=== PATIENT | female | born 1965 | race Caucasian/White ===

== ENCOUNTER → 2017-09-03 13:21 | Outpatient (CLI) | payer OTHER, SELFPAY ==
--- NOTE | 2017-09-03 13:23 | BI_ITS ---
MAMMOGRAPHY - BILATERAL SCREENING REASON FOR EXAM: Female, 52 years old. Routine annual screening examination. PERTINENT HISTORY: Non-contributory. TECHNIQUE: Digital bilateral breast surekha (3D mammographic acquisition) in the CC and MLO projections. 2-D mediolateral oblique (MLO) and craniocaudad (CC) views of both breasts were obtained. CAD: Full Field Digital Mammography with Computer Added Detection was performed. COMPARISON: Comparison is made with prior outside examination dated August 28, 2016. FINDINGS: Breast Composition: There are scattered areas of fibroglandular density. There are no dominant masses or suspicious calcifications. No other significant abnormalities are identified. There has been no significant change since the prior study. BI/SCREENING MAMM (CAD), BILAT IMPRESSION: Stable bilateral screening mammogram. Yearly follow-up mammogram recommended. (A) ASSESSMENT CATEGORY: BIRADS Category 1: Negative. A letter regarding these results will be sent to the patient by the facility within 30 days. Approximately 10% of breast cancers are not detected by mammography. A normal mammogram should not delay biopsy of a clinically suspicious abnormality. [id number] Electronically Signed: Saurabh Oneal MD at 15:16 EDT Tel [phone], Service support ,
== END ==
PROVIDERS: Family Provider Family Medicine; PCP Family Medicine; Visit Provider Obstetrics & Gynecology
DX: Z12.31 Encounter for screening mammogram for malignant neoplasm of breast (principal)
CPT/HCPCS: 77063; 77067

== ENCOUNTER → 2018-01-31 13:15 | Outpatient (CLI) | payer OTHER, SELFPAY ==
[2018-01-28 09:14] VITALS: BMI 41.1
--- NOTE | 2018-01-31 13:18 | US_ITS ---
STUDY: ULTRASOUND BREAST - RIGHT REASON FOR EXAM: Female, 52 years old. Pain in the right breast. TECHNIQUE: Axial and longitudinal images of the RIGHT breast were performed with a high resolution ultrasound transducer. COMPARISON: Comparison is made with prior mammogram done earlier in the day. FINDINGS: RIGHT Breast: The upper half of the right breast was examined by ultrasound. There is homogeneous fibroglandular tissue. No solid or cystic mass lesion is seen. US/Breast Limited Unilateral IMPRESSION: Unremarkable examination of the upper half of the right breast. ASSESSMENT CATEGORY: BIRADS Category 1: Negative. A letter regarding these results will be sent to the patient by the facility within 30 days. Electronically Signed: Saurabh Oneal MD at 15:05 EST Tel [phone], Service support ,
--- NOTE | 2018-01-31 13:18 | BI_ITS ---
MAMMOGRAPHY - UNILATERAL DIAGNOSTIC: RIGHT BREAST REASON FOR EXAM: Female, 52 years old. One-week history of right breast pain. PERTINENT HISTORY: Non-contributory. TECHNIQUE: Digital unilateral breast surekha (3D mammographic acquisition) in the CC and MLO projections. 2-D mediolateral oblique (MLO) and craniocaudad (CC) views of both breasts were obtained. CAD: Full Field Digital Mammography with Computer Added Detection was performed. COMPARISON: Comparison is made with prior study dated September 03, 2017. FINDINGS: Breast Composition: There are scattered areas of fibroglandular density. There are no dominant masses or suspicious calcifications. No other significant abnormalities are identified. There has been no significant change since the prior study. BI/DIAG MAMM W/CAD, UNILAT IMPRESSION: Stable unilateral diagnostic mammogram. With the patient's history of right breast pain, correlation with ultrasound is recommended. ASSESSMENT CATEGORY: BIRADS Category 0: Incomplete. Need additional imaging evaluation. A letter regarding these results will be sent to the patient by the facility within 30 days. Approximately 10% of breast cancers are not detected by mammography. A normal mammogram should not delay biopsy of a clinically suspicious abnormality. Electronically Signed: Saurabh Oneal MD at 15:00 EST Tel [phone], Service support ,
--- OUTSIDE RECORDS SUMMARY | 2018-03-26 21:17 | XMS RPT_ITS ---
:1965 Author Organization OHIP Support Name Relationship Address Phone RIKY MOSCOSO Unavailable [address] + [place] [address] WOOCISCH Unavailable [address] + [place] [address] DANISRIKY LOOMIS Unavailable [address] + [place] [address] WOOCISCH Unavailable [address] + [place] [address] RIKY MOSCOSO Unavailable [address] + [place] [address] WOOCISCH Unavailable [address] + [place] [address] RIKY MOSCOSO Unavailable [address] + [place] [address] WOOCISCH Unavailable [address] + [place] [address] RIKY MOSCOSO Unavailable [address] + [place] [address] WOOCISCH Unavailable [address] + [place] [address] DANIS RIKY Unavailable [address] + [place] [address] WOOCISCH Unavailable [address] + [place] [address] DANIS RIKY Unavailable [address] + [place] [address] WOOCISCH Unavailable [address] + [place] [address] DANIS RIKY Unavailable [address] + [place] [address] WOOCISCH Unavailable [address] + [place] [address] RIKY MOSCOSO Unavailable [address] + [place] [address] WOOCISCH Unavailable [address] + [place] [address] Care Team Providers Name Role Phone LAILA PEACOCK (AUTO SEAT COVER INSTALLER) Attending Unavailable CEBUL III, RAVINDER A Referring Unavailable LEMJACK TERESA (PT) Attending Unavailable LAILA PEACOCK (AUTO SEAT COVER INSTALLER) Referring Unavailable LAILA PEACOCK (AUTO SEAT COVER INSTALLER) Attending Unavailable LAILA PEACOCK (AUTO SEAT COVER INSTALLER) Referring Unavailable LEMONJACK (PT) Attending Unavailable AYUSH, LAILA Granda (AUTO SEAT COVER INSTALLER) Referring Unavailable LAILA PEACOCK (AUTO SEAT COVER INSTALLER) Attending Unavailable AYUSH, LAILA Granda (AUTO SEAT COVER INSTALLER) Referring Unavailable AYUSH, LAILA Granda (AUTO SEAT COVER INSTALLER) Referring Unavailable LAILA PEACOCK (AUTO SEAT COVER INSTALLER) Attending Unavailable LAILA PEACOCK (AUTO SEAT COVER INSTALLER) Referring Unavailable PEACOCK, LAILA Granda (AUTO SEAT COVER INSTALLER) Referring Unavailable CEBUL III, RAVINDER A Referring Unavailable Marcanthony, Tameka Attending Unavailable Cebul III, Ravinder Referring Unavailable Marcanthony, Tameka Attending Unavailable Marcanthony, Tameka Referring Unavailable Cebul III, Ravinder Primary Care Unavailable Marcanthony, Tameka Attending Unavailable Cebul III, Ravinder Referring Unavailable Cebul III, Ravinder Primary Care Unavailable Marcanthony, Tameka Attending Unavailable Cebul III, Ravinder Referring Unavailable Cebul III, Ravinder Primary Care Unavailable Marcanthony, Tameka Attending Unavailable Cebul III, Ravinder Referring Unavailable Cebul III, Ravinder Primary Care Unavailable Marcanthony, Tameka Attending Unavailable Cebul III, Ravinder Referring Unavailable Marcanthony, Tameka Attending Unavailable Cebul III, Ravinder Referring Unavailable Marcanthony, Tameka Attending Unavailable Cebul III, Ravinder Referring Unavailable Marcanthony, Tameka Attending Unavailable Cebul III, Ravinder Primary Care Unavailable PROBLEMS PROBLEMS DATE TYPE CONDITION / CODE ATTENDING STATUS SOURCE 07/22/2017 Active Radiculopathy, NA Active [facility] lumbar region / [facility] [place] M54.16(ICD-10) Repository 05/03/2017 Active Unknown / JACK HAUSER Active [facility] UNK(Unknown) (PT) [place] Repository 03/25/2015 Active Hypothyroidism, NA Active [facility] unspecified / [facility] [place] E03.9(ICD-10) Repository 04/15/2017 Active Elevated NA Active [facility] blood-pressure [facility] [place] reading, without Repository diagnosis of hypertension / R03.0(ICD-10) PROCEDURES PROCEDURES No Procedure Records FoundRESULTS RESULTS OBSOLETE Observed: 03/11/2018 Status: COMPLETED Source: [place] 12:00 AM [facility] REPOSITORY Refill (FAMPWS) GABRIEL MOSCOSO Harrison ([id number]) 1965 F Date Time Provider Department 03/11/18 RAVINDER FAUST III During your visit today, we recorded the following information about you: Tameka Boyle Psr 03/11/2018 3:53 PM Signed Patient has been identified by name and date of : Yes Pending Prescriptions Disp Refills GABAPENTIN 100 MG CAPSULE 60 capsule 2 Sig: Take 1 capsule by mouth twice daily for 90 days. CARO: No RX INSTRUCTIONS: Patient aware RX will be sent to pharmacy. No need to notify patient. Tameka Boyle Psr Ravinder Faust III MD 03/11/2018 6:39 PM Signed Appointment needed within the next month to follow-up prescription of controlled substance. Ravinder Faust III MD PDMP website checked and validated. All prescriptions have been APPROPRIATELY filled. No suspicious activity was identified. 03/11/2018 by TON Givens MD, LPN 03/11/2018 6:44 PM Signed Please schedule appt in the next month for controlled medication f/u. Thank you. Brea Abraham Psr 03/21/2018 3:02 PM Signed 1st attempt left message to call back to schedule with PCP for medication follow up in the next month. Angela Abraham Psr 03/22/2018 10:37 AM Signed Patient stated that she seen Pain Doctor yesterday and he will now order this medication for her and will no longer need PCP or Froy Peacock to order it. Patient declined to schedule. Allergies As of Date: 03/11/2018 Noted Allergy Reaction LEVAQUIN (LEVOFLOXACIN) 03/04/2015 6 - Diarrhea LISINOPRIL 07/07/2017 3 - Cough PENICILLINS 12/09/2004 Date Reviewed: 07/22/2017 Reviewed by: Laila Granda (Silvia) Ayush - Fully Assessed Reason for Visit: Refill Request [94] Visit Diagnoses:Neuropathic pain [M79.2] Lumbar radiculopathy [M54.16] Order(s):gabapentin (NEURONTIN) 100 mg capsuleTake 1 capsule by mouth twice daily for 90 days.Disp: 60 capsuleRfl: 0 Prescriptions as of 03/11/2018 Sig: GABAPENTIN 100 MG CAPSULE Take 1 capsule by mouth twice* LORATADINE 10 MG TABLET Take 1 tablet by mouth once d* LEVOTHYROXINE 137 MCG TABLET Take 1 tablet by mouth daily * GABAPENTIN 300 MG CAPSULE Take 1 capsule by mouth daily* PANTOPRAZOLE 20 MG TABLET,DEL* Take 1 tablet by mouth daily * SOLIFENACIN 10 MG TABLET Take 1 tablet by mouth once d* NYSTATIN 100,000 UNIT/GRAM TO* Apply 1 application to affect* Problem List As Of Date 03/11/2018 Noted Resolved Hypothyroidism [E03.9] INVALID FOR* Gastric Bypass Status for Obesity [Z98.84] INVALID FOR* Unspecified Iron Deficiency Anemia [D50.9] INVALID FOR* Acute gastritis without mention of hemorrhage [*INVALID FOR*09/18/2016 Menorrhagia [N92.0] INVALID FOR*04/15/2011 Sleep apnea [G47.30] INVALID FOR* Overactive bladder [N32.81] INVALID FOR* Urge incontinence [N39.41] INVALID FOR* Gastroesophageal reflux disease [K21.9] INVALID FOR* Bilateral leg pain [M79.604, M79.605] INVALID FOR* Obesity, Class III, BMI 40-49.9 (morbid obesity*INVALID FOR* Hypertension, essential [I10] INVALID FOR* Prescriptions ordered this encounter Disp Refills Start End GABAPENTIN 100 MG CAPSULE 60 c* 0 03/11/2018 06/09/2018 Route: ORAL Sig: Take 1 capsule by mouth twice daily for 90 days. Medications Discontinued During This Encounter gabapentin (NEURONTIN) 100 mg capsule 60 c* 2 07/27/2017 03/11/2018 Route: ORAL Sig: Take 1 capsule by mouth twice daily for 90 days. Disc: Reason for discontinue is not on file. Encounter Status:Closed by JOCELYN VILLALBA CMA on 03/22/18 OWNER OPERATOR OFFICE VISIT Observed: 02/09/2018 Status: F Source: [place] REPORT 1:11 AM [facility] REPOSITORY [facility] [address] [place] [address] OFFICE VISIT Date of Service: 02/08/18 MR#: [id number] Acct: [id number] Name: GABRIEL MOSCOSO Rep #: [id number] : 1965 Provider: Tameka Law MD Age/Sex: 52/F Location: [facility] [place] Status: Signed Intake Vital Signs02/08/18 Body Mass Index (BMI) 41.1 02/08/18 Height 5 ft 02/08/18 Weight: 215 lb 6 oz 02/08/18 Body Mass Index (BMI) 42.0 02/08/18 Blood Pressure 110/80 Intake Visit Reasons: IN-TONE F/U Chief Complaint: intone check Color Worker Required: No Is patient in pain?: No Allergies Penicillins Adverse Reaction (Verified 02/08/18 16:23) Rash Medications levothyroxine 100 mcg tablet 137 mcg PO DAILY tab 09/03/17 [History Confirmed 02/08/18] pantoprazole 40 mg tablet,delayed release 20 mg PO DAILY tab 09/03/17 [History Confirmed 02/08/18] Intone Device #1 ea 09/08/17 [Rx Confirmed 02/08/18] gabapentin 300 mg capsule 300 mg PO BID 01/28/18 [History Confirmed 02/08/18] Is last menstrual period known: No Post menopausal: No Patient : No : No PFSH Medical History HTN (hypertension), benign (Acute) Presence of artificial intra-ocular lens (Acute 2010) Surgical History H/O gastric bypass (Acute 2007) History of appendectomy (Acute) History of endometrial ablation (Acute) History of tonsillectomy (Acute) Family History Mother Cancer Lung Father Dementia Social History adopted: No household members: family housing: house number of children: 2 current occupational status: employed 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 she is wanting to increase her bladder medication back to 10 mg because her symptoms are worsening. she hasn't been using the intone as much lately and doesn't want that adjusted. she is also still having some migrating chest tenderness an had a fall so she is wondering if it is costochondritis. she can't take nsaids. Pregancy History 2 Elective abortions Hx Para 2 Spontaneous abortions Past Pregnancies Del. DatName GA/WeeksOutcome Route [facility] LocaProviderFOB e ht ia tn Unknown 1995- Pa ige Unknown 1997- ROS Const Constitutional: Denies poor appetite, headache(s), fever(s), increased appetite, weight gain, weight loss or fatigue ENT ENT: Denies dry mouth GI GI: Reports as per HPI; denies vomiting, nausea, abdominal pain or constipation : Denies nipple discharge Skin Skin/Breast: Denies hair loss, change in hair, dry skin, breast pain, breast skin changes, breast lump or nipple discharge Exam Const General: cooperative, healthy appearing, comfortable, no acute distress, well developed Orientation: alert HENTN Head: normal to inspection, normocephalic Ears: hearing grossly normal bilaterally, external ears normal Nose: external nose normal, nares normal Face and sinus: normal facial exam Neck Neck: normal visual inspection, trachea midline, no lymphadenopathy Thyroid: thyroid normal Resp Effort AND Inspection: normal respiratory effort Musc Other: gross motor intact no deficits, full bilateral strength Skin General: no rashes or lesions noted Neuro Motor: muscle tone normal throughout Assessment AND Plan Problems 1. BMI greater than 40 weight watchers, s/p adipex 2. Mixed stress and urge urinary incontinence N39.46 vesicare 10 mg, intone- inflation 11 and stim N/S at 18, s/p E/W at 15 Plan increase vesicare and fu when desires change in intone device stimulation. Coding Level of Care Code Off vis,est,level 3 Diagnoses BMI greater than 40 Mixed stress and urge urinary incontinence N39.46 02/09/18 0111 <Electronically signed by Tameka Law MD> Date Tameka Law MD Cosigner Signature: Date (if applicable) CC: DIAG MAMM W/CAD, Observed: 01/31/2018 Status: F Source: [facility] 1:18 PM [facility] REPOSITORY [facility] Imaging Services [address] [place] [id number] DIAG MAMM W/CAD, UNILAT MR#: [id number] Acct: [id number] Name: GABRIEL MOSCOSO Rep #: [id number] : 1965 F 52 From: Saurabh Oneal MD PCP: Ravindre Faust III, MD Status: REG CLI Study: DIAG MAMM W/CAD, UNILAT Date of Exam: 01/31/18 Exam# [id number] Ordering Dr: Tameka Law MD MAMMOGRAPHY - UNILATERAL DIAGNOSTIC: RIGHT BREAST REASON FOR EXAM: Female, 52 years old. One-week history of right breast pain. PERTINENT HISTORY: Non-contributory. TECHNIQUE: Digital unilateral breast surekha (3D mammographic acquisition) in the CC and MLO projections. 2-D mediolateral oblique (MLO) and craniocaudad (CC) views of both breasts were obtained. CAD: Full Field Digital Mammography with Computer Added Detection was performed. COMPARISON: Comparison is made with prior study dated September 03, 2017. FINDINGS: Breast Composition: There are scattered areas of fibroglandular density. There are no dominant masses or suspicious calcifications. No other significant abnormalities are identified. There has been no significant change since the prior study. BI/DIAG MAMM W/CAD, UNILAT IMPRESSION: Stable unilateral diagnostic mammogram. With the patient's history of right breast pain, correlation with ultrasound is recommended. ASSESSMENT CATEGORY: BIRADS Category 0: Incomplete. Need additional imaging evaluation. A letter regarding these results will be sent to the patient by the facility within 30 days. Approximately 10% of breast cancers are not detected by mammography. A normal mammogram should not delay biopsy of a clinically suspicious abnormality. Electronically Signed: Saurabh Oneal MD at 15:00 EST Tel [phone], Service support , CC: Ravinder Faust III, MD; Tameka Law MD Purchasing Administrator: Signed BREAST LIMITED Observed: 01/31/2018 Status: F Source: [place] 1:18 PM [facility] REPOSITORY [facility] Imaging Services [address] [place] [id number] Breast Limited Unilateral MR#: [id number] Acct: [id number] Name: GABRIEL MOSCOSO Rep #: [id number] : 1965 F 52 From: Saurabh Oneal MD PCP: Ravinder Faust III, MD Status: REG CLI Study: Breast Limited Unilateral Date of Exam: 01/31/18 Exam# [id number] Ordering Dr: Tameka Law MD STUDY: ULTRASOUND BREAST - RIGHT REASON FOR EXAM: Female, 52 years old. Pain in the right breast. TECHNIQUE: Axial and longitudinal images of the RIGHT breast were performed with a high resolution ultrasound transducer. COMPARISON: Comparison is made with prior mammogram done earlier in the day. FINDINGS: RIGHT Breast: The upper half of the right breast was examined by ultrasound. There is homogeneous fibroglandular tissue. No solid or cystic mass lesion is seen. US/Breast Limited Unilateral IMPRESSION: Unremarkable examination of the upper half of the right breast. ASSESSMENT CATEGORY: BIRADS Category 1: Negative. A letter regarding these results will be sent to the patient by the facility within 30 days. Electronically Signed: Saurabh Oneal MD at 15:05 EST Tel [phone], Service support , CC: Ravinder Faust III, MD; Tameka Law MD Purchasing Administrator: Signed OWNER OPERATOR OFFICE VISIT Observed: 01/28/2018 Status: F Source: [place] REPORT 10:20 AM [facility] [address] [place] [address] OFFICE VISIT Date of Service: 01/28/18 MR#: [id number] Acct: [id number] Name: GABRIEL MOSCOSO Rep #: [id number] : 1965 Provider: Tameka Law MD Age/Sex: 52/F Location: [facility] [place] Status: Signed Intake Vital Signs01/28/18 Height 5 ft 0.25 in 01/28/18 Weight: 212 lb 8 oz 01/28/18 Body Mass Index (BMI) 41.1 01/28/18 Blood Pressure 104/76 Intake Visit Reasons: Breast pain Chief Complaint: right breast pain Color Worker Required: No Is patient in pain?: Yes Allergies Penicillins Adverse Reaction (Verified 01/28/18 09:15) Rash Medications levothyroxine 100 mcg tablet 137 mcg PO DAILY tab 09/03/17 [History Confirmed 01/28/18] pantoprazole 40 mg tablet,delayed release 20 mg PO DAILY tab 09/03/17 [History Confirmed 01/28/18] Intone Device #1 ea 09/08/17 [Rx Confirmed 01/28/18] gabapentin 300 mg capsule 300 mg PO BID 01/28/18 [History Confirmed 01/28/18] Is last menstrual period known: No Post menopausal: No Patient : No : No PFSH Medical History HTN (hypertension), benign (Acute) Presence of artificial intra-ocular lens (Acute 2010) Surgical History H/O gastric bypass (Acute 2007) History of appendectomy (Acute) History of endometrial ablation (Acute) History of tonsillectomy (Acute) Family History Mother Cancer Lung Father Dementia Social History adopted: No household members: family housing: house number of children: 2 current occupational status: employed 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 she admits several right sided breast pain for the last few days and she denies any discharge but possibly sees a change in the desnity pattern to the breast. she denies any other symptoms at present. s he denies any caffeine Pregancy History 2 Elective abortions Hx Para 2 Spontaneous abortions Past Pregnancies Del. DatName [facility]Out[facility] LocaProviderFOB e ht en ia tn Unknown 1995- Pa ige Unknown 1997- ROS Const Constitutional: Denies poor appetite, headache(s), fever(s), increased appetite, weight gain, weight loss or fatigue ENT ENT: Denies dry mouth GI GI: Reports as per HPI; denies vomiting, nausea, abdominal pain or constipation : Reports as per HPI Skin Skin/Breast: Reports as per HPI; denies hair loss, change in hair or dry skin Exam Const General: cooperative, healthy appearing, comfortable, no acute distress, well developed Nutritional Appearance: average body habitus Orientation: alert [facility] Head: normal to inspection, normocephalic Ears: hearing grossly normal bilaterally, external ears normal Nose: external nose normal, nares normal Face and sinus: normal facial exam Neck Neck: normal visual inspection, trachea midline, no lymphadenopathy Thyroid: thyroid normal Chest Chest palpation AND inspection: normal inspection of the chest Breast inspection: normal inspection of the breasts, normal inspection of the axillae Breast palpation: normal palpation of the axillae, no axillary lymphadenopathy, abnormal palpation of the breast (right tenderness no discrete mass) Resp Effort AND Inspection: normal respiratory effort GI Inspection: normal to inspection, non-distended Palpation: soft, no hepatosplenomegaly Musc Other: gross motor intact no deficits, full bilateral strength Skin General: no rashes or lesions noted Neuro General: alert, awake, no focal motor deficits, moves all extremities Motor: muscle tone normal throughout Extrem General: normal to inspection, no pedal edema Psych Appearance: grossly normal Mental Status: mental status grossly normal Affect: normal affect Speech and Movement: speech and movement normal Assessment AND Plan Problems 1. Mastalgia N64.4 Plan recommend imaging, discussed conservative management. not a candidate for nsaids. recommend fu in 1 month if normal imaging and no improvement Orders Orders: Coding Level of Care Code Off vis,est,level 4 Diagnoses Mastalgia N64.4 01/28/18 1020 <Electronically signed by Tameka Law MD> Date Tameka Law MD Cosigner Signature: Date (if applicable) CC: CNNURSE Observed: 01/26/2018 Status: COMPLETED Source: [place] 1:00 PM [facility] REPOS[facility] Nurse Visit (FAMPWS) GABRIEL MOSCOSO ([id number]) 1965 F Date Time Provider Department 01/26/18 1:00 PM [place] NURSE ROSA ELENA During your visit today, we recorded the following information about you: Pulse Blood pressure 74/minute 126/84 Lala Li LPN 01/26/2018 1:03 PM Signed Manual Readin/84 Pulse: 74 Reason for blood pressure check - Medication adjustment Patient is: Taking medication as prescribed Yes Took medication today Yes If no, date medication last taken N/A Experiencing side effects No BP has been running on the lower side recently since recent weight loss. Has not been on the Losartan for approx 3 weeks. Denies any chest pain, shortness of breath, dizziness, or headaches. Drinks decaf. No personal history of tobacco use; no current exposure. Alert and oriented. Pt has been identified by name and birthdate: Yes Allergies reviewed: Yes Latex allergy: no. Medication - prescribed and OTC reviewed and updated: Yes Do you need any prescription refills prior to your next visit: No Health Maintenance: Reviewed and not up to date and provider notified Patient advised to continue with current medications and would be contacted with any further instructions after review by PCP. Lala Li LPN Referring Provider: SELF [200] Allergies As of Date: 01/26/2018 Noted Allergy Reaction LEVAQUIN (LEVOFLOXACIN) 03/04/2015 6 - Diarrhea LISINOPRIL 07/07/2017 3 - Cough PENICILLINS 12/09/2004 Date Reviewed: 07/22/2017 Reviewed by: Laila Granda (Silvia) Ayush - Fully Assessed Reason for Visit: Blood Pressure Check [195] Primary Visit Diagnosis:Hypertension, essential [I10] Prescriptions as of 01/26/2018 Sig: LORATADINE 10 MG TABLET Take 1 tablet by mouth once d* LEVOTHYROXINE 137 MCG TABLET Take 1 tablet by mouth daily * PANTOPRAZOLE 20 MG TABLET,DEL* Take 1 tablet by mouth daily * SOLIFENACIN 10 MG TABLET Take 1 tablet by mouth once d* NYSTATIN 100,000 UNIT/GRAM TO* Apply 1 application to affect* GABAPENTIN 300 MG CAPSULE Take 1 capsule by mouth daily* GABAPENTIN 100 MG CAPSULE Take 1 capsule by mouth twice* Problem List As Of Date 01/26/2018 Noted Resolved Hypothyroidism [E03.9] INVALID FOR* Gastric Bypass Status for Obesity [Z98.84] INVALID FOR* Unspecified Iron Deficiency Anemia [D50.9] INVALID FOR* Acute gastritis without mention of hemorrhage [*INVALID FOR*09/18/2016 Menorrhagia [N92.0] INVALID FOR*04/15/2011 Sleep apnea [G47.30] INVALID FOR* Overactive bladder [N32.81] INVALID FOR* Urge incontinence [N39.41] INVALID FOR* Gastroesophageal reflux disease [K21.9] INVALID FOR* Bilateral leg pain [M79.604, M79.605] INVALID FOR* Obesity, Class III, BMI 40-49.9 (morbid obesity*INVALID FOR* Hypertension, essential [I10] INVALID FOR* Encounter Status:Closed by LALA LI LPN on 01/26/18 PROGRESS Observed: 01/26/2018 Status: COMPLETED Source: [place] 12:57 PM [facility] REPOSITORY O ID: [id number] Author: Lala Li LPN Service: (none) Author Type: (none) Type: Progress Notes Filed: 01/26/2018 1:03 PM Note Text: Manual Readin/84 Pulse: 74 Reason for blood pressure check - Medication adjustment Patient is: Taking medication as prescribed Yes Took medication today Yes If no, date medication last taken N/A Experiencing side effects No BP has been running on the lower side recently since recent weight loss. Has not been on the Losartan for approx 3 weeks. Denies any chest pain, shortness of breath, dizziness, or headaches. Drinks decaf. No personal history of tobacco use; no current exposure. Alert and oriented. Pt has been identified by name and birthdate: Yes Allergies reviewed: Yes Latex allergy: no. Medication - prescribed and OTC reviewed and updated: Yes Do you need any prescription refills prior to your next visit: No Health Maintenance: Reviewed and not up to date and provider notified Patient advised to continue with current medications and would be contacted with any further instructions after review by PCP. Lala Li LPN CNPN Observed: 01/03/2018 Status: COMPLETED Source: [place] 12:00 AM [facility] REPOSITORY Telephone (FAMPWS) GABRIEL MOSCOSO ([id number]) 1965 F Date Time Provider Department 01/03/18 [facility] During your visit today, we recorded the following information about you: Surjit Rhodes RN 01/03/2018 10:49 AM Signed Patient reports she has lost 30 #, now down to 209 #. Reports her BP's have been running 110/72. Has been getting readings at Dr. Favio Grewal - [facility] [place] office, and is going to ask her to fax the readings to pcp. Reports she is with weight watchers and plans to lose more weight, and has been taking half of her losartan 50 mg tab, since July. Asking if she can discontinue her BP medication at this time? Please advise. Also requesting refill on loratadine. Pended. Last ov w/Acquisition Editor: 07-22-17. Next appt: none. Laila Peacock, MSN EMAIL MARKETING ASSISTANT.OBIEE LEAD DEVELOPER 01/03/2018 10:53 AM Signed Yes, OK to discontinue Losartan. Recommend nurse visit BP check in 3-4 weeks off of medication to make sure still OK and in acceptable range off medication. Kudos to weight loss efforts. Keep it up. Telephone on 01/03/18 -loratadine (CLARITIN) 10 mg tablet Laila Peacock, MSN EMAIL MARKETING ASSISTANT.JASON Galicia LPN 01/03/2018 11:20 AM Signed Left message of Laila's instructions on pt's identified vm. Asked pt to call back to schedule NV bp check in 3-4 weeks. Brea Guzman RN 01/06/2018 8:52 AM Signed Patient returned call. Scheduled for BP check on 01/26. Johanna Guzman RN Allergies As of Date: 01/03/2018 Noted Allergy Reaction LEVAQUIN (LEVOFLOXACIN) 03/04/2015 6 - Diarrhea LISINOPRIL 07/07/2017 3 - Cough PENICILLINS 12/09/2004 Date Reviewed: 07/22/2017 Reviewed by: Laila Granda (Silvia) Ayush - Fully Assessed Reason for Visit: BP medication/changes [Other] Order(s):loratadine (CLARITIN) 10 mg tabletTake 1 tablet by mouth once daily.Disp: 90 tabletRfl: 3 Prescriptions as of 01/03/2018 Sig: LORATADINE 10 MG TABLET Take 1 tablet by mouth once d* LEVOTHYROXINE 137 MCG TABLET Take 1 tablet by mouth daily * GABAPENTIN 300 MG CAPSULE Take 1 capsule by mouth daily* GABAPENTIN 100 MG CAPSULE Take 1 capsule by mouth twice* PANTOPRAZOLE 20 MG TABLET,DEL* Take 1 tablet by mouth daily * SOLIFENACIN 10 MG TABLET Take 1 tablet by mouth once d* NYSTATIN 100,000 UNIT/GRAM TO* Apply 1 application to affect* Problem List As Of Date 01/03/2018 Noted Resolved Hypothyroidism [E03.9] INVALID FOR* Gastric Bypass Status for Obesity [Z98.84] INVALID FOR* Unspecified Iron Deficiency Anemia [D50.9] INVALID FOR* Acute gastritis without mention of hemorrhage [*INVALID FOR*09/18/2016 Menorrhagia [N92.0] INVALID FOR*04/15/2011 Sleep apnea [G47.30] INVALID FOR* Overactive bladder [N32.81] INVALID FOR* Urge incontinence [N39.41] INVALID FOR* Gastroesophageal reflux disease [K21.9] INVALID FOR* Bilateral leg pain [M79.604, M79.605] INVALID FOR* Obesity, Class III, BMI 40-49.9 (morbid obesity*INVALID FOR* Hypertension, essential [I10] INVALID FOR* Prescriptions ordered this encounter Disp Refills Start End LORATADINE 10 MG TABLET 90 t* 3 01/03/2018 Route: ORAL Sig: Take 1 tablet by mouth once daily. Medications Discontinued During This Encounter loratadine (CLARITIN) 10 mg tablet 90 t* 3 09/18/2016 01/03/2018 Route: ORAL Sig: Take 1 tablet by mouth once daily. Disc: Reason for discontinue is not on file. losartan (COZAAR) 50 mg tablet 30 t* 5 07/27/2017 01/03/2018 Route: ORAL Sig: Take 1 tablet by mouth once daily. Disc: Clinical Decision Encounter Status:Closed by BREA GALICIA LPN on 01/03/18 OWNER OPERATOR OFFICE VISIT Observed: 12/26/2017 Status: F Source: [place] 1:27 AM [facility] [address] [place] [address] OFFICE VISIT Date of Service: 12/22/17 MR#: [id number] Acct: [id number] Name: GABRIEL MOSCOSO Rep #: [id number] : 1965 Provider: Tameka Law MD Age/Sex: 52/F Location: [facility] [place] Status: Signed Intake Vital Signs12/22/17 Height 5 ft 12/22/17 Blood Pressure 120/66 Intake Visit Reasons: Intone follow-up Color Worker Required: No Is patient in pain?: No Allergies Penicillins Adverse Reaction (Verified 12/22/17 16:01) Rash Medications Loratadine [Allergy Relief] 10 mg PO DAILY 09/01/16 [History Confirmed 12/22/17] levothyroxine 100 mcg tablet 137 mcg PO DAILY tab 09/03/17 [History Confirmed 12/22/17] losartan 50 mg-hydrochlorothiazide 12.5 mg tablet 1 tab PO QDAY 09/03/17 [History Confirmed 12/22/17] pantoprazole 40 mg tablet,delayed release 20 mg PO DAILY tab 09/03/17 [History Confirmed 12/22/17] Intone Device #1 ea 09/08/17 [Rx Confirmed 12/22/17] phentermine 37.5 mg tablet 37.5 mg PO QDAY #30 tab 10/08/17 [Rx Confirmed 12/22/17] prednisone 10 mg tablet 10 mg PO DAILY 11/25/17 [History Confirmed 12/22/17] solifenacin 5 mg tablet 5 mg PO QDAY #30 tab 11/27/17 [Rx Confirmed 12/22/17] Is last menstrual period known: No Post menopausal: No Patient : No : No PFSH PFSH Medical History HTN (hypertension), benign (Acute) Presence of artificial intra-ocular lens (Acute 2010) Surgical History H/O gastric bypass (Acute 2007) History of appendectomy (Acute) History of endometrial ablation (Acute) History of tonsillectomy (Acute) Family History Mother Cancer Lung Father Dementia Social History adopted: No household members: family housing: house number of children: 2 current occupational status: employed 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 DatName GA/WeeksOutcome Route [facility]n Unknown 1995- ige Unknown 1997- HPI Intone follow-up: Details: GABRIEL MOSCOSO is a 52 year old who presents for fu of intone. she is doing well and wants to switch back to [facility]. she was on 15 stim e/w and previously did 18 stim on n/s. symptoms are stable with no improvement since last visit. ROS Const Constitutional: Reports system reviewed and no additional complaints, except as docu : Reports urinary incontinence, urinary frequency and urinary urgency Exam Const General: cooperative, healthy appearing, comfortable, well developed Orientation: alert Resp Effort AND Inspection: normal respiratory effort GI Inspection: normal to inspection, non-distended Palpation: soft, no hepatosplenomegaly, no guarding Assessment AND Plan Problems 1. Mixed stress and urge urinary incontinence N39.46 vesicare, intone- inflation 11 and stim N/S at 18, s/p E/W at 15 Plan intone device reset to new level and plan fu in 3-4 weeks Coding Level of Care Code Off vis,est,level 3 Diagnoses Mixed stress and urge urinary incontinence N39.46 12/26/17 0127 <Electronically signed by Tameka Law MD> Date Tameka Law MD [facility] Signature: Date (if applicable) CC: PROGRESS Observed: 12/02/2017 Status: COMPLETED Source: [place] 7:06 PM [facility] [place] REPOSITORY HNO ID: [id number] Author: Ravinder Faust III Service: (none) Author Type: Physician Type: Progress Notes Filed: 12/02/2017 7:06 PM Note Text: Thyroid lab is normal. And tinea present dose of thyroid medication and recheck thyroid lab in 1 year. Ravinder Faust III, MD, FAAFP CNCO Observed: 12/02/2017 Status: COMPLETED Source: [place] 12:00 AM [facility] REPOSITORY Letter Text Ravinder Segovia M.D. [address] [address] Gabriel Moscoso [address] [place] [address] Clinic #: [id number] 12/02/2017 Dear Deloris Moscoso, I have received the results of your recent tests. Thyroid lab is normal. ?And tinea present dose of thyroid medication and recheck thyroid lab in 1 year. We can discuss this at your next visit. Please do not hesitate to contact me with any questions. Sincerely, Ravinder Segovia M.D. electronically signed to expedite mailing TSH Collected: 12/01/2017 Status: F Source: [place] 1:14 PM [facility] REPOSITORY TYPE CODE TESTS RESULT OUT OF RANGE REFERENCE UNITS LAB TSH 0.400-5.500 uU/mL TSH 1.600 Performed By: #### TSH #### [facility] [address] [place], [place] [address] OWNER OPERATOR OFFICE VISIT Observed: 11/27/2017 Status: F Source: [place] 12:29 PM [facility] REPOSITORY [facility] [address] [place] [address] OFFICE VISIT Date of Service: 11/25/17 MR#: [id number] Acct: [id number] Name: GABRIEL MOSCOSO Rep #: [id number] : 1965 Provider: Tameka Law MD Age/Sex: 52/F Location: [facility] [place] Status: Signed Intake Vital Signs11/25/17 Height 5 ft 11/25/17 Weight: 211 lb 11/25/17 Body Mass Index (BMI) 41.2 11/25/17 Blood Pressure 108/80 Intake Visit Reasons: INTONE FOLLOW UP Chief Complaint: intone check Color Worker Required: No Is patient in pain?: No Allergies Penicillins Adverse Reaction (Verified 11/25/17 16:07) Rash Medications Loratadine [Allergy Relief] 10 mg PO DAILY 09/01/16 [History Confirmed 10/27/17] levothyroxine 100 mcg tablet 137 mcg PO DAILY tab 09/03/17 [History Confirmed 10/27/17] losartan 50 mg-hydrochlorothiazide 12.5 mg tablet 1 tab PO QDAY 09/03/17 [History Confirmed 10/27/17] pantoprazole 40 mg tablet,delayed release 20 mg PO DAILY tab 09/03/17 [History Confirmed 10/27/17] Intone Device #1 ea 09/08/17 [Rx Confirmed 10/27/17] phentermine 37.5 mg tablet 37.5 mg PO QDAY #30 tab 10/08/17 [Rx Confirmed 10/27/17] prednisone 10 mg tablet 10 mg PO DAILY 11/25/17 [History Confirmed 11/25/17] solifenacin 5 mg tablet 5 mg PO QDAY #30 tab 11/27/17 [Rx Confirmed 11/27/17] Is last menstrual period known: No Post menopausal: No Patient : No : No PFSH Medical History HTN (hypertension), benign (Acute) Presence of artificial intra-ocular lens (Acute 2010) Surgical History H/O gastric bypass (Acute 2007) History of appendectomy (Acute) History of endometrial ablation (Acute) History of tonsillectomy (Acute) Family History Mother Cancer Lung Father Dementia Social History adopted: No household members: family housing: house number of children: 2 current occupational status: employed 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 she has an inflation level of 11 and stim n/w of 18. she has been compliant and her values were reviewed and look to be improving. she is noticing great success even more so than her last visit. she is barely using protection and wants to go down on her vesicare also. Pregancy History 2 Elective abortions Hx Para 2 Spontaneous abortions Past Pregnancies Del. DatName GA/WeeksOutcome Route [facility] LocaProviderFOB e ht en ia tn Unknown 1995- Pa ige Unknown 1997- ROS Const Constitutional: Reports system reviewed and no additional complaints, except as docu : Reports as per HPI and urinary incontinence Exam Const General: cooperative, healthy appearing, comfortable, no acute distress, well developed Nutritional Appearance: average body habitus Orientation: alert [facility] Head: normal to inspection, normocephalic Ears: hearing grossly normal bilaterally, external ears normal Nose: external nose normal, nares normal Face and sinus: normal facial exam Neck Neck: normal visual inspection, trachea midline, no lymphadenopathy Thyroid: thyroid normal Resp Effort AND Inspection: normal respiratory effort Musc Other: gross motor intact no deficits, full bilateral strength Skin General: no rashes or lesions noted Neuro Motor: muscle tone normal throughout Assessment AND Plan Problems 1. Mixed stress and urge urinary incontinence N39.46 vesicare, intone- inflation 11 and s/p stim N/S at 18, now E/W at 15 Plan see problem list details. 12 minute treatment completed, fu in 4 weeks for adjustment, decrease vesicare to 5 mg Medications Changed: Coding Level of Care Code Off vis,est,level 4 Diagnoses Mixed stress and urge urinary incontinence N39.46 11/27/17 1229 <Electronically signed by Tameka Law MD> Date Tameka Law MD Cosigner Signature: Date (if applicable) CC: OWNER OPERATOR OFFICE VISIT Observed: 10/28/2017 Status: F Source: [place] RE[place] 6:19 AM [facility] [place] [place] [address] [place] [address] OFFICE VISIT Date of Service: 10/27/17 MR#: [id number] Acct: [id number] Name: GABRIEL MOSCOSO Rep #: [id number] : 1965 Provider: Tameka Law MD Age/Sex: 52/F Location: [facility] [place] Status: Signed Intake Vital Signs10/27/17 Height 5 ft 0.25 in 10/27/17 Weight: 213 lb 10/27/17 Body Mass Index (BMI) 41.2 10/27/17 Blood Pressure 110/84 Intake Visit Reasons: intone Check Chief Complaint: intone check Color Worker Required: No Is patient in pain?: No Allergies Penicillins Adverse Reaction (Verified 10/27/17 07:52) Rash Medications Loratadine [Allergy Relief] 10 mg PO DAILY 09/01/16 [History Confirmed 10/27/17] levothyroxine 100 mcg tablet 137 mcg PO DAILY tab 09/03/17 [History Confirmed 10/27/17] losartan 50 mg-hydrochlorothiazide 12.5 mg tablet 1 tab PO QDAY 09/03/17 [History Confirmed 10/27/17] pantoprazole 40 mg tablet,delayed release 20 mg PO DAILY tab 09/03/17 [History Confirmed 10/27/17] solifenacin 10 mg tablet 10 mg PO QDAY #30 tab 09/03/17 [Rx Confirmed 10/27/17] Intone Device #1 ea 09/08/17 [Rx Confirmed 10/27/17] phentermine 37.5 mg tablet 37.5 mg PO QDAY #30 tab 10/08/17 [Rx Confirmed 10/27/17] Is last menstrual period known: No Post menopausal: No Patient : No : No PFSH Medical History HTN (hypertension), benign (Acute) Presence of artificial intra-ocular lens (Acute 2010) Surgical History H/O gastric bypass (Acute 2007) History of appendectomy (Acute) History of endometrial ablation (Acute) History of tonsillectomy (Acute) Family History Mother Cancer Lung Father Dementia Social History adopted: No household members: family housing: house number of children: 2 current occupational status: employed 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 this is her first follow up. she has been using it consistently and she has noticed a 20 percent or more improvement in symptoms. she uses 1-2 pads daily and she has less urgency and more control. Female Reproductive History Cycle Length: 21-35 Questions: Metorrhagia: No, Sexually active: Yes, Dyspareunia: No, PCB: No Pregancy History 2 Elective abortions Hx Para 2 Spontaneous abortions Past Pregnancies Del. DatName GA/WeeksOutcome Route [facility] LocaProviderFO[facility]t en ia tn Unknown 1995- Pa ige Unknown 1997- ROS Cardio Card: Denies chest pain Resp Resp: Denies dyspnea or cough GI GI: Reports as per HPI; denies vomiting, nausea, abdominal pain or constipation : Denies nipple discharge Skin Skin/Breast: Denies breast lump, breast pain, breast skin changes, nipple discharge or change in hair Exam Const General: cooperative, healthy appearing, comfortable, no acute distress, well developed Nutritional Appearance: average body habitus Orientation: alert [facility] Head: normal to inspection, normocephalic Neck Neck: normal visual inspection, trachea midline Thyroid: thyroid normal Resp Effort AND Inspection: normal respiratory effort GI Inspection: normal to inspection, non-distended Palpation: soft, no hepatosplenomegaly General: bladder normal to palpation External Female Exam: normal external appearance, normal appearance of the urethra Urethra: normal appearance of the urethra, normal palpation, no discharge Speculum Exam - Vagina: normal appearance of the vagina, normal vaginal discharge Speculum Exam - Cervix: normal appearance of the cervix, nontender Bimanual Exam- Vagina AND Uterus: bladder normal to palpation, No cervical tenderness, normal bimanual exam, uterine size normal, uterine shape normal, uterine mobility normal, uterine consistency normal, normal cervical palpation, uterus non-tender Bimanual Exam- Adnexa, other: normal adnexae, adnexae mobile, no adnexal masses, pelvic support normal Pelvic Support: normal Skin General: no rashes or lesions noted Assessment AND Plan Problems 1. Mixed stress and urge urinary incontinence N39.46 vesicare, intone- inflation 12 and stim at 18 2. BMI greater than 40 weight watchers, s/p adipex Plan see problem list details. intone device adjusted. N/S orientation. fu 4 weeks Coding Level of Care Code Off vis,est,level 3 Diagnoses Mixed stress and urge urinary incontinence N39.46 BMI greater than 40 10/28/17 0619 <Electronically signed by Tameka Law MD> Date Tameka Law MD Cosigner Signature: Date (if applicable) CC: OWNER OPERATOR OFFICE VISIT Observed: 10/09/2017 Status: F Source: [place] 7:23 AM [facility] [place] [place] [address] [place] [address] OFFICE VISIT Date of Service: 10/07/17 MR#: [id number] Acct: [id number] Name: GABRIEL MOSCOSO Rep #: [id number] : 1965 Provider: Tameka Law MD Age/Sex: 52/F Location: [facility] [place] Status: Signed Intake Vital Signs10/07/17 Height 5 ft 10/07/17 Weight: 216 lb 6 oz 10/07/17 Body Mass Index (BMI) 42.3 10/07/17 Blood Pressure 124/92 Intake Visit Reasons: MED FOLLOW UP / NEW INTONE Color Worker Required: No Is patient in pain?: No Allergies Penicillins Adverse Reaction (Verified 10/07/17 09:41) Rash Medications Loratadine [Allergy Relief] 10 mg PO DAILY 09/01/16 [History Confirmed 10/07/17] levothyroxine 100 mcg tablet 137 mcg PO DAILY tab 09/03/17 [History Confirmed 10/07/17] losartan 50 mg-hydrochlorothiazide 12.5 mg tablet 1 tab PO QDAY 09/03/17 [History Confirmed 10/07/17] pantoprazole 40 mg tablet,delayed release 20 mg PO DAILY tab 09/03/17 [History Confirmed 10/07/17] solifenacin 10 mg tablet 10 mg PO QDAY #30 tab 09/03/17 [Rx Confirmed 10/07/17] Intone Device #1 ea 09/08/17 [Rx Confirmed 10/07/17] phentermine 37.5 mg tablet 37.5 mg PO QDAY #30 tab 10/08/17 [Rx Confirmed 10/08/17] PFSH Medical History HTN (hypertension), benign (Acute) Presence of artificial intra-ocular lens (Acute 2010) Surgical History H/O gastric bypass (Acute 2007) History of appendectomy (Acute) History of endometrial ablation (Acute) History of tonsillectomy (Acute) Family History Mother Cancer Lung Father Dementia Social History adopted: No household members: family housing: house number of children: 2 current occupational status: employed 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: Yes history of recent travel: Yes ([place], [place], and [place]) out of country: Yes Smoking Status: Never smoker alcohol intake: current alcohol intake frequency: a few times a week substance use type: does not use seatbelt use: always do you feel safe at home: Yes additional social history: - Riky [facility] MED FOLLOW UP / NEW INTONE: Details: GABRIEL MOSCOSO is a 52 year old who presents for Here for mixed leakage She has had Kegels instruction documented and failed after 4 weeks (and/or pelvis floor exercises failure documented) Primary Diagnosis/Chief Complaint: urine leakage Current Incontinence Status: 1. Number of pads per day: 2-3 2. Type of pads used: regular 3. Frequency of voiding (number of times per day): every hour Treatment Plan - Instruction in the use of InTone: Based on the patient's primary diagnosis and prior history of incontinence management (see above), it has been determined that the patient may benefit from the use of InTone. The patient was instructed in the use of the InTone and successfully completed an entire session under clinical observation; the patient was provided a device for home use. Specifically, the following was completed: Patient confirms that they understand the InTone Treatment Protocol (6x/week for weeks). Patient demonstrated proper body positioning while using InTone (supine, knees bent to ceiling, upper back/neck supported) OR Other positions: supine Patient demonstrated independent ability to connect, lubricate, and insert the InTone device a minimum of 4 inches. Inflation value was evaluated and Patient was informed of her proper inflation level 9. Patient demonstrated independent ability to inflate the InTone device to its proper inflation level while inserted. Positioning of the device was evaluated and the patient was instructed to maintain North/South orientation of electrodes OR rotate to an East/West orientation and demonstrated independent positioning of the In Tone. north south Stimulation level was evaluated and set at 12 and the patient reports perceiving a comfortable circumferential vaginal contraction. Patient completed her 12-minute in-office session with coaching from the clinician. Coaching provided included: incresaing stimulation, encouraging correct positioning Following coaching, the patient was independent/required assistance with completion of volitional pelvic floor exercises without compensatory strategies. Patient was instructed in proper cleaning, storage, and charging of the InTone device; the patient performed these operations independently and without questions. Data was reviewed immediately after the in-office session to confirm: Start Pressure correlates to inflation value, Baseline Contraction Pressures are HIGHER than Start Pressure and Stimulation Average Pressure is HIGHER than Start Pressure. Recording of Data from InTone Session: Clinician confirms that data from the patient's 1st in-office InTone session has been reviewed as necessary. Treatment Plan - Physician Assessment and Recommendations: Assessment: see diagnosis/plan Recommendations: Discussed with patient Plan: Initiate InTone therapy (@six 12-minute sessions per week) Pregancy History 2 Elective abortions Hx Para 2 Spontaneous abortions Past Pregnancies Del. DatName GA/WeeksOutcome Route [facility] LocaProviderFOB e ht en ia tn Unknown 1995- ige Unknown 1997- ROS Const Constitutional: Denies poor appetite, headache(s), fever(s), increased appetite, weight gain, weight loss or fatigue Exam Const General: cooperative, healthy appearing, comfortable, no acute distress, well developed Nutritional Appearance: average body habitus Orientation: alert General: bladder normal to palpation External Female Exam: normal external appearance, normal appearance of the urethra Urethra: normal appearance of the urethra, normal palpation, no discharge Speculum Exam - Vagina: normal appearance of the vagina, normal vaginal discharge Speculum Exam - Cervix: normal appearance of the cervix, nontender Bimanual Exam- Vagina AND Uterus: bladder normal to palpation, No cervical tenderness, normal bimanual exam, uterine size normal, uterine shape normal, uterine mobility normal, uterine consistency normal, normal cervical palpation, uterus non-tender Bimanual Exam- Adnexa, other: normal adnexae, adnexae mobile, no adnexal masses, pelvic support normal Pelvic Support: normal Assessment AND Plan Problems 1. Mixed stress and urge urinary incontinence N39.46 vesicare, discussed intone 2. BMI greater than 40 weight watchers, adipex Plan adipex renewed, continue WW intone setup and baseline inflation 9 stim 12 fu in 2-3 weeks Medications Refilled: Coding Level of Care Code Off vis,est,level 4 Diagnoses Mixed stress and urge urinary incontinence N39.46 BMI greater than 40 10/09/17 0723 <Electronically signed by Tameka Law MD> Date Tameka Law MD Cosigner Signature: Date (if applicable) CC: OWNER OPERATOR OFFICE VISIT Observed: 09/03/2017 Status: F Source: [place] RE[place] 3:38 PM [facility] - [place], [place]'s [address] [place] [address] OFFICE VISIT Date of Service: 09/03/17 MR#: [id number] Acct: [id number] Name: DANISGABRIEL Harrison Rep #: [id number] : 1965 Provider: Tameka Law MD Age/Sex: 52/F Location: [facility] [place] Status: Signed Intake Vital Signs09/03/17 Height 5 ft 09/03/17 Weight: 222 lb 09/03/17 Body Mass Index (BMI) 43.3 09/03/17 Blood Pressure 126/68 Intake Visit Reasons: ANNUAL Color Worker Required: No Is patient in pain?: No Allergies Penicillins Adverse Reaction (Verified 09/03/17 14:31) Rash Medications Loratadine [Allergy Relief] 10 mg PO DAILY 09/01/16 [History Confirmed 09/03/17] levothyroxine 100 mcg tablet 137 mcg PO DAILY tab 09/03/17 [History Confirmed 09/03/17] losartan 50 mg-hydrochlorothiazide 12.5 mg tablet 1 tab PO QDAY 09/03/17 [History Confirmed 09/03/17] pantoprazole 40 mg tablet,delayed release 20 mg PO DAILY tab 09/03/17 [History Confirmed 09/03/17] solifenacin 10 mg tablet 10 mg PO QDAY #30 tab 09/03/17 [Rx Confirmed 09/03/17] Is last menstrual period known: No Post menopausal: No Patient : No : No PFSH Medical History HTN (hypertension), benign (Acute) Presence of artificial intra-ocular lens (Acute 2010) Surgical History H/O gastric bypass (Acute 2007) History of appendectomy (Acute) History of endometrial ablation (Acute) History of tonsillectomy (Acute) Family History Mother Cancer Lung Father Dementia Social History adopted: No household members: family housing: house number of children: 2 current occupational status: employed 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 DatName GA[facility]WeeksOutcome [facility]- ige Unknown 1997- HPI ANNUAL: Details: GABRIEL MOSCOSO is a 52 year old who presents for annual exam. Last PAP: 2015 neg History of abnormal PAP: no Last mammogram: 09/15 History of abnormal mammogram: no Colon cancer screening: yes Other preventative health care screenings: pcp is dr faust Female Reproductive History Questions: Metorrhagia: No, Sexually active: No Menopausal Symptoms: Yes hot flashes, Yes night sweats ROS Const Constitutional: Reports as per HPI and night sweats; denies poor appetite, fatigue, increased appetite, weight gain or weight loss Cardio Card: Denies chest pain Resp Resp: Denies dyspnea or cough GI GI: Reports as per HPI; denies bloating, abdominal pain, constipation, vomiting or nausea : Reports as per HPI, urinary urgency, urinary incontinence (stress and urge), urinary frequency, other and hot flashes; denies blood in urine, vaginal odor, vaginal itching, vaginal dryness, vaginal discharge, pelvic pain, painful urination, difficulty urinating, prolapse symptoms or nipple discharge Skin Skin/Breast: Denies breast pain, breast skin changes, nipple discharge, breast lump or changing lesions Exam Const General: cooperative, healthy appearing, comfortable, no acute distress, well developed, well groomed HENMT Head: normal to inspection, normocephalic Ears: hearing grossly normal bilaterally, external ears normal Nose: external nose normal Face and sinus: normal facial exam Neck Neck: normal visual inspection, full ROM, no lymphadenopathy Thyroid: thyroid normal Chest Chest palpation AND inspection: normal inspection of the chest Breast inspection: normal inspection of the breasts, normal inspection of the axillae Breast palpation: normal palpation of the breasts, normal palpation of the axillae, no axillary lymphadenopathy Resp Effort AND Inspection: normal respiratory effort GI Inspection: normal to inspection, non-distended Palpation: no guarding, soft, no hepatosplenomegaly General: bladder normal to palpation External Female Exam: normal external appearance, normal appearance of the urethra, no lesions Urethra: normal appearance of the urethra, normal palpation Speculum Exam - Vagina: normal appearance of the vagina, normal vaginal discharge Speculum Exam - Cervix: normal appearance of the cervix, no cervical discharge, no lesions, nontender Bimanual Exam- Vagina AND Uterus: No cervical tenderness, normal bimanual exam, uterine size normal, bladder normal to palpation, uterine mobility normal, uterine consistency normal, uterus non-tender, no cervical motion tenderness Bimanual Exam- Adnexa, other: normal adnexae, no adnexal masses, adnexae non-tender Skin General: no rashes or lesions noted Neuro General: alert, moves all extremities, no focal motor deficits Extrem General: no pedal edema, normal to inspection Psych Appearance: grossly normal Mental Status: mental status grossly normal Affect: normal affect Speech and Movement: speech and movement normal Attitude: cooperative Assessment AND Plan Problems 1. Encounter for gynecological examination with abnormal finding Z01.411 2. Mixed stress and urge urinary incontinence N39.46 vesicare, discussed intone 3. BMI greater than 40 weight watchers, adipex Plan Cervical cancer screening: pap hpv 2016 normal, obtain records Breast cancer screening: done today other health maintenance examination reviewed and up to date. Encouraged maintenance of a healthy weight and active lifestyle and handout given. Calcium/vitamin D recommendations provided. Annual exam handout including recommendations for good health guidelines and basic screening information given. Problem list up to date, see problem list details for any additional plan information. Follow up in one year for annual health maintenance exam or sooner if needed. Medications New: Changed: Coding Level of Care Code Off vis,est,prev 40-64yrs Diagnoses Encounter for gynecological examination with abnormal finding Z01.411 Gynecological examination findings: abnormal findings PRESENT Mixed stress and urge urinary incontinence N39.46 BMI greater than 40 09/03/17 1538 <Electronically signed by Tameka Law MD> Date Tameka Law MD Cosigner Signature: Date (if applicable) CC: SCREENING MAMM (CAD), Observed: 09/03/2017 Status: F Source: [place] B[place] 1:23 PM [facility] [place] REPOSITORY [facility] Imaging Services [address] [place] [id number] SCREENING MAMM (CAD), BIL MR#: [id number] Acct: [id number] Name: GABRIEL MOSCOSO Rep #: [id number] : 1965 F 52 From: Saurabh Oneal MD PCP: Ravinder Faust III, MD Status: REG CLI Study: SCREENING MAMM (CAD), BIL Date of Exam: 09/03/17 Exam# [id number] Ordering Dr: Ariadna Sierra AUTO SEAT COVER INSTALLER-C MAMMOGRAPHY - BILATERAL SCREENING REASON FOR EXAM: Female, 52 years old. Routine annual screening examination. PERTINENT HISTORY: Non-contributory. TECHNIQUE: Digital bilateral breast surekha (3D mammographic acquisition) in the CC and MLO projections. 2-D mediolateral oblique (MLO) and craniocaudad (CC) views of both breasts were obtained. CAD: Full Field Digital Mammography with Computer Added Detection was performed. COMPARISON: Comparison is made with prior outside examination dated August 28, 2016. FINDINGS: Breast Composition: There are scattered areas of fibroglandular density. There are no dominant masses or suspicious calcifications. No other significant abnormalities are identified. There has been no significant change since the prior study. BI/SCREENING MAMM (CAD), BILAT IMPRESSION: Stable bilateral screening mammogram. Yearly follow-up mammogram recommended. (A) ASSESSMENT CATEGORY: BIRADS Category 1: Negative. A letter regarding these results will be sent to the patient by the facility within 30 days. Approximately 10% of breast cancers are not detected by mammography. A normal mammogram should not delay biopsy of a clinically suspicious abnormality. [id number] Electronically Signed: Saurabh Oneal MD at 15:16 EDT Tel [phone], Service support , CC: SILVIA Sierra; Ravinder Faust III, MD Purchasing Administrator: Signed PROGRESS Observed: 08/04/2017 Status: COMPLETED Source: [place] 11:37 AM [facility] REPOSITORY HNO ID: [id number] Author: Jack Hauser Service: (none) Author Type: Physical Therapist Type: Progress Notes Filed: 08/04/2017 11:38 AM Note Text: [facility] PHYSICAL THERAPY DISCONTINUANCE OF CARE Plan of Care Period: Start of Care Date: 05/03/17 Last Visit Date: 05/31/17 Therapy Program: The following is a summary of the interventions provided for this episode of care; Therapeutic exercise and Manual therapy Assessment: Based on most recent visit, patient was progressing as expected toward functional goals based on documented subjective information on progress and documented objective information regarding pelvic alignment and centralization of symptoms. Unable to formally assess goal achievement due to non-compliance with therapy plan of care. Reason for Discontinuation of Care: Patient has not returned to therapy or scheduled additional follow-up appointments. Jack Hauser PT PROGRESS Observed: 08/02/2017 Status: COMPLETED Source: [place] 3:07 PM [facility] REPOSITORY HNO ID: [id number] Author: Lala Li LPN Service: (none) Author Type: (none) Type: Progress Notes Filed: 08/02/2017 3:13 PM Note Text: Manual Readin/76 Pulse: 68 Reason for blood pressure check - Last BP elevated and Medication adjustment Patient is: Taking medication as prescribed Yes Took medication today Yes If no, date medication last taken N/A Experiencing side effects No BP was elevated at last appt 07/22/17. Losartan was increased to 50mg daily. Tolerating medication well. Denies any chest pain, shortness of breath, dizziness, or headaches. Drinks decaf. No personal history of tobacco use; no current exposure. Alert and oriented. Pt has been identified by name and birthdate: Yes Allergies reviewed: Yes Latex allergy: no. Medication - prescribed and OTC reviewed and updated: Yes Do you need any prescription refills prior to your next visit: No Health Maintenance: Reviewed and not up to date and provider notified Patient advised to continue with current medications and would be contacted with any further instructions after review by Laila Peacock NP. Lala Li LPN CNNURSE Observed: 08/02/2017 Status: COMPLETED Source: [place] 3:00 PM [facility] REPOSITORY Nurse Visit (FAMPWS) GABRIEL MOSCOSO ([id number]) 1965 F Date Time Provider Department 08/02/17 3:00 PM [place] NURSE FAMPWS During your visit today, we recorded the following information about you: Pulse Blood pressure 68/minute 118/76 Lala Li LPN 08/02/2017 3:13 PM Signed Manual Readin/76 Pulse: 68 Reason for blood pressure check - Last BP elevated and Medication adjustment Patient is: Taking medication as prescribed Yes Took medication today Yes If no, date medication last taken N/A Experiencing side effects No BP was elevated at last appt 07/22/17. Losartan was increased to 50mg daily. Tolerating medication well. Denies any chest pain, shortness of breath, dizziness, or headaches. Drinks decaf. No personal history of tobacco use; no current exposure. Alert and oriented. Pt has been identified by name and birthdate: Yes Allergies reviewed: Yes Latex allergy: no. Medication - prescribed and OTC reviewed and updated: Yes Do you need any prescription refills prior to your next visit: No Health Maintenance: Reviewed and not up to date and provider notified Patient advised to continue with current medications and would be contacted with any further instructions after review by Laila Peacock NP. Lala Li MANAGING EDITOR Referring Provider: LAILA PEACOCK (SILVIA) [[id number]] Allergies As of Date: 08/02/2017 Noted Allergy Reaction LEVAQUIN (LEVOFLOXACIN) 03/04/2015 6 - Diarrhea LISINOPRIL 07/07/2017 3 - Cough PENICILLINS 12/09/2004 Date Reviewed: 07/22/2017 Reviewed by: Laila Granda (Silvia) Ayush - Fully Assessed Reason for Visit: Blood Pressure Check [195] Primary Visit Diagnosis:Hypertension, essential [I10] Prescriptions as of 08/02/2017 Sig: GABAPENTIN 300 MG CAPSULE Take 1 capsule by mouth daily* GABAPENTIN 100 MG CAPSULE Take 1 capsule by mouth twice* LOSARTAN 50 MG TABLET Take 1 tablet by mouth once d* PANTOPRAZOLE 20 MG TABLET,DEL* Take 1 tablet by mouth daily * LEVOTHYROXINE 137 MCG TABLET Take 1 tablet by mouth daily * LORATADINE 10 MG TABLET Take 1 tablet by mouth once d* SOLIFENACIN 10 MG TABLET Take 1 tablet by mouth once d* NYSTATIN 100,000 UNIT/GRAM TO* Apply 1 application to affect* Problem List As Of Date 08/02/2017 Noted Resolved Hypothyroidism [E03.9] INVALID FOR* Gastric Bypass Status for Obesity [Z98.84] INVALID FOR* Unspecified Iron Deficiency Anemia [D50.9] INVALID FOR* Acute gastritis without mention of hemorrhage [*INVALID FOR*09/18/2016 Menorrhagia [N92.0] INVALID FOR*04/15/2011 Sleep apnea [G47.30] INVALID FOR* Overactive bladder [N32.81] INVALID FOR* Urge incontinence [N39.41] INVALID FOR* Gastroesophageal reflux disease [K21.9] INVALID FOR* Bilateral leg pain [M79.604, M79.605] INVALID FOR* Obesity, Class III, BMI 40-49.9 (morbid obesity*INVALID FOR* Hypertension, essential [I10] INVALID FOR* Encounter Status:Closed by LALA LI LPN on 08/02/17 PROGRESS Observed: 07/22/2017 Status: COMPLETED Source: [place] 9:51 AM [facility] [place] REPOSITORY HNO ID: [id number] Author: Laila Granda (Silvia) Ayush Service: (none) Author Type: Nurse Practitioner Type: Progress Notes Filed: 07/22/2017 10:14 AM Note Text: Chief Complaint Patient presents with: Recheck: blood pressure HPI Gabriel Moscoso is a 52 year old female who presents here today for Above Complaints. Noting cough with Lisinopril, switched to Losartan 25 mg. School Nurse has been checking BP with readings: 140/92, 136/96, 140/98, 130/90, 126/88, 120/84, 126/88. -Cough has completely resolved. Denies any chest pain, SOB , pedal edema. Lumbar radiculopathy: Has not heard anything from Dr. Guardado's office, MRI was this morning. Prednisone taper helped her sx while taking. States since she's completed the Prednisone taper her radicular sx seem to be getting worse. More pain in left leg and lifting her leg is excruciating. Taking Gabapentin 300 mg at hs, and 100 mg bid during the day. 300 mg daytime caused increase in drowsiness and was not able to tolerate. -Unable to take NSAIDs due to previous bariatric surgery. *She will be leaving in 2 weeks for one month trip. The ROS is otherwise negative. Past medical history, appointments, medications, allergies reviewed. Patient Allergies ALLERGIES Allergen Reactions - Levaquin [Levofloxa* Diarrhea - Lisinopril Cough - Penicillins Current Medications Current Outpatient Prescriptions on File Prior to Visit: losartan (COZAAR) 25 mg tablet Take 1 tablet by mouth once daily. pantoprazole DR (PROTONIX) 20 mg tablet Take 1 tablet by mouth daily before breakfast. Take on empty stomach, 1/2 hr before meal. levothyroxine (SYNTHROID) 137 mcg tablet Take 1 tablet by mouth daily before breakfast. loratadine (CLARITIN) 10 mg tablet Take 1 tablet by mouth once daily. solifenacin 10 mg tablet Take 1 tablet by mouth once daily. nystatin (NYSTOP) powder Apply 1 application to affected area twice daily. No current facility-administered medications on file prior to visit. Previous Medical History PAST MEDICAL HISTORY Diagnosis Date - Hypertension, essential 07/07/2017 - Hypothyroid - Iron deficiency anemia, unspecified - Rosacea - Snoring - Unspecified inflammatory disease of female pelvic organs and tissues Previous Surgical History PAST SURGICAL HISTORY Procedure Laterality Date - APPENDECTOMY 1984 - CATHETER, ABLATION thermachoice - DELIVERY ONLY - COLONOSCOPY 09/29/2016 small benign hyperplastic polyp, otherwise normal-repeat in 10 years - EGD W/O BRSH SPECIMEN W/BX 04/26/09 - GASTRIC BYPASS 04/2004 laparoscopic Keira-en-Y gastric bypass at [facility] - PAST SURGICAL HISTORY OF DANDC x 2 - REMOVAL OF TONSILS,<12 Y/O Tonsillectomy - REMV CATARACT INTRACAP,INSERT LENS o.u. 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 General Appearance: Well appearing, alert, in no acute distress, well-hydrated, well nourished., Obese. Neck: Supple, no adenopathy; thyroid symmetric, normal size, no bruits. Lungs: Lungs clear to auscultation. No wheezing, rhonchi, rales. Heart: RRR without murmur, gallop, or rubs. No ectopy. Extremities: No deformities, edema, skin discoloration, clubbing or cyanosis. Good capillary refill. . ASSESSMENT/PLAN: 1. Hypertension, essential - ICD9: 401.9, ICD10: I10 (primary diagnosis) - suboptimal control - Increase losartan(Cozaar) - Encouraged dietary sodium restriction/DASH diet - Recommended regular aerobic exercise. - Recommend home blood pressure monitoring, to bring results in on next visit - Recheck in 2 weeks, sooner should new symptoms or problems arise. - Goal of BP <130/80 - LOSARTAN 25 MG TABLET 2. Lumbar radiculopathy - ICD9: 724.4, ICD10: M54.16 Symptoms consistent with herniated disc continue with 300 mg Gabapentin at hs and 100 mg bid daytime. -Will forward MRI orders to Dr. Guardado's office and re-fax referral. - GABAPENTIN 300 MG CAPSULE - GABAPENTIN 100 MG CAPSULE 3. Neuropathic pain - ICD9: 729.2, ICD10: M79.2 - As above. - GABAPENTIN 100 MG CAPSULE Laila Peacock, MSN EMAIL MARKETING ASSISTANT.OBIEE LEAD DEVELOPER CNOV Observed: 07/22/2017 Status: COMPLETED Source: [place] 9:40 AM [facility] REPOSITORY Office Visit (FAMPWS) GABRIEL MOSCOSO ([id number]) 1965 F Date Time Provider Department 07/22/17 9:40 AM LAILA PEACOCK (AUTO SEAT COVER INSTALLER) FAMPWS During your visit today, we recorded the following information about you: Temperature Pulse Respiration Blood pressure 97.5 degrees 72/minute 18/minute 124/84 Weight 100.2 kg Liala Peacock, MSN EMAIL MARKETING ASSISTANT.OBIEE LEAD DEVELOPER 07/22/2017 10:14 AM Signed Chief Complaint Patient presents with: Recheck: blood pressure HPI Gabriel Moscoso is a 52 year old female who presents here today for Above Complaints. Noting cough with Lisinopril, switched to Losartan 25 mg. School Nurse has been checking BP with readings: 140/92, 136/96, 140/98, 130/90, 126/88, 120/84, 126/88. -Cough has completely resolved. Denies any chest pain, SOB , pedal edema. Lumbar radiculopathy: Has not heard anything from Dr. Guardado's office, MRI was this morning. Prednisone taper helped her sx while taking. States since she's completed the Prednisone taper her radicular sx seem to be getting worse. More pain in left leg and lifting her leg is excruciating. Taking Gabapentin 300 mg at hs, and 100 mg bid during the day. 300 mg daytime caused increase in drowsiness and was not able to tolerate. -Unable to take NSAIDs due to previous bariatric surgery. *She will be leaving in 2 weeks for one month trip. The ROS is otherwise negative. Past medical history, appointments, medications, allergies reviewed. Patient Allergies ALLERGIES Allergen Reactions - Levaquin [Levofloxa* Diarrhea - Lisinopril Cough - Penicillins Current Medications Current Outpatient Prescriptions on File Prior to Visit: losartan (COZAAR) 25 mg tablet Take 1 tablet by mouth once daily. pantoprazole DR (PROTONIX) 20 mg tablet Take 1 tablet by mouth daily before breakfast. Take on empty stomach, 1/2 hr before meal. levothyroxine (SYNTHROID) 137 mcg tablet Take 1 tablet by mouth daily before breakfast. loratadine (CLARITIN) 10 mg tablet Take 1 tablet by mouth once daily. solifenacin 10 mg tablet Take 1 tablet by mouth once daily. nystatin (NYSTOP) powder Apply 1 application to affected area twice daily. No current facility-administered medications on file prior to visit. Previous Medical History PAST MEDICAL HISTORY Diagnosis Date - Hypertension, essential 07/07/2017 - Hypothyroid - Iron deficiency anemia, unspecified - Rosacea - Snoring - Unspecified inflammatory disease of female pelvic organs and tissues Previous Surgical History PAST SURGICAL HISTORY Procedure Laterality Date - APPENDECTOMY 1984 - CATHETER, ABLATION thermachoice - DELIVERY ONLY - COLONOSCOPY 09/29/2016 small benign hyperplastic polyp, otherwise normal-repeat in 10 years - EGD W/O BRS SPECIMEN W/BX 04/26/09 - GASTRIC BYPASS 04/2004 laparoscopic Keira-en-Y gastric bypass at [facility] - PAST SURGICAL HISTORY OF DANDC x 2 - REMOVAL OF TONSILS,<12 Y/O Tonsillectomy - REMV CATARACT INTRACAP,INSERT LENS o.u. 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 General Appearance: Well appearing, alert, in no acute distress, well-hydrated, well nourished., Obese. Neck: Supple, no adenopathy; thyroid symmetric, normal size, no bruits. Lungs: Lungs clear to auscultation. No wheezing, rhonchi, rales. Heart: RRR without murmur, gallop, or rubs. No ectopy. Extremities: No deformities, edema, skin discoloration, clubbing or cyanosis. Good capillary refill. . ASSESSMENT/PLAN: 1. Hypertension, essential - ICD9: 401.9, ICD10: I10 (primary diagnosis) - suboptimal control - Increase losartan(Cozaar) - Encouraged dietary sodium restriction/DASH diet - Recommended regular aerobic exercise. - Recommend home blood pressure monitoring, to bring results in on next visit - Recheck in 2 weeks, sooner should new symptoms or problems arise. - Goal of BP <130/80 - LOSARTAN 25 MG TABLET 2. Lumbar radiculopathy - ICD9: 724.4, ICD10: M54.16 Symptoms consistent with herniated disc continue with 300 mg Gabapentin at hs and 100 mg bid daytime. -Will forward MRI orders to Dr. Guardado's office and re-fax referral. - GABAPENTIN 300 MG CAPSULE - GABAPENTIN 100 MG CAPSULE 3. Neuropathic pain - ICD9: 729.2, ICD10: M79.2 - As above. - GABAPENTIN 100 MG CAPSULE Laila Peacock, MSN EMAIL MARKETING ASSISTANT.OBIEE LEAD DEVELOPER Referring Provider: LAILA PEACOCK (AUTO SEAT COVER INSTALLER) [[id number]] Allergies As of Date: 07/22/2017 Noted Allergy Reaction LEVAQUIN (LEVOFLOXACIN) 03/04/2015 6 - Diarrhea LISINOPRIL 07/07/2017 3 - Cough PENICILLINS 12/09/2004 Date Reviewed: 07/22/2017 Reviewed by: Laila Granda (Acquisition Editor) Ayush - Fully Assessed Reason for Visit: Recheck [92] Cmt: blood pressure Primary Visit Diagnosis:Hypertension, essential [I10] Other Visit Diagnoses:Lumbar radiculopathy [M54.16] Neuropathic pain [M79.2] Order(s):gabapentin (NEURONTIN) 300 mg capsuleTake 1 capsule by mouth daily at bedtime for 90 days.Disp: Rfl: gabapentin (NEURONTIN) 100 mg capsuleTake 1 capsule by mouth twice daily for 90 days.Disp: Rfl: losartan (COZAAR) 25 mg tabletTake 1 tablet by mouth once daily.Disp: 30 tabletRfl: 5 Prescriptions as of 07/22/2017 Sig: GABAPENTIN 300 MG CAPSULE Take 1 capsule by mouth daily* PANTOPRAZOLE 20 MG TABLET,DEL* Take 1 tablet by mouth daily * LEVOTHYROXINE 137 MCG TABLET Take 1 tablet by mouth daily * LORATADINE 10 MG TABLET Take 1 tablet by mouth once d* SOLIFENACIN 10 MG TABLET Take 1 tablet by mouth once d* NYSTATIN 100,000 UNIT/GRAM TO* Apply 1 application to affect* GABAPENTIN 100 MG CAPSULE Take 1 capsule by mouth twice* LOSARTAN 25 MG TABLET Take 1 tablet by mouth once d* Problem List As Of Date 07/22/2017 Noted Resolved Hypothyroidism [E03.9] INVALID FOR* Gastric Bypass Status for Obesity [Z98.84] INVALID FOR* Unspecified Iron Deficiency Anemia [D50.9] INVALID FOR* Acute gastritis without mention of hemorrhage [*INVALID FOR*09/18/2016 Menorrhagia [N92.0] INVALID FOR*04/15/2011 Sleep apnea [G47.30] INVALID FOR* Overactive bladder [N32.81] INVALID FOR* Urge incontinence [N39.41] INVALID FOR* Gastroesophageal reflux disease [K21.9] INVALID FOR* Bilateral leg pain [M79.604, M79.605] INVALID FOR* Obesity, Class III, BMI 40-49.9 (morbid obesity*INVALID FOR* Hypertension, essential [I10] INVALID FOR* Prescriptions ordered this encounter Disp Refills Start End GABAPENTIN 300 MG CAPSULE 07/22/2017 10/20/2017 Class: Med Update Route: ORAL Sig: Take 1 capsule by mouth daily at bedtime for 90 days. GABAPENTIN 100 MG CAPSULE 07/22/2017 10/20/2017 Class: Med Update Route: ORAL Sig: Take 1 capsule by mouth twice daily for 90 days. LOSARTAN 25 MG TABLET 30 t* 5 07/22/2017 Route: ORAL Sig: Take 1 tablet by mouth once daily. Medications Discontinued During This Encounter gabapentin (NEURONTIN) 300 mg capsule 90 c* 2 06/29/2017 07/22/2017 Route: ORAL Sig: Take 1 capsule by mouth three times daily for 90 days. Disc: Reason for discontinue is not on file. losartan (COZAAR) 25 mg tablet 30 t* 11 07/07/2017 07/22/2017 Route: ORAL Sig: Take 1 tablet by mouth once daily. Disc: Changing Therapy/Dosage Form Follow-up and Disposition History Recorded Encounter Status:Closed by LAILA PEACOCK CNP on 07/22/17 MRI LUMBAR SPINE WO Observed: 07/22/2017 Status: F Source: [place] IVCON 8:51 AM [facility] REPOSITORY * * *Final Report* * * DATE OF EXAM: Jul 22 2017 8:51AM [id number] [id number] - MRI LUMBAR SPINE WO IVCON / PROCEDURE REASON: Radiculopathy, lumbar region * * * * Physician Interpretation * * * * EXAMINATION: MRI LUMBAR SPINE WO IVCON CLINICAL HISTORY: Radiculopathy, lumbar region. Low back pain radiating into left lower extremity. TECHNIQUE: Routine lumbosacral spine MR protocol without gadolinium. MQ: [id number] COMPARISON: None. RESULT: Counting reference: Lumbosacral junction. For the purposes of this report, L4-5 is considered the level of the iliac crest. Alignment: Grade 1 anterolisthesis of L4 on L5. Bone marrow signal/fracture: No evidence of pathologic marrow infiltration. 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 Large intraosseous hemangioma within the L3 vertebral body to the left of midline. Conus: The conus terminates normally at L1 and is within normal limits of signal intensity and morphology. Paraspinal soft tissues: Paraspinal soft tissues are within normal limits. T11-T12: Canal and foramina are patent. T12-L1: Canal and foramina are patent. L1-L2: Canal and foramina are patent. L2-L3: Minimal circumferential disc bulging and mild facet and ligamentous hypertrophy without significant canal or foraminal stenosis. L3-L4: Minimal circumferential disc bulging and mild facet and ligamentous hypertrophy without significant canal or foraminal stenosis. L4-L5: 15 x 7 x 7 mm (CC, AP, transverse) synovial cyst along the anterior aspect of the left facet joint in combination with minimal spondylolisthesis, diffuse disc bulging, ligamentous hypertrophy and bilateral facet arthropathy nearly completely efface the left subarticular zone and contribute to moderate-severe left foraminal stenosis and mild canal stenosis. Right foramen remains patent. Bilateral facet joint effusions and left greater than right facet edema from degenerative facet arthropathy. L5-S1: Canal and foramina are patent Sacrum and iliac wings: The visualized sacrum and iliac wings are within normal limits. IMPRESSION: 1.5 cm synovial cyst in combination with spondylotic results in moderate-severe compromise of the left subarticular zone and neural foramen at L4-5. 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 Purchasing Administrator: PSCB Transcribe Date/Time: Jul 22 2017 9:01A Dictated by : IKER DIAZ MD This examination was interpreted and the report reviewed and electronically signed by: TITUS HORTON MD on Jul 22 2017 10:31AM EST [id number] PROGRESS Observed: 07/22/2017 Status: COMPLETED Source: [place] 8:28 AM [facility] REPOSITORY HNO ID: [id number] Author: Sharon Purdy (Rt) Service: (none) Author Type: Aluminum Welder Type: Progress Notes Filed: 07/22/2017 8:29 AM Note Text: Radiology Service Progress Note PATIENT NAME: Gabriel Moscoso DATE OF SERVICE: July 22, 2017 TIME: 8:28 AM PATIENT IDENTITY VERIFICATION COMPLETED USING TWO (2) METHODS: Patient confirmed name verbally and Date of . PATIENT GENDER DATA: Female. status: : No status: NO. PATIENT RELEVANT IMPLANT DATA REVIEWED: Yes RADIOLOGY DEPARTMENT: MR; Exam(s) Completed: Spine: Lumbar spine PERIPHERAL IV DATA: Not applicable SIGNED BY: RT Gurwinder July 22, 2017 8:28 AM PROGRESS Observed: 06/29/2017 Status: COMPLETED Source: [place] 7:51 AM [facility] REPOSITORY HNO ID: [id number] Author: Laila Granda (Maribeth Peacock Service: (none) Author Type: Nurse Practitioner Type: Progress Notes Filed: 06/29/2017 10:15 AM Note Text: Chief Complaint Patient presents with: Recheck: blood pressure, back and bilateral leg pain HPI Gabriel Moscoso is a 52 year old female who presents here today for Above Complaints. Since last visit she has been to PHYSICAL THERAPY a few times, and continues with HEP. However she has been in [place] for past 3 weeks due to mother passing away. HTN: Ms. Moscoso indicates that she is feeling well and denies any symptoms referable to elevated blood pressure. Specifically denies headache, chest pain, palpitations, dyspnea and peripheral edema. Patient admits to new onset dry cough and is compliant with their regimen. She does not check BP's generally. Gabriel works out regularly times per week with walking. She watches her diet for sodium, low fat and low cholesterol most of the time. Last 3 Encounter BP Readings: Date: BP: 06/29/2017 108/72 05/06/2017 116/73 04/15/2017 110/84 Patient reports low back pain chronic for 1 year. The pain is located in lower back on the left with radiation to to both legs and described as dull, aching in lower back and burning, down both legs. Pain is worse with standing, sitting, walking and walking long distances and better with changing positions. Associated symptoms include worse with standing and leg pain. She has had a fall out walking her dog, due to pain and leg weakness. She denies any bowel or bladder incontinence or retention. Alleviating factors include changing positions with partial relief No bowel or bladder incontinence. No fever or unintended weight loss. Patient also denies dysuria, constipation, history of cancer, history of osteoporosis. Unable to take NSAIDS due to previous bariatric surgery. Past medical history, appointments, medications, allergies reviewed. Previous Medical History PAST MEDICAL HISTORY Diagnosis Date - Hypothyroid - Iron deficiency anemia, unspecified - Rosacea - Snoring - Unspecified inflammatory disease of female pelvic organs and tissues Previous Surgical History PAST SURGICAL HISTORY Procedure Laterality Date - APPENDECTOMY 1984 - CATHETER, ABLATION thermachoice - DELIVERY ONLY - COLONOSCOPY 09/29/2016 small benign hyperplastic polyp, otherwise normal-repeat in 10 years - EGD W/O BRSH SPECIMEN W/BX 04/26/09 - GASTRIC BYPASS 04/2004 laparoscopic Keira-en-Y gastric bypass at [facility] - PAST SURGICAL HISTORY OF DANDC x 2 - REMOVAL OF TONSILS,<12 Y/O Tonsillectomy - REMV CATARACT INTRACAP,INSERT LENS o.u. Family History FAMILY HISTORY Problem Relation Age of Onset - Osteoporosis Mother - Arthritis Mother - Dementia [OTHER] Father - Arthritis Daughter Rheumatoid Patient Allergies ALLERGIES Allergen Reactions - Levaquin [Levofloxa* Diarrhea - Penicillins Current Medications Current Outpatient Prescriptions on File Prior to Visit: lisinopril (PRINIVIL) 5 mg tablet Take 1 tablet by mouth once daily. gabapentin (NEURONTIN) 100 mg capsule Take 1 capsule by mouth three times daily for [address] (PROTONIX) 20 mg tablet Take 1 tablet by mouth daily before breakfast. Take on empty stomach, 1/2 hr before meal. levothyroxine (SYNTHROID) 137 mcg tablet Take 1 tablet by mouth daily before breakfast. loratadine (CLARITIN) 10 mg tablet Take 1 tablet by mouth once daily. solifenacin 10 mg tablet Take 1 tablet by mouth once daily. nystatin (NYSTOP) powder Apply 1 application to affected area twice daily. No current facility-administered medications on file prior to visit. 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[employer]* Social History Main Topics Smoking status: Never Smoker Smokeless tobacco: Never Used Alcohol use: Yes Comment: Occasionally Drug use: No Sexual activity: Yes Partners with: Male Comment: Vasectomy Review of Symptoms REVIEW OF SYSTEMS PAIN ASSESSMENT: CURRENTLY HAVING PAIN; LOCATION/DISTRIBUTION: lower back, just left of midline PAIN SCALE: 5 on 0-10 scale per patient PAIN CHARACTER: aching and dull in lower back, burning sensation down legs DURATION: (How long have you had the pain?) 1 years AGGRAVATING FACTORS: standing, walking and sitting ALLEVIATING FACTORS: changing positions or stop doing what she's doing. Moving if she's been still or rest if she's been active. Lying on stomach at night if wakes with pain. GENERAL: No weight loss, malaise or fevers HEENT: Negative for frequent or significant headaches, No changes in hearing or vision, no nose bleeds or other nasal problems NECK: Negative for lumps, goiter, pain and significant neck swelling RESPIRATORY: Negative for cough, hemoptysis, wheezing, COPD, dyspnea or shortness of breath CARDIOVASCULAR: Negative for chest pain, leg swelling, hypertension, CHF or palpitations GI: No nausea, vomiting, or diarrhea and No heartburn or reflux symptoms EXAM: BP 108/72 (BP Site: Left Arm, BP Position: Sitting, BP Cuff Size: Large Adult) Pulse 72 Temp 36.6 ?C (97.8 ?F) (Tympanic) Resp 18 Wt 99.8 kg (220 lb) BMI 41.91 kg/m? General Appearance: Well appearing, alert, in no acute distress, well-hydrated, well nourished.. Neck: Supple, no adenopathy; thyroid symmetric, normal size, no bruits. Lungs: Lungs clear to auscultation. No wheezing, rhonchi, rales. Heart: RRR without murmur, gallop, or rubs. No ectopy. Range of Motion Spine: extension normal, flexion normal, lateral rotation normal Gait: normal gait Muscle Spasm: absent Strength lower extremeties: -4/5 Sensory exam Lower Extremeties: Normal. Spinal Tenderness: small amount appreciated Straight Leg Raise: sitting - Positive lying - Positive Abdominal Exam: Abdomen soft, non-tender. Bowel sounds normal. No masses, organomegaly Health Maintenance List DTAP,TDAP,TD(1 - Tdap) due on 1985 MAMMOGRAM due on 08/28/2017 LIPID SCREEN due on 12/11/2018 DIABETES SCREEN due on 04/15/2020 PAP EVERY 5 YEARS due on 08/26/2020 HPV EVERY 5 YEARS due on 08/26/2020 COLORECTAL CANCER SCREENING,SEE MODIFIER due on 09/29/2026 INFLUENZA Completed ASSESSMENT/PLAN: 1. Lumbar radiculopathy - ICD9: 724.4, ICD10: M54.16 (primary diagnosis) Symptoms consistent with herniated disc - Prednisone taper - MRI- see orders - MRI LUMBAR SPINE WO IVCON - GABAPENTIN 300 MG CAPSULE - PREDNISONE 10 MG TABLET - CONSULT TO PAIN MGT ANESTHESIA 2. Elevated BP without diagnosis of hypertension - ICD9: 796.2, ICD10: R03.0 - Will DC Lisinopril at this time, Normal BP readings and new onset cough. Will recheck BP and evaluate resolution of cough in 3-4 weeks. - Encouraged dietary sodium restriction/DASH diet - Recommended regular aerobic exercise. - Recommend home blood pressure monitoring, to bring results in on next visit - Follow up in 1 month for BP recheck. - Goal of BP <130/80 Laila Peacock, MSN EMAIL MARKETING ASSISTANT.OBIEE LEAD DEVELOPER CNOV Observed: 06/29/2017 Status: COMPLETED Source: [place] 7:40 AM [facility] REPOSITORY Office Visit (FAMPWS) GABRIEL MOSCOSO ([id number]) 1965 F Date Time Provider Department 06/29/17 7:40 AM LAILA PEACOCK (AUTO SEAT COVER INSTALLER) [facility] During your visit today, we recorded the following information about you: Temperature Pulse Respiration Blood pressure 97.8 degrees 72/minute 18/minute 108/72 Weight 99.8 kg Laila Peacock, MSN EMAIL MARKETING ASSISTANT.OBIEE LEAD DEVELOPER 06/29/2017 10:15 AM Signed Chief Complaint Patient presents with: Recheck: blood pressure, back and bilateral leg pain HPI Gabriel Moscoso is a 52 year old female who presents here today for Above Complaints. Since last visit she has been to PHYSICAL THERAPY a few times, and continues with HEP. However she has been in [place] for past 3 weeks due to mother passing away. HTN: Ms. Moscoso indicates that she is feeling well and denies any symptoms referable to elevated blood pressure. Specifically denies headache, chest pain, palpitations, dyspnea and peripheral edema. Patient admits to new onset dry cough and is compliant with their regimen. She does not check BP's generally. Gabriel works out regularly times per week with walking. She watches her diet for sodium, low fat and low cholesterol most of the time. Last 3 Encounter BP Readings: Date: BP: 06/29/2017 108/72 05/06/2017 116/73 04/15/2017 110/84 Patient reports low back pain chronic for 1 year. The pain is located in lower back on the left with radiation to to both legs and described as dull, aching in lower back and burning, down both legs. Pain is worse with standing, sitting, walking and walking long distances and better with changing positions. Associated symptoms include worse with standing and leg pain. She has had a fall out walking her dog, due to pain and leg weakness. She denies any bowel or bladder incontinence or retention. Alleviating factors include changing positions with partial relief No bowel or bladder incontinence. No fever or unintended weight loss. Patient also denies dysuria, constipation, history of cancer, history of osteoporosis. Unable to take NSAIDS due to previous bariatric surgery. Past medical history, appointments, medications, allergies reviewed. Previous Medical History PAST MEDICAL HISTORY Diagnosis Date - Hypothyroid - Iron deficiency anemia, unspecified - Rosacea - Snoring - Unspecified inflammatory disease of female pelvic organs and tissues Previous Surgical History PAST SURGICAL HISTORY Procedure Laterality Date - APPENDECTOMY 1984 - CATHETER, ABLATION thermachoice - DELIVERY ONLY - COLONOSCOPY 09/29/2016 small benign hyperplastic polyp, otherwise normal-repeat in 10 years - EGD W/O BRSH SPECIMEN W/BX 04/26/09 - GASTRIC BYPASS 04/2004 laparoscopic Keira-en-Y gastric bypass at [facility] - PAST SURGICAL HISTORY OF DANDC x 2 - REMOVAL OF TONSILS,<12 Y/O Tonsillectomy - REMV CATARACT INTRACAP,INSERT LENS o.u. Family History FAMILY HISTORY Problem Relation Age of Onset - Osteoporosis Mother - Arthritis Mother - Dementia [OTHER] Father - Arthritis Daughter Rheumatoid Patient Allergies ALLERGIES Allergen Reactions - Levaquin [Levofloxa* Diarrhea - Penicillins Current Medications Current Outpatient Prescriptions on File Prior to Visit: lisinopril (PRINIVIL) 5 mg tablet Take 1 tablet by mouth once daily. gabapentin (NEURONTIN) 100 mg capsule Take 1 capsule by mouth three times daily for [address] (PROTONIX) 20 mg tablet Take 1 tablet by mouth daily before breakfast. Take on empty stomach, 1/2 hr before meal. levothyroxine (SYNTHROID) 137 mcg tablet Take 1 tablet by mouth daily before breakfast. loratadine (CLARITIN) 10 mg tablet Take 1 tablet by mouth once daily. solifenacin 10 mg tablet Take 1 tablet by mouth once daily. nystatin (NYSTOP) powder Apply 1 application to affected area twice daily. No current facility-administered medications on file prior to visit. 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[employer]* Social History Main Topics Smoking status: Never Smoker Smokeless tobacco: Never Used Alcohol use: Yes Comment: Occasionally Drug use: No Sexual activity: Yes Partners with: Male Comment: Vasectomy Review of Symptoms REVIEW OF SYSTEMS PAIN ASSESSMENT: CURRENTLY HAVING PAIN; LOCATION/DISTRIBUTION: lower back, just left of midline PAIN SCALE: 5 on 0-10 scale per patient PAIN CHARACTER: aching and dull in lower back, burning sensation down legs DURATION: (How long have you had the pain?) 1 years AGGRAVATING FACTORS: standing, walking and sitting ALLEVIATING FACTORS: changing positions or stop doing what she's doing. Moving if she's been still or rest if she's been active. Lying on stomach at night if wakes with pain. GENERAL: No weight loss, malaise or fevers HEENT: Negative for frequent or significant headaches, No changes in hearing or vision, no nose bleeds or other nasal problems NECK: Negative for lumps, goiter, pain and significant neck swelling RESPIRATORY: Negative for cough, hemoptysis, wheezing, COPD, dyspnea or shortness of breath CARDIOVASCULAR: Negative for chest pain, leg swelling, hypertension, CHF or palpitations GI: No nausea, vomiting, or diarrhea and No heartburn or reflux symptoms EXAM: BP 108/72 (BP Site: Left Arm, BP Position: Sitting, BP Cuff Size: Large Adult) Pulse 72 Temp 36.6 ?C (97.8 ?F) (Tympanic) Resp 18 Wt 99.8 kg (220 lb) BMI 41.91 kg/m? General Appearance: Well appearing, alert, in no acute distress, well-hydrated, well nourished.. Neck: Supple, no adenopathy; thyroid symmetric, normal size, no bruits. Lungs: Lungs clear to auscultation. No wheezing, rhonchi, rales. Heart: RRR without murmur, gallop, or rubs. No ectopy. Range of Motion Spine: extension normal, flexion normal, lateral rotation normal Gait: normal gait Muscle Spasm: absent Strength lower extremeties: -4/5 Sensory exam Lower Extremeties: Normal. Spinal Tenderness: small amount appreciated Straight Leg Raise: sitting - Positive lying - Positive Abdominal Exam: Abdomen soft, non-tender. Bowel sounds normal. No masses, organomegaly Health Maintenance List DTAP,TDAP,TD(1 - Tdap) due on 1985 MAMMOGRAM due on 08/28/2017 LIPID SCREEN due on 12/11/2018 DIABETES SCREEN due on 04/15/2020 PAP EVERY 5 YEARS due on 08/26/2020 HPV EVERY 5 YEARS due on 08/26/2020 COLORECTAL CANCER SCREENING,SEE MODIFIER due on 09/29/2026 INFLUENZA Completed ASSESSMENT/PLAN: 1. Lumbar radiculopathy - ICD9: 724.4, ICD10: M54.16 (primary diagnosis) Symptoms consistent with herniated disc - Prednisone taper - MRI- see orders - MRI LUMBAR SPINE WO IVCON - GABAPENTIN 300 MG CAPSULE - PREDNISONE 10 MG TABLET - CONSULT TO PAIN MGT ANESTHESIA 2. Elevated BP without diagnosis of hypertension - ICD9: 796.2, ICD10: R03.0 - Will DC Lisinopril at this time, Normal BP readings and new onset cough. Will recheck BP and evaluate resolution of cough in 3-4 weeks. - Encouraged dietary sodium restriction/DASH diet - Recommended regular aerobic exercise. - Recommend home blood pressure monitoring, to bring results in on next visit - Follow up in 1 month for BP recheck. - Goal of BP <130/80 Laila Peacock, MSN EMAIL MARKETING ASSISTANT.OBIEE LEAD DEVELOPER Referring Provider: LAILA PEACOCK (AUTO SEAT COVER INSTALLER) [[id number]] Allergies As of Date: 06/29/2017 Noted Allergy Reaction LEVAQUIN (LEVOFLOXACIN) 03/04/2015 6 - Diarrhea PENICILLINS 12/09/2004 Date Reviewed: 06/29/2017 Reviewed by: Brea Galicia LPN - Fully Assessed Reason for Visit: Recheck [92] Cmt: blood pressure, back and bilateral leg pain Primary Visit Diagnosis:Lumbar radiculopathy [M54.16] Other Visit Diagnosis:Elevated BP without diagnosis of hypertension [R03.0] Order(s):MRI LUMBAR SPINE WO IVCON [[id number]] Order #: [id number] FUTURE gabapentin (NEURONTIN) 300 mg capsuleTake 1 capsule by mouth three times daily for 90 days.Disp: 90 capsuleRfl: 2 predniSONE (DELTASONE) 10 mg tabletTake 4 tabs daily x5 days, then 2 tabs daily for 5 days, then 1 tab daily for 5 days.Disp: 35 tabletRfl: 0 CONSULT TO PAIN MGT ANESTHESIA [[id number]] Order #: [id number]: 1 Prescriptions as of 06/29/2017 Sig: PANTOPRAZOLE 20 MG TABLET,DEL* Take 1 tablet by mouth daily * LEVOTHYROXINE 137 MCG TABLET Take 1 tablet by mouth daily * LORATADINE 10 MG TABLET Take 1 tablet by mouth once d* SOLIFENACIN 10 MG TABLET Take 1 tablet by mouth once d* NYSTATIN 100,000 UNIT/GRAM TO* Apply 1 application to affect* GABAPENTIN 300 MG CAPSULE Take 1 capsule by mouth three* PREDNISONE 10 MG TABLET Take 4 tabs daily x5 days, th* Problem List As Of Date 06/29/2017 Noted Resolved Hypothyroidism [E03.9] INVALID FOR* Gastric Bypass Status for Obesity [Z98.84] INVALID FOR* Unspecified Iron Deficiency Anemia [D50.9] INVALID FOR* Acute gastritis without mention of hemorrhage [*INVALID FOR*09/18/2016 Menorrhagia [N92.0] INVALID FOR*04/15/2011 Sleep apnea [G47.30] INVALID FOR* Overactive bladder [N32.81] INVALID FOR* Urge incontinence [N39.41] INVALID FOR* Gastroesophageal reflux disease [K21.9] INVALID FOR* Bilateral leg pain [M79.604, M79.605] INVALID FOR* Obesity, Class III, BMI 40-49.9 (morbid obesity*INVALID FOR* Prescriptions ordered this encounter Disp Refills Start End GABAPENTIN 300 MG CAPSULE 90 c* 2 06/29/2017 09/27/2017 Route: ORAL Sig: Take 1 capsule by mouth three times daily for 90 days. PREDNISONE 10 MG TABLET 35 t* 0 06/29/2017 07/14/2017 Sig: Take 4 tabs daily x5 days, then 2 tabs daily for 5 days, then 1 tab daily for 5 days. Medications Discontinued During This Encounter lisinopril (PRINIVIL) 5 mg tablet 90 t* 1 05/06/2017 06/29/2017 Route: ORAL Sig: Take 1 tablet by mouth once daily. Disc: Clinical Decision gabapentin (NEURONTIN) 100 mg capsule 90 c* 1 05/06/2017 06/29/2017 Route: ORAL Sig: Take 1 capsule by mouth three times daily for 61 days. Disc: Changing Therapy/Dosage Form Encounter Status:Closed by LAILA PEACOCK OBIEE LEAD DEVELOPER on 06/29/17 PROGRESS Observed: 05/31/2017 Status: COMPLETED Source: [place] 4:19 PM [facility] REPOSITORY HNO ID: [id number] Author: Jack (Pt) Murtaza Service: (none) Author Type: Physical Therapist Type: Progress Notes Filed: 05/31/2017 7:11 PM Note Text: Episode Visit Count: 2 Therapist That Will Oversee The Plan Of Care: Jack Hauser Start of Care Date: 05/03/17 Patient Identified by Name and Date of : Yes [facility] PHYSICAL THERAPY TREATMENT NOTE ASSESSMENT: Gabriel Moscoso demonstrated improvements in pelvic alignment and centralization of symptoms. The patient will continue to benefit from continued skilled physical therapy for strengthening and pain control. PLAN FOR NEXT VISIT: Assess symptom reponse to newly added home exercises and manual techniques. Progress pelvic/core strengthening exercises as tolerated. SUBJECTIVE: Pt reports her symptoms have isolated to L LS region and radiates around side of her hip to top of thigh, but is no longer going down the leg. Denies pain on R LE or R low back. Pain Score: 2/10 Pain Location: Low Back/Lumbar Spine - Left;Buttocks - Left Post Treatment Pain Score: 1/10 OBJECTIVE MEASURES WITH LEVEL OF FUNCTION: Posture / Alignment Lumbo - Pelvic Alignment: R ASIS only slightly inferior to L in supine position. No complaints of tenderness to palpation. TREATMENT: Therapeutic Exercise: 1: L isometric hip flexion with R isometric hip extension 5 sec holds 2 x 10 reps 2: *bridging 2 sets of 10 3: *isometric abdominals 5 sec holds 2 x 10 reps 4: B hip adductions (pillow squeezes) 5 sec holds 2 x 10 reps 5: *prone hip extensions 2 x 10 reps each leg 6: *seated TA with opposite arm and leg raise 1 x 10 reps each Skilled Intervention: Patient was educated in proper exercise technique and purpose for exercises. Reviewed and educated patient on additions/changes for home exercise program and pt to add (*) exercises as noted above. Skilled judgment was provided in selection of appropriate interventions. Provided written instruction for home exercise program to facilitate proper performance and compliance. Correct performance of therapeutic exercises was facilitated with verbal and visual cuing. Patient education as noted. Manual Therapy: 1: Foam roller and lacrosse ball soft tissue techniques L lumbosacral, SI and buttocks regions with pt in prone lying. Skilled Intervention: Manual skills to improve joint mobility, ROM, and decrease pain. Utilized anatomy knowledge of the therapist, and assessment of patient's response to intervention. Billing: [facility]: Therapeutic Exercise ([id number]): 1:1 time: 29 minutes (2 units: 23-37 mins) Manual Therapy ([id number]): 1:1 time: 12 minutes (1 unit: 8-22 mins) Total time: 41 minutes Jack Hauser PT CNTHERAPY Observed: 05/31/2017 Status: COMPLETED Source: [place] 4:15 PM [facility] REPOSITORY OT/PT/Speech Visit (PTWS) GABRIEL MOSCOSO ([id number]) 1965 F Date Time Provider Department 05/31/17 4:15 PM JACK HAUSER (PT) PTWS Date Time Provider Department Center 05/31/2017 4:15 PM [id number] HAUSER (PT) PTWS [facility] Reason for Visit: Physical Therapy [503] PT Discharge [752] Reason For Visit History Recorded Primary Visit Diagnosis:Bilateral leg pain [M79.604, M79.605] Allergies As of Date: 05/31/2017 Noted Allergy Reaction LEVAQUIN (LEVOFLOXACIN) 03/04/2015 6 - Diarrhea PENICILLINS 12/09/2004 Date Reviewed: 05/06/2017 Reviewed by: Yuliana Hansen Cosmetology Educator - Fully Assessed Prescriptions as of 05/31/2017 Sig: X LISINOPRIL 5 MG TABLET Take 1 tablet by mouth once d* X GABAPENTIN 100 MG CAPSULE Take 1 capsule by mouth three* PANTOPRAZOLE 20 MG TABLET,DEL* Take 1 tablet by mouth daily * LEVOTHYROXINE 137 MCG TABLET Take 1 tablet by mouth daily * LORATADINE 10 MG TABLET Take 1 tablet by mouth once d* SOLIFENACIN 10 MG TABLET Take 1 tablet by mouth once d* NYSTATIN 100,000 UNIT/GRAM TO* Apply 1 application to affect* Progress Notes: Jack Hauser PT 05/31/2017 7:11 PM Signed Episode Visit Count: 2 Therapist That Will Oversee The Plan Of Care: Jack Hauser Start of Care Date: 05/03/17 Patient Identified by Name and Date of : Yes REHABILITATION AND SPORTS THERAPY PHYSICAL THERAPY TREATMENT NOTE ASSESSMENT: Gabriel Moscoso demonstrated improvements in pelvic alignment and centralization of symptoms. The patient will continue to benefit from continued skilled physical therapy for strengthening and pain control. PLAN FOR NEXT VISIT: Assess symptom reponse to newly added home exercises and manual techniques. Progress pelvic/core strengthening exercises as tolerated. SUBJECTIVE: Pt reports her symptoms have isolated to L LS region and radiates around side of her hip to top of thigh, but is no longer going down the leg. Denies pain on R LE or R low back. Pain Score: 2/10 Pain Location: Low Back/Lumbar Spine - Left;Buttocks - Left Post Treatment Pain Score: 1/10 OBJECTIVE MEASURES WITH LEVEL OF FUNCTION: Posture / Alignment Lumbo - Pelvic Alignment: R ASIS only slightly inferior to L in supine position. No complaints of tenderness to palpation. TREATMENT: Therapeutic Exercise: 1: L isometric hip flexion with R isometric hip extension 5 sec holds 2 x 10 reps 2: *bridging 2 sets of 10 3: *isometric abdominals 5 sec holds 2 x 10 reps 4: B hip adductions (pillow squeezes) 5 sec holds 2 x 10 reps 5: *prone hip extensions 2 x 10 reps each leg 6: *seated TA with opposite arm and leg raise 1 x 10 reps each Skilled Intervention: Patient was educated in proper exercise technique and purpose for exercises. Reviewed and educated patient on additions/changes for home exercise program and pt to add (*) exercises as noted above. Skilled judgment was provided in selection of appropriate interventions. Provided written instruction for home exercise program to facilitate proper performance and compliance. Correct performance of therapeutic exercises was facilitated with verbal and visual cuing. Patient education as noted. Manual Therapy: 1: Foam roller and lacrosse ball soft tissue techniques L lumbosacral, SI and buttocks regions with pt in prone lying. Skilled Intervention: Manual skills to improve joint mobility, ROM, and decrease pain. Utilized anatomy knowledge of the therapist, and assessment of patient's response to intervention. Billing: [facility]: Therapeutic Exercise ([id number]): 1:1 time: 29 minutes (2 units: 23-37 mins) Manual Therapy ([id number]): 1:1 time: 12 minutes (1 unit: 8-22 mins) Total time: 41 minutes Jack Hauser, PT Jack Hauser PT 08/04/2017 11:38 AM Signed [facility] REHABILITATION AND SPORTS THERAPY PHYSICAL THERAPY DISCONTINUANCE OF CARE Plan of Care Period: Start of Care Date: 05/03/17 Last Visit Date: 05/31/17 Therapy Program: The following is a summary of the interventions provided for this episode of care; Therapeutic exercise and Manual therapy Assessment: Based on most recent visit, patient was progressing as expected toward functional goals based on documented subjective information on progress and documented objective information regarding pelvic alignment and centralization of symptoms. Unable to formally assess goal achievement due to non-compliance with therapy plan of care. Reason for Discontinuation of Care: Patient has not returned to therapy or scheduled additional follow-up appointments. Jack Hauser PT PROGRESS Observed: 05/06/2017 Status: COMPLETED Source: [place] 3:55 PM [facility] [place] REPOSITORY HNO ID: [id number] Author: Laila Granda (Silvia) Ayush Service: (none) Author Type: Nurse Practitioner Type: Progress Notes Filed: 05/06/2017 8:14 PM Note Text: Chief Complaint Patient presents with: Recheck: 3 week blood pressure check Back Pain: low back pain going into both legs HPI Gabriel Moscoso is a 52 year old female who presents here today for follow up BP and bilateral leg pain. BP: Last 3 Encounter BP Readings: Taking Lisinopril 5 mg, tolerating Lisinopril well, denies any side effects. She notes previously was having it checked by school Nurse and was noted to be elevated. She admits some situational stress right now with mother's health and feels she is handling situation well. Date: BP: 05/06/2017 116/73 04/15/2017 110/84 02/26/2017 140/90 Bilateral Leg pain: Seen 04/15/17, see note. Leg pain: Bilateral, describes as strong ache, mornings are the worse, hard to get going. States has been going on a while at least over a year. Starts at top bilateral hips, travels down front of both thighs, and lately posterior legs, down to both heels. Sometimes lower back pain, and pain L>R. Has been trying to walk with her dog, but notes she is the one holding up the walk. Denies n/t, describes as a solid ache. Wakes her at night. Occasional leg weakness. Denies unintentional weight loss, occasional night sweats attributed to menopause. Reports rating pain 3 out of 10. Treats with Prn Tylenol, rare NSAIDs due to gastric bypass surgery. Has also been to chiropractor who told her she had a ruptured disc. Since last visit she has been to PHYSICAL THERAPY x 1, doing HEP as well. Has not noticed any improvement. States feels like pain is nerve pain. Starts bilateral upper outer thighs, L>R and radiates to inner thigh down to knee then posterior lower leg to ankles. States she has joined and lost 12 lbs. Continues to work toward weight loss. Denies any saddle anesthesia or numbness/tingling to lower legs. No leg weakness. Occasional intermittent low back pain. The ROS is otherwise negative. Past medical history, appointments, medications, allergies reviewed. Patient Allergies ALLERGIES Allergen Reactions - Levaquin [Levofloxa* Diarrhea - Penicillins Current Medications Current Outpatient Prescriptions on File Prior to Visit: pantoprazole DR (PROTONIX) 20 mg tablet Take 1 tablet by mouth daily before breakfast. Take on empty stomach, 1/2 hr before meal. lisinopril (PRINIVIL) 5 mg tablet Take 1 tablet by mouth once daily. levothyroxine (SYNTHROID) 137 mcg tablet Take 1 tablet by mouth daily before breakfast. loratadine (CLARITIN) 10 mg tablet Take 1 tablet by mouth once daily. solifenacin 10 mg tablet Take 1 tablet by mouth once daily. nystatin (NYSTOP) powder Apply 1 application to affected area twice daily. No current facility-administered medications on file prior to visit. Previous Medical History PAST MEDICAL HISTORY Diagnosis Date - Hypothyroid - Iron deficiency anemia, unspecified - Rosacea - Snoring - Unspecified inflammatory disease of female pelvic organs and tissues Previous Surgical History PAST SURGICAL HISTORY Procedure Laterality Date - APPENDECTOMY 1984 - CATHETER, ABLATION thermachoice - DELIVERY ONLY - COLONOSCOPY 09/29/2016 small benign hyperplastic polyp, otherwise normal-repeat in 10 years - EGD W/O [facility] SPECIMEN W/BX 04/26/09 - GASTRIC BYPASS 04/2004 laparoscopic Keira-en-Y gastric bypass at [facility] - PAST SURGICAL HISTORY OF DANDC x 2 - REMOVAL OF TONSILS,<12 Y/O Tonsillectomy - REMV CATARACT INTRACAP,INSERT LENS o.u. 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 Neck: Supple, no adenopathy; thyroid symmetric, normal size, no bruits. Lungs: Lungs clear to auscultation. No wheezing, rhonchi, rales. Heart: RRR without murmur, gallop, or rubs. No ectopy. Abdomen: Normal abdominal exam, Abdomen soft, non-tender. Bowel sounds normal. No masses, organomegaly. Range of Motion Spine: extension normal, flexion normal, lateral rotation normal Gait: normal gait Muscle Spasm: absent Strength lower extremeties: 5/5 Sensory exam Lower Extremeties: Normal. Spinal Tenderness: not present Straight Leg Raise: sitting - Negative lying - Negative ASSESSMENT/PLAN: 1. Lumbar radiculopathy - ICD9: 724.4, ICD10: M54.16 (primary diagnosis) - PT consult - GABAPENTIN 100 MG CAPSULE 2. Elevated BP without diagnosis of hypertension - ICD9: 796.2, ICD10: R03.0 - Encouraged dietary sodium restriction/DASH diet - Recommended regular aerobic exercise. - Recheck in 2 months, sooner if needed. - Goal of BP <130/80 - LISINOPRIL 5 MG TABLET 3. Bilateral leg pain - ICD9: 729.5, ICD10: M79.604, M79.605 - Secondary to lumbar radiculopathy - continue PHYSICAL THERAPY and weight loss efforts. Adding Gabapentin 4. Neuropathic pain - ICD9: 729.2, ICD10: M79.2 -OARRS website checked and validated. No controlled substance prescriptions were reported.- 05/06/2017 by ANNELISE Gary OBIEE LEAD DEVELOPER Reviewed medication and titration schedule To f/u in 2 months Consider MRI if sx not improved - GABAPENTIN 100 MG CAPSULE ANNELISE Gary OBIEE LEAD DEVELOPER CNOV Observed: 05/06/2017 Status: COMPLETED Source: [place] 3:40 PM [facility] REPOSITORY Office Visit (FAMPWS) GABRIEL MOSCOSO ([id number]) 1965 F Date Time Provider Department 05/06/17 3:40 PM LAILA PEACOCK (AUTO SEAT COVER INSTALLER) FAMPWS During your visit today, we recorded the following information about you: Temperature Pulse Respiration Blood pressure 97.8 degrees 59/minute 14/minute 116/73 Weight 101.6 kg ANNELISE Gary CNP 05/06/2017 8:14 PM Signed Chief Complaint Patient presents with: Recheck: 3 week blood pressure check Back Pain: low back pain going into both legs HPI Gabriel Moscoso is a 52 year old female who presents here today for follow up BP and bilateral leg pain. BP: Last 3 Encounter BP Readings: Taking Lisinopril 5 mg, tolerating Lisinopril well, denies any side effects. She notes previously was having it checked by school Nurse and was noted to be elevated. She admits some situational stress right now with mother's health and feels she is handling situation well. Date: BP: 05/06/2017 116/73 04/15/2017 110/84 02/26/2017 140/90 Bilateral Leg pain: Seen 04/15/17, see note. Leg pain: Bilateral, describes as strong ache, mornings are the worse, ANDquot;hard to get goingANDquot;. States has been going on a while at least over a year. Starts at top bilateral hips, travels down front of both thighs, and lately posterior legs, down to both heels. Sometimes lower back pain, and pain LANDgt;R. Has been trying to walk with her dog, but notes she is the one ANDquot;holding up the walkANDquot;. Denies n/t, describes as a ANDquot;solid acheANDquot;. Wakes her at night. Occasional leg weakness. Denies unintentional weight loss, occasional night sweats attributed to menopause. Reports rating pain 3 out of 10. Treats with Prn Tylenol, rare NSAIDs due to gastric bypass surgery. Has also been to chiropractor who told her she had a ruptured disc. Since last visit she has been to PHYSICAL THERAPY x 1, doing HEP as well. Has not noticed any improvement. States ANDquot;feels like pain is nerve painANDquot;. Starts bilateral upper outer thighs, LANDgt;R and radiates to inner thigh down to knee then posterior lower leg to ankles. States she has joined and lost 12 lbs. Continues to work toward weight loss. Denies any saddle anesthesia or numbness/tingling to lower legs. No leg weakness. Occasional intermittent low back pain. The ROS is otherwise negative. Past medical history, appointments, medications, allergies reviewed. Patient Allergies ALLERGIES Allergen Reactions - Levaquin [Levofloxa* Diarrhea - Penicillins Current Medications Current Outpatient Prescriptions on File Prior to Visit: pantoprazole DR (PROTONIX) 20 mg tablet Take 1 tablet by mouth daily before breakfast. Take on empty stomach, 1/2 hr before meal. lisinopril (PRINIVIL) 5 mg tablet Take 1 tablet by mouth once daily. levothyroxine (SYNTHROID) 137 mcg tablet Take 1 tablet by mouth daily before breakfast. loratadine (CLARITIN) 10 mg tablet Take 1 tablet by mouth once daily. solifenacin 10 mg tablet Take 1 tablet by mouth once daily. nystatin (NYSTOP) powder Apply 1 application to affected area twice daily. No current facility-administered medications on file prior to visit. Previous Medical History PAST MEDICAL HISTORY Diagnosis Date - Hypothyroid - Iron deficiency anemia, unspecified - Rosacea - Snoring - Unspecified inflammatory disease of female pelvic organs and tissues Previous Surgical History PAST SURGICAL HISTORY Procedure Laterality Date - APPENDECTOMY 1984 - CATHETER, ABLATION thermachoice - DELIVERY ONLY - COLONOSCOPY 09/29/2016 small benign hyperplastic polyp, otherwise normal-repeat in 10 years - EGD W/O [facility] SPECIMEN W/BX 04/26/09 - GASTRIC BYPASS 04/2004 laparoscopic Keira-en-Y gastric bypass at [facility] - PAST SURGICAL HISTORY OF DANDamp;C x 2 - REMOVAL OF TONSILS,ANDlt;13 Y/O Tonsillectomy - REMV CATARACT INTRACAP,INSERT LENS o.u. 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 Neck: Supple, no adenopathy; thyroid symmetric, normal size, no bruits. Lungs: Lungs clear to auscultation. No wheezing, rhonchi, rales. Heart: RRR without murmur, gallop, or rubs. No ectopy. Abdomen: Normal abdominal exam, Abdomen soft, non-tender. Bowel sounds normal. No masses, organomegaly. Range of Motion Spine: extension normal, flexion normal, lateral rotation normal Gait: normal gait Muscle Spasm: absent Strength lower extremeties: 5/5 Sensory exam Lower Extremeties: Normal. Spinal Tenderness: not present Straight Leg Raise: sitting - Negative lying - Negative ASSESSMENT/PLAN: 1. Lumbar radiculopathy - ICD9: 724.4, ICD10: M54.16 (primary diagnosis) - PT consult - GABAPENTIN 100 MG CAPSULE 2. Elevated BP without diagnosis of hypertension - ICD9: 796.2, ICD10: R03.0 - Encouraged dietary sodium restriction/DASH diet - Recommended regular aerobic exercise. - Recheck in 2 months, sooner if needed. - Goal of BP ANDlt;130/80 - LISINOPRIL 5 MG TABLET 3. Bilateral leg pain - ICD9: 729.5, ICD10: M79.604, M79.605 - Secondary to lumbar radiculopathy - continue PHYSICAL THERAPY and weight loss efforts. Adding Gabapentin 4. Neuropathic pain - ICD9: 729.2, ICD10: M79.2 -OARRS website checked and validated. No controlled substance prescriptions were reported.- 05/06/2017 by Laila Peacock, MSN OBIEE LEAD DEVELOPER Reviewed medication and titration schedule To f/u in 2 months Consider MRI if sx not improved - GABAPENTIN 100 MG CAPSULE Laila Peacock, MSN OBIEE LEAD DEVELOPER Referring Provider: LAILA PEACOCK (AUTO SEAT COVER INSTALLER) [[id number]] Allergies As of Date: 05/06/2017 Noted Allergy Reaction LEVAQUIN (LEVOFLOXACIN) 03/04/2015 6 - Diarrhea PENICILLINS 12/09/2004 Date Reviewed: 05/06/2017 Reviewed by: Yuliana Hansen Cosmetology Educator - Fully Assessed Reason for Visit: Recheck [92] Cmt: 3 week blood pressure check Back Pain [12] Cmt: low back pain going into both legs Reason For Visit History Recorded Primary Visit Diagnosis:Lumbar radiculopathy [M54.16] Other Visit Diagnoses:Elevated BP without diagnosis of hypertension [R03.0] Bilateral leg pain [M79.604, M79.605] Neuropathic pain [M79.2] Order(s):lisinopril (PRINIVIL) 5 mg tabletTake 1 tablet by mouth once daily.Disp: 90 tabletRfl: 1 gabapentin (NEURONTIN) 100 mg capsuleTake 1 capsule by mouth three times daily for 61 days.Disp: 90 capsuleRfl: 1 Prescriptions as of 05/06/2017 Sig: LISINOPRIL 5 MG TABLET Take 1 tablet by mouth once d* PANTOPRAZOLE 20 MG TABLET,DEL* Take 1 tablet by mouth daily * LEVOTHYROXINE 137 MCG TABLET Take 1 tablet by mouth daily * LORATADINE 10 MG TABLET Take 1 tablet by mouth once d* SOLIFENACIN 10 MG TABLET Take 1 tablet by mouth once d* NYSTATIN 100,000 UNIT/GRAM TO* Apply 1 application to affect* GABAPENTIN 100 MG CAPSULE Take 1 capsule by mouth three* Problem List As Of Date 05/06/2017 Noted Resolved Hypothyroidism [E03.9] INVALID FOR* Gastric Bypass Status for Obesity [Z98.84] INVALID FOR* Unspecified Iron Deficiency Anemia [D50.9] INVALID FOR* Acute gastritis without mention of hemorrhage [*INVALID FOR*09/18/2016 Menorrhagia [N92.0] INVALID FOR*04/15/2011 Sleep apnea [G47.30] INVALID FOR* Overactive bladder [N32.81] INVALID FOR* Urge incontinence [N39.41] INVALID FOR* Gastroesophageal reflux disease [K21.9] INVALID FOR* Bilateral leg pain [M79.604, M79.605] INVALID FOR* Prescriptions ordered this encounter Disp Refills Start End LISINOPRIL 5 MG TABLET 90 t* 1 05/06/2017 Route: ORAL Sig: Take 1 tablet by mouth once daily. GABAPENTIN 100 MG CAPSULE 90 c* 1 05/06/2017 07/06/2017 Route: ORAL Sig: Take 1 capsule by mouth three times daily for 61 days. Medications Discontinued During This Encounter lisinopril (PRINIVIL) 5 mg tablet 30 t* 0 04/15/2017 05/06/2017 Route: ORAL Sig: Take 1 tablet by mouth once daily. Disc: Reason for discontinue is not on file. Disposition: Return in about 2 months (around 07/06/2017). Follow-up and Disposition History Recorded Encounter Status:Closed by LAILA PEACOCK CNP on 05/06/17 CNTHERAPY Observed: 05/03/2017 Status: COMPLETED Source: [place] 5:00 PM [facility] REPOSITORY OT/PT/Speech Visit (PTWS) GABRIEL MOSCOSO ([id number]) 1965 F Date Time Provider Department 05/03/17 5:00 PM JACK HAUSER (PT) PTWS Date Time Provider Department [place] 05/03/2017 5:00 PM [id number] HAUSER (PT) PTWS [facility] Reason for Visit: PT Eval [747] Primary Visit Diagnosis:Bilateral leg pain [M79.604, M79.605] Allergies As of Date: 05/03/2017 Noted Allergy Reaction LEVAQUIN (LEVOFLOXACIN) 03/04/2015 6 - Diarrhea PENICILLINS 12/09/2004 Date Reviewed: 04/15/2017 Reviewed by: Brea Galicia LPN - Fully Assessed Prescriptions as of 05/03/2017 Sig: PANTOPRAZOLE 20 MG TABLET,DEL* Take 1 tablet by mouth daily * LISINOPRIL 5 MG TABLET Take 1 tablet by mouth once d* LEVOTHYROXINE 137 MCG TABLET Take 1 tablet by mouth daily * LORATADINE 10 MG TABLET Take 1 tablet by mouth once d* SOLIFENACIN 10 MG TABLET Take 1 tablet by mouth once d* NYSTATIN 100,000 UNIT/GRAM TO* Apply 1 application to affect* Progress Notes: Jack Hauser PT 05/05/2017 1:51 PM Signed Episode Visit Count: 1 Therapist That Will Oversee The Plan Of Care: Jack Hauser Start of Care Date: 05/03/17 Patient Identified by Name and Date of : Yes REHABILITATION AND SPORTS THERAPY PHYSICAL THERAPY EVALUATION PLAN OF CARE: Assessment: Gabriel Moscoso presents with the chief complaint of B LE and pain. She presents with impairments of decreased AROM, core weakness. She may benefit from skilled therapy services to improve lumbar spine AROM and core strength. Low Back Pain Subgroup Classification Low Back Pain Subgroup Classification: Core stabilization subgroup: recommended visits 10. Prognosis: Good Good due to: current objective clinical presentation;within- session changes at evaluation;good support system/ coping skills Goals for Episode of Care: created on 05/03/17 through 07/05/17 [place] in home exercise program. Patient will decrease pain rating by 2 points to meet minimal clinical important difference for numeric pain rating scale. Patient will increase active ROM of lumbar spine by 10 degrees lateral flexion to allow pt to to achieve neutral postural alignment and improved performance of ADLs. Patient will increase strength of core musculature to 4+ to 5/5 to allow for return to prior functional status. Perform sitting, standing, prolonged walking and sleeping with decreased report of symptoms/pain in 4-8 weeks. Demonstrate improvement on functional score: Patient will improve his/her AM-PAC T-scale score by 4 points to indicate a Minimal Clinical Important Difference . Improve postural awareness. G CODE REPORTING Based on clinical assessment and the score on the AM-PAC Scale Score Assessment Tool, the G code and corresponding severity modifiers are documented below. Evaluation: 05/05/2017 Current Status: Mobility: Walking and Moving Around: [id number] CK 40-59% impaired Goal Status: Mobility: Walking and Moving Around: G8979 CJ 20-39% impaired Planned Interventions, Frequency, and Duration: Current Frequency: 2x/week Duration: 8 weeks Total Number of Visits Planned: 16 Patient to be see for Planned Treatment Interventions: Therapeutic exercise;Neuromuscular re-education;Patient/Family/Caregiver Education;Modalities Modalities: Ultrasound PLAN FOR NEXT VISIT: Review HEP to insure correct performance. Assess symptom reposnse to initial treatment and HEP. Progress core strengthening exercises and HEP. Patient demonstrates good understanding of plan of care and treatment. The above goals and plan of care were discussed and agreed upon by patient/family. SUBJECTIVE: Gabriel Moscoso is a 52 year old female seen today for Pt reports constant B LE pain (varies in location) and sometimes in low back. Interferes with sleep. Functional Limitations: sitting;standing;walking in the community;sleeping Prior Level of Function: Independent without limitations Intake Information: Prescription present Falls Interview: No positive findings with falls interview (fell once a couple of years ago, caused by uneven concrete) Spine History Sleeping Position: Prone - head either right or left;Side lying right;Side lying left (prone feels better, sidelying pain either side) Pain Score: 3/10 (up to 7/10 at worst) Pain Location: (varies in B LE, at tiems L buttock or low back.) Description: Aching Frequency: Intermittent (More present than not.) Post Treatment Pain Score: No Change OBJECTIVE MEASURES WITH LEVEL OF FUNCTION: Posture / Alignment Lumbo - Pelvic Alignment: R PSIS higher than L and tender to palpation. R ASIS lower than L. No tenderness. Lumbar Spine AROM Lumbar Flexion: (fingertips to floor) Lumbar Extension: Minimal limitation (pian L SI region at end range) Lumbar R Side-Bend: (45 deg, pain lateral buttocks) Lumbar L Side-Bend: (35 deg, pain lateral buttocks) LE Flexibility Flexibility: Hamstring Flexibility R Hamstring Flexibility: SLR 60 deg L Hamstring Flexibility: SLR 70 deg LE Strength Trunk Strength: 4/5 R LE Strength: 5/5 L LE Strength: 5/5 L Hip Flexion: (pain in thigh) L Knee Extension: (pain in thigh) L Knee Flexion: (pain in thigh) Education: Education Learning Preferences: Demonstration;Explanation Barriers: None Learning/educational needs: Home exercise program;Plan of Care;Posture Education Provided: Yes, see treatment interventions for education provided Education Provided To: Patient Education Mode/Type: Demonstration;Explanation/Discussion;Literature/Printed Materials;Performance Response to Education/Teach Back: States/Identifies;Return Demonstration TREATMENT: Evaluation Therapeutic Exercise: 1: L isometric hip flexion with R isometric hip extension 5 sec holds 1 x 10 reps 2: B hip adductions (pillow squeezes) 5 sec holds 2 x 10 reps Skilled Intervention: Patient was educated in proper exercise technique and purpose for exercises. Reviewed and educated patient on additions/changes for home exercise program and pt to perform exercises listed above. Skilled judgment was provided in selection of appropriate interventions. Provided written instruction for home exercise program to facilitate proper performance and compliance. Correct performance of therapeutic exercises was facilitated with verbal and visual cuing. Patient education as noted. Billing: [facility]: Evaluation - Low Complexity (35295) Therapeutic Exercise (68616): 1:1 time: 15 minutes (3 units: 38-52 mins) Total time: 43 minutes Jack Hauser PT PROGRESS Observed: 05/03/2017 Status: COMPLETED Source: [place] 4:51 PM [facility] REPOSITORY HNO ID: [id number] Author: Jack (Pt) Murtaza Service: (none) Author Type: Physical Therapist Type: Progress Notes Filed: 05/05/2017 1:51 PM Note Text: Episode Visit Count: 1 Therapist That Will Oversee The Plan Of Care: Jack Hauser Start of Care Date: 05/03/17 Patient Identified by Name and Date of : Yes [facility] PHYSICAL THERAPY EVALUATION PLAN OF CARE: Assessment: Gabriel Moscoso presents with the chief complaint of B LE and pain. She presents with impairments of decreased AROM, core weakness. She may benefit from skilled therapy services to improve lumbar spine AROM and core strength. Low Back Pain Subgroup Classification Low Back Pain Subgroup Classification: Core stabilization subgroup: recommended visits 10. Prognosis: Good Good due to: current objective clinical presentation;within-session changes at evaluation;good support system/ coping skills Goals for Episode of Care: created on 05/03/17 through 07/05/17 [place] in home exercise program. Patient will decrease pain rating by 2 points to meet minimal clinical important difference for numeric pain rating scale. Patient will increase active ROM of lumbar spine by 10 degrees lateral flexion to allow pt to to achieve neutral postural alignment and improved performance of ADLs. Patient will increase strength of core musculature to 4+ to 5/5 to allow for return to prior functional status. Perform sitting, standing, prolonged walking and sleeping with decreased report of symptoms/pain in 4-8 weeks. Demonstrate improvement on functional score: Patient will improve his/her AM-PAC T-scale score by 4 points to indicate a Minimal Clinical Important Difference . Improve postural awareness. G CODE REPORTING Based on clinical assessment and the score on the AM-PAC Scale Score Assessment Tool, the G code and corresponding severity modifiers are documented below. Evaluation: 05/05/2017 Current Status: Mobility: Walking and Moving Around: [id number] CK 40-59% impaired Goal Status: Mobility: Walking and Moving Around: G8979 CJ 20-39% impaired Planned Interventions, Frequency, and Duration: Current Frequency: 2x/week Duration: 8 weeks Total Number of Visits Planned: 16 Patient to be see for Planned Treatment Interventions: Therapeutic exercise;Neuromuscular re-education;Patient/Family/Caregiver Education;Modalities Modalities: Ultrasound PLAN FOR NEXT VISIT: Review HEP to insure correct performance. Assess symptom reposnse to initial treatment and HEP. Progress core strengthening exercises and HEP. Patient demonstrates good understanding of plan of care and treatment. The above goals and plan of care were discussed and agreed upon by patient/family. SUBJECTIVE: Gabriel Moscoso is a 52 year old female seen today for Pt reports constant B LE pain (varies in location) and sometimes in low back. Interferes with sleep. Functional Limitations: sitting;standing;walking in the community;sleeping Prior Level of Function: Independent without limitations Intake Information: Prescription present Falls Interview: No positive findings with falls interview (fell once a couple of years ago, caused by uneven concrete) Spine History Sleeping Position: Prone - head either right or left;Side lying right;Side lying left (prone feels better, sidelying pain either side) Pain Score: 3/10 (up to 7/10 at worst) Pain Location: (varies in B LE, at tiems L buttock or low back.) Description: Aching Frequency: Intermittent (More present than not.) Post Treatment Pain Score: No Change OBJECTIVE MEASURES WITH LEVEL OF FUNCTION: Posture / Alignment Lumbo - Pelvic Alignment: R PSIS higher than L and tender to palpation. R ASIS lower than L. No tenderness. Lumbar Spine AROM Lumbar Flexion: (fingertips to floor) Lumbar Extension: Minimal limitation (pian L SI region at end range) Lumbar R Side-Bend: (45 deg, pain lateral buttocks) Lumbar L Side-Bend: (35 deg, pain lateral buttocks) LE Flexibility Flexibility: Hamstring Flexibility R Hamstring Flexibility: SLR 60 deg L Hamstring Flexibility: SLR 70 deg LE Strength Trunk Strength: 4/5 R LE Strength: 5/5 L LE Strength: 5/5 L Hip Flexion: (pain in thigh) L Knee Extension: (pain in thigh) L Knee Flexion: (pain in thigh) Education: Education Learning Preferences: Demonstration;Explanation Barriers: None Learning/educational needs: Home exercise program;Plan of Care;Posture Education Provided: Yes, see treatment interventions for education provided Education Provided To: Patient Education Mode/Type: Demonstration;Explanation/Discussion;Literature/Printed Materials;Performance Response to Education/Teach Back: States/Identifies;Return Demonstration TREATMENT: Evaluation Therapeutic Exercise: 1: L isometric hip flexion with R isometric hip extension 5 sec holds 1 x 10 reps 2: B hip adductions (pillow squeezes) 5 sec holds 2 x 10 reps Skilled Intervention: Patient was educated in proper exercise technique and purpose for exercises. Reviewed and educated patient on additions/changes for home exercise program and pt to perform exercises listed above. Skilled judgment was provided in selection of appropriate interventions. Provided written instruction for home exercise program to facilitate proper performance and compliance. Correct performance of therapeutic exercises was facilitated with verbal and visual cuing. Patient education as noted. Billing: [facility]: Evaluation - Low Complexity (96282) Therapeutic Exercise (05431): 1:1 time: 15 minutes (3 units: 38-52 mins) Total time: 43 minutes Jack Hauser PT BASIC METABOLIC PANL Collected: 04/15/2017 Status: F Source: [place] 4:09 PM [facility] REPOSITORY TYPE CODE TESTS RESULT OUT OF REFERENCE UNITS RANGE LAB GLU 74-99 mg/dL Glucose 75 Result Comment: The [place] Diabetes Association (ADA) provides guidance for cutoff values for fasting glucose and random glucose. The ADA defines fasting as no caloric intake for at least 8 hours. Fas ting plasma glucose results between 100 to 125 mg/dL indicate increased risk for diabetes (prediabetes). Fasting plasma glucose results greater than or equal to 126 mg/dL meet the criteria for diagnosis of diabetes. In the absence of unequivocal hyperglycemia, results should be confirmed by repeat testing. In a patient with classic symptoms of hyperglycemia or hyperglycemic crisis, random plasma glucose results greater than or equal to 200 mg/dL meet the criteria for diagnosis of diabetes. Reference: Standards of Medical Care in Diabetes 2016, [place] Diabetes Association. Diabetes Care. 2016.39(Suppl 1). LAB BUN 7-21 mg/dL BUN 13 LAB CRET 0.58-0.96 mg/dL Creatinine 0.93 LAB NA 136-144 mmol/L Sodium 140 LAB K 3.7-5.1 mmol/L Potassium 3.8 LAB CL 97-105 mmol/L Chloride 103 LAB CO2 22-30 mmol/L CO2 22 LAB AGAP 9-18 mmol/L Anion Gap 15 LAB CA 8.5-10.2 mg/dL Calcium, Total 8.8 LAB GFRAA eGFR- Amer. >60 LAB GFRNAA . eGFR-All Other Races >60 Result Comment: eGFR (Estimated GFR) Units of measure: mL/min/1.73 meters squared eGFR is derived from the reexpressed MDRD Study equation using the following parameters: serum creatinine, age, gender and race. The creatinine assay has been calibrated to be traceable to IDMS. An eGFR <60 mL/min/1.73m2 for >3 months is consistent with chronic kidney disease. Refer to KDOQI guidelines for clinical interpretation. In patients with unstable renal function, e.g. those with acute kidney injury, the eGFR may not accurately reflect actual GFR. Performed By: #### BMP, TSH, T4 #### [facility] [address] [place] [address] TSH Collected: 04/15/2017 Status: F Source: [place] 4:09 PM [facility] REPOSITORY TYPE CODE TESTS RESULT OUT OF RANGE REFERENCE UNITS LAB TSH 0.400-5.500 uU/mL TSH 1.610 Performed By: #### BMP, TSH, T4 #### [facility] [address] [place], [place] [address] T4 Collected: 04/15/2017 Status: F Source: [facility] 4:09 PM MAIN CAMPUS REPOSITORY TYPE CODE TESTS RESULT OUT OF RANGE REFERENCE UNITS LAB T4 5.5-10.2 ug/dL T4 7.9 Performed By: #### BMP, TSH, T4 #### [facility] [address] [place], [place] [address] PROGRESS Observed: 04/15/2017 Status: COMPLETED Source: [place] 3:29 PM [facility] [place] REPOSITORY HNO ID: [id number] Author: Laila Granda (Acquisition Editor) Ayush Service: (none) Author Type: Nurse Practitioner Type: Progress Notes Filed: 04/15/2017 5:42 PM Note Text: Chief Complaint Patient presents with: Musculoskeletal Problem: bilaterl leg pain Hypertension: patient states blood pressure has been running high HPI Gabriel Moscoso is a 52 year old female who presents here today for Above Complaints along with constipation. Leg pain: Bilateral, describes as strong ache, mornings are the worse, hard to get going. States has been going on a while at least over a year. Starts at top bilateral hips, travels down front of both thighs, and lately posterior legs, down to both heels. Sometimes lower back pain, and pain L>R. Has been trying to walk with her dog, but notes she is the one holding up the walk. Denies n/t, describes as a solid ache. Wakes her at night. Occasional leg weakness. Denies unintentional weight loss, occasional night sweats attributed to menopause. Reports rating pain 3 out of 10. Treats with Prn Tylenol, rare NSAIDs due to gastric bypass surgery. Has also been to chiropractor who told her she had a ruptured disc. Constipation: Known hypothyroidism, despite eating fruits and vegetables, + constipation. Had synthroid Adjusted last August, was to repeat labs in October which never happened. Component Latest Ref Rng AND Units 09/18/2016 TSH 0.400 - 5.500 uU/mL 6.670 (H) T4 5.5 - 10.2 ug/dL 7.8 BP: was seen in for illness. BP elevated. 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 Reports with detached retina this past December, her BP was elevated and attributed to stress with detached retina. Denies chest pain or SOB. Last 4 Encounter BP Readings: Date: BP: 04/15/2017 122/90 02/26/2017 140/90 12/16/2016 110/78 09/25/2016 127/79 GERD: reports was told by DM Pharmacist that PCP was not renewing Protonix. EGD last summer reviewed, chronic gastritis and recommended she continue Protonix. Upon chart review, I do not see anywhere that rx was denied, or sent for refill. She has been off rx, then recently started taking OTC Prilosec with some improvement. Results [facility] Gastrointestinal Endoscopy Patient Name: Gabriel Moscoso Procedure Date: 09/29/2016 10:51 AM Date of : 1965 Admit Type: Ambulatory Age: 51 Gender: Female Note Status: Finalized Sedation Initiated: 1102 AM Procedure: ?Upper GI endoscopy Indications: ?Suspected gastro-esophageal reflux disease Providers: ?Rafa Medeiros MD Patient Profile: ? ? ?This is a 51 year old female. Refer to note in patient ? chart for documentation of history and physical. ? Patient has symptoms. Referring Physician: ?Dr. Ravinder Faust Medicines: ?Midazolam 5 mg IV, Fentanyl 100 micrograms IV, ? Diphenhydramine 50 mg IV Complications: ?No immediate complications. Requesting Provider: Procedure: ?Pre-Anesthesia Assessment: ? - Prior to the procedure, a History and Physical was ? performed, and patient medications and allergies were ? reviewed. The patient is competent. The risks and ? benefits of the procedure and the sedation options and ? risks were discussed with the patient. All questions ? were answered and informed consent was obtained. ? Patient identification and proposed procedure were ? verified by the physician and the nurse in the ? procedure room. Mental Status Examination: alert and ? oriented. Airway Examination: normal oropharyngeal ? airway and neck mobility. Respiratory Examination: ? clear to auscultation. CV Examination: normal. ? Prophylactic Antibiotics: The patient does not require ? prophylactic antibiotics. Prior Anticoagulants: The ? patient has taken no previous anticoagulant or ?antiplatelet agents. ASA Grade Assessment: II - A ? patient with mild systemic disease. After reviewing the ? risks and benefits, the patient was deemed in ? satisfactory condition to undergo the procedure. The ? anesthesia plan was to use moderate sedation / ? analgesia (conscious sedation). Immediately prior to ? administration of medications, the patient was ? re-assessed for adequacy to receive sedatives. The ? heart rate, respiratory rate, oxygen saturations, blood ? pressure, adequacy of pulmonary ventilation, and ? response to care were monitored throughout the ? procedure. The physical status of the patient was ? re-assessed after the procedure. ? - Prior to the procedure, a History and Physical was ? performed, and patient medications and allergies were ? reviewed. The patient's tolerance of previous ? anesthesia was also reviewed. The risks and benefits of ? the procedure and the sedation options and risks were ? discussed with the patient. All questions were ? answered, and informed consent was obtained. Prior ? Anticoagulants: The patient has taken no previous ? anticoagulant or antiplatelet agents. ASA Grade ? Assessment: II - A patient with mild systemic disease. ? After reviewing the risks and benefits, the patient was ? deemed in satisfactory condition to undergo the ? procedure. ? After obtaining informed consent, the endoscope was ? passed under direct vision. Throughout the procedure, ? the patient's blood pressure, pulse, and oxygen ? saturations were monitored continuously. The Endoscope ? was introduced through the mouth, and advanced to the ? afferent and efferent jejunal loops. The upper GI ? endoscopy was accomplished without difficulty. The ? patient tolerated the procedure well. Findings: ? ? ?The examined jejunum was normal. ? ? ?Evidence of a Keiar-en-Y gastrojejunostomy was found. The gastrojejunal ? ? ?anastomosis was characterized by healthy appearing mucosa. This was ? ? ?traversed. The [id number] limb was characterized by friable ? ? ?mucosa. Biopsies were taken with a cold forceps for histology. ? ? ?Non-severe esophagitis with no bleeding was found. Biopsies were taken ? ? ?with a cold forceps for histology. ? ? ?The middle third of the esophagus was normal. Biopsies were taken with a ? ? ?cold forceps for histology. Impression: ? - Normal examined jejunum. ? - Keira-en-Y gastrojejunostomy with gastrojejunal ? anastomosis characterized by healthy appearing mucosa. ? Biopsied. ? - Non-severe reflux esophagitis. Biopsied. ? - Normal middle third of esophagus. Biopsied. Recommendation: ? ? ? - Return to my office in 1 week. Attending Participation: ? ? ?I was present and participated during the entire procedure, including ? ? ?non-joy portions, and during the administration and monitoring of ? ? ?Moderate Sedation. Scope In: 11:06:53 AM Scope Out: 11:13:41 AM MD Rafa Gann MD 09/29/2016 11:40:13 AM This report has been signed electronically by Rafa Medeiros MD Number of Addenda: 0 Note Initiated On: 09/29/2016 10:51 AM Estimated Blood Loss: Estimated blood loss: none. Past medical history, appointments, medications, allergies reviewed. Previous Medical History PAST MEDICAL HISTORY Diagnosis Date - Hypothyroid - Iron deficiency anemia, unspecified - Rosacea - Snoring - Unspecified inflammatory disease of female pelvic organs and tissues Previous Surgical History PAST SURGICAL HISTORY Procedure Laterality Date - APPENDECTOMY 1984 - CATHETER, ABLATION thermachoice - DELIVERY ONLY - COLONOSCOPY 09/29/2016 small benign hyperplastic polyp, otherwise normal-repeat in 10 years - EGD W/O [facility] SPECIMEN W/BX 04/26/09 - GASTRIC BYPASS 04/2004 laparoscopic Keira-en-Y gastric bypass at [facility] - PAST SURGICAL HISTORY OF DANDC x 2 - REMOVAL OF TONSILS,<12 Y/O Tonsillectomy - REMV CATARACT INTRACAP,INSERT LENS o.u. Family History FAMILY HISTORY Problem Relation Age of Onset - Osteoporosis Mother - Arthritis Mother - Dementia [OTHER] Father - Arthritis Daughter Rheumatoid Patient Allergies ALLERGIES Allergen Reactions - Levaquin [Levofloxa* Diarrhea - Penicillins Current Medications Current Outpatient Prescriptions on File Prior to Visit: levothyroxine (SYNTHROID) 137 mcg tablet Take 1 tablet by mouth daily before breakfast. loratadine (CLARITIN) 10 mg tablet Take 1 tablet by mouth once daily. nystatin (NYSTOP) powder Apply 1 application to affected area twice daily. pantoprazole DR (PROTONIX) 40 mg tablet Take 1 tablet by mouth once daily. solifenacin 10 mg tablet Take 1 tablet by mouth once daily. albuterol HFA (PROVENTIL HFA, VENTOLIN HFA) 90 mcg/actuation inhaler Inhale 2 Puffs as instructed every 6 hours as needed. codeine-guaiFENesin (GUAIFENESIN AC) 10-100 mg/5 mL syrup Take 5 mL by mouth three times daily as needed. No current facility-administered medications on file prior to visit. 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[employer] Social History Main Topics Smoking status: Never Smoker Smokeless status: Never Used Alcohol use: Yes Comment: Occasionally Drug use: No Sexual activity: Yes Partners with: Male Comment: Vasectomy Review of Symptoms REVIEW OF SYSTEMS PAIN ASSESSMENT: See HPI REVIEW OF SYSTEMS GENERAL: No weight loss, malaise or fevers RESPIRATORY: Negative for cough, hemoptysis, wheezing, COPD, dyspnea or shortness of breath CARDIOVASCULAR: Negative for chest pain, leg swelling, hypertension, CHF or palpitations GI: Positive for heart burn and belching MUSCULOSKELETAL: See HPI EXAM: BP 122/90 (BP Site: Right Arm, BP Position: Sitting, BP Cuff Size: Large Adult) Pulse 68 Temp 36.6 ?C (97.9 ?F) (Tympanic) Resp 18 Wt 106.1 kg (234 lb) BMI 44.58 kg/m2 General Appearance: Well appearing, alert, in no acute distress, well-hydrated, well nourished., Morbidly obese. Neck: Supple, no adenopathy; thyroid symmetric, normal size, no bruits. Lungs: Lungs clear to auscultation. No wheezing, rhonchi, rales. Heart: RRR without murmur, gallop, or rubs. No ectopy. Abdomen: Normal abdominal exam, Abdomen soft, non-tender. Bowel sounds normal. No masses, organomegaly. Musculoskeletal: Spine range of motion normal. Muscular strength intact, Range of motion normal in knees, shoulders, and spine, No joint swelling, deformity, or tenderness. Positive: limited RANGE OF MOTION with external and internal rotation bilateral hips. + subjective pain noted lateral hips with maneuvers. Neurologic: Gait normal. Reflexes normal and symmetric. Sensation grossly intact., Straight leg raising: Negative: bilateral. Range of Motion Spine: extension normal, flexion normal, lateral rotation normal Gait: normal gait Muscle Spasm: absent Strength lower extremeties: 5/5 Sensory exam Lower Extremeties: Normal. Spinal Tenderness: not present Straight Leg Raise: sitting - Negative lying - Negative Health Maintenance List TETANUS due on 06/30/2016 DIABETES SCREEN due on 02/24/2017 MAMMOGRAM due on 08/28/2017 LIPID SCREEN due on 12/11/2018 PAP EVERY 5 YEARS due on 08/26/2020 HPV EVERY 5 YEARS due on 08/26/2020 COLORECTAL CANCER SCREENING,SEE MODIFIER due on 09/29/2026 INFLUENZA Completed ASSESSMENT/PLAN: 1. Bilateral leg pain - ICD9: 729.5, ICD10: M79.604, M79.605 (primary diagnosis) - Will also chest thyroid function labs. No need for imaging at this time. Will Treat with Tylenol. If not improved consider LS spine x-ray - CONSULT TO PHYSICAL THERAPY 2. Gastritis without bleeding, unspecified chronicity, unspecified gastritis type - ICD9: 535.50, ICD10: K29.70 - Better efficacy with Pantoprazole. Will switch to 20 mg at this time. If sx not completely resolved then will increase dose to 40 mg. - PANTOPRAZOLE 20 MG TABLET,DELAYED RELEASE 3. Hypothyroidism, unspecified type - ICD9: 244.9, ICD10: E03.9 - Instructed patient on importance of taking on an empty stomach either first thing in the morning or at bedtime. - check TSH and T4/FTI today 4. Elevated BP without diagnosis of hypertension - ICD9: 796.2, ICD10: R03.0 - Encouraged dietary sodium restriction/DASH diet - Recommended regular aerobic exercise. - Recommend home blood pressure monitoring, to bring results in on next visit - Recheck in 3 weeks, sooner if needed. - Goal of BP <130/80 - LISINOPRIL 5 MG TABLET - BASIC METABOLIC PNL Laila Peacock, MSN [employer] DEVELOPER ALLERGIES ALLERGIES DATE TYPE / CODE NAME / CODE REACTION SEVERITY SOURCE 02/08/2018 Drug Penicillins/[id number] Rash Unknown [place] Allergy/416 476(RXNORM) Community [id number]([facility] ED CT) Repository 07/07/2017 DRUG LISINOPRIL COUGH [facility] INGREDI/[address] [place] [id number](SNOM Repository ED CT) 03/04/2015 DRUG LEVOFLOXACIN DIARRHEA [facility] INGREDI/[address] [place] [id number](SNOM Repository ED CT) 12/09/2004 Drug PENICILLINS [facility] Class/04119 [address] [place] 1003(SNOMED Repository CT) ENCOUNTERS ENCOUNTERS ADMIT/DISCHARGE ACCOUNT ADMITTING ENCOUNTER LOCATION SOURCE NUMBER CLASS 02/08/2018/02/09/20 [id number] Ambulatory BMSBuilding:B [place] 18 [facility] Repository 01/31/2018 [id number] Ambulatory [facility] Hospital ing:OPUS Repository 01/28/2018/01/29/20 [id number] Ambulatory BMSBuilding:B [place] 18 [facility] Hospital Repository 01/26/2018/01/28/20 [id number] Ambulatory [address] Repository 12/22/2017/12/23/19 [id number] Ambulatory BMSBuilding:B [place] 18 [facility] Hospital Repository 12/01/2017/12/02/19 [id number] Ambulatory [address] Repository 11/25/2017/11/26/19 [id number] Ambulatory BMSBuilding:B [place] 18 [facility] Hospital Repository 10/27/2017/10/28/19 [id number] Ambulatory BMSBuilding:B [place] 18 [facility] Hospital Repository 10/07/2017/10/08/19 [id number] Ambulatory BMSBuilding:B [place] 18 [facility] Hospital Repository 09/03/2017/09/04/19 [id number] Ambulatory BMSBuilding:B [place] 18 [facility] Hospital Repository 09/03/2017 [id number] Ambulatory [facility] Hospital ing:OPBI Repository 08/02/2017/08/04/19 [id number] Ambulatory [address] Repository 07/22/2017/07/24/19 [id number] Ambulatory [address] Repository 07/22/2017/07/23/19 [id number] Ambulatory [address] Repository 06/29/2017/07/01/19 [id number] Ambulatory [address] Repository 05/31/2017/06/02/19 [id number] Ambulatory [address] Repository 05/06/2017/05/11/19 [id number] Ambulatory [address] Repository 05/03/2017/05/08/19 [id number] Ambulatory [address] Repository 04/15/2017/04/15/19 [id number] Ambulatory [address] Repository 04/15/2017/04/15/19 [id number] Ambulatory [address] Repository PAYERS PAYERS ENCOUNTER GUARANTOR PAYER SUBSCRIBER SOURCE 02/08/2018 RIKY [id number] Primary RIKY BURLESONB: [place] IMTIAZ Insurance:[facility] [id number] [id number]: [phone] Number: Repository [phone] () [id number] Date:[id number] [facility] [address], [place] [address]LY: 02/08/2018 Secondary NOT GIVENUNK [place] Insurance:SELF PAY [facility] Number: Effective Repository Date:2018-02-08 01/31/2018 RIKY [id number] Primary RIKY BURLESONB: [place] IMTIAZ Insurance:[facility] [id number] [place] [id number]: [phone] Number: Repository [phone] () [id number] Date:5961-11-56SJ [address], [place] [address]NB: 01/31/2018 Secondary NOT GIVENUNK [place] Insurance:SELF PAY [facility] Number: Effective Repository Date:2018-01-28 01/28/2018 Riky [id number] Primary Riky BurlesonB: [place] Imtiaz Insurance:[facility] [id number] [place] [id number]: [phone] Number: Repository [phone] () [id number] Date:6119-10-09VW [address] [place] [address]GN: 01/28/2018 Secondary NOT GIVENUNK [place] Insurance:SELF PAY [facility] Number: Effective Repository Date:2018-01-28 12/22/2017 Riky [id number] Primary Riky MoscosoDOB: [place] Imtiaz Insurance:[facility] [id number] [place] [address]Tel: [phone] Number: Repository [phone] () [id number] Date:7385-75-84US [address] [place] [address]JJ: 12/22/2017 Secondary NOT GIVENUNK [place] Insurance:SELF PAY [facility] Number: Effective Repository Date:2017-12-22 11/25/2017 Riky [id number] Primary Riky BurlesonB: [place] Insurance:[facility] [id number] [place] [address]Tel: [phone] Number: Repository [phone] () [id number] Date:3254-96-99QC [address]FDJIBO, [place] [address]IF: 11/25/2017 Secondary NOT GIVENUNK [place] Insurance:SELF PAY [facility] Number: Effective Repository Date:2017-11-25 10/27/2017 Riky [id number] Primary Riky BurlesonB: [place] Insurance:[facility] [id number] [place] [address]Tel: [phone] Number: Repository [phone] () [id number] Date:5300-79-31HA [address], [place] [address]DN: 10/27/2017 Secondary NOT GIVENUNK [place] Insurance:SELF PAY [facility] Number: Effective Repository Date:2017-10-27 10/07/2017 Riky [id number] Primary Riky BurlesonB: [place] Imtiaz Insurance:[facility] [id number] [address]Xvb: [phone]) Number: Repository [phone] () [id number] Date:7850-31-86SX [address] [address]RQ: 10/07/2017 Secondary NOT GIVENUNK [place] Insurance:SELF PAY [facility] Number: Effective Repository Date:2017-09-15 09/03/2017 Riky Majano0 Primary Riky BurlesonB: [place] Imtiaz Insurance:[facility] [id number] [address]Rdz: [phone]) Number: Repository [phone] () [id number] Date:[id number] [address] [address]JD: 09/03/2017 Secondary NOT GIVENUNK [place] Insurance:SELF PAY [facility] Number: Effective Repository Date:2017-09-03 09/03/2017 Riky Majano0 Primary Riky BurlesonB: [place] Insurance:[facility] [id number] [place] [id number] [place] [address]Poc: [phone] Number: Repository [phone] () [id number] Date:2445-29-21QW [facility] [address]280[address]ZKGUEJL, [place] [address]XF: 09/03/2017 Secondary NOT GIVENUNK [place] Insurance:SELF PAY [facility] Number: Effective Repository Date:2017-07-06
== END ==
PROVIDERS: Family Provider Family Medicine; PCP Family Medicine; Visit Provider Obstetrics & Gynecology
DX: N63.0 Unspecified lump in unspecified breast (principal); N64.4 Mastodynia
CPT/HCPCS: 76642; 77061; 77065; G0279

== ENCOUNTER 2018-05-15 11:08 | Emergency (ER) | payer OTHER, SELFPAY ==
[2018-02-08 16:24] VITALS: BMI 41.1
[2018-05-15 11:10] VITALS: BP 142/102; PULSE 59; RESP 18; TEMP 36.4; O2SAT 98; BMI 39.4
--- NOTE | 2018-05-15 11:25 | EKG12_ITS ---
Test Reason : ABDOMINAL PAIN Blood Pressure : / mmHG Vent. Rate : 056 BPM Atrial Rate : 062 BPM P-R Int : 144 ms QRS Dur : 082 ms QT Int : 450 ms P-R-T Axes : 014 -05 001 degrees QTc Int : 434 ms Normal sinus rhythm Otherwise normal ECG Confirmed by ANANTH WARREN, BISHNU ([id number]), editor in chief newspaper NEELAM GRISSOM ([id number]) on 05/16/2018 4:05:48 PM Referred By: PC Confirmed By:BISHNU WADSWORTH MD
--- NOTE | 2018-05-15 11:28 | ED.DCSUM_ITS ---
- ER Visit Summary Date of Service: 05/15/18 Chief Complaint: Epigastric pain History of Present Illness: The patient is a 53 F who presents with epigastric pain for the last 3-4 days. She was on pantoprazole and stopped it about a week ago. She denies any fever chills chest pain or shortness of breath there is no lower abdominal pain. There is no right upper quadrant pain. There is no radiation to her back. There is no diarrhea or constipation. She has nausea but no vomiting. Physical Examination: This is an obese female who does not appear in significant distress she has clear lungs bilaterally she has a soft abdomen with epigastric tenderness there is no right upper quadrant pain. She has a negative Carrera's. She has no guarding or rebound. Emergency Department Course and Treatment: This is likely gastritis. She has an unremarkable workup. We will start her back on a PPI and she is to follow-up with her PCP. Discharge stable condition Impression: Epigastric pain. This note was generated with [employer] dictation software. It may contain incorrect words, spelling, and punctuation that were not noted in review of the chart prior to signing ED Disposition - Plan for ED Patient: Disposition: Home or Assisted Living Instructions: Treating Gastritis Prescriptions: Pantoprazole Sodium [Protonix] 40 mg PO DAILY #30 tab Referrals: Ravinder Faust III, MD [Primary Care Provider] - 3-5 Days
[2018-05-15] MEDS: Ondansetron 4 MG/2 ML Vial IV (11:36)
[2018-05-15] MEDS: 0.9% Normal Saline 1,000 ML 1000 ML IV (11:36)
[2018-05-15] MEDS: Mag Hydrox/Al Hydrox/Simeth 30 ML UDC PO (11:36)
[2018-05-15 11:50] LABS: Absolute Lymphocyte Count 1.29 X10^3/ul (0.83-4.51); Absolute Neutrophil Count 6.7 X10^3/uL (2.0-7.7); Basophil# 0.02 X10^3/uL; Basophil% 0.2 % (0-1); Eosinophil# 0.06 X10^3/uL; Eosinophils% 0.7 % (0-5); Hematocrit 46.2 % (37-47); Hemoglobin 15.7 g/dl (12.0-15.0); Lymphocyte # 1.29 X10^3/ul (4.0); Lymphocyte % 14.6 % (19-41); Mean Corpuscular Hgb 31.9 pg (27.0-32.0); Mean Corpuscular Volume 93.9 fL (81-99); Mean Platelet Vol. 9.9 fl (6.2-12.0); Monocyte# 0.72 X10^3/uL; Monocyte% 8.2 % (0-10); Neutrophil % 76.1 % (47-70); POSITIVE COUNT NO; POSITIVE DIFFERENTIAL NO; POSITIVE MORPHOLOGY NO; Platelet Count 276 K/mm3 (150-450); RBC Distribution Width CV 13.1 % (11.6-14.6); RBC Distribution Width SD 43.9 fl (35.1-43.9); Red Blood Count 4.92 M/mm3 (4.2-5.4); White Blood Count 8.8 K/mm3 (4.4-11.0)
[2018-05-15] MEDS: Sucralfate 1 GM Tablet PO (12:00)
[2018-05-15 12:10] LABS: AST(SGOT) 28 U/L (15-37); Alanine Aminotransfer ALT/SGPT 36 U/L (13-56); Albumin, Serum 3.5 g/dL (3.2-5.0); Alkaline Phosphatase 93 U/L (45-117); Anion Gap 3 (5-15); BUN 11 mg/dL (7-18); BUN/Creat Ratio 12.3 RATIO (10-20); Calcium,Total 8.6 mg/dL (8.5-10.1); Chloride 108 mmol/L (98-107); Creatinine, Serum 0.89 mg/dL (0.55-1.02); EST Glomerular Filtration Rate 71 mL/min (>60); Est Glom Filt Rate - Afr Amer 86 mL/min (>60); Estimated Creatinine Clearance 53.11 ml/min; Globulin 3.4 g/dL (2.2-4.2); Glucose 131 mg/dL (74-106); Lipase 104 U/L (73-393); Potassium 3.5 mmol/L (3.5-5.1); Protein, Total 6.9 g/dL (6.4-8.2); Sodium Level 139 mmol/L (136-145)
--- NOTE | 2018-05-15 12:39 | ED.DCSUM_ITS ---
- ER Visit Summary Date of Service: 05/15/18 Chief Complaint: [] History of Present Illness: The patient is a 53 F [] Physical Examination: [] Test Results: [] Emergency Department Course and Treatment: [] Treatment Plan: [] Disposition: [] Impression: [] This note was generated with [employer] dictation software. It may contain incorrect words, spelling, and punctuation that were not noted in review of the chart prior to signing ED Disposition - Plan for ED Patient: Disposition: Home or Assisted Living Instructions: Treating Gastritis Prescriptions: Ondansetron [Zofran Odt] 4 mg PO Q8H PRN PRN #10 tab PRN Reason: Nausea Pantoprazole Sodium [Protonix] 40 mg PO DAILY #30 tab Referrals: Ravinder Faust III, MD [Primary Care Provider] - 3-5 Days
[2018-05-15 12:51] VITALS: BP 131/88; PULSE 57; RESP 17; O2SAT 97
--- NOTE | 2018-05-15 12:51 | ED.DEP ---
ED Disposition - Plan for ED Patient: Disposition: Home or Assisted Living Instructions: Treating Gastritis Prescriptions: Ondansetron [Zofran Odt] 4 mg PO Q8H PRN PRN #10 tab PRN Reason: Nausea Pantoprazole Sodium [Protonix] 40 mg PO DAILY #30 tab Sucralfate [Carafate] 1 gm PO 4X/DAY #100 ml Referrals: Ravinder Faust III, MD [Primary Care Provider] - 3-5 Days
[2018-05-15 12:52] VITALS: BP 131/88; PULSE 57; RESP 17; O2SAT 97
--- NOTE | 2018-05-15 12:56 | ED.RN ---
IV DC'ED, CATHETER INTACT, SMALL GAUZE DRESSING PLACED. DISCHARGE INSTRUCTIONS GIVEN TO AND REVIEWED WITH PATIENT, PATIENT DENIES QUESTIONS OR CONCERNS AND VOICES UNDERSTANDING OF DISCHARGE INSTRUCTIONS. PT AMBULATES OUT OF ROOM WITHOUT DIFFICULTY.
== END 2018-05-15 12:57 | disposition home or self-care (01) ==
PROVIDERS: Emergency Provider Emergency Medicine; Family Provider Family Medicine; PCP Family Medicine
DX: K29.70 Gastritis, unspecified, without bleeding (principal); Z98.84 Bariatric surgery status
CPT/HCPCS: 80053; 83690; 84484; 85025; 93005; 96361; 96374; 99284; J7030; J2405

== ENCOUNTER 2018-09-25 07:23 | Emergency (ER) | payer OTHER, SELFPAY ==
[2018-09-25 07:25] VITALS: BP 116/78; PULSE 88; RESP 17; TEMP 37; O2SAT 99; BMI 39.8
--- NOTE | 2018-09-25 07:54 | ED.RN ---
PT AND FAMILY INFORMED OF THE WAIT FOR THE COMPETITIVE SHOPPER AND VERBALIZED UNDERSTANDING.
--- NOTE | 2018-09-25 08:02 | ED.VIS.GEN ---
History of Present Illness Chief Complaint: Lower Extremity Injury Informant: Patient, Significant Other Onset: Hours - 5 Context: Gradual Onset Timing: Continuous Quality: burning Location: right buttock to posterior right thigh to knee only Current Severity: Moderate Maximum Severity: Moderate Worsened by: nothing including movement, walking Relieved by: nothing Associated Symptoms: no bowel or bladder dysfunction, fevers, wound discharge, injury Narrative: Had back fusion around 1.5-2 weeks ago, and some type of cyst in her lumbosacral spine. She had sciatica symptoms on the left lower extremity at that time, postoperatively those are resolved. Now she has developed a different discomfort in the posterior right thigh and buttock, it goes to the popliteal fossa but not below. She denies any numbness. No weakness in the leg. No fevers. Wound has looked very good, dressing changes have had nothing on them. Past Medical History - Allergies and Home Meds Allergies/Adverse Reactions: Allergies Penicillins Adverse Reaction (Verified 09/25/18 07:24) Rash Primary Care Physician: Dr. Brady [Other] (TU this week) Ravinder Faust III, MD [Primary Care Provider] - Surgical History: appendectomy, cataract, tonsillectomy, - - Gastric bypass, Smoking Status: Former smoker - Family History Maternal Family History: Family History (Last Reviewed 02/08/18 @ 16:24 by Marcelle Pang) Mother Cancer Father Dementia Family History: Reports: No pertinent history Paternal Family History: Family History (Last Reviewed 02/08/18 @ 16:24 by Marcelle Pang) Mother Cancer Father Dementia Family History: Reports: No pertinent history Review of Systems General: Denies: Chills, Fever, Sweats Eyes: Denies: Visual changes - bilaterally, Diplopia ENT: Denies: Rhinorrhea, Sore throat Cardiovascular: Denies: Chest pain, Palpitations Respiratory: Denies: Dyspnea, Cough, Dyspnea on exertion Gastrointestinal: Denies: Abdominal pain, Nausea, Vomiting, Diarrhea, Melena, Hematochezia Genitourinary: Denies: Dysuria, Hematuria, Frequency Musculoskeletal: Reports: Extremity Pain. Denies: Back pain, Swelling Skin: Denies: Rash, Wounds Neurological: Denies: Headache, Weakness, Numbness Physical Exam Vital Signs/Narrative: Vital Signs Temp Pulse Resp BP Pulse Ox 09/25/18 07:25 98.6 F 88 17 116/78 99 Inital Vital Signs reviewed: Yes General: Well nourished, Well developed, No Acute Distress Head: Normocephalic, Atraumatic Abdomen: Soft, Nontender, Nondistended, Normal bowel sounds Back: Nontender - Including no tenderness in the buttock or sciatic notch. Negative straight leg raise bilaterally while sitting; ipsilateral straight leg raise causes only hamstring stretching., Normal Inspection Extremities: Nontender, No edema. Negative for: Calf Tenderness Skin: Normal color, No rash, - - Lumbar surgical incision is clean, dry, chhaya are intact, there is a dressing without any discharge or drainage. No tenderness. Neurological: Alert, Oriented x3, Cranial nerves II-XII grossly intact, Normal Strength, Normal Sensation, Normal Gait - Although slow and somewhat antalgic, - - Diminished reflexes throughout both lower extremities, symmetric. No clonus bilaterally. Psychological: Normal affect, Normal Mood Diagnostic/Tx/Re-eval - Medical Decision Making Discussed with Dr. resendiz, covering for Dr. Abreu, her spine surgeon at [facility]. He agrees that the patient does not sound like she has cauda equina syndrome or infection. She may need an MRI if symptoms persist, but agrees that it is not indicated emergently. At this time he supports supportive symptomatic care on this Wednesday and outpatient follow-up with spine as soon as able. I discussed this with the patient and her and they are comfortable with that plan. She was given morphine with some prophylactic Zofran here, and offered something stronger, but she states she prefers to stick with tramadol which she has at home. I approve of her taking it a little more often and gave her a refill prescription in case she needs it. ED Disposition - Plan for ED Patient: Disposition: Home or Assisted Living Diagnosis: Right leg pain, Previous back surgery Instructions: Spinal Fusion: Recovery Prescriptions: traMADol [Ultram] 50 mg PO Q4H PRN PRN 3 Days #20 tab PRN Reason: Pain Prescription Printed Referrals: Ravinder Faust III, MD [Primary Care Provider] - Dr. Brady [Other] (TU this week)
[2018-09-25] MEDS: Morphine 4 MG/ML Syringe IM (08:16)
[2018-09-25] MEDS: Ondansetron ODT 4 MG Tablet 8 MG PO (08:16)
[2018-09-25 08:30] VITALS: BP 124/72; PULSE 84; RESP 16; O2SAT 97
== END 2018-09-25 08:30 | disposition home or self-care (01) ==
PROVIDERS: Emergency Provider Emergency Medicine; Family Provider Family Medicine; PCP Family Medicine
DX: M79.604 Pain in right leg (principal); Z87.891 Personal history of nicotine dependence; Z88.0 Allergy status to penicillin; Z98.1 Arthrodesis status
CPT/HCPCS: 96372; 99282; A4216

== ENCOUNTER → 2018-09-29 09:25 | Outpatient (CLI) | payer OTHER, SELFPAY ==
[2018-09-27 10:42] VITALS: BMI 39.8
--- NOTE | 2018-09-29 09:27 | US_ITS ---
STUDY: ULTRASOUND BREAST - LEFT REASON FOR EXAM: Female, 53 years old. Palpable lump left breast. TECHNIQUE: Axial and longitudinal images of the LEFT breast were performed with a high resolution ultrasound transducer. COMPARISON: Comparison is made with prior mammogram done earlier today. FINDINGS: LEFT Breast: There is a 3 mm x 3 mm x 3 mm cyst at the 2:00 position of the breast at 5 cm from the nipple. US/Breast Limited Unilateral IMPRESSION: 3 mm x 3 mm x 3 mm cyst at the 2:00 position of the breast at 5 cm from the nipple. ASSESSMENT CATEGORY: BIRADS Category 2: Benign. A letter regarding these results will be sent to the patient by the facility within 30 days. Electronically Signed: Saurabh Oneal, at 12:19 EDT , Service support ,
--- NOTE | 2018-09-29 09:29 | BI_ITS ---
MAMMOGRAPHY - BILATERAL DIAGNOSTIC REASON FOR EXAM: Female, 53 years old. Left breast lump. PERTINENT HISTORY: Non-contributory. TECHNIQUE: Digital bilateral breast surekha (3D mammographic acquisition) in the CC and MLO projections. 2-D mediolateral oblique (MLO) and craniocaudad (CC) views of both breasts were obtained. CAD: Full Field Digital Mammography with Computer Added Detection was performed. COMPARISON: Comparison is made with prior study dated January 31, 2018 and September 03, 2017. FINDINGS: Breast Composition: There are scattered areas of fibroglandular density. There are no dominant masses or suspicious calcifications. No other significant abnormalities are identified. There has been no significant change since the prior study. BI/DIAG MAMM W/CAD, BILAT IMPRESSION: Stable bilateral diagnostic mammogram. With the patient's history of a palpable abnormality in the left breast, correlation with ultrasound is recommended. ASSESSMENT CATEGORY: BIRADS Category 0: Incomplete. Need additional imaging evaluation. A letter regarding these results will be sent to the patient by the facility within 30 days. Approximately 10% of breast cancers are not detected by mammography. A normal mammogram should not delay biopsy of a clinically suspicious abnormality. Pending Final Proof Editing
== END ==
PROVIDERS: Family Provider Family Medicine; PCP Family Medicine; Referring Provider Obstetrics & Gynecology; Visit Provider Obstetrics & Gynecology
DX: R92.2 Inconclusive mammogram (principal); N63.20 Unspecified lump in the left breast, unspecified quadrant
CPT/HCPCS: 76642; 77062; 77066; G0279

== ENCOUNTER 2018-10-07 14:31 | Emergency (ER) | payer OTHER, SELFPAY ==
[2018-09-27 10:42] VITALS: BMI 39.8
[2018-10-07 14:32] VITALS: BP 128/85; PULSE 95; RESP 16; TEMP 36.6; O2SAT 98; BMI 37.7
[2018-10-07 14:43] VITALS: BP 160/99; PULSE 76; RESP 16; O2SAT 99
[2018-10-07] MEDS: 0.9% Normal Saline 1,000 ML 1000 ML IV (15:17)
--- NOTE | 2018-10-07 15:18 | CT_ITS ---
STUDY: CT ABDOMEN AND PELVIS WITH CONTRAST REASON FOR EXAM: Female, 53 years old. GI bleed, diarrhea, prior gastric bypass RADIATION DOSAGE (If Supplied By Facility): CTDIvol = ( 15.32 ) mGy, DLP = ( 1321.88 ) mGycm TECHNIQUE: CT images were obtained from the dome of the diaphragm to the symphysis pubis without oral contrast. 100 IV/Oral Isovue 300 was administered. Sagittal and coronal images were reconstructed. Individualized dose optimization techniques were used for this CT. COMPARISON: None. FINDINGS: The visualized lung bases are unremarkable. The visualized portions of the heart are within normal limits. Liver, spleen pancreas and adrenal glands are normal. Gallbladder is distended with possible sludge versus stone. There is mild extrahepatic common hepatic and common bile duct dilation. There is mild dilation of the proximal pancreatic duct. There is no pancreatic mass. However, examination is mildly suboptimal and not a dedicated pancreatic protocol. Normal right kidney. Normal left kidney. There is gastric bypass with gastrointestinal anastomosis. Normal abdominal aorta. Normal inferior vena cava. Normal retroperitoneum. Normal urinary bladder. There is a 3 cm left ovarian cystic remnant. Normal abdominal wall. Normal osseous structures. There is L4 and L5 laminectomy and pedicular fusion. CT/Abdomen/Pelvis WITH Contrast IMPRESSION: 1. Gallbladder hydrops, possible stone. Mild extrahepatic biliary dilation. This is incompletely evaluated. Correlate with laboratory parameters are possible cholestasis and right upper quadrant ultrasound. If pancreatic related abnormalities are present dedicated imaging of the pancreas can be performed. 2. No intestinal obstruction. Electronically Signed: Paul Patino, at 17:18 EDT Tel , Service support ,
--- NOTE | 2018-10-07 15:25 | ED.VISSUMM ---
- ER Visit Summary Date of Service: 10/07/18 Chief Complaint: GI bleeding History of Present Illness: The patient is a 53 F who presents with GI bleeding that began today. Patient states she has been having some abdominal pain over the last 2 days. Patient states she had a bowel movement today noticed it was black. Patient states she is been feeling lightheaded. Patient also admits to some nausea but denies any vomiting. Patient states her pain is over her upper abdomen. Patient describes it as aching but sharp at times. Patient denies any urinary complaints. Patient does have a history of gastric bypass in the past. Patient states she had a recent spinal fusion surgery 3 weeks ago. Patient followed up with her primary care physician today who referred her to the emergency department. Physical Examination: Vital signs are stable. Patient is afebrile. Patient is in no acute distress. Oral mucosa is pink and moist. Neck is supple. Trachea is midline. There is no JVD noted. Heart was regular rate and rhythm. Lungs are clear and equal bilaterally. Abdomen is soft. Bowel sounds are normal. There is upper abdominal tenderness. There is no rebound or guarding noted. Cranial nerves II through XII are intact. There are no focal motor or sensory deficits noted. Test Results: CBC showed a hemoglobin of 15.5. White blood cell count was normal. Comprehensive metabolic profile was within normal limits with the exception of a slightly elevated alk phos of 167. INR was normal at 1.0 and PTT is normal at 29.2. CT scan of the abdomen and pelvis was obtained. There is gallbladder hydrops and a possible stone. Emergency Department Course and Treatment: Patient was given IV fluids, morphine, and Zofran.. At this time with a normal white blood cell count and normal LFTs I do not feel the patient needs emergent cholecystectomy. Patient was has no active gastrointestinal bleeding at this time. Patient was instructed to follow-up with her primary care physician in 3-5 days. Patient understood and was agreeable with the plan. All questions were answered. Disposition: Discharge home. Impression: Upper abdominal pain This note was generated with [employer] dictation software. It may contain incorrect words, spelling, and punctuation that were not noted in review of the chart prior to signing ED Disposition - Plan for ED Patient: Disposition: Home or Assisted Living Diagnosis: Upper abdominal pain of unknown etiology Instructions: EPIGASTRIC PAIN (Uncertain cause) Referrals: Ravinder Faust III, MD [Primary Care Provider] - 3-5 Days
[2018-10-07 15:46] LABS: Absolute Lymphocyte Count 0.98 X10^3/uL (0.83-4.51); Absolute Neutrophil Count 6.9 X10^3/uL (2.0-7.7); Basophil# 0.04 X10^3/uL; Basophil% 0.5 % (0-1); Eosinophils% 2.3 % (0-5); Hemoglobin 15.5 g/dL (12.0-15.0); Lymphocyte # 0.98 X10^3/ul (4.0); Lymphocyte % 11.2 % (19-41); Mean Corp Hgb Conc 33.7 g/dL (32-36); Mean Corpuscular Hgb 31.1 pg (27.0-32.0); Mean Corpuscular Volume 92.2 fL (81-99); Mean Platelet Vol. 9.5 fl (6.2-12.0); Monocyte# 0.63 X10^3/uL; Monocyte% 7.2 % (0-10); NRBC Flagged by Analyzer 0 % (0-5); Neutrophil # 6.91 X10^3/uL (2.7-7.7); Neutrophil % 78.6 % (47-70); Platelet Count 282 K/mm3 (150-450); Prothrombin Time (Protime)PT. 13.2 SECONDS (11.7-14.9); RBC Distribution Width CV 13.2 % (11.6-14.6); RBC Distribution Width SD 44.4 fl (35.1-43.9); Red Blood Count 4.99 M/mm3 (4.2-5.4); White Blood Count 8.8 K/mm3 (4.4-11.0)
[2018-10-07 15:47] LABS: Partial Thromboplast Time 29.2 Seconds (24.1-36.2)
[2018-10-07 15:53] LABS: ALB/GLOB Ratio 0.9 RATIO (0.9-2.4); AST(SGOT) 27 U/L (15-37); Alanine Aminotransfer ALT/SGPT 27 U/L (13-56); Albumin, Serum 3.6 g/dL (3.2-5.0); Alkaline Phosphatase 167 U/L (45-117); Anion Gap 7 (5-15); BUN 10 mg/dL (7-18); BUN/Creat Ratio 14.5 RATIO (10-20); Calcium,Total 8.8 mg/dL (8.5-10.1); Chloride 108 mmol/L (98-107); Creatinine, Serum 0.69 mg/dL (0.55-1.02); EST Glomerular Filtration Rate 95 mL/min (>60); Est Glom Filt Rate - Afr Amer 115 mL/min (>60); Estimated Creatinine Clearance 68.51 ml/min; Glucose 100 mg/dL (74-106); Lipase 126 U/L (73-393); Potassium 3.5 mmol/L (3.5-5.1); Protein, Total 7.6 g/dL (6.4-8.2); Sodium Level 139 mmol/L (136-145)
[2018-10-07] MEDS: Morphine 4 MG/ML Syringe IV (16:06)
[2018-10-07] MEDS: Ondansetron 4 MG/2 ML Vial IV (16:06)
[2018-10-07 20:00] VITALS: BP 155/87; PULSE 82; RESP 16; O2SAT 97
== END 2018-10-07 20:20 | disposition home or self-care (01) ==
PROVIDERS: Emergency Provider Emergency Medicine; Family Provider Family Medicine; PCP Family Medicine
DX: R10.10 Upper abdominal pain, unspecified (principal); K82.1 Hydrops of gallbladder; Z98.84 Bariatric surgery status; E03.9 Hypothyroidism, unspecified; R11.0 Nausea; R19.7 Diarrhea, unspecified; R51 Headache
CPT/HCPCS: 74177; 80053; 82274; 83690; 85025; 85610; 85730; 96361; 96374; 96375; 99284; J7030; Q9967; A4216; J2405

== ENCOUNTER 2018-10-10 09:39 | Inpatient (IN) | payer OTHER, SELFPAY ==
[2018-10-10] VITALS (32 sets, daily range): BP systolic 98–138; BP diastolic 63–89; PULSE 54–87; RESP 12–63; TEMP 36.3–37.1; O2SAT 55–100; BMI 37.7; BMI 33.7
[2018-10-10] MEDS: Lactated Ringers 1,000 ML 100 ML IV ×2 (11:00→20:17)
--- NOTE | 2018-10-10 11:03 | PCM.HP.BLA ---
Problem List (1) Acute cholecystitis Status: Acute History and Physical Date of Admission: 10/10/18 [facility] [address] [place], [place] [id number] OFFICE VISIT Date of Service: 10/10/18 MR#:[id number] Acct:[id number] Name: GABRIEL MOSCOSO Rep #:[id number] : 1965 Provider: Ashley Dupont PA-C Age/Sex: 53/F Location:[facility] Status:Signed Intake Vital Signs 10/10/18 Body Mass Index (BMI) 37.7 10/10/18 Height 5 ft 10/10/18 Weight: 197 lb 10/10/18 Body Mass Index (BMI) 38.5 10/10/18 Blood Pressure 117/83 H 10/10/18 Blood Pressure Location Rt brachial 10/10/18 Respiratory Rate 18 10/10/18 Pulse Rate 73 10/10/18 Pulse Source Monitor 10/10/18 Temperature 97.8 F 10/10/18 Temperature Source Oral 10/10/18 Pulse Ox 96 10/10/18 Oxygen Delivery Method room air Intake Visit Reasons: Gallbladder Consult RC 10/10 Chief Complaint: est annual Apprentice Required: No Is patient in pain?: No Allergies NSAIDS (Non-Steroidal Anti-Inflamma Allergy (Verified 10/10/18 09:05) Other Penicillins Adverse Reaction (Verified 10/10/18 09:05) Rash Medications Levothyroxine [Synthroid] 137 mcg PO DAILY 05/15/18 [History Confirmed 10/10/18] Oxybutynin [Ditropan] 5 mg PO DAILY 05/15/18 [History Confirmed 10/10/18] Hydrocodone Bitart/Apap 5-325 [[place] 5MG-325MG] 1 tab PO Q6H PRN PRN 3 Days #10 tab 10/07/18 [Rx Confirmed 10/10/18] Ondansetron [Zofran Odt] 4 mg PO Q8H PRN PRN #10 tab 10/07/18 [Rx Confirmed 10/10/18] Pantoprazole Sodium [Protonix] 20 mg PO DAILY 10/07/18 [History Confirmed 10/10/18] Calcium Carbonate [Calcium] 1,500 mg PO 10/10/18 [History] [facility] Medical History (Updated 10/10/18 @ 09:03 by Carol Connors) HTN (hypertension), benign (Acute) History of back problems (Acute) Presence of artificial intra-ocular lens (Acute ~2010) Sleep apnea (Acute) Thyroid disease (Acute) Surgical History (Updated 10/10/18 @ 09:03 by Carol Connors) H/O gastric bypass (Acute ~2007) H/O spinal fusion (Acute) History of appendectomy (Acute) History of cataract surgery (Acute) History of section (Acute) History of endometrial ablation (Acute) History of tonsillectomy (Acute) Family History (Updated 10/10/18 @ 09:04 by Carol Connors) Mother Cancer Lung Father Dementia Daughter Asthma Thyroid disorder Social History (Updated 10/10/18 @ 11:02 by Ashley Dupont PA-C) adopted: No household members: family housing: house number of children: 2 current occupational status: employed 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 Patient states she has not been feeling very well for the last week. She noted on Wednesday she woke up and went to the bathroom normally. Patient states a short time later she returned to the bathroom and noted having black liquid diarrhea approximately 5-6 times that day with associated onset of abdominal pain. She noted generalized pain/discomfort at that time. Patient noted nausea. Patient went to [place] [facility] where she had a CT scan of the ab/pel which demonstrated gallbladder hydrops, possible stone. Mild extrahepatic biliary dilation. WBC was 8.8, Hgb 15.5, Hct 46.0, plt 282. Alk phos was elevated at 167 otherwise liver enzymes were normal. Patient noted she started a new diet at the beginning of this year for which she has intentionally lost 40 pounds. She has a history of gastric bypass approximately 10 years ago. She notes since that time she has been taking 40 mg of Pantoprazole. She had decreased to 20 and then tried to wean herself off completely however her reflux symptoms had returned. She notes her current symptoms are different from her previous reflux symptoms. She notes last night she continued to have diarrhea and abdominal pain. She denies previous cardiac history and pulmonary history. She notes previous appendectomy at age 19, tonsillectomy, x 1, ablation, bilateral cataracts, bilateral detached retinas. She had a spinal fusion approximately 3 weeks ago at [facility]. Patient notes vomiting with anesthesia. She notes a drink several times per week. She denies smoking. ROS General General: Yes weight change and fatigue; no appetite, colon cancer, breast cancer or weakness HEENT HEENT: Yes difficulty swallowing, eye injury, eye surgery, swollen glands and hoarseness Endo Endocrine: Yes thyroid disease; no diabetes mellitus, thyroid cancer, Hair loss, heat intolerance or cold intolerance Skin Skin: No rash or changing moles Breast Breast: No left breast lump, right breast lump, nipple discharge, breast pain, abnormal mammogram, abnormal US or breast enlargement Musc Musculoskeletal: Yes back problems; no arthritis, rheumatoid arthritis, gout or joint pain Cardio Cardiovascular: No murmur, pacemaker, heart disease, atrial fibrillation, high blood pressure, heart attack, heart stent, palpitations, shortness of breat with exertion or chest pain Psych Psychiatric: No depression, anxiety or hearing voices Resp Respiratory: No shortness of breath, Yes sleep apnea, No cough, No COPD, No asthma, No emphysema, No wheezing Gastro Gastrointestinal: Yes abdominal pain, Yes nausea or vomiting, Yes diarrhea, No constipation, No blood in stool, Yes acid reflux, No hemorrhoids, No ulcers, Yes gallbladder problem, Yes black,tarry stools Jarvis Hematologic: No blood thinners, No blood disorders, No bleeding, No anemia, No blood clots Neuro Neurologic: No system reviewed and no additional complaints, except as docu, No as per HPI, No abnormal walking, No abnormal hearing, No abnormal movements, No abnormal speech, No behavioral changes, No burning sensations, No confusion, No seizure-like activity, No unsteadiness, No dizziness, No localized weakness, No frequent falls, No headache(s), No lack of coordination, No loss of vision, No memory loss, No numbness, No other visual disturbances, No radiating pain, No restless legs, No sensory deficit, No fainting, No tingling, No tremor(s), No weakness, No other Exam Const General: cooperative, healthy appearing, comfortable, no acute distress HENDE Head: normal to inspection Eyes General: appearance normal, both eyes and all related structures Neck Neck: normal visual inspection Neck mass: No Chest Breast Palpation: No nipple discharge Resp Effort & Inspection: normal respiratory effort Auscultation: clear to auscultation bilaterally Cardio Rate: regular rate Rhythm: regular rhythm Heart Sounds: no murmurs GI Inspection: normal to inspection, obesity Palpation: soft, guarding, tender in the LUQ (pain), in the RUQ (pain), Carrera's sign positive (positive) and other (pressure lower abdomen) Auscultation: hypoactive bowel sounds Skin General: no rashes or lesions noted Neuro General: no focal motor deficits, CN's II-XI intact bilaterally Extrem General: normal to inspection Psych Appearance: grossly normal Affect: normal affect Assessment & Plan Problems 1. Right upper quadrant abdominal pain R10.11 Plan Patient was discussed with Dr. Faust. Dr. Faust will plan to perform a laparoscopic cholecystectomy with intraoperative cholangiogram and possible common bile duct exploration. Procedure details, risks and benefits have been explained to the patient. I have also discussed with the patient if the common bile duct exploration is unsuccessful, she may have to have an ERCP. Patient and her have had the opportunity to ask and have questions answered. Patient verbally understands and agrees with the plan. We will plan to direct admit this patient and Dr. Faust will plan to proceed with the procedure later today around 2:30. Coding Level of Care Code Off vis,new,level 3 Diagnoses Right upper quadrant abdominal pain R10.11 10/10/18 1102<Electronically signed by Ashley Dupont PA-C> Date Ashley Dupont PA-C
[2018-10-10 11:05] LABS: AST(SGOT) 27 U/L (15-37); Alanine Aminotransfer ALT/SGPT 25 U/L (13-56); Albumin, Serum 3.2 g/dL (3.2-5.0); Alkaline Phosphatase 145 U/L (45-117); Bilirubin, Direct 0.12 mg/dL (0.00-0.30); Globulin 3.7 g/dL (2.2-4.2); Protein, Total 6.9 g/dL (6.4-8.2)
--- NOTE | 2018-10-10 11:29 | EKG12_ITS ---
Test Reason : PRE-OP Blood Pressure : / mmHG Vent. Rate : 062 BPM Atrial Rate : 062 BPM P-R Int : 136 ms QRS Dur : 082 ms QT Int : 458 ms P-R-T Axes : -11 012 010 degrees QTc Int : 464 ms Normal sinus rhythm Normal ECG When compared with ECG of 15-MAY-2018 11:31, No significant change was found Confirmed by TITUS ROJAS ([id number]), pictures editor KAREN BROOKS ([id number]) on 10/13/2018 2:59:51 PM Referred By: Owen Faust Confirmed By:TITUS ROJAS
--- NOTE | 2018-10-10 12:31 | NURSING ---
REPORT CALLED TO DEREK VILLALBA IN [facility]
--- NOTE | 2018-10-10 14:30 | GALL_PTH ---
PATIENT: GABRIEL MOSCOSO LOC: MS3 U#:[id number] AGE/SX: 53/F ROOM: [facility] RE10/12/[address]: Dr. Owen Faust MD : 1965 BED: 1 DIS: 10/14/2018 SPEC #: [id number] RECD: 10/11/18 07:37 STATUS: RK CACERES #: [id number] ANGELINA: 10/10/18 14:[address]: Owen Faust DEPT: SURGICAL PATHOLOGY RECD BY: Seun Jacobsen ENTERED: 10/11/18 09:05 SP TYPE: KASSY MOY DR: Dr. Ravinder Faust III, MD Tissues: Gallbladder, NOS Procedures: Surgery Specimen Level III HEADER OPERATION: Laparoscopic cholecystectomy, IOC PRE-OP DIAGNOSIS: Acute cholecystitis TISSUE SUBMITTED: Gallbladder MICROSCOPIC DIAGNOSIS Gallbladder, cholecystectomy: Acute and chronic cholecystitis. No stones are identified in the container or in the gallbladder. SJ:shayy 10/12/18 MICROSCOPIC DESCRIPTION Slides are reviewed. GROSS DESCRIPTION Received is one container labeled with the patient's name and designated gallbladder. The specimen consists of a gallbladder measuring 11 x 4 x 4 cm. The external surface is smooth and glistening. Focally, it is granular, hemorrhagic and contains cautery artifact. The lumen of the gallbladder contains yellow-green mucoid bile. No stones are identified in the container or in the gallbladder. The mucosa is bile-stained and without any mass lesions. The gallbladder wall averages 0.2 cm in thickness and is free of mass lesions. Health And Safety Trainer sections of the gallbladder and the cystic duct are submitted in one cassette. / AM:shayy 10/11/18 TC:2 CPT: 53756
--- NOTE | 2018-10-10 14:42 | PCM.DC.GS ---
<Owen Faust - Last Filed: 10/10/18 14:42> Discharge Diet: Light diet - advance as tolerated - if you have questions about your diet instructions, please talk to you doctor. Discharge Activity: May Not Drive - for 3-5 days or while taking narcotic pain medicine. May shower in (days): 1 Lifting Restrictions: 10 pounds Call your doctor if your incision/area has: Continuous Slow Oozing, Sudden Increased Bleeding, Increased Pain/ Swelling, Increased Redness, Foul Smelling Discharge Call your doctor if you observe: Fever of 101 or Higher Suture Line Care: Avoid Pulling/Pushing, Avoid Pinching/Bending Additional Dressing/Incision Instructions:: Change or remove dressing in 4 days. Leave steri-strips in place for 1 week. Allergies/Adverse Reactions: Allergies NSAIDS (Non-Steroidal Anti-Inflamma Allergy (Verified 10/10/18 09:05) Other Penicillins Adverse Reaction (Verified 10/10/18 09:05) Rash Medications to take at Discharge Levothyroxine [Synthroid] 137 mcg PO DAILY 05/15/18 Oxybutynin [Ditropan] 5 mg PO DAILY 05/15/18 Hydrocodone Bitart/Apap 5-325 [[place] 5/325] 1 tab PO Q6H PRN PRN 3 Days #10 tab 10/07/18 Ondansetron [Zofran Odt] 4 mg PO Q8H PRN PRN #10 tab 10/07/18 Pantoprazole Sodium [Protonix] 20 mg PO DAILY 10/07/18 Calcium Carbonate [Calcium] 1,500 mg PO 10/10/18 Hydrocodone Bitart/Apap 5-325 [[place] 5MG-325MG] 1 tab PO Q4H PRN PRN 2 Days #10 tab 10/11/18 The following prescriptions were given: Hydrocodone Bitart/Apap 5-325 [[place] 5MG-325MG] 1 tab PO Q4H PRN PRN 2 Days #10 tab PRN Reason: Pain Transmission Status: Received by [facility] #30 Primary Care Physician: Ravinder Faust III, MD [Primary Care Provider] - Test Results: Test results from this visit will be discussed in further detail at your follow-up appointment, if applicable. Please Follow Up With: Owen Faust MD - [phone] When: Call to make an appointment to be seen in about 10 days. <Ashley Dupont - Last Filed: 10/11/18 08:29> Test Results: Test results from this visit will be discussed in further detail at your follow-up appointment, if applicable.
--- NOTE | 2018-10-10 14:59 | RAD_ITS ---
History: Abdominal pain. History of gastric bypass. COMPARISON: CT abdomen pelvis dated October 07, 2018 TECHNIQUE: Intraoperative Cholangiogram FINDINGS: Numerous images were obtained in the operating room after cholangiogram. There is marked dilation of the common bile duct with severe narrowing at the ampulla of Vater entering the small bowel. Nonvisualized gallbladder suggesting cholecystectomy. There appears to be intrahepatic biliary ductal dilation. Please see performing physician's report for further details. Total fluoroscopy time of 78 seconds IMPRESSION: As above Electronically Signed: Armando Leggett DO at 17:03 EDT Tel , Service support , RAD/Cholangiogram/ O R,Initial
[2018-10-10] MEDS: Bupivacaine Mpf 0.5% 30 ML VIAL (16:00)
--- NOTE | 2018-10-10 16:53 | OP.PCM_ITS ---
Problem List (1) Acute cholecystitis Status: Acute Report of Operation Date of Procedure: 10/10/18 Pre-Operative Diagnosis: Gallbladder hydrops Post-Operative Diagnosis: Same plus common bile duct dilatation with distal stricture Surgery/Procedure Performed:: Laparoscopic cholecystectomy with cholangiography Description of Surgical Findings:: Timeout and informed consent was obtained. 53-year-old female was taken the operating placed on the table underwent general endotracheal intubation anesthesia. Clindamycin 900 mg given intravenously preoperatively. The abdomen sterilely prepped and draped. 0.5% Marcaine was used as a local anesthetic. Throughout the procedure total 30 cc was used. Skin sites were pre- anesthetized. A supraumbilical vertical incision was created. Holding sutures of 0 Vicryl placed. Varies and was inserted. Saline drop test performed. Abdomen was insufflated with CO2 to pressure of 10 mmHg pressure. Radha trocar inserted. Hemianopsia inserted. No evidence of any trocar injuries. Interposition 5-minute trochars were placed in the epigastric mid abdomen the right upper quadrant. The gallbladder was noted to be mildly edematous. It was distracted. The common bile duct was clinically noted to be very enlarged. Tedious blunt dissection was instituted to identify the cystic artery and a right hepatic artery that transgressed over the anterior surface of the cystic duct and the behind to the right of the gallbladder. Great care was taken to preserve this vessel and to identify its junction with the cystic artery. The cystic artery was clipped twice proximally once distally prior to transecting it. Tedious dissection had been performed to get the entire hepatocystic angle identified. Then a hemo-lock clip was placed on the cystic duct and through a 14-gauge Angiocath clench Jaylon catheter was inserted. Fluoroscopically control claims grams were obtained this demonstrated significant common bile duct enlargement. There was some hesitation of flow distally and then flow was seen to flow through a very small caliber common duct bile duct strictured over approximately 1 cm but then flowing into the small bowel. I did not see any evidence of stone. Multiple angles were obtained but contrast within the small bowel then started to deteriorate the image. There was good flow into the liver with generally dilated duct as well. The cholangiogram catheter was removed. An extra-large Hem-o-mack clip was placed on the cystic duct stump taking great care not to interfere with the right hepatic artery. Hemo-the hemo-lock clip appeared to be nicely intact. The gallbladder was then tediously dissected free from the liver bed. Were needed small vascular structures were secured with small hemo-lock clips. The gallbladder was dissected free. The gallbladder was placed in a retrieval bag. The right upper quadrant was irrigated and aspirated free of fluid. The liver bed was inspected and noted be hemostatic. The gallbladder was exited at the umbilicus. No additional fascial enlargement was required. The remaining trochars removed under visualization. The fascia at the umbilicus approximated with 2 [id number] suture of 0 Vicryl. Skin edges were approximate interrupted 4-0 Monocryl subdermal stitches. Steri-Strips Telfa and OpSite dressings applied. Sponge and instrument and needle counts were reported to the surgeon to be correct. Blood loss was minimal. She tolerated the procedure well and was taken to the recovery area in satisfactory condition without apparent complication. Specimens gallbladder. Drains none. Blood loss minimal. Owen Faust M.D., F.A.C.S. Type of Anesthesia:: General Anesthesiologist: Byron Gonzalez
--- NOTE | 2018-10-10 18:49 | SUR.PHASEI ---
abdominal assessment: all bandages clean and clear, abdomen is tender to the touch. Pt resting comfortably in bed
[2018-10-11] VITALS (11 sets, daily range): BP systolic 91–138; BP diastolic 56–90; PULSE 75–94; RESP 18; TEMP 36.6–37.7; O2SAT 93–98; BMI 33.7
--- NOTE | 2018-10-11 00:42 | NURSING ---
assisted pt to sit on edge of bed. pt stood and ambulated to brp without difficulty. when sitting on toilet pt became nauseated. pt was assisted to chair. cold rag and soda provided per request. assessment and vitals complete. pt reported improvement within minutes of sitting in chair.
[2018-10-11] MEDS: Ondansetron 4 MG/2 ML Vial IV ×2 (01:19→22:53)
[2018-10-11] MEDS: HYDROmorphone 0.5 MG/0.5 ML SYRINGE IV ×5 (01:29→22:53)
[2018-10-11] MEDS: HYDROcodone Bitartrate/Apap 5/325 Tablet PO ×2 (04:55→12:08)
--- NOTE | 2018-10-11 05:43 | PCM.PN.SRG ---
Patient Problems: Active and Suspected Problems (Last Updated 10/10/18 @ 09:03 by Carol Connors) Acute cholecystitis (Acute) Subjective: Pt notes severe pain immediately post op has subsided but she is still quite sore RUQ Has been able to get OOB Will advance diet, plan dc later this a.m. - Physical Exam Vital Signs Temp Pulse Resp BP Pulse Ox 98.8 F 81 18 105/65 93 10/11/18 04:53 10/11/18 04:53 10/11/18 04:53 10/11/18 04:53 10/11/18 04:53 Oxygen Flow Rate (L/min) 1 Oxygen Delivery Method Room Air Weight: 172 lb 9 oz Body Mass Index (BMI) 33.7 Intake and Output for Last 24 Hours 10/09/18 10/10/18 10/11/18 23:59 23:59 23:59 Intake Total 5100 / 5680 1310 / 1310 Output Total 200 / 500 300 / 300 Balance 4900 / 5180 1010 / 1010 Microbiology Past 72 Hours 10/10/18 11:18 C. difficile DNA Amplification - Final Stool Laboratory Tests Past 24 Hrs 10/10/18 10:35 Total Bilirubin 0.40 Direct Bilirubin 0.12 AST 27 ALT 25 Alkaline Phosphatase 145 H Total Protein 6.9 Albumin 3.2 Globulin 3.7 Medical Necessity - Tobacco Use Smoking Status: Never smoker Assessment/Plan All Active Problems (Last Updated 10/10/18 @ 09:03 by Carol Connors) Acute cholecystitis (Acute) BMI greater than 40 (Acute) Chest pain (Resolved)
[2018-10-11] MEDS: Lactated Ringers 1,000 ML 100 ML IV ×3 (08:21→22:44)
[2018-10-11] MEDS: Enoxaparin 40 MG/0.4 ML Syringe SC (09:53)
[2018-10-11] MEDS: Docusate Sodium 100 MG Capsule 200 MG PO (14:28)
[2018-10-11 14:43] LABS: Absolute Lymphocyte Count 1.55 X10^3/uL (0.83-4.51); Absolute Neutrophil Count 13.7 X10^3/uL (2.0-7.7); Basophil# 0.03 X10^3/uL; Basophil% 0.2 % (0-1); Eosinophil# 0.05 X10^3/uL; Eosinophils% 0.3 % (0-5); Hematocrit 38.4 % (37-47); Hemoglobin 12.8 g/dL (12.0-15.0); Lymphocyte # 1.55 X10^3/ul (4.0); Lymphocyte % 9.5 % (19-41); Mean Corp Hgb Conc 33.3 g/dL (32-36); Mean Corpuscular Hgb 31.6 pg (27.0-32.0); Mean Corpuscular Volume 94.8 fL (81-99); Monocyte# 0.81 X10^3/uL; NRBC Flagged by Analyzer 0 % (0-5); Neutrophil # 13.72 X10^3/uL (2.7-7.7); Neutrophil % 84.5 % (47-70); Platelet Count 192 K/mm3 (150-450); RBC Distribution Width CV 13.5 % (11.6-14.6); RBC Distribution Width SD 47.5 fl (35.1-43.9); Red Blood Count 4.05 M/mm3 (4.2-5.4); White Blood Count 16.2 K/mm3 (4.4-11.0)
[2018-10-11 14:59] LABS: ALB/GLOB Ratio 0.7 RATIO (0.9-2.4); AST(SGOT) 29 U/L (15-37); Alanine Aminotransfer ALT/SGPT 36 U/L (13-56); Albumin, Serum 2.5 g/dL (3.2-5.0); Alkaline Phosphatase 128 U/L (45-117); Anion Gap 2 (5-15); BUN 11 mg/dL (7-18); BUN/Creat Ratio 12.6 RATIO (10-20); Calcium,Total 7.8 mg/dL (8.5-10.1); Chloride 104 mmol/L (98-107); Creatinine, Serum 0.88 mg/dL (0.55-1.02); EST Glomerular Filtration Rate 72 mL/min (>60); Est Glom Filt Rate - Afr Amer 87 mL/min (>60); Estimated Creatinine Clearance 53.72 ml/min; Globulin 3.4 g/dL (2.2-4.2); Glucose 130 mg/dL (74-106); Potassium 3.5 mmol/L (3.5-5.1); Protein, Total 5.9 g/dL (6.4-8.2); Sodium Level 137 mmol/L (136-145)
--- NOTE | 2018-10-11 15:32 | US_ITS ---
STUDY: ABDOMINAL ULTRASOUND - RIGHT UPPER QUADRANT REASON FOR VISIT: Female, 53 years old. Right upper quadrant pain. TECHNIQUE: Ultrasound evaluation of the right upper quadrant was performed with real-time and static jarrett-scale imaging. TECHNICAL QUALITY: Adequate. COMPARISON: None. FINDINGS: Liver: The liver measures 15.3 cm. There is normal echogenicity of the liver. The bile ducts are within normal limits. There is hepatic color flow. The direction of portal flow is hepatopetal. There is no demonstrated mass lesion. Gallbladder: The patient is status post cholecystectomy. Mild fluid in the gallbladder fossa. Common Bile Duct (C.B.D.): The common bile duct measures 6 mm. Pancreas: Not visualized due to bowel gas. Right Kidney: Normal size of the right kidney. The right kidney measures 10 x 5.3 x 5.7 cm. Normal renal cortex. The right cortex measures 1.7 cm. There is no demonstrated renal mass or cyst. There is no right hydronephrosis. US/Gallbladder IMPRESSION: Mild fluid in the gallbladder fossa consistent with recent cholecystectomy. This study does not exclude early organizing abscess or bile leak. Electronically Signed: Rosa Helms MD at 18:04 EDT Tel , Service support ,
--- NOTE | 2018-10-11 15:33 | PCM.PN.BLA ---
Progress Note Received a phone call from patient's nurse, Shannon, who mentioned patient is flush, increased RUQ pain into back and right shoulder. Patient verbally stating she is overall not feeling well. I recommend ordering STAT CBC and CMP. I have examined the patient personally. She is flush. Severe Right upper quadrant pain with guarding. Incisions c/d/i. No active drainage noted. Negative flatus, BM. Hypoactive bowel sounds. WBC returned as 16.2, hgb 12.8, Hct 38.4, Plt 192. Total bilirubin 0.90, AST 29, ALT 36, Alk Phos 128. I spoke with Dr. Faust and we are recommending a STAT RUQ u/s with a wet read looking for possible bile leak. Spoke to patient's nurse. Will reduce patient to sips of clears. We will cancel the discharge order.
[2018-10-11 15:54] LABS: Amylase 15 U/L (25-115); Lipase 35 U/L (73-393)
--- NOTE | 2018-10-11 16:01 | PCM.PN.BLA ---
Progress Note Pt c/o RUQ pain and back and shoulder pain that started after she walked today No flatus She cannot take NSAIDS b/o spinal fusion and gastric bypass ABD: focally quite tender RUQ slightly more so than preop, quiet, lower quadrants soft,NT IMP: I suspect pneumoperitoneum induced diaphragm referred pain to shoulder. Will check U/S RUQ. Unable to give Toradol unfortunately. Pt is not ready for discharge at this time
[2018-10-11] MEDS: HYDROmorphone 1 MG/ML Syringe IV (19:09)
--- NOTE | 2018-10-11 19:19 | PCM.PN.BLA ---
Progress Note Pt demonstrating severe RUQ pain and right shoulder pain Cannot take NSAIDS Small amount of fluid on U/S Cannot get biliary scan tonight Discussed with pt Plan diagnostic laparoscopy b/o pt severe distress
[2018-10-11] MEDS: Bupivacaine Mpf 0.5% 30 ML VIAL (21:23)
--- NOTE | 2018-10-11 21:26 | OP.PCM_ITS ---
Problem List (1) Acute cholecystitis Status: Acute (2) Abdominal pain Status: Acute Qualifiers: Abdominal location: right upper quadrant Qualified Code(s): R10.11 - Right upper quadrant pain Report of Operation Date of Procedure: 10/11/18 Pre-Operative Diagnosis: Severe right upper quadrant abdominal pain with fluid identified on ultrasound Post-Operative Diagnosis: Severe right upper quadrant abdominal pain with fluid identified on ultrasound. Ileus identified. Surgery/Procedure Performed:: Exploratory laparoscopy Description of Surgical Findings:: Timeout and informed consent was obtained. 53-year-old female who was 1 day status post a laparoscopic cholecystectomy with cholangiograms was writhing in pain complaining of right upper quadrant pain and severe right chest and shoulder tip pain. An ultrasound demonstrated fluid in the gallbladder fossa indeterminate whether this was normal postoperative or possible bile leak. Biliary scan could not be obtained. The patient was 12 out of 10 uncomfortable. Etiology not clear. I felt it appropriate to perform an exploratory laparoscopy. Timeout informed consent was obtained. She was taken the operative placement table. She underwent general anesthesia. Clindamycin 900 g given intravenous preoperatively. The abdomen sterilely prepped and draped. 0.5% Marcaine was used as a local statical procedure total 30 cc was used. Skin sites were pre- anesthetized. The incision at the umbilicus was reopened and is on catheter inserted immediately distention of large bowel was encountered consistent with ileus. Scope was gradually advanced to the right upper quadrant. 5-minute trochars were replaced at the previous port sites. There were already dense adhesions to the subhepatic space these had to be freed up and so pulling the omentum away from the liver a small area tore on the peritoneum of the gallbladder attached to the liver causing a very slight amount of bile staining at that area which had not been present prior to the release of the adhesion. I treated that with hemo-lock clips and a [id number] suture of 3-0 Vicryl. Further inspection however carefully at the tila area in the subhepatic area revealed no evidence of any significant fluid no evidence of preintervention bowel leak. The right upper quadrant irrigated aspirated free of excess fluid. 15 round MERLYN drain was placed in the subhepatic space and exited through the right upper quadrant secured there with 3-0 nylon. The etiology to the patient's severe right upper quadrant pain a chest pain undetermined. She certainly has an ileus. Trochars removed. The fascia at the umbilicus approximate interrupted [id number] suture of 0 Vicryl. Skin edges approximated with interrupted 4 Monocryl subdermal stitches. Steri-Strips Telfa and OpSite dressings applied. Sponge and instrument and needle counts reported surgical correct. Blood loss minimal. She tolerated the procedure well was taken to recovery in satisfactory condition without apparent complication. Specimens none. Drains 15 round MERLYN. Blood loss minimal Owen Faust M.D., F.A.C.S. Type of Anesthesia:: General Anesthesiologist: Lotus Stevens
[2018-10-12] VITALS (9 sets, daily range): BP systolic 100–148; BP diastolic 61–92; PULSE 62–86; RESP 16–20; TEMP 36.4–37.3; O2SAT 90–97
--- NOTE | 2018-10-12 02:25 | NURSING ---
Pt ambulated half a lap in hallway. ajay well. denies nausea. soreness to abdomen.
[2018-10-12] MEDS: HYDROmorphone 1 MG/ML Syringe IV ×3 (03:16→22:12)
[2018-10-12 05:17] LABS: Absolute Lymphocyte Count 0.53 X10^3/uL (0.83-4.51); Absolute Neutrophil Count 16.1 X10^3/uL (2.0-7.7); Basophil# 0.02 X10^3/uL; Basophil% 0.1 % (0-1); Hematocrit 38.5 % (37-47); Hemoglobin 12.6 g/dL (12.0-15.0); Lymphocyte # 0.53 X10^3/ul (4.0); Lymphocyte % 3.1 % (19-41); Mean Corp Hgb Conc 32.7 g/dL (32-36); Mean Corpuscular Hgb 30.9 pg (27.0-32.0); Mean Corpuscular Volume 94.4 fL (81-99); Mean Platelet Vol. 9.2 fl (6.2-12.0); Monocyte% 1.2 % (0-10); NRBC Flagged by Analyzer 0 % (0-5); Neutrophil # 16.05 X10^3/uL (2.7-7.7); Neutrophil % 95.2 % (47-70); POSITIVE DIFFERENTIAL YES; Platelet Count 185 K/mm3 (150-450); RBC Distribution Width CV 13.5 % (11.6-14.6); RBC Distribution Width SD 46.5 fl (35.1-43.9); Red Blood Count 4.08 M/mm3 (4.2-5.4); White Blood Count 16.9 K/mm3 (4.4-11.0)
[2018-10-12 05:19] LABS: Differential Indicated SCAN CRITERIA MET
[2018-10-12 05:36] LABS: ALB/GLOB Ratio 0.6 RATIO (0.9-2.4); AST(SGOT) 38 U/L (15-37); Alanine Aminotransfer ALT/SGPT 39 U/L (13-56); Albumin, Serum 2.5 g/dL (3.2-5.0); Alkaline Phosphatase 127 U/L (45-117); Anion Gap 7 (5-15); BUN 10 mg/dL (7-18); BUN/Creat Ratio 15.1 RATIO (10-20); Chloride 106 mmol/L (98-107); Creatinine, Serum 0.66 mg/dL (0.55-1.02); EST Glomerular Filtration Rate 99 mL/min (>60); Est Glom Filt Rate - Afr Amer 120 mL/min (>60); Estimated Creatinine Clearance 71.62 ml/min; Globulin 3.9 g/dL (2.2-4.2); Glucose 164 mg/dL (74-106); Potassium 3.7 mmol/L (3.5-5.1); Protein, Total 6.4 g/dL (6.4-8.2); Sodium Level 140 mmol/L (136-145)
--- NOTE | 2018-10-12 05:46 | PCM.PN.SRG ---
Patient Problems: Active and Suspected Problems (Last Updated 10/10/18 @ 09:03 by Carol Connors) Acute cholecystitis (Acute) Abdominal pain (Acute) Subjective: Pt feels much better this am - Physical Exam Abdomen: Soft, Non Tender, Bowel Sounds Not Present Vital Signs Temp Pulse Resp BP Pulse Ox 97.9 F 64 18 101/70 95 10/12/18 02:15 10/12/18 02:15 10/12/18 02:15 10/12/18 02:15 10/12/18 02:15 Oxygen Flow Rate (L/min) 2 Oxygen Delivery Method Room Air Weight: 172 lb 9 oz Body Mass Index (BMI) 33.7 Intake and Output for Last 24 Hours 10/10/18 10/11/18 10/12/18 23:59 23:59 23:59 Intake Total 5100 / 5680 3860 / 4283 423 / 423 Output Total 200 / 500 980 / 1180 200 / 200 Balance 4900 / 5180 2880 / 3103 223 / 223 Microbiology Past 72 Hours 10/10/18 11:18 C. difficile DNA Amplification - Final Stool Laboratory Tests Past 24 Hrs 10/11/18 10/11/18 10/11/18 14:30 14:30 14:30 WBC 16.2 H RBC 4.05 L Hgb 12.8 Hct 38.4 MCV 94.8 MCH 31.6 MCHC 33.3 RDW Std Deviation 47.5 H RDW Coeff of Kavitha 13.5 Plt Count 192 MPV 9.0 Immature Gran % (Auto) 0.500 Neut % (Auto) 84.5 H Lymph % (Auto) 9.5 L [place] % (Auto) 5.0 Eos % (Auto) 0.3 Baso % (Auto) 0.2 Absolute Neuts (auto) 13.7 H Absolute Lymphs (auto) 1.55 Nucleated RBC % 0 Sodium 137 Potassium 3.5 Chloride 104 Carbon Dioxide 31.0 Anion Gap 2 L BUN 11 Creatinine 0.88 Estim Creat Clear Calc 53.72 Est GFR (MDRD) Af Amer 87 Est GFR (MDRD) Non-Af 72 BUN/Creatinine Ratio 12.6 Glucose 130 H Calcium 7.8 L Total Bilirubin 0.90 AST 29 ALT 36 Alkaline Phosphatase 128 H Total Protein 5.9 L Albumin 2.5 L Globulin 3.4 Albumin/Globulin Ratio 0.7 L Amylase 15 L Lipase 35 L 08/14/19 08/14/19 04:52 04:52 WBC 16.9 H RBC 4.08 L Hgb 12.6 Hct 38.5 MCV 94.4 MCH 30.9 MCHC 32.7 RDW Std Deviation 46.5 H RDW Coeff of Kavitha 13.5 Plt Count 185 MPV 9.2 Immature Gran % (Auto) 0.400 Neut % (Auto) 95.2 H Lymph % (Auto) 3.1 L [place] % (Auto) 1.2 Eos % (Auto) 0.0 Baso % (Auto) 0.1 Absolute Neuts (auto) 16.1 H Absolute Lymphs (auto) 0.53 L Nucleated RBC % 0 Sodium 140 Potassium 3.7 Chloride 106 Carbon Dioxide 27.0 Anion Gap 7 BUN 10 Creatinine 0.66 Estim Creat Clear Calc 71.62 Est GFR (MDRD) Af Amer 120 Est GFR (MDRD) Non-Af 99 BUN/Creatinine Ratio 15.1 Glucose 164 H Calcium 8.0 L Total Bilirubin 0.70 AST 38 H ALT 39 Alkaline Phosphatase 127 H Total Protein 6.4 Albumin 2.5 L Globulin 3.9 Albumin/Globulin Ratio 0.6 L Amylase Lipase Medical Necessity - Tobacco Use Smoking Status: Never smoker Assessment/Plan All Active Problems (Last Updated 10/10/18 @ 09:03 by Carol Connors) Acute cholecystitis (Acute) Abdominal pain (Acute) BMI greater than 40 (Acute) Chest pain (Resolved) No intraabdominal source for pain identified yesterday but pt is much improved after laparoscopy. MERLYN is non bilious Will start clears Need to mobilize Persistent leukocytosis of unknown source
[2018-10-12] MEDS: Lactated Ringers 1,000 ML 50 ML IV ×2 (06:12→14:48)
[2018-10-12] MEDS: Enoxaparin 40 MG/0.4 ML Syringe SC (09:26)
[2018-10-12] MEDS: Docusate Sodium 100 MG Capsule 200 MG PO ×2 (09:26→22:16)
--- NOTE | 2018-10-12 09:42 | RAD_ITS ---
STUDY: X-RAY CHEST REASON FOR EXAM: Female, 53 years old. Right upper quadrant pain. Shortness of breath. TECHNIQUE: PA and lateral views of the chest. COMPARISON: Comparison is made with prior examination dated September 01, 2016. FINDINGS: A drainage catheter is seen in the mid abdomen. Surgical clips are seen in the left upper quadrant. There is elevation of the right hemidiaphragm with dilatation of the right hemicolon. Mild degree of increased linear markings at the lung bases suggestive of bibasilar atelectasis. There is blunting of both costophrenic angles. Normal size heart. Normal mediastinum and hedy. Normal visualized pulmonary arteries. Normal visualized aortic arch and descending thoracic aorta. Normal visualized thoracic spine. Normal visualized ribs, clavicles, and shoulders. There is no demonstrated abnormality of the visualized soft tissue structures of the upper abdomen. RAD/Chest PA and Lateral IMPRESSION: Elevation of the right hemidiaphragm due to dilatation of the right hemicolon. Findings suggestive of mild degree of bibasilar atelectasis and blunting of both costophrenic angles. Electronically Signed: Saurabh Oneal, at 10:09 EDT , Service support ,
[2018-10-12 11:04] LABS: Mucous, Urine 0 SEEN /hpf (<or=2+)
[2018-10-12] MEDS: Acetaminophen 325 MG Tablet 650 MG PO (11:04)
[2018-10-12] MEDS: Levothyroxine 137 MCG Tablet PO (11:04)
[2018-10-12 11:05] LABS: Color, Urine Yellow (Yellow); Glucose, Dipstick Normal (Normal); Ketone-Dipstick Negative (Negative); Leukocyte Esterase-Dipstick Negative /ul (Negative); Nitrite-Dipstick Negative (Negative); Occult Blood-Urine 10 /ul (Negative); Protein-Dipstick 15 mg/dl (Negative); Specific Gravity, Urine 1.015 (1.002-1.030); Urine Bilirubin Dipstick Negative (Negative); Urine Clarity Sl. Cloudy (Clear); Urine Urobilinogen Normal (Normal)
[2018-10-12 11:18] LABS: Bacteria 1+ /hpf (None Seen); Red Blood Cells-Urine 0-5 SEEN /hpf (0-5); Squamous Epithelial Cells - UA 0-5 SEEN /hpf (5-10); White Blood Cells 0-5 SEEN /hpf (0-5)
[2018-10-12] MEDS: Pantoprazole Sodium 20 MG Tablet PO (14:48)
[2018-10-12] MEDS: Oxybutynin 5 MG Tablet PO (14:48)
[2018-10-12] MEDS: HYDROcodone Bitartrate/Apap 5/325 Tablet PO (17:41)
--- NOTE | 2018-10-12 22:00 | NURSING ---
pt reports walking two full laps in the hallway since 1900.
[2018-10-13] MEDS: HYDROmorphone 1 MG/ML Syringe IV ×2 (02:04→16:20)
[2018-10-13 02:12] VITALS: BP 133/85; PULSE 73; RESP 18; TEMP 36.7; O2SAT 94
--- NOTE | 2018-10-13 02:22 | NURSING ---
pt walked 2 more laps in the greene. rating pain 8 out of 10. med given. Pt returned to bed, HOB elevated, kpad on abdomen, scd's applied, and encouraged IS use. pt used IS x 10. tolerated well.
--- NOTE | 2018-10-13 05:59 | RAD_ITS ---
STUDY: X-RAY - ABDOMEN/PELVIS REASON FOR EXAM: Female, 53 years old. Abdominal distention. TECHNIQUE: AP supine and upright views of the abdomen and pelvis. COMPARISON: CT of the abdomen and pelvis dated October 07, 2018. FINDINGS: Normal visualized lung bases. There appears to be gas-filled bowel in the upper abdomen. There appears to be some dilatation of the small bowel. Maximum transverse dimension small bowel measures up to 3.8 cm. No bowel gas is visible within the rectum. There is no demonstrated free abdominal air. The catheter is visible in right side of the abdomen, possibly related to gastrostomy tube. Surgical clips are visible in left upper quadrant. The visualized liver, spleen and kidneys are grossly normal in size and morphology. Normal soft tissue structures. Patient has had laminectomies of L4 and L5 vertebral segments with surgical fusion. RAD/Abd Inc Decub and/or Erect IMPRESSION: Dilated small and large bowel in the upper abdomen suggests sequela of a localized ileus and/or small bowel obstruction. Electronically Signed: Africa Monroy MD at 7:04 EDT , Service support ,
--- NOTE | 2018-10-13 06:01 | PN.SURG_ITS ---
Patient Problems: Active and Suspected Problems (Last Updated 10/10/18 @ 09:03 by Carol Connors) Acute cholecystitis (Acute) Abdominal pain (Acute) Subjective: Still having bouts of right upper quadrant pain that she takes IV narcotic - Physical Exam General: Alert, Oriented x3, Cooperative, No apparent distress Lungs: Clear to auscultation Abdomen: Soft, Non-Distended - merlyn serosanquinous, Hypoactive Bowel Sounds Vital Signs Temp Pulse Resp BP Pulse Ox 98.1 F 73 18 133/85 H 94 10/13/18 02:12 10/13/18 02:12 10/13/18 02:12 10/13/18 02:12 10/13/18 02:12 Oxygen Flow Rate (L/min) 2.5 Oxygen Delivery Method Room Air Weight: 172 lb 9 oz Body Mass Index (BMI) 33.7 Intake and Output for Last 24 Hours 10/11/18 10/12/18 10/13/18 23:59 23:59 23:59 Intake Total 3860 / 4283 2241 / 2241 458 / 458 Output Total 980 / 1180 3025 / 3025 300 / 300 Balance 2880 / 3103 -784 / -784 158 / 158 Microbiology Past 72 Hours 10/10/18 11:18 C. difficile DNA Amplification - Final Stool Laboratory Tests Past 24 Hrs 10/12/18 10/13/18 10:40 05:36 WBC Pending RBC Pending Hgb Pending Hct Pending MCV Pending MCH Pending MCHC Pending RDW Std Deviation Pending RDW Coeff of Kavitha Pending Plt Count Pending Neut % (Auto) Pending Absolute Neuts (auto) Pending Urine Color Yellow Urine Clarity Sl. Cloudy Urine pH 6.0 Ur Specific [place] 1.015 Urine Protein 15 H Urine Glucose (UA) Normal Urine Ketones Negative Urine Occult Blood 10 H Urine Nitrite Negative Urine Bilirubin Negative Urine Urobilinogen Normal Ur Leukocyte Esterase Negative Urine RBC 0-5 SEEN Urine WBC 0-5 SEEN Ur Squamous Epith Cells 0-5 SEEN Urine Bacteria 1+ Urine Mucus 0 SEEN Medical Necessity - Tobacco Use Smoking Status: Never smoker Assessment/Plan All Active Problems (Last Updated 10/10/18 @ 09:03 by Carol Connors) Acute cholecystitis (Acute) Abdominal pain (Acute) BMI greater than 40 (Acute) Chest pain (Resolved) Significant right colonic distention/ileus pushing right diaphragm. Narcotics aggravating ileus Pt is mobilizing Will check labs and AXR and try suppository Path c/w acute cholecystitis Remove MERLYN today
[2018-10-13 06:06] LABS: Absolute Lymphocyte Count 1.46 X10^3/uL (0.83-4.51); Absolute Neutrophil Count 10.7 X10^3/uL (2.0-7.7); Basophil# 0.04 X10^3/uL; Basophil% 0.3 % (0-1); Eosinophil# 0.08 X10^3/uL; Eosinophils% 0.6 % (0-5); Hematocrit 36.4 % (37-47); Hemoglobin 11.8 g/dL (12.0-15.0); Lymphocyte # 1.46 X10^3/ul (4.0); Lymphocyte % 11.2 % (19-41); Mean Corp Hgb Conc 32.4 g/dL (32-36); Mean Corpuscular Hgb 30.7 pg (27.0-32.0); Mean Corpuscular Volume 94.8 fL (81-99); Mean Platelet Vol. 9.9 fl (6.2-12.0); Monocyte# 0.71 X10^3/uL; Monocyte% 5.4 % (0-10); NRBC Flagged by Analyzer 0 % (0-5); Neutrophil # 10.69 X10^3/uL (2.7-7.7); Platelet Count 201 K/mm3 (150-450); RBC Distribution Width CV 13.4 % (11.6-14.6); RBC Distribution Width SD 46.6 fl (35.1-43.9); Red Blood Count 3.84 M/mm3 (4.2-5.4); White Blood Count 13.1 K/mm3 (4.4-11.0)
[2018-10-13] MEDS: Levothyroxine 137 MCG Tablet PO (06:16)
[2018-10-13] MEDS: Acetaminophen 325 MG Tablet 650 MG PO ×2 (06:16→21:47)
[2018-10-13] MEDS: Bisacodyl 10 MG Suppository RECTAL (07:03)
[2018-10-13 08:26] VITALS: BP 127/85; PULSE 61; RESP 16; TEMP 36.6; O2SAT 95
[2018-10-13] MEDS: Enoxaparin 40 MG/0.4 ML Syringe SC (08:33)
[2018-10-13 08:41] VITALS: O2SAT 95
[2018-10-13] MEDS: Pantoprazole Sodium 20 MG Tablet PO (08:46)
[2018-10-13] MEDS: Oxybutynin 5 MG Tablet PO (08:46)
[2018-10-13] MEDS: Docusate Sodium 100 MG Capsule 200 MG PO (08:46)
--- NOTE | 2018-10-13 10:40 | CASEMGMT ---
RN REINALDO Face to Face with patient for initial transition planning/care coordination assessment. RN CM introduced self and role at [facility]. Patient sitting in chair, alert and oriented. Patient willing to participate in assessment and is able to answer all questions appropriately. Care providers, pharmacy, and demographics verified. Patient wishes to discharge home, denies need for home health at this time. Patient states she has no further needs or concerns at this time. CM to follow for discharge planning needs that may arise. PCP: Govind Specialists: ANCA Burch; Lexii Abreu Preferred Pharmacy: [facility] Insurance: [facility] Prescription Benefit: yes Living Will/HPOA: none LNOK: Living Arrangements: Patient lives with in 1 story home with 2 steps to enter the home. Transportation: self/ DME/HHC: Patient has shower chair, hip kit, and walker at home. Denies HHC. Disposition Plan: Patient to discharge home with family support and follow-up plans in place. Roshni LU, RN, CM
[2018-10-13] MEDS: HYDROcodone Bitartrate/Apap 5/325 Tablet PO (12:05)
[2018-10-13] MEDS: HYDROmorphone 0.5 MG/0.5 ML SYRINGE IV (13:11)
[2018-10-13] MEDS: LORazepam 2 MG/ML Syringe 1 MG IV (13:59)
--- NOTE | 2018-10-13 14:19 | CT_ITS ---
STUDY: CT ABDOMEN AND PELVIS WITHOUT CONTRAST REASON FOR EXAM: Female, 53 years old. Abdominal pain RADIATION DOSAGE (If Supplied By Facility): DLP = ( 1255.89 ) mGycm TECHNIQUE: Transaxial images were obtained from the dome of the diaphragm to the symphysis pubis with oral contrast, and without intravenous contrast. Sagittal and coronal images were reconstructed. Individualized dose optimization techniques were used for this CT. COMPARISON: CT abdomen pelvis October 07, 2018 FINDINGS: Evaluation of the abdominal viscera is limited in the absence of intravenous contrast. Bibasilar atelectasis is present. Trace bilateral effusions are present. The visualized portions of the heart and pericardium are within normal limits. The gallbladder has been removed. The liver demonstrates an unremarkable unenhanced appearance. The spleen is normal in size. The pancreas demonstrates an unremarkable unenhanced appearance. The adrenal glands are within normal limits. There are no obstructing renal stones. There is no hydronephrosis. Normal visualized stomach. There is no bowel obstruction or inflammation. The appendix is not visualized, but there are no findings to suggest acute appendicitis. The aorta is normal in caliber. There is no abdominal or pelvic free air, free fluid, fluid collection or lymphadenopathy. There are no destructive osseous lesions. CT/Abdomen/Pel W ORAL Cont Only IMPRESSION: No acute abdominal or pelvic pathology demonstrated on this noncontrast CT. Status post cholecystectomy. Bibasilar atelectasis and trace pleural effusions. Electronically Signed: Wesley Simon, at 17:45 EDT Tel , Service support ,
[2018-10-13] MEDS: Lactated Ringers 1,000 ML 50 ML IV (15:02)
[2018-10-13 15:06] VITALS: BP 116/82; PULSE 67; RESP 16; TEMP 36.3; O2SAT 98
[2018-10-13] MEDS: Ondansetron 4 MG/2 ML Vial IV (15:06)
--- NOTE | 2018-10-13 18:54 | PCM.PN.BLA ---
Progress Note CT: no acute findings Pt more comfortable and now passing flatus and stool Good progress Check CBC in a.m.
--- NOTE | 2018-10-13 20:13 | NURSING ---
pt reports flatus and two soft bowel movements.
[2018-10-13 21:31] VITALS: BP 137/81; PULSE 67; RESP 16; TEMP 36.9; O2SAT 97
--- NOTE | 2018-10-13 22:16 | NURSING ---
pt walked a full lap in the greene. tolerated well. pt returned to bed.
[2018-10-14 03:11] VITALS: BP 150/75; PULSE 71; RESP 16; TEMP 36.6; O2SAT 95
[2018-10-14] MEDS: Acetaminophen 325 MG Tablet 650 MG PO ×2 (03:42→13:16)
--- NOTE | 2018-10-14 05:25 | PCM.PN.SRG ---
Patient Problems: Active and Suspected Problems (Last Updated 10/10/18 @ 09:03 by Carol Connors) Acute cholecystitis (Acute) Abdominal pain (Acute) Objective: Pt much improved, passing stool and flatus - Physical Exam General: Alert, Oriented x3, Cooperative Abdomen: Bowel Sounds Present, Soft, Non Tender Vital Signs Temp Pulse Resp BP Pulse Ox 98 F 71 16 150/75 H 95 10/14/18 03:11 10/14/18 03:11 10/14/18 03:11 10/14/18 03:11 10/14/18 03:11 Oxygen Flow Rate (L/min) 2.5 Oxygen Delivery Method Room Air Weight: 172 lb 8.999 oz Body Mass Index (BMI) 33.7 Intake and Output for Last 24 Hours 10/12/18 10/13/18 10/14/18 23:59 23:59 23:59 Intake Total 2241 / 2241 2878 / 2878 Output Total 3025 / 3025 1050 / 1050 Balance -784 / -784 1828 / 1828 Laboratory Tests Past 24 Hrs 10/13/18 05:36 WBC 13.1 H RBC 3.84 L Hgb 11.8 L Hct 36.4 L MCV 94.8 MCH 30.7 MCHC 32.4 RDW Std Deviation 46.6 H RDW Coeff of Kavitha 13.4 Plt Count 201 MPV 9.9 Immature Gran % (Auto) 0.500 Neut % (Auto) 82.0 H Lymph % (Auto) 11.2 L [place] % (Auto) 5.4 Eos % (Auto) 0.6 Baso % (Auto) 0.3 Absolute Neuts (auto) 10.7 H Absolute Lymphs (auto) 1.46 Nucleated RBC % 0 Medical Necessity - Tobacco Use Smoking Status: Never smoker Assessment/Plan All Active Problems (Last Updated 10/10/18 @ 09:03 by Carol Connors) Acute cholecystitis (Acute) Abdominal pain (Acute) BMI greater than 40 (Acute) Chest pain (Resolved) Advance diet and discharge today
[2018-10-14] MEDS: Levothyroxine 137 MCG Tablet PO (05:42)
[2018-10-14 06:09] LABS: Absolute Lymphocyte Count 1.28 X10^3/uL (0.83-4.51); Absolute Neutrophil Count 8.7 X10^3/uL (2.0-7.7); Basophil# 0.04 X10^3/uL; Basophil% 0.4 % (0-1); Eosinophils% 1.8 % (0-5); Hematocrit 35.5 % (37-47); Hemoglobin 11.5 g/dL (12.0-15.0); Lymphocyte # 1.28 X10^3/ul (4.0); Lymphocyte % 11.5 % (19-41); Mean Corp Hgb Conc 32.4 g/dL (32-36); Mean Corpuscular Hgb 30.7 pg (27.0-32.0); Mean Corpuscular Volume 94.7 fL (81-99); Mean Platelet Vol. 9.6 fl (6.2-12.0); Monocyte# 0.86 X10^3/uL; Monocyte% 7.7 % (0-10); NRBC Flagged by Analyzer 0 % (0-5); Neutrophil # 8.73 X10^3/uL (2.7-7.7); Neutrophil % 78.3 % (47-70); Platelet Count 227 K/mm3 (150-450); RBC Distribution Width CV 13.2 % (11.6-14.6); RBC Distribution Width SD 45.3 fl (35.1-43.9); Red Blood Count 3.75 M/mm3 (4.2-5.4); White Blood Count 11.1 K/mm3 (4.4-11.0)
[2018-10-14] MEDS: HYDROcodone Bitartrate/Apap 5/325 Tablet PO (08:32)
[2018-10-14] MEDS: Oxybutynin 5 MG Tablet PO (08:35)
[2018-10-14] MEDS: Pantoprazole Sodium 20 MG Tablet PO (08:35)
[2018-10-14 08:39] VITALS: BP 123/86; PULSE 69; RESP 18; TEMP 36.9; O2SAT 96
--- NOTE | 2018-10-14 10:55 | NURSING ---
Patient ambulated in halls.
[2018-10-14] MEDS: Enoxaparin 40 MG/0.4 ML Syringe SC (11:05)
[2018-10-14 13:22] VITALS: BP 113/71; PULSE 71; RESP 16; TEMP 36.7; O2SAT 96
--- NOTE | 2018-10-17 07:01 | PCM.DC.SUM ---
Discharge Date and Diagnosis Date of Admission: 10/10/18 Date of Discharge: 10/14/18 - Primary Discharge Diagnosis Acute cholecystitis - Secondary Discharge Diagnosis Chronic Problems (Last Updated 10/10/18 @ 09:03 by Carol Connors) Mixed stress and urge urinary incontinence (Chronic) vesicare 5 mg, in past- intone- inflation 11 and stim N/S at 18, s/p E/W at 15 Hospital Course and Treatment Operations: cholecystecomy Summary of Care Provided: The patient is a 53 year old F who presented to the office with acute cholecystitis. Dr. Faust performed a laparoscopic cholecystectomy with intraoperative cholangiogram on 10/10/18. Patient tolerated the procedure well. POD #1, patient had developed severe amount of RUQ pain. A RUQ u/s was ordered which demonstrated fluid collection within the gallbladder fossa. Patient also had developed an elevated WBC at 16. Unfortunately it was to late in the day to obtain a HIDA scan to check for a bile leak. It was decided to return the patient to surgery for an exploratory laparotomy, which demonstrated no bile leak. A MERLYN drain was placed. Patient then developed an extensive ileus which kept her in the hospital for 3 additional days. MERLYN drain was removed on 10/13 successfully. Patient's WBC had decreased to 11 upon discharge. She notes pain had improved prior to discharge. She had positive flatus and BM. - Physical Exam General: Alert, Oriented x3, Cooperative Abdomen: Soft, Distended - slightly, Obese, Tender, - - Incisions c/d/i. Vital Signs Temp Pulse Resp BP Pulse Ox 98.0 F 71 16 113/71 96 10/14/18 13:22 10/14/18 13:22 10/14/18 13:22 10/14/18 13:22 10/14/18 13:22 Oxygen Flow Rate (L/min) 2.5 Oxygen Delivery Method Room Air Weight: 172 lb 8.999 oz Body Mass Index (BMI) 33.7 Microbiology Past 72 Hours 10/12/18 10:40 Urine Culture - Final Urine, Clean Catch Mixed Gram Positive Organisms Discharge Diet: Light diet - advance as tolerated - if you have questions about your diet instructions, please talk to you doctor. Discharge Activity: May Not Drive - for 3-5 days or while taking narcotic pain medicine. May shower in (days): 1 Call your doctor if your incision/area has: Continuous Slow Oozing, Sudden Increased Bleeding, Increased Pain/ Swelling, Increased Redness, Foul Smelling Discharge Call your doctor if you observe: Fever of 101 or Higher Suture Line Care: Avoid Pulling/Pushing, Avoid Pinching/Bending Additional Dressing/Incision Instructions:: Change or remove dressing in 4 days. Leave steri-strips in place for 1 week. Home Medications: Medications to take at Discharge Levothyroxine [Synthroid] 137 mcg PO DAILY 05/15/18 Oxybutynin [Ditropan] 5 mg PO DAILY 05/15/18 Pantoprazole Sodium [Protonix] 20 mg PO DAILY 10/07/18 Calcium Carbonate [Calcium] 1,500 mg PO 10/10/18 fluconazole 150 mg tablet 150 mg PO ONCE #1 tab 10/18/18 Primary Care Physician: Ravinder Faust III, MD [Primary Care Provider] - Please Follow Up With: Owen Faust MD - [phone] When: Call to make an appointment to be seen in about 10 days. Disposition: Home Minutes spent on discharge:: 20 Patient Condition:: Stable Medical Necessity - Tobacco Use Smoking Status: Never smoker Meaningful Use Info Meaningful Use Diagnoses (Choose all that apply): None applicable Code Visit Inpatient E&M: 08431 Disch Hosp
== END 2018-10-14 13:32 | disposition home or self-care (01) | DRG 418 ==
PROVIDERS: Physician Assistant; Admitting Provider Surgery; Family Provider Family Medicine; PCP Family Medicine; Referring Provider Surgery; Visit Provider Surgery
PROC: (CPT 47610; principal; 2018-10-10 14:10)
DX: K81.2 Acute cholecystitis with chronic cholecystitis (principal); K56.7 Ileus, unspecified; K82.1 Hydrops of gallbladder; N39.46 Mixed incontinence; K66.0 Peritoneal adhesions (postprocedural) (postinfection); I10 Essential (primary) hypertension; Z98.84 Bariatric surgery status; Z98.1 Arthrodesis status
CPT/HCPCS: 36415; 71046; 74019; 74176; 74300; 76000; 76705; 80053; 80076; 81001; 82150; 83690; 85025; 87086; 87088; 87493; 88304; 93005; 97802; J7040; J7120; J2405

== ENCOUNTER → 2018-10-18 15:33 | Outpatient (CLI) | payer OTHER, SELFPAY ==
[2018-10-11 19:35] VITALS: BMI 33.7
--- NOTE | 2018-10-18 15:43 | RAD_ITS ---
STUDY: X-RAY - ABDOMEN/PELVIS REASON FOR EXAM: Female, 53 years old. Follow-up, gallbladder removal. TECHNIQUE: AP supine and upright views of the abdomen and pelvis. COMPARISON: None. FINDINGS: Normal visualized lung bases. There is an unremarkable bowel gas pattern. Moderate fecal retention. There is no demonstrated free abdominal air. The visualized liver, spleen and kidneys are grossly normal in size and morphology. Normal soft tissue structures. Normal visualized osseous structures. RAD/Abd Inc Decub and/or Erect IMPRESSION: Moderate fecal retention. No evidence for obstruction. Electronically Signed: Tung Casiano MD at 16:08 EDT , Service support ,
--- NOTE | 2018-10-18 15:43 | RAD_ITS ---
STUDY: X-RAY CHEST REASON FOR EXAM: Female, 53 years old. Follow-up after gallbladder removal TECHNIQUE: Frontal and lateral views of the chest. COMPARISON: 10/12/2018. FINDINGS: The lungs are clear and expanded. Continued elevation of the right hemidiaphragm. Minimal blunting of the posterior costophrenic angles which may be from tiny effusions. Normal size heart. Normal mediastinum and hedy. Normal visualized pulmonary arteries. Normal visualized aortic arch and descending thoracic aorta. Normal visualized thoracic spine. Normal visualized ribs, clavicles, and shoulders. There is no demonstrated abnormality of the visualized soft tissue structures of the upper abdomen. RAD/Chest PA and Lateral IMPRESSION: Possible minimal posterior pleural effusions, otherwise negative. Electronically Signed: Tung Casiano MD at 16:08 EDT , Service support ,
[2018-10-18 16:28] LABS: Absolute Lymphocyte Count 1.83 X10^3/uL (0.83-4.51); Absolute Neutrophil Count 7.1 X10^3/uL (2.0-7.7); Basophil# 0.05 X10^3/uL; Basophil% 0.5 % (0-1); Hemoglobin 13.8 g/dL (12.0-15.0); Lymphocyte # 1.83 X10^3/ul (4.0); Lymphocyte % 18.2 % (19-41); Mean Corp Hgb Conc 31.4 g/dL (32-36); Mean Corpuscular Hgb 30.1 pg (27.0-32.0); Mean Corpuscular Volume 95.9 fL (81-99); Mean Platelet Vol. 9.2 fl (6.2-12.0); Monocyte% 7.9 % (0-10); NRBC Flagged by Analyzer 0 % (0-5); Neutrophil # 7.06 X10^3/uL (2.7-7.7); Platelet Count 446 K/mm3 (150-450); RBC Distribution Width CV 13.2 % (11.6-14.6); RBC Distribution Width SD 46.6 fl (35.1-43.9); Red Blood Count 4.59 M/mm3 (4.2-5.4); White Blood Count 10.1 K/mm3 (4.4-11.0)
[2018-10-18 17:03] LABS: ALB/GLOB Ratio 0.6 RATIO (0.9-2.4); AST(SGOT) 48 U/L (15-37); Alanine Aminotransfer ALT/SGPT 53 U/L (13-56); Albumin, Serum 2.9 g/dL (3.2-5.0); Alkaline Phosphatase 150 U/L (45-117); Anion Gap 6 (5-15); BUN 8 mg/dL (7-18); BUN/Creat Ratio 10.5 RATIO (10-20); Calcium,Total 8.6 mg/dL (8.5-10.1); Chloride 109 mmol/L (98-107); Creatinine, Serum 0.76 mg/dL (0.55-1.02); EST Glomerular Filtration Rate 85 mL/min (>60); Est Glom Filt Rate - Afr Amer 102 mL/min (>60); Globulin 4.6 g/dL (2.2-4.2); Glucose 85 mg/dL (74-106); Magnesium 2.2 mg/dL (1.6-2.6); Protein, Total 7.5 g/dL (6.4-8.2); Sodium Level 142 mmol/L (136-145)
== END ==
PROVIDERS: Family Provider Family Medicine; PCP Family Medicine; Referring Provider Physician Assistant; Visit Provider Physician Assistant
DX: R10.9 Unspecified abdominal pain (principal); R14.0 Abdominal distension (gaseous)
CPT/HCPCS: 36415; 71046; 74019; 80053; 83735; 85025

== ENCOUNTER → 2018-11-30 16:04 | Outpatient (CLI) | payer OTHER, SELFPAY ==
[2018-10-11 19:35] VITALS: BMI 33.7
--- NOTE | 2018-11-30 16:13 | MRI_ITS ---
STUDY: MR CHOLANGIOPANCREATOGRAPHY (MRCP) REASON FOR EXAM: Female, 53 years old. Abnormal cholangiogram. TECHNIQUE: Standard MRCP technique was utilized. COMPARISON: CT dated October 13, 2018 FINDINGS: Gall Bladder: Gall bladder is surgically absent. Intrahepatic ducts: There is mild intrahepatic ductal dilatation. Common hepatic duct: There is dilatation of the common hepatic duct. Common bile duct: There is dilatation of the common bile duct measuring up to 13 mm. There is narrowing in the region of the ampulla of Vater. Pancreatic duct: There is dilatation of the pancreatic duct at the level of the pancreatic head. MRI/MRCP Abdomen without Contrast IMPRESSION: Intra and extrahepatic ductal dilatation associated with mild dilatation of the proximal pancreatic duct. No intraluminal filling defects are identified, cannot exclude an occult ampulla of Vater lesion. Electronically Signed: Nadia Tran MD at 18:10 EDT Tel , Service support ,
== END ==
PROVIDERS: Family Provider Family Medicine; PCP Family Medicine; Referring Provider Surgery; Visit Provider Surgery
DX: R93.2 Abnormal findings on diagnostic imaging of liver and biliary tract (principal)
CPT/HCPCS: 74181

== ENCOUNTER → 2018-12-01 13:11 | Outpatient (CLI) | payer OTHER, SELFPAY ==
[2018-10-11 19:35] VITALS: BMI 33.7
[2018-12-01 14:22] LABS: Absolute Lymphocyte Count 1.94 X10^3/uL (0.83-4.51); Absolute Neutrophil Count 3.5 X10^3/uL (2.0-7.7); Basophil# 0.05 X10^3/uL; Basophil% 0.8 % (0-1); Eosinophil# 0.18 X10^3/uL; Eosinophils% 2.8 % (0-5); Hemoglobin 14.1 g/dL (12.0-15.0); Lymphocyte # 1.94 X10^3/ul (4.0); Lymphocyte % 30.3 % (19-41); Mean Corpuscular Hgb 29.6 pg (27.0-32.0); Mean Corpuscular Volume 92.2 fL (81-99); Mean Platelet Vol. 9.8 fl (6.2-12.0); Monocyte# 0.71 X10^3/uL; Monocyte% 11.1 % (0-10); NRBC Flagged by Analyzer 0 % (0-5); Neutrophil # 3.51 X10^3/uL (2.7-7.7); Neutrophil % 54.8 % (47-70); Platelet Count 272 K/mm3 (150-450); RBC Distribution Width CV 13.9 % (11.6-14.6); RBC Distribution Width SD 47.2 fl (35.1-43.9); Red Blood Count 4.77 M/mm3 (4.2-5.4); White Blood Count 6.4 K/mm3 (4.4-11.0)
[2018-12-01 14:41] LABS: ALB/GLOB Ratio 0.8 RATIO (0.9-2.4); AST(SGOT) 37 U/L (15-37); Alanine Aminotransfer ALT/SGPT 32 U/L (13-56); Albumin, Serum 3.4 g/dL (3.2-5.0); Alkaline Phosphatase 149 U/L (45-117); Amylase 37 U/L (25-115); Anion Gap 4 (5-15); BUN 14 mg/dL (7-18); BUN/Creat Ratio 16.1 RATIO (10-20); Calcium,Total 8.6 mg/dL (8.5-10.1); Chloride 108 mmol/L (98-107); Creatinine, Serum 0.87 mg/dL (0.55-1.02); EST Glomerular Filtration Rate 72 mL/min (>60); Est Glom Filt Rate - Afr Amer 88 mL/min (>60); Glucose 86 mg/dL (74-106); Lipase 178 U/L (73-393); Protein, Total 7.4 g/dL (6.4-8.2); Sodium Level 140 mmol/L (136-145)
== END ==
PROVIDERS: Family Provider Family Medicine; PCP Family Medicine; Referring Provider Surgery; Visit Provider Surgery
DX: R93.3 Abnormal findings on diagnostic imaging of other parts of digestive tract (principal)
CPT/HCPCS: 36415; 80053; 82150; 83690; 85025

== ENCOUNTER 2019-05-08 23:10 | Observation (INO) | payer OTHER, SELFPAY ==
[2019-02-08 11:50] VITALS: BMI 33.7
[2019-05-08 23:11] VITALS: BP 127/79; PULSE 62; RESP 18; TEMP 36.7; O2SAT 98; BMI 41.5
[2019-05-08 23:15] VITALS: BP 127/79; PULSE 62; RESP 18; TEMP 36.7; O2SAT 98
[2019-05-08] MEDS: Metoclopramide 10 MG/2 ML Vial IV (23:53)
[2019-05-08] MEDS: 0.9% Normal Saline 1,000 ML 1000 ML IV (23:53)
[2019-05-08] MEDS: HYDROmorphone 1 MG/ML Syringe IV (23:54)
--- NOTE | 2019-05-09 00:10 | CT_ITS ---
STUDY: CT ABDOMEN AND PELVIS WITHOUT CONTRAST REASON FOR EXAM: Female, 54 years old. SBO/HAD GASTRIC EDGE PROCEDURE 05/08/19, now vomiting and very painful. Hx of gastric bypass,cholecystectomy,biliary stent, appendectomy and lumbar fusion. RADIATION DOSAGE (If Supplied By Facility): CTDIvol = ( 17.28 ) mGy, DLP = ( 1110.01 ) mGycm TECHNIQUE: Transaxial images were obtained from the dome of the diaphragm to the symphysis pubis without oral contrast, and without intravenous contrast. Sagittal and coronal images were reconstructed. Individualized dose optimization techniques were used for this CT. COMPARISON: 10/13/2018. FINDINGS: Right lower lobe atelectasis. Remainder of the lung bases are clear. The visualized portions of the heart are within normal limits. Normal liver. There are surgical clips in the gallbladder fossa consistent with a prior cholecystectomy. There is pneumobilia within the common hepatic duct at the hepatic hilum and left intrahepatic biliary system. There is mild intrahepatic. Distention. There is a biliary stent in place. There is edema surrounding the pancreatic head concerning for pancreatitis. A pancreatic mass cannot be entirely excluded. Normal spleen. There is a small amount of fluid tracing into the right anterior perirenal space and right paracolic gutter. Normal bilateral adrenal glands. Normal right kidney. Normal left kidney. Postoperative changes of the level of the stomach. Normal small intestine. Abundant fecal debris within the colon. There is non-visualization of the appendix. Normal abdominal aorta. Normal inferior vena cava. Normal retroperitoneum. Normal urinary bladder. Anteverted uterus. Small fat-containing umbilical hernia. Postoperative changes at L4-L5 with posterior fusion. CT/Abdomen/Pel W ORAL Cont Only IMPRESSION: Findings suggestive of pancreatitis. Small amount of fluid surrounding the pancreatic head extending into the anterior paracolic gutter and perihepatic space. Constipation. No signs of bowel obstruction. Electronically Signed: Linette Bernal MD at 1:54 EDT , Service support ,
[2019-05-09 00:22] LABS: Absolute Neutrophil Count 13.7 X10^3/uL (2.0-7.7); Basophil# 0.02 X10^3/uL; Basophil% 0.1 % (0-1); Hematocrit 44.5 % (37-47); Hemoglobin 15.4 g/dL (12.0-15.0); Lymphocyte % 6.4 % (19-41); Mean Corp Hgb Conc 34.6 g/dL (32-36); Mean Corpuscular Hgb 31.4 pg (27.0-32.0); Mean Corpuscular Volume 90.6 fL (81-99); Mean Platelet Vol. 9.4 fl (6.2-12.0); Monocyte# 0.89 X10^3/uL; Monocyte% 5.7 % (0-10); NRBC Flagged by Analyzer 0 % (0-5); Neutrophil # 13.66 X10^3/uL (2.7-7.7); Neutrophil % 87.4 % (47-70); Platelet Count 258 K/mm3 (150-450); RBC Distribution Width CV 12.8 % (11.6-14.6); RBC Distribution Width SD 41.9 fl (35.1-43.9); Red Blood Count 4.91 M/mm3 (4.2-5.4); White Blood Count 15.6 K/mm3 (4.4-11.0)
[2019-05-09 00:38] LABS: ALB/GLOB Ratio 0.9 RATIO (0.9-2.4); AST(SGOT) 34 U/L (15-37); Alanine Aminotransfer ALT/SGPT 39 U/L (13-56); Albumin, Serum 3.7 g/dL (3.2-5.0); Alkaline Phosphatase 162 U/L (45-117); Anion Gap 7 (5-15); BUN 12 mg/dL (7-18); BUN/Creat Ratio 13.9 RATIO (10-20); Calcium,Total 9.2 mg/dL (8.5-10.1); Chloride 105 mmol/L (98-107); Creatinine, Serum 0.86 mg/dL (0.55-1.02); EST Glomerular Filtration Rate 73 mL/min (>60); Est Glom Filt Rate - Afr Amer 88 mL/min (>60); Estimated Creatinine Clearance 57.09 ml/min; Globulin 3.9 g/dL (2.2-4.2); Glucose 157 mg/dL (74-106); Potassium 3.9 mmol/L (3.5-5.1); Protein, Total 7.6 g/dL (6.4-8.2); Sodium Level 138 mmol/L (136-145)
--- NOTE | 2019-05-09 00:57 | ED.VIS.GI ---
History of Present Illness Chief Complaint: Abd Pain Narrative: Patient presenting secondary to abdominal pain nausea and vomiting. Patient has a distant history of having a gastric bypass, and recently has been dealing with some issues with biliary duct stenosis. Patient had a upper endoscopy procedure today where a biliary stent was placed with tricky maneuvering of a upper endoscopy scope up at [facility]. Patient reports that this evening she has developed abdominal distention, profuse nausea and vomiting, and abdominal pain. She denies any fevers. She is not passing any flatus. Patient does state that in the past she has had a history of having ileus after abdominal procedures and she reports that this feels somewhat the same. No exacerbating relieving factors to the patient's symptoms. Past Medical History - Allergies and Home Meds Allergies/Adverse Reactions: Allergies NSAIDS (Non-Steroidal Anti-Inflamma Allergy (Verified 05/08/19 23:19) Other Penicillins Adverse Reaction (Verified 05/08/19 23:19) Rash Primary Care Physician: Ravinder Faust III, MD [Primary Care Provider] - Past Medical History: - - Hypothyroidism Surgical History: appendectomy, cataract, tonsillectomy, - - Gastric bypass, Smoking Status: Never smoker - Family History Maternal Family History: Family History (Last Reviewed 02/08/19 @ 11:48 by Kimmy Arredondo) Mother Cancer Father Dementia Daughter Asthma Thyroid disorder Family History: Reports: No pertinent history Paternal Family History: Family History (Last Reviewed 02/08/19 @ 11:48 by Kimmy Arredondo) Mother Cancer Father Dementia Daughter Asthma Thyroid disorder Family History: Reports: No pertinent history Review of Systems All systems negative except as indicated General: Denies: Chills, Fever, Sweats Eyes: Denies: Visual changes - bilaterally, Diplopia ENT: Denies: Rhinorrhea, Sore throat Cardiovascular: Denies: Chest pain, Palpitations Respiratory: Denies: Dyspnea, Cough, Dyspnea on exertion Gastrointestinal: Reports: Abdominal pain, Nausea, Vomiting, - - Not passing flatus Genitourinary: Denies: Dysuria, Hematuria, Frequency Musculoskeletal: Denies: Back pain, Extremity Pain Skin: Denies: Rash, Wounds Neurological: Denies: Headache, Weakness, Numbness Physical Exam Vital Signs/Narrative: Vital Signs Temp Pulse Resp BP Pulse Ox 05/08/19 23:15 98.1 F 62 18 127/79 H 98 05/08/19 23:11 98.1 F 62 18 127/79 H 98 Inital Vital Signs reviewed: Yes General: Well nourished, Well developed, - - Patient is walking around the room in mild distress secondary to discomfort Head: Normocephalic, Atraumatic Eyes: Perrl, EOMI ENT: Moist mucous membranes, No rhinorrhea Neck: Supple, Nontender Cardiovascular: Regular rate, Regular rhythm, No murmurs Respiratory: No distress, CTA bilaterally, Chest nontender Abdomen: Tender - Especially in the epigastrium with minimal distention, no tympany. Well-healed surgical scars. Back: Nontender, Normal Inspection Extremities: Nontender, No edema Skin: Normal color, No rash Neurological: Alert, Oriented x3, Cranial nerves II-XII grossly intact, Normal Strength, Normal Sensation Psychological: Normal affect, Normal Mood Diagnostic/Tx/Re-eval Clinical Impression(s) from Imaging Studies Abdomen CT 05/09/19 00:10 IMPRESSION: Findings suggestive of pancreatitis. Small amount of fluid surrounding the pancreatic head extending into the anterior paracolic gutter and perihepatic space. Constipation. No signs of bowel obstruction. Electronically Signed: Linette Bernal MD at 1:54 EDT , Service support , Laboratory Data 05/08/19 05/08/19 05/08/19 23:50 23:50 23:50 WBC 15.6 H RBC 4.91 Hgb 15.4 H Hct 44.5 MCV 90.6 MCH 31.4 MCHC 34.6 RDW Std Deviation 41.9 RDW Coeff of Kavitha 12.8 Plt Count 258 MPV 9.4 Immature Gran % (Auto) 0.400 Neut % (Auto) 87.4 H Lymph % (Auto) 6.4 L [place] % (Auto) 5.7 Eos % (Auto) 0.0 Baso % (Auto) 0.1 Absolute Neuts (auto) 13.7 H Absolute Lymphs (auto) 1.00 Nucleated RBC % 0 Sodium 138 Potassium 3.9 Chloride 105 Carbon Dioxide 26.0 Anion Gap 7 BUN 12 Creatinine 0.86 Estim Creat Clear Calc 57.09 Est GFR (MDRD) Af Amer 88 Est GFR (MDRD) Non-Af 73 BUN/Creatinine Ratio 13.9 Glucose 157 H Calcium 9.2 Total Bilirubin 0.40 AST 34 ALT 39 Alkaline Phosphatase 162 H Total Protein 7.6 Albumin 3.7 Globulin 3.9 Albumin/Globulin Ratio 0.9 Lipase 97474 H - Medical Decision Making Patient presenting secondary to abdominal pain nausea and vomiting. IV was established laboratory studies were obtained. Patient was initially given morphine and Zofran, had only modest improvement of her pain and was given a dose of Dilaudid and had significant improvement. Patient was found to have a leukocytosis of 15. CMP shows no elevation of bilirubin or elevation of liver enzymes, but lipase was found to be profoundly elevated at 22,000. CT abdomen and pelvis demonstrated pancreatitis no evidence of ileus or bowel obstruction. Patient is 1 day post procedural from upper endoscopy and placement of a biliary stent. I believe that her pancreatitis likely is associated with the instrumentation of her biliary ducts. There does not appear to be obstruction of her bile duct in its entirety as her bilirubin is normal and she does not have any jaundice, so I believe this likely to be postprocedural and something that can be treated conservatively with IV fluids and bowel rest. Patient will be discussed with the hospitalist for admission. Hospitalist is requested that I speak with [facility] about this patient. I discussed this with them, and they accepted the patient for admission but informed me that they do not have any beds and they are waiting on discharges. After a 8-hour stay in the emergency department, multiple updates from the [facility] continue to give us this similar report on bed status. Patient will be admitted at this facility for treatment of her pancreatitis. ED Disposition - Plan for ED Patient: Disposition: Acute Care Hospital [facility] Diagnosis: Pancreatitis, acute Referrals: Ravinder Faust III, MD [Primary Care Provider] -
[2019-05-09] MEDS: HYDROmorphone 1 MG/ML Syringe IV ×4 (01:06→08:26)
[2019-05-09 01:24] VITALS: BP 129/88; PULSE 60; RESP 18; O2SAT 97
[2019-05-09 02:08] LABS: Lipase 22795 U/L (73-393)
--- NOTE | 2019-05-09 02:20 | HP.PCM_ITS ---
History of Present Illness The patient is a 54 year old F [] Past Medical History Past Medical History (Chronic Problems): Chronic Problems (Last Updated 02/12/19 @ 05:[address] Tameka Law MD) Mixed stress and urge urinary incontinence (Chronic) vesicare 5 mg, in past- intone- inflation 11 and stim N/S at 18, s/p E/W at 15 Medical History: Medical History (Last Updated 02/12/19 @ 05:[address] Tameka Law MD) Mixed stress and urge urinary incontinence (Chronic) N39.46 vesicare 5 mg, in past- intone- inflation 11 and stim N/S at 18, s/p E/W at 15 Acute cholecystitis K81.0 HTN (hypertension), benign I10 History of back problems Presence of artificial intra-ocular lens Onset Date: ~2010 Z96.1 Sleep apnea G47.30 Thyroid disease E07.9 Chronic cholecystitis K81.1 Abdominal pain (Resolved) R10.9 BMI greater than 40 (Resolved) weight watchers Allergies NSAIDS (Non-Steroidal Anti-Inflamma Allergy (Verified 05/08/19 23:19) Other Penicillins Adverse Reaction (Verified 05/08/19 23:19) Rash Home Medications: Ambulatory Orders Medication Instructions Recorded Levothyroxine [Synthroid] 137 mcg PO DAILY 05/15/18 Pantoprazole Sodium [Protonix] 20 mg PO DAILY 10/07/18 Calcium Carbonate [Calcium] 1,500 mg PO DAILY 10/10/18 nystatin 100,000 unit/gram topical 1 applic TOPICAL BID #30 g 02/08/19 powder oxybutynin chloride 5 mg tablet 10 mg PO DAILY #60 tab 04/25/19 Surgical History: Surgical History (Last Reviewed 02/08/19 @ 11:48 by Kimmy Arredondo) H/O gastric bypass Onset Date: ~2007 Z98.84 H/O spinal fusion Z98.1 History of appendectomy Z90.49 History of cataract surgery Z98.49 History of section Z98.891 History of endometrial ablation Z98.890 5-6 years ago History of tonsillectomy Z90.89 S/P laparoscopic cholecystectomy Onset Date: ~10/10/18 Z90.49 Surgical History: appendectomy, cataract, tonsillectomy, - - Gastric bypass, C- section Psychiatric History: No pertinent psych hx 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 Smoking Status: Never smoker - *Family History Maternal Family History: Family History (Last Reviewed 02/08/19 @ 11:48 by Kimmy Arredondo) Mother Cancer Father Dementia Daughter Asthma Thyroid disorder History Items: No pertinent history Paternal Family History: Family History (Last Reviewed 02/08/19 @ 11:48 by Kimmy Arredondo) Mother Cancer Father Dementia Daughter Asthma Thyroid disorder History Items: No pertinent history - Physical Exam Vitals/I&O's: Vital Signs Temp Pulse Resp BP Pulse Ox 98.1 F 60 18 129/88 H 97 05/08/19 23:15 05/09/19 01:24 05/09/19 01:24 05/09/19 01:24 05/09/19 01:24 Oxygen Delivery Method Room Air Weight: 99.7 kg Body Mass Index (BMI) 41.5 Intake and Output for Last 24 Hours 05/07/19 05/08/19 05/09/19 23:59 23:59 23:59 Intake Total 1000 / 1000 Balance 1000 / 1000 Laboratory Results 05/08/19 23:50: WBC 15.6 H, RBC 4.91, Hgb 15.4 H, Hct 44.5, MCV 90.6, MCH 31.4, MCHC 34.6, RDW Std Deviation 41.9, RDW Coeff of Kavitha 12.8, Plt Count 258, MPV 9.4, Immature Gran % (Auto) 0.400, Neut % (Auto) 87.4 H, Lymph % (Auto) 6.4 L, [place] % (Auto) 5.7, Eos % (Auto) 0.0, Baso % (Auto) 0.1, Absolute Neuts (auto) 13.7 H, Absolute Lymphs (auto) 1.00, Nucleated RBC % 0 05/08/19 23:50: Sodium 138, Potassium 3.9, Chloride 105, Carbon Dioxide 26.0, Anion Gap 7, BUN 12, Creatinine 0.86, Estim Creat Clear Calc 57.09, Est GFR (MDRD) Af Amer 88, Est GFR (MDRD) Non-Af 73, BUN/Creatinine Ratio 13.9, Glucose 157 H, Calcium 9.2, Total Bilirubin 0.40, AST 34, ALT 39, Alkaline Phosphatase 162 H, Total Protein 7.6, Albumin 3.7, Globulin 3.9, Albumin/Globulin Ratio 0.9 05/08/19 23:50: Lipase 72474 H Current Medications Sodium Chloride () 1,000 mls @ 250 mls/hr IV .Q4H JAYLENE Assessment/Plan All Active Problems (Last Updated 02/12/19 @ 05:[address] Tameka Law MD) Climacteric (Acute) Abdominal pain (Resolved) Acute cholecystitis (Resolved) BMI greater than 40 (Resolved) Chest pain (Resolved)
[2019-05-09] MEDS: 0.9% Normal Saline 1,000 ML 250 ML IV (02:21)
[2019-05-09 03:37] VITALS: BP 131/76; PULSE 71; RESP 18; O2SAT 97
[2019-05-09] MEDS: Ondansetron 4 MG/2 ML Vial IV ×2 (03:42→08:26)
[2019-05-09 05:54] VITALS: BP 130/85; PULSE 66; RESP 17; O2SAT 98
--- NOTE | 2019-05-09 07:19 | NURSING ---
MED SURG ACUTE PANCREATITIS DR VASQUES
--- NOTE | 2019-05-09 07:21 | NURSING ---
DR MORIN IN WITH PATIENT
--- NOTE | 2019-05-09 07:25 | NURSING ---
0703 CALLED [facility] TRANSFER LINE, TALKED TO JARED. NO BED 0724 CALLED [facility] TRANSFER LINE, TALKED TO JARED. MADE SURE HE WAS AWARE WE ARE ADMITTING PATIENT, BUT TO KEEP HER ON THE THE TRANSFER LIST. HE ASKED THAT WE GIVE HIM A CALL WITH THE BED NUMBER.
--- NOTE | 2019-05-09 07:28 | HP.PCM_ITS ---
Problem List (1) Pancreatitis, acute Status: Acute (2) Acute pancreatitis after endoscopic retrograde cholangiopancreatography (ERCP) Status: Acute (3) GERD (gastroesophageal reflux disease) Status: Chronic (4) Body mass index (BMI) of 40.1 to 44.9 in adult Status: Chronic (5) Hypothyroidism Status: Chronic (6) Climacteric Status: Resolved Comment: discussed options plan effexor at present. fu if no improvement, consider HRT (7) Mixed stress and urge urinary incontinence Status: Chronic Comment: vesicare 5 mg, in past- intone- inflation 11 and stim N/S at 18, s/p E/W at 15 History of Present Illness Date of Admission: 05/09/19 Chief Complaint: Abdominal pain The patient is a 54 year old F with past medical history significant for gastric bypass, cholecystectomy a year ago which was later complicated by biliary stricture. Patient was seen at the [facility] had a stent placed 5 weeks prior to her current admission. Patient apparently underwent another procedure (EDGE procedure consisting of sphincterectomy stent placement in the biliary duct ultrasound-guided endoscopy) at the [facility] on 05/08/2019. Patient was discharged home. Patient states he she developed significant back pain and abdominal pain while she got home. She had intractable nausea with retching and dry heaves. She presented to the emergency department in view of worsening symptoms. Found to have markedly elevated lipase levels consistent with acute pancreatitis. Call was placed to the [facility] for patient to be transferred however bed was not available patient was therefore admitted to regular nursing floor pending transfer. Past Medical History Past Medical History (Chronic Problems): Chronic Problems (Last Updated 02/12/19 @ 05:[address] Tameka Law MD) GERD (gastroesophageal reflux disease) (Chronic) Body mass index (BMI) of 40.1 to 44.9 in adult (Chronic) Hypothyroidism (Chronic) Mixed stress and urge urinary incontinence (Chronic) vesicare 5 mg, in past- intone- inflation 11 and stim N/S at 18, s/p E/W at 15 Medical History: Medical History (Last Reviewed 05/09/19 @ 07:[address] Geoffrey Bennett MD) Mixed stress and urge urinary incontinence (Chronic) N39.46 vesicare 5 mg, in past- intone- inflation 11 and stim N/S at 18, s/p E/W at 15 Acute cholecystitis K81.0 HTN (hypertension), benign I10 History of back problems Presence of artificial intra-ocular lens Onset Date: ~2010 Z96.1 Sleep apnea G47.30 Thyroid disease E07.9 Chronic cholecystitis K81.1 Abdominal pain (Resolved) R10.9 BMI greater than 40 (Resolved) weight watchers Allergies NSAIDS (Non-Steroidal Anti-Inflamma Allergy (Verified 05/08/19 23:19) Other Penicillins Adverse Reaction (Verified 05/08/19 23:19) Rash Home Medications: Ambulatory Orders Medication Instructions Recorded Levothyroxine [Synthroid] 137 mcg PO DAILY 05/15/18 Pantoprazole Sodium [Protonix] 20 mg PO DAILY 10/07/18 Calcium Carbonate [Calcium] 1,500 mg PO DAILY 10/10/18 nystatin 100,000 unit/gram topical 1 applic TOPICAL BID #30 g 02/08/19 powder oxybutynin chloride 5 mg tablet 10 mg PO DAILY #60 tab 04/25/19 Surgical History: Surgical History (Last Reviewed 05/09/19 @ 07:[address] 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 Geoffrey Bnenett MD) Mother Cancer Father Dementia Daughter Asthma Thyroid disorder History Items: No pertinent history Paternal Family History: Family History (Last Reviewed 05/09/19 @ 07:[address] Geoffrey Bennett MD) Mother Cancer Father Dementia Daughter Asthma Thyroid disorder History Items: No pertinent history Review of Systems Constitutional: Denies: Anorexia, Chills, Fever, Night Sweats, Weight Change HEENT: Denies: Head Aches, Sinus Congestion, Sinus Drainage Cardiovascular: Denies: Chest Pain, Orthopnea, Palpitations, Paroxysmal Noc. Dyspnea Respiratory: Denies: Cough, Shortness of breath at rest, Shortness of breath upon exertion, Sputum production Gastrointestinal: Reports: Abdominal Pain, Nausea, Vomiting. Denies: Hematemesis, Hematochezia, Melena Genitourinary: Denies: Dysuria, Frequency, Hematuria, Urgency Musculoskeletal: Reports: Back Pain. Denies: Joint Pain, Joint Tenderness Skin: Denies: Rash Neurological: Denies: Focal weakness, Numbness, Tingling Psychiatric: Denies: Homicidal Ideations, Suicidal Ideations Hematologic/ Lymphatic: Denies: Easy Bruising, Easy Bleeding VTE Information - Inpt Only VTE Present on Admission: No VTE Mechan Device Prophylaxis: None VTE Pharm Prophylaxis ordered?: Yes Patient Problems: Active and Suspected Problems (Last Updated 02/12/19 @ 05:[address] Tameka Law MD) Pancreatitis, acute (Acute) Acute pancreatitis after endoscopic retrograde cholangiopancreatography (ERCP) (Acute) Objective: GENERAL: cooperative HEENT: Atraumatic; EYES; Anicteric, Normal Conjunctiva NECK; supple, normal thyroid, RESPIRATORY: Diminished to auscultation CARDIOVASCULAR: Regular S1 S2, GI: soft, normoactive bowel sounds, : No Renal angle tenderness; EXTREMITIES: No edema, no clubbing, MUSCULOSKELETAL: no muscle waisting NEURO: Awake; no lateralizing signs. SKIN: No Rash PSYCH; Flat affect - Physical Exam Vitals/I&O's: Vital Signs Temp Pulse Resp BP Pulse Ox 98.1 F 66 17 130/85 H 98 05/08/19 23:15 05/09/19 05:54 05/09/19 05:54 05/09/19 05:54 05/09/19 05:54 Oxygen Delivery Method Room Air Weight: 99.7 kg Body Mass Index (BMI) 41.5 Intake and Output for Last 24 Hours 05/07/19 05/08/19 05/09/19 23:59 23:59 23:59 Intake Total 1999.0 1999.0 Balance 1999. Laboratory Results 05/08/19 23:50: WBC 15.6 H, RBC 4.91, Hgb 15.4 H, Hct 44.5, MCV 90.6, MCH 31.4, MCHC 34.6, RDW Std Deviation 41.9, RDW Coeff of Kavitha 12.8, Plt Count 258, MPV 9.4, Immature Gran % (Auto) 0.400, Neut % (Auto) 87.4 H, Lymph % (Auto) 6.4 L, [place] % (Auto) 5.7, Eos % (Auto) 0.0, Baso % (Auto) 0.1, Absolute Neuts (auto) 13.7 H, Absolute Lymphs (auto) 1.00, Nucleated RBC % 0 05/08/19 23:50: Sodium 138, Potassium 3.9, Chloride 105, Carbon Dioxide 26.0, Anion Gap 7, BUN 12, Creatinine 0.86, Estim Creat Clear Calc 57.09, Est GFR (MDRD) Af Amer 88, Est GFR (MDRD) Non-Af 73, BUN/Creatinine Ratio 13.9, Glucose 157 H, Calcium 9.2, Total Bilirubin 0.40, AST 34, ALT 39, Alkaline Phosphatase 162 H, Total Protein 7.6, Albumin 3.7, Globulin 3.9, Albumin/Globulin Ratio 0.9 05/08/19 23:50: Lipase 32629 H Current Medications Hydromorphone HCl (Dilaudid Inj) 1 mg IV Q2H PRN PRN PRN Reason: Pain(-12/08)/Inflammation Sodium Chloride () 1,000 mls @ 250 mls/hr IV .Q4H JAYLENE Last Infusion: 05/09/19 06:22 Dose: Infused Documented by: Assessment/Plan All Active Problems (Last Updated 02/12/19 @ 05:[address] Tameka Law MD) Pancreatitis, acute (Acute) Acute pancreatitis after endoscopic retrograde cholangiopancreatography (ERCP) (Acute) Climacteric (Resolved) Abdominal pain (Resolved) Acute cholecystitis (Resolved) BMI greater than 40 (Resolved) Chest pain (Resolved) Patient is a 54-year-old lady who presented with abdominal and back pain after EDGE at the [facility] on 05/08/2019 assessment on admission consistent with acute pancreatitis 1. Postprocedure (EDGE) acute pancreatitis ?Admitted to regular nursing floor for conservative management. Patient was started on clear liquids pain meds antinausea medication as well as PPI. Plan is for patient to be transferred to [facility] once bed becomes available 2. Obesity with BMI of 41.5 ?Patient has undergone previous gastric bypass 3. GERD ?Patient is on PPI did continue 4. Hypothyroidism ?Patient is on levothyroxine at home did continue with home dose 5. DVT prophylaxis ?Lovenox dose adjusted for weight Inpatient E&M: 30800 Init Hosp L3
[2019-05-09 08:35] VITALS: BP 126/102; PULSE 68; RESP 16; TEMP 36.9; O2SAT 100
--- NOTE | 2019-05-09 08:35 | NURSING ---
0817 DR MUSA CALLED AND TALKED TO DR BRUNO 0835 CALLED TRANSFER LINE, TALKED TO JARED, GAVE HIM ROOM NUMBER HERE. PATIENT IS STILL ON THE LIST FOR TRANSFER AND A ROOM AT [facility]
[2019-05-09 08:43] VITALS: BMI 41.8; BMI 41.9
--- NOTE | 2019-05-09 09:15 | NURSING ---
Call from [facility] xfer line stating they have bed available. [facility] called for transport. State they will be here momentarily.
[2019-05-09 09:19] VITALS: BP 127/80; PULSE 69; RESP 18; TEMP 36.8; O2SAT 95
--- NOTE | 2019-05-09 09:41 | NURSING ---
Patient being transferred to [facility] via EMS transport at this time.
--- NOTE | 2019-05-09 10:02 | NURSING ---
called report to Jessica at [facility] main [place].
--- NOTE | 2019-05-09 10:12 | DCINST_ITS ---
You will use the following diet at home:: No restrictions Allergies/Adverse Reactions: Allergies NSAIDS (Non-Steroidal Anti-Inflamma Allergy (Verified 05/08/19 23:19) Other Penicillins Adverse Reaction (Verified 05/08/19 23:19) Rash Medications to take at Discharge Levothyroxine [Synthroid] 137 mcg PO DAILY 05/15/18 Pantoprazole Sodium [Protonix] 20 mg PO DAILY 10/07/18 Calcium Carbonate [Calcium] 1,500 mg PO DAILY 10/10/18 nystatin 100,000 unit/gram topical powder 1 applic TOPICAL BID #30 g 02/08/19 oxybutynin chloride 5 mg tablet 10 mg PO DAILY #60 tab 04/25/19 Primary Care Physician: Ravinder Faust III, MD [Primary Care Provider] - Test Results: Test results from this visit will be discussed in further detail at your follow- up appointment, if applicable. Proposed Discharge Date: 05/09/19
--- NOTE | 2019-05-09 10:23 | PCM.DC.SUM ---
Discharge Date and Diagnosis Date of Admission: 05/09/19 Date of Discharge: 05/09/19 - Primary Discharge Diagnosis Acute pancreatitis - Secondary Discharge Diagnosis Chronic Problems (Last Reviewed 05/09/19 @ 07:[address] Geoffrey Bennett MD) GERD (gastroesophageal reflux disease) (Chronic) Body mass index (BMI) of 40.1 to 44.9 in adult (Chronic) Hypothyroidism (Chronic) Mixed stress and urge urinary incontinence (Chronic) vesicare 5 mg, in past- intone- inflation 11 and stim N/S at 18, s/p E/W at 15 Hospital Course and Treatment Operations: None Summary of Care Provided: Patient is a 54-year-old lady who presented with abdominal and back pain after EDGE at the [facility] on 05/08/2019 assessment on admission consistent with acute pancreatitis 1. Postprocedure (EDGE) acute pancreatitis ?Admitted to regular nursing floor for conservative management. Patient was started on clear liquids pain meds antinausea medication as well as PPI. Plan is for patient to be transferred to [facility] once bed becomes available patient was transferred to the [facility] once a bed became available. 2. Obesity with BMI of 41.5 ?Patient has undergone previous gastric bypass 3. GERD ?Patient is on PPI did continue 4. Hypothyroidism ?Patient is on levothyroxine at home did continue with home dose 5. DVT prophylaxis ?Lovenox dose adjusted for weight - Physical Exam Vitals/I&O's: Vital Signs Temp Pulse Resp BP Pulse Ox 98.3 F 69 18 127/80 H 95 05/09/19 09:19 05/09/19 09:19 05/09/19 09:19 05/09/19 09:19 05/09/19 09:19 Oxygen Delivery Method Room Air Weight: 97.25 kg Body Mass Index (BMI) 41.8 Intake and Output for Last 24 Hours 05/07/19 05/08/19 05/09/19 23:59 23:59 23:59 Intake Total 1999.0 / 1999.0 Balance 1999.0 1999. General: Alert Neck: Supple Lungs: Clear to auscultation Cardiovascular: Regular Rhythm Laboratory Results 05/08/19 23:50: WBC 15.6 H, RBC 4.91, Hgb 15.4 H, Hct 44.5, MCV 90.6, MCH 31.4, MCHC 34.6, RDW Std Deviation 41.9, RDW Coeff of Kavitha 12.8, Plt Count 258, MPV 9.4, Immature Gran % (Auto) 0.400, Neut % (Auto) 87.4 H, Lymph % (Auto) 6.4 L, [place] % (Auto) 5.7, Eos % (Auto) 0.0, Baso % (Auto) 0.1, Absolute Neuts (auto) 13.7 H, Absolute Lymphs (auto) 1.00, Nucleated RBC % 0 05/08/19 23:50: Sodium 138, Potassium 3.9, Chloride 105, Carbon Dioxide 26.0, Anion Gap 7, BUN 12, Creatinine 0.86, Estim Creat Clear Calc 57.09, Est GFR (MDRD) Af Amer 88, Est GFR (MDRD) Non-Af 73, BUN/Creatinine Ratio 13.9, Glucose 157 H, Calcium 9.2, Total Bilirubin 0.40, AST 34, ALT 39, Alkaline Phosphatase 162 H, Total Protein 7.6, Albumin 3.7, Globulin 3.9, Albumin/Globulin Ratio 0.9 05/08/19 23:50: Lipase 01559 H Discharge Diet: No Restrictions Home Medications: Medications to take at Discharge Levothyroxine [Synthroid] 137 mcg PO DAILY 05/15/18 Pantoprazole Sodium [Protonix] 20 mg PO DAILY 10/07/18 Calcium Carbonate [Calcium] 1,500 mg PO DAILY 10/10/18 nystatin 100,000 unit/gram topical powder 1 applic TOPICAL BID #30 g 02/08/19 oxybutynin chloride 5 mg tablet 10 mg PO DAILY #60 tab 04/25/19 Primary Care Physician: Ravinder Faust III, MD [Primary Care Provider] - Medical Necessity - Tobacco Use Smoking Status: Never smoker Meaningful Use Info Meaningful Use Diagnoses (Choose all that apply): None applicable OBSV E&M: 57141 Observ/hosp same date L3
== END 2019-05-09 09:44 | disposition short-term general hospital (02) | DRG 393 ==
LOC: ED 05-09 04:23 → MS2 05-09 08:22
PROVIDERS: Emergency Medicine; Admitting Provider Internal Medicine; Emergency Provider Emergency Medicine; PCP Family Medicine; Visit Provider Internal Medicine
DX: K91.89 Other postprocedural complications and disorders of digestive system (principal); K85.90 Acute pancreatitis without necrosis or infection, unspecified; Z68.41 Body mass index [BMI] 40.0-44.9, adult; Y83.8 Other surgical procedures as the cause of abnormal reaction of the patient, or of later complication, without mention of misadventure at the time of the procedure; E03.9 Hypothyroidism, unspecified; E66.9 Obesity, unspecified; K21.9 Gastro-esophageal reflux disease without esophagitis; N39.46 Mixed incontinence; Z90.49 Acquired absence of other specified parts of digestive tract; Z98.84 Bariatric surgery status; Z79.899 Other long term (current) drug therapy; I10 Essential (primary) hypertension; G47.30 Sleep apnea, unspecified
CPT/HCPCS: 74176; 80053; 83690; 85025; 96361; 96374; 96375; 96376; 99218; 99285; J7030; A4216; G0378; J2405

== ENCOUNTER → 2019-09-26 10:55 | Outpatient (CLI) | payer OTHER, SELFPAY ==
[2019-05-09 08:43] VITALS: BMI 41.8
--- NOTE | 2019-09-26 10:59 | MRI_ITS ---
STUDY: MRI LUMBAR SPINE WITHOUT CONTRAST REASON FOR EXAM: Female, 54 years old. Back pain, numbness and cold feeling left leg and toes, s/p fusion GADOLINIUM CONTRAST ALLERGY TECHNIQUE: Standardized fat and water weighted pulse sequences were obtained in the sagittal and axial planes. COMPARISON: None FINDINGS: T12-L1: Normal endplates. Normal disc height, hydration and morphology. Normal bilateral facet joints. Normal central canal and bilateral lateral recesses. Normal bilateral intervertebral neural foramina. Normal lumbar lordosis. There is no substantial scoliosis. Normal conus medullaris that terminates at the L1. L1-2: Normal endplates. Normal disc height, hydration and morphology. Normal bilateral facet joints. Normal central canal and bilateral lateral recesses. Normal bilateral intervertebral neural foramina. L2-3: Normal endplates. Normal disc height, hydration and morphology. Normal bilateral facet joints. Normal central canal and bilateral lateral recesses. Normal bilateral intervertebral neural foramina. L3-4: Normal endplates. Normal disc height, hydration and morphology. Normal bilateral facet joints. Normal central canal and bilateral lateral recesses. Normal bilateral intervertebral neural foramina. L4-5: Status post posterior decompression transpedicular fixation with anatomic alignment and no spinal stenosis or neural foraminal stenosis. L5-S1: Status post posterior decompression with anatomic alignment and no spinal stenosis or neural foraminal stenosis. Normal visualized sacral ala. Normal visualized paraspinous soft tissue structures. MRI/Spine Lumbar (Routine) IMPRESSION: Postsurgical changes but no spinal stenosis or neural foraminal stenosis. Electronically Signed: Rafa Haddad MD at 12:53 EDT Tel , Service support ,
== END ==
PROVIDERS: PCP Family Medicine; Referring Provider Orthopaedic Surgery Orthopaedic Surgery of the Spine; Visit Provider Orthopaedic Surgery Orthopaedic Surgery of the Spine
DX: Z98.1 Arthrodesis status (principal)
CPT/HCPCS: 72148

== ENCOUNTER → 2019-11-03 15:14 | Outpatient (CLI) | payer OTHER, SELFPAY ==
[2019-05-09 08:43] VITALS: BMI 41.8
--- NOTE | 2019-11-03 15:47 | BI_ITS ---
MAMMOGRAPHY - BILATERAL SCREENING REASON FOR EXAM: Female, 54 years old. Routine annual screening examination. PERTINENT HISTORY: Non-contributory. TECHNIQUE: Digital bilateral breast elijah (3D mammographic acquisition) in the CC and MLO projections. 2-D mediolateral oblique (MLO) and craniocaudad (CC) views of both breasts were obtained. CAD: Full Field Digital Mammography with Computer Added Detection was performed. COMPARISON: Comparison is made with prior study dated 09/29/2018 and 02/01/2008. FINDINGS: Breast Composition: There are scattered areas of fibroglandular density. There are no dominant masses or suspicious calcifications. Benign appearing bilateral axillary lymph nodes. No other significant abnormalities are identified. There has been no significant change since the prior study. BI/SCREEN MAMM (CAD) W/ELIJAH BILAT IMPRESSION: Stable bilateral screening mammogram. Yearly follow-up mammogram recommended. (A) ASSESSMENT CATEGORY: BIRADS Category 2: Benign. A letter regarding these results will be sent to the patient by the facility within 30 days. Approximately 10% of breast cancers are not detected by mammography. A normal mammogram should not delay biopsy of a clinically suspicious abnormality. [id number] Electronically Signed: Saurabh Oneal, at 9:20 EDT , Service support ,
== END ==
PROVIDERS: PCP Family Medicine; Referring Provider Obstetrics & Gynecology; Visit Provider Obstetrics & Gynecology
DX: Z12.31 Encounter for screening mammogram for malignant neoplasm of breast (principal)
CPT/HCPCS: 77063; 77067

== ENCOUNTER → 2019-11-09 18:05 | Outpatient (CLI) | payer OTHER, SELFPAY ==
[2019-11-09 16:02] VITALS: BMI 41.8
[2019-11-16 16:38] LABS: HPV APTIMA, High Risk Negative (Negative)
== END ==
PROVIDERS: PCP Family Medicine; Referring Provider Obstetrics & Gynecology; Visit Provider Obstetrics & Gynecology
DX: Z12.4 Encounter for screening for malignant neoplasm of cervix (principal)
CPT/HCPCS: 87624; 88175; G0145

== ENCOUNTER → 2019-11-24 06:30 | Outpatient (CLI) | payer OTHER, SELFPAY ==
[2019-11-09 16:02] VITALS: BMI 41.8
[2019-11-24 07:58] LABS: Cholesterol 206 mg/dL (200); Glucose 124 mg/dL (74-106); High Density Lipoprotein 78 mg/dL; Triglycerides 188 mg/dL; Very Low Density Lipoprotein 38 mg/dL (5-40)
[2019-11-24 08:24] LABS: Vitamin D,25 Hydroxy 41.4 ng/mL
== END ==
PROVIDERS: PCP Family Medicine; Referring Provider Obstetrics & Gynecology; Visit Provider Obstetrics & Gynecology
DX: Z13.21 Encounter for screening for nutritional disorder (principal); Z13.220 Encounter for screening for lipoid disorders; Z13.1 Encounter for screening for diabetes mellitus
CPT/HCPCS: 36415; 80061; 82306; 82947

== ENCOUNTER 2020-10-24 12:23 | Emergency (ER) | payer OTHER, SELFPAY ==
[2020-10-24 12:24] VITALS: BP 138/98; PULSE 72; RESP 18; TEMP 36.2; O2SAT 100; BMI 42.0
[2020-10-24 13:48] VITALS: BP 145/93; PULSE 64; RESP 16; O2SAT 98; O2SAT 99
--- NOTE | 2020-10-24 14:21 | CT_ITS ---
STUDY: CT BRAIN WITHOUT CONTRAST REASON FOR EXAM: Female, 55 years old. Head injury. Nausea and headaches. RADIATION DOSAGE (If Supplied By Facility): CTDIvol = ( 44.99 ) mGy, DLP = ( 745.49 ) mGycm TECHNIQUE: Transaxial CT imaging of the brain was performed without administration of intravenous contrast material. Individualized dose optimization techniques were used for this CT. COMPARISON: Comparison is made with prior examination of 04/18/2015. FINDINGS: Normal soft tissue structures. Normal calvarium. Normal size ventricles and extra-axial spaces for the patient''s age. Normal white matter tracts of the cerebral hemispheres. Normal basal ganglia and thalami. Normal brainstem. Normal cerebellum. There is no intracranial hemorrhage. There are no findings of an acute ischemic infarction. Mild degree of mucosal thickening of the lateral wall of the maxillary sinus. CT/Brain/Head without Contrast IMPRESSION: Normal unenhanced CT scan of the brain. There has been no change since prior study. Electronically Signed: Saurabh Oneal MD at 15:25 EDT , Service support ,
--- NOTE | 2020-10-24 14:26 | EX.ED.GENINJ ---
HPI History of Present Illness Chief Complaint: Head Injury Informant: patient Onset/Context/Timing Onset: Days (5) Mechanism/Context: Fall Quality of Pain: Throbbing and - (Pressure) Location: Right occipital/parietal area Worsened by: Movement, light Relieved by: Nothing Associated Symptoms Associated Symptoms: Positive for Loss of consciousness; Negative for Parasthesias, Weakness, Loss of function and Inability to ambulate Length of loss of consciousness: Unknown Narrative Narrative: Patient presents with a head injury that occurred 5 days ago. Patient states she was sleepwalking at that time and fell and hit the back of her head. Patient states it is over the right occipital area of her head. Patient states the pain goes into her neck. Patient states her pain is worse with movement and light. Patient describes her pain as throbbing. Patient also states it feels like a pressure in her head. Patient is unsure if she had any loss of consciousness with the fall. Patient states she has a family member who is a certified medical coding specialist who evaluated her and told her she likely has a concussion. Patient states she was resting at home and limiting her television and screen time. Patient states this has not been helping. [facility] Medical History Abdominal pain Acute cholecystitis BMI greater than 40 Chronic cholecystitis History of back problems HTN (hypertension), benign Mixed stress and urge urinary incontinence Pancreatitis Presence of artificial intra-ocular lens (~2010) Sleep apnea Thyroid disease Home Medications levothyroxine 137 mcg PO DAILY 05/15/18 [History Last Taken 10/07/18] calcium carbonate 1,500 mg PO DAILY 10/10/18 [History Last Taken Unknown] pantoprazole 20 mg tablet,delayed release 20 mg PO DAILY #30 tab 11/09/19 [Rx Last Taken Unknown] nystatin 100,000 unit/gram topical powder 1 applic TOPICAL BID #30 g 03/15/20 [Rx Last Taken Unknown] oxybutynin chloride 5 mg tablet 10 mg PO DAILY #60 tab 05/27/20 [Rx Last Taken Unknown] Allergy/AdvReac Type Severity Reaction Status Date / Time Gadolinium-MRI Contrast Allergy Hives Verified 10/24/20 12:27 Medium NSAIDS (Non-Steroidal Allergy Other Verified 10/24/20 12:27 Anti-Inflamma Penicillins AdvReac Rash Verified 10/24/20 12:27 Family History Mother Cancer Lung Father Dementia Daughter Asthma Thyroid disorder Surgical History H/O gastric bypass (~2007) H/O spinal fusion History of appendectomy History of cataract surgery History of section History of endometrial ablation History of tonsillectomy S/P laparoscopic cholecystectomy (~10/10/18) Social History adopted: No household members: family housing: house number of children: 2 current occupational status: employed 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 pets and animals: Yes history of recent travel: Yes ([place], [place], and [place]) out of country: Yes Smoking Status: Never smoker alcohol intake: current alcohol intake frequency: a few times a week substance use type: does not use seatbelt use: always do you feel safe at home: Yes additional social history: - [facility] ED Constitutional Constitutional ED: Denies chills or fever(s) Eyes Eyes: Denies blurry vision or change in vision ENT ENT ED: Denies rhinorrhea or sore throat Cardiovascular Cardiovascular: Denies chest pain or palpitations Respiratory/Chest Respiratory/Chest: Denies cough or dyspnea Gastrointestinal Gastrointestinal: Reports nausea; Denies vomiting Genitourinary Genitourinary ED: Reports urinary frequency; Denies dysuria or hematuria Musculoskeletal Musculoskeletal: Reports neck pain; Denies back pain Integumentary Denies abscess or rash Neurologic Neurologic: Reports headache(s); Denies weakness Allergic/Immunologic Allergic/Immunologic ED: Denies mouth swelling or urticaria EXAM Physical Exam Const Vital Signs: 10/24/20 12:24 10/24/20 13:48 10/24/20 15:00 Temperature 97.1 F L Temperature Source Temporal Pulse Rate 72 64 Respiratory Rate 18 16 16 Respiratory Depth Normal Respiratory Pattern Normal Blood Pressure 138/98 H 145/93 H Blood Pressure Mean 111 110 Pulse Ox 100 99 Oxygen Delivery Method Room Air Room Air Positive well nourished and well developed General Appearance ED: well developed HEENT Reports moist mucous membranes Eyes PERRL and EOMs intact bilaterally Neck supple and no JVD Neck Narrative: There is tenderness over the right cervical paraspinal muscles. There is no midline tenderness. There is no bony crepitance or step-off. General: tenderness Resp normal respiratory effort and clear to auscultation bilaterally Cardio regular rate, regular rhythm and no murmurs Rate: regular rate GI normal to inspection, nondistended, normoactive bowel sounds and non-tender Palpation: soft Extremity normal to inspection General Extremety ED: Negative for edema or tenderness General Extremity: Negative for edema Neuro oriented x3, CN's II-XII intact bilaterally and no sensory deficits noted Sensorium / Orientation: alert Motor Exam: strength 5/5 throughout Psych mental status grossly normal Skin no rashes or lesions noted MDM MDM MDM Narrative Medical decision making narrative: Patient was given IV fluids, Reglan, and Benadryl. CT scan of the brain was obtained. There is no acute intracranial abnormality noted. Urinalysis shows leukocyte esterase of 100 with 5-10 white blood cells and 1+ bacteria. Urine culture was ordered. Patient was given a dose of morphine. Patient was instructed to rest in a dark quiet room. Patient was given a note for work for tomorrow. Patient was given a prescription for Bactrim. Patient was instructed to follow-up with her primary care physician in 3 to 5 days. Patient was instructed to return if worse in any way. Patient understood and was agreeable with the plan. All questions were answered. Lab Data Attestation: I reviewed the patient's lab results. Labs: Laboratory Results - last 24 hr 10/24/20 14:31 Urine Color Yellow Urine Clarity Sl. Cloudy Urine pH 6.5 Ur Specific [place] 1.010 Urine Protein Negative Urine Glucose (UA) Normal Urine Ketones Negative Urine Occult Blood Negative Urine Nitrite Negative Urine Bilirubin Negative Urine Urobilinogen Normal Ur Leukocyte Esterase 100 H Urine RBC 0-5 SEEN Urine WBC 5-10 SEEN Ur Squamous Epith Cells 0-5 SEEN Urine Bacteria 1+ Urine Mucus 0 SEEN Radiography Diagnostic Testing: Radiology Impression Brain CT 10/24/20 14:21 IMPRESSION: Normal unenhanced CT scan of the brain. There has been no change since prior study. Electronically Signed: Saurabh Oneal MD at 15:25 EDT , Service support , Discharge Plan Triage Chief Complaint: Head Injury ED Provider: Maksim Hanson Dx/Rx/DC Orders Clinical Impression: Concussion, Urinary tract infection Instructions: ED Concussion, ED CYSTITIS Female Adult Prescriptions: No Action pantoprazole 20 mg tablet,delayed release (DR/EC) 20 mg PO DAILY Qty: 30 RF: 2 levothyroxine 137 MCG tablet 137 mcg PO DAILY RF: 0 calcium carbonate 500 MG tablet,chewable 1,500 mg PO DAILY RF: 0 nystatin 100,000 unit/gram powder 1 applic TOPICAL BID Qty: 30 RF: 4 oxybutynin chloride 5 mg tablet 10 mg PO DAILY Qty: 60 RF: 5 Primary Care Provider: Ravinder Faust III Referrals: Ravinder Faust III, MD [Primary Care Provider] - 3-5 Days Disposition Disposition: Home, Self Care
[2020-10-24 14:37] LABS: Mucous, Urine 0 SEEN /hpf (<or=2+)
[2020-10-24 14:44] LABS: Color, Urine Yellow (Yellow); Glucose, Dipstick Normal (Normal); Ketone-Dipstick Negative (Negative); Leukocyte Esterase-Dipstick 100 /ul (Negative); Nitrite-Dipstick Negative (Negative); Occult Blood-Urine Negative /ul (Negative); Protein-Dipstick Negative (Negative); Urine Bilirubin Dipstick Negative (Negative); Urine Clarity Sl. Cloudy (Clear); Urine Urobilinogen Normal (Normal); Urine pH 6.5 (5.0 - 8.0)
[2020-10-24 14:54] LABS: Bacteria 1+ /hpf (None Seen); Red Blood Cells-Urine 0-5 SEEN /hpf (0-5); Squamous Epithelial Cells - UA 0-5 SEEN /hpf (5-10); White Blood Cells 5-10 SEEN /hpf (0-5)
[2020-10-24] MEDS: DiphenhydrAMINE 50 MG/ML Syringe 25 MG IV (14:57)
[2020-10-24] MEDS: Metoclopramide 10 MG/2 ML Vial IV (14:57)
[2020-10-24] MEDS: 0.9% Normal Saline 1,000 ML 999 ML IV (14:57)
[2020-10-24 15:00] VITALS: RESP 16
[2020-10-24 16:18] VITALS: BP 123/74; PULSE 71; RESP 18; O2SAT 99
--- NOTE | 2020-10-24 16:21 | ED.RN ---
THIS NURSE REVIEWED D/C INSTRUCTIONS WITH PT. PT VERBALIZED UNDERSTANDING OF INSTRUCTIONS. IV D/C. IV CATHETER INTACT. PT TOLERATED WELL. PT DENIES FURTHER NEEDS OR QUESTIONS AT THIS TIME. PT AMBULATES FROM ROOM ON OWN WITHOUT ASSISTANCE FROM STAFF
== END 2020-10-24 16:22 | disposition home or self-care (01) ==
PROVIDERS: Emergency Provider Emergency Medicine; PCP Family Medicine
DX: S06.0X9D Concussion with loss of consciousness of unspecified duration, subsequent encounter (principal); W20.8XXD Other cause of strike by thrown, projected or falling object, subsequent encounter; N39.0 Urinary tract infection, site not specified; I10 Essential (primary) hypertension; Z79.1 Long term (current) use of non-steroidal anti-inflammatories (NSAID)
CPT/HCPCS: 70450; 81001; 87086; 87088; 96361; 96374; 96375; 99283; J7030; A4216

== ENCOUNTER → 2020-11-26 16:53 | Outpatient (CLI) | payer OTHER, SELFPAY | PROVIDERS: PCP Nurse Practitioner Family; Referring Provider Obstetrics & Gynecology; Visit Provider Obstetrics & Gynecology | DX: N39.0 Urinary tract infection, site not specified (principal) | CPT/HCPCS: 87077; 87086; 87088; 87186 ==

== ENCOUNTER → 2021-01-09 07:44 | Outpatient (CLI) | payer OTHER, SELFPAY ==
--- NOTE | 2021-01-09 07:46 | BI_ITS ---
MAMMOGRAPHY - BILATERAL SCREENING REASON FOR EXAM: Female, 55 years old. Routine annual screening examination. PERTINENT HISTORY: Non-contributory. TECHNIQUE: Digital bilateral breast elijah (3D mammographic acquisition) in the CC and MLO projections. 2-D mediolateral oblique (MLO) and craniocaudad (CC) views of both breasts were obtained. CAD: Full Field Digital Mammography with Computer Added Detection was performed. COMPARISON: Comparison is made with prior study dated 11/03/2019 and 09/29/2018. FINDINGS: Breast Composition: There are scattered areas of fibroglandular density. There are no dominant masses or suspicious calcifications. No other significant abnormalities are identified. There has been no significant change since the prior study. BI/SCRN MAMM (CAD)W/ELIJAH BILAT IMPRESSION: Stable bilateral screening mammogram. Yearly follow-up mammogram recommended. (A) ASSESSMENT CATEGORY: BIRADS Category 1: Negative. A letter regarding these results will be sent to the patient by the facility within 30 days. Approximately 10% of breast cancers are not detected by mammography. A normal mammogram should not delay biopsy of a clinically suspicious abnormality. [id number] Electronically Signed: Saurabh Oneal MD at 8:35 EST , Service support ,
== END ==
PROVIDERS: PCP Nurse Practitioner Family; Referring Provider Obstetrics & Gynecology; Visit Provider Obstetrics & Gynecology
DX: Z12.31 Encounter for screening mammogram for malignant neoplasm of breast (principal)
CPT/HCPCS: 77063; 77067

== ENCOUNTER 2021-08-13 10:14 | Emergency (ER) | payer OTHER, SELFPAY ==
[2021-08-13 10:15] VITALS: BP 148/109; PULSE 66; RESP 19; TEMP 36.9; O2SAT 96; BMI 42.3
--- NOTE | 2021-08-13 10:40 | RAD_ITS ---
STUDY: X-RAY CHEST REASON FOR EXAM: Female, 56 years old. Chest pain TECHNIQUE: Single AP portable view of the chest. COMPARISON: Comparison is made with prior study dated 10/18/2018. FINDINGS: EKG electrodes are seen. There is elevation of the right hemidiaphragm. There is no demonstrated pleural abnormality. Normal size heart. Normal mediastinum and hedy. Normal visualized pulmonary arteries. There is atherosclerotic tortuosity of the aortic arch and descending thoracic aorta. There are diffuse degenerative changes of the visualized thoracic spine. Normal visualized ribs, clavicles, and shoulders. There is no demonstrated abnormality of the visualized soft tissue structures of the upper abdomen. RAD/Chest 1 View (Portable) IMPRESSION: No acute abnormality is seen. Electronically Signed: Saurabh Oneal MD at 11:25 EDT ,
--- NOTE | 2021-08-13 10:40 | EKG12_ITS ---
Test Reason : CP Blood Pressure : / mmHG Vent. Rate : 063 BPM Atrial Rate : 063 BPM P-R Int : 146 ms QRS Dur : 082 ms QT Int : 448 ms P-R-T Axes : 030 004 014 degrees QTc Int : 458 ms Normal sinus rhythm Low voltage QRS Borderline ECG Confirmed by REY WARREN, ADOLFO ([id number]), book editor KAREN BROOKS ([id number]) on 08/15/2021 9:09:57 AM Referred By: ANTHONY Confirmed By:ADOLFO LE MD
--- NOTE | 2021-08-13 10:42 | EDS_ITS ---
HPI History of Present Illness Chief Complaint: Chest Pain Informant: patient Onset/Context/Timing Onset: Today (JPTA, around 30 min ago) Activity at onset: sudden and onset Timing: Intermittent (once) and Lasts (3-4 min) Quality: Positive for - (squeezing) Location: - (Epigastric and up into substernal area without other radiation) Current Severity: Gone Maximum Severity: Severe Worsened By: Nothing Relieved By: Nothing Associated Symptoms: Negative for Nausea, Diaphoresis, Dyspnea, Cough or Lightheadedness Narrative Narrative: Patient had a spinal injection in her low back today under radiographic guidance in [place], and on her way home in the car, she had an episode of discomfort a started in her epigastrium and went up into her substernal area, was severe, squeezing, and then abated with no other symptoms. She feels better now. No history of heart disease that she knows of. Has a history of low back pain with bilateral sciatica that is unchanged compared with recent, she states when she gets these injections they do tend to help. She is not complaining of severe back pain now. No bowel or bladder dysfunction. [facility] Medical History Abdominal pain Acute cholecystitis BMI greater than 40 Chronic cholecystitis History of back problems HTN (hypertension), benign Mixed stress and urge urinary incontinence Pancreatitis Presence of artificial intra-ocular lens (~2010) Sleep apnea Thyroid disease Home Medications pantoprazole 20 mg tablet,delayed release 20 mg PO DAILY STOMACH #30 tabs 11/09/19 [Rx Last Taken Unknown] losartan 50 mg tablet 50 mg PO DAILY 11/26/20 [History Last Taken Unknown] oxybutynin chloride 5 mg tablet 10 mg PO DAILY BLADDER #60 tabs 11/26/20 [Rx Last Taken Unknown] nystatin 100,000 unit/gram topical powder 1 applic topical BID #30 grams 11/28/20 [Rx Last Taken Unknown] levothyroxine 150 mcg tablet 1 tab PO DAILY 08/13/21 [History Last Taken Unknown] turmeric 400 mg capsule 1,200 mg PO DAILY 08/13/21 [History Last Taken Unknown] vitamin B complex 1 tab PO DAILY 08/13/21 [History Last Taken Unknown] Allergy/AdvReac Type Severity Reaction Status Date / Time Gadolinium-MRI Contrast Allergy Hives Verified 08/13/21 10:15 Medium NSAIDS (Non-Steroidal Allergy Other Verified 08/13/21 10:15 Anti-Inflamma Penicillins AdvReac Rash Verified 08/13/21 10:15 Family History Mother Cancer Lung Father Dementia Daughter Asthma Thyroid disorder Surgical History H/O gastric bypass (~2007) H/O spinal fusion History of appendectomy History of cataract surgery History of section History of endometrial ablation History of tonsillectomy S/P laparoscopic cholecystectomy (~10/10/18) Social History adopted: No household members: family housing: house number of children: 2 current occupational status: employed 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 pets and animals: Yes history of recent travel: Yes ([place], [place], and [place]) out of country: Yes Smoking Status: Never smoker alcohol intake: current alcohol intake frequency: a few times a week substance use type: does not use seatbelt use: always do you feel safe at home: Yes additional social history: - [facility] MA[facility] ED Constitutional Constitutional ED: Denies chills or fever(s) Eyes Eyes: Denies change in vision or diplopia ENT ENT ED: Denies rhinorrhea or sore throat Cardiovascular Cardiovascular: Reports as per HPI and chest pain; Denies palpitations Respiratory/Chest Respiratory/Chest: Denies cough or dyspnea Gastrointestinal Gastrointestinal: Reports as per HPI and abdominal pain; Denies diarrhea, nausea or vomiting Genitourinary Genitourinary ED: Denies dysuria or hematuria Musculoskeletal Musculoskeletal: Reports back pain; Denies neck pain Integumentary Denies abscess or rash Neurologic Neurologic: Denies headache(s), paresthesias or weakness Psychiatric Psychiatric: Denies anxiety or suicidal thoughts EXAM Physical Exam Const Vital Signs: 08/13/21 10:15 08/13/21 10:34 08/13/21 10:52 Temperature 98.4 F Temperature Source Oral Pulse Rate 66 Respiratory Rate 19 H Respiratory Effort Normal Non-Labored Blood Pressure 148/109 H Blood Pressure Mean 122 Pulse Ox 96 Oxygen Delivery Method Room Air Room Air 08/13/21 13:30 Temperature Temperature Source Pulse Rate 76 Respiratory Rate 17 Respiratory Effort Blood Pressure Blood Pressure Mean Pulse Ox 99 Oxygen Delivery Method Positive well nourished, well developed and obese General Appearance ED: well developed and NAD Nutritional Appearance: obese HEENT Reports moist mucous membranes normocephalic and atraumatic Eyes PERRL and EOMs intact bilaterally Neck full ROM and supple Resp normal respiratory effort and clear to auscultation bilaterally Cardio regular rate, regular rhythm and no murmurs GI non-tender and non-distended Auscultation: normoactive bowel sounds Palpation: soft Back/Spine no CVA tenderness General Back: other FROM Extremity normal to inspection General Extremety ED: Negative for edema, pulses abnormal or tenderness General Extremity: Negative for edema or pulses abnormal Neuro oriented x3, CN's II-XII intact bilaterally and no sensory deficits noted Sensorium / Orientation: awake and alert Motor Exam: strength 5/5 throughout Skin no rashes or lesions noted and no wounds Heart Score History: Slightly/Non-Suspicious ECG: Normal Age: >45 - <65 years Risk Factors: 1 or 2 Risk Factors Troponin: </= Normal Limit Score: 2 MDM MDM MDM Narrative Medical decision making narrative: Patient has normal EKG normal initial troponin, we waited to do a 2-hour delta and a second troponin is the same as the first 1, 5. Patient had no recurrent symptoms while here in emergency department. She is reassured, her chest x-ray 1 view on my interpretation is negative, and she is cleared for discharge, she wants to know if this was a reaction to the contrast she received during the procedure, or the injection itself. Certainly any of this is possible, she may know more during her next injection but since none of this was anaphylactic or truly allergic in nature, I think that would be safe to do. Lab Data Attestation: I reviewed the patient's lab results. Labs: Laboratory Results - last 24 hr 08/13/21 08/13/21 08/13/21 10:25 10:25 12:25 WBC 6.4 RBC 4.65 Hgb 14.9 Hct 44.0 MCV 94.6 MCH 32.0 MCHC 33.9 RDW Std Deviation 44.0 H RDW Coeff of Kavitha 12.8 Plt Count 250 MPV 9.8 Immature Gran % (Auto) 0.300 Neut % (Auto) 63.3 Lymph % (Auto) 25.0 Orange % (Auto) 8.6 Eos % (Auto) 2.3 Baso % (Auto) 0.5 Absolute Neuts (auto) 4.0 Absolute Lymphs (auto) 1.60 Nucleated RBC % 0 Sodium 141 Potassium 3.9 Chloride 105 Carbon Dioxide 28.0 Anion Gap 8 BUN 17 Creatinine 0.71 Estim Creat Clear Calc 138.37 Est GFR (MDRD) Af Amer 109 Est GFR (MDRD) Non-Af 90 BUN/Creatinine Ratio 23.9 H Glucose 102 Calcium 8.7 Total Bilirubin 0.50 AST 39 H ALT 39 Alkaline Phosphatase 133 H Troponin I High Sens 5 5 Total Protein 6.9 Albumin 3.5 Globulin 3.4 Albumin/Globulin Ratio 1.0 Lipase 124 Radiography Diagnostic Testing: Clinical Impression(s) from Imaging Studies Chest X-Ray 08/13/21 10:40 IMPRESSION: No acute abnormality is seen. Electronically Signed: Saurabh Oneal MD at 11:25 EDT , Rhythm Strip Rhythm Strip: Sinus Rhythm Rate: 65 Ectopy: None EKG Initial EKG: Attestation: I personally reviewed and interpreted this EKG as follows: Interpretation: Sinus Rhythm and No Acute Injury Pattern Discharge Plan Triage Chief Complaint: Chest Pain ED Provider: Lane Govea Dx/Rx/DC Orders Clinical Impression: Acute epigastric pain, Chest pain, unspecified Instructions: ED Epigastric Pain Uncertain Cause Prescriptions: No Action pantoprazole 20 mg tablet,delayed release (DR/EC) 20 mg PO DAILY Qty: 30 2RF losartan 50 mg tablet 50 mg PO DAILY oxybutynin chloride 5 mg tablet 10 mg PO DAILY Qty: 60 5RF levothyroxine 150 mcg tablet 1 tab PO DAILY Label Comments: Take 1 tablet by mouth once daily. Take on empty stomach. For thyroid vitamin B complex [B Complete] Tablet 1 tab PO DAILY turmeric 400 mg Capsule 1,200 mg PO DAILY nystatin 100,000 unit/gram powder 1 applic TOPICAL BID Qty: 30 4RF Primary Care Provider: Tony Jade NP Referrals: Tony Jade NP, [facility] [Primary Care Provider] - 1 Week if not improving Disposition Disposition: Home, Self Care
[2021-08-13 11:13] LABS: Basophil# 0.03 X10^3/uL; Basophil% 0.5 % (0-1); Eosinophil# 0.15 X10^3/uL; Eosinophils% 2.3 % (0-5); Hemoglobin 14.9 g/dL (12.0-15.0); Mean Corp Hgb Conc 33.9 g/dL (32-36); Mean Corpuscular Volume 94.6 fL (81-99); Mean Platelet Vol. 9.8 fl (6.2-12.0); Monocyte# 0.55 X10^3/uL; Monocyte% 8.6 % (0-10); NRBC Flagged by Analyzer 0 % (0-5); Neutrophil # 4.04 X10^3/uL (2.7-7.7); Neutrophil % 63.3 % (47-70); Platelet Count 250 K/mm3 (150-450); RBC Distribution Width CV 12.8 % (11.6-14.6); Red Blood Count 4.65 M/mm3 (4.2-5.4); White Blood Count 6.4 K/mm3 (4.4-11.0)
[2021-08-13 11:26] LABS: AST(SGOT) 39 U/L (15-37); Alanine Aminotransfer ALT/SGPT 39 U/L (13-56); Albumin, Serum 3.5 g/dL (3.2-5.0); Alkaline Phosphatase 133 U/L (45-117); Anion Gap 8 (5-15); BUN 17 mg/dL (7-18); BUN/Creat Ratio 23.9 RATIO (10-20); Calcium,Total 8.7 mg/dL (8.5-10.1); Chloride 105 mmol/L (98-107); Creatinine, Serum 0.71 mg/dL (0.55-1.02); EST Glomerular Filtration Rate 90 mL/min (>60); Est Glom Filt Rate - Afr Amer 109 mL/min (>60); Estimated Creatinine Clearance 138.37 ml/min; Globulin 3.4 g/dL (2.2-4.2); Glucose 102 mg/dL (74-106); Lipase 124 U/L (73-393); Potassium 3.9 mmol/L (3.5-5.1); Protein, Total 6.9 g/dL (6.4-8.2); Sodium Level 141 mmol/L (136-145); Troponin-I HS (w/2H Reflex) 5 pg/mL (3.0-54.0)
[2021-08-13 13:07] LABS: Reflex Troponin-HS? (from REC) Y
[2021-08-13 13:30] VITALS: PULSE 76; RESP 17; O2SAT 99
[2021-08-13 13:30] LABS: Troponin-I HS 5 pg/mL (3.0-54.0)
[2021-08-13 14:07] VITALS: PULSE 70; RESP 17; O2SAT 98
[2021-08-13 14:26] VITALS: BP 111/76; PULSE 75; RESP 17; O2SAT 95
== END 2021-08-13 14:29 | disposition home or self-care (01) ==
PROVIDERS: Emergency Provider Emergency Medicine; PCP Nurse Practitioner Family; Visit Provider Emergency Medicine
DX: R07.9 Chest pain, unspecified (principal); I10 Essential (primary) hypertension; R10.13 Epigastric pain; E66.9 Obesity, unspecified
CPT/HCPCS: 71045; 80053; 83690; 84484; 85025; 93005; 96360; 99284; J7040; A4216

== ENCOUNTER → 2022-01-13 | Outpatient (CLI) | payer OTHER, SELFPAY ==
--- NOTE | 2022-01-13 16:13 | BI_ITS ---
MAMMOGRAPHY - BILATERAL SCREENING REASON FOR EXAM: Female, 56 years old. Routine annual screening examination. PERTINENT HISTORY: Non-contributory. TECHNIQUE: Digital bilateral breast elijah (3D mammographic acquisition) in the CC and MLO projections. 2-D mediolateral oblique (MLO) and craniocaudad (CC) views of both breasts were obtained. CAD: Full Field Digital Mammography with Computer Added Detection was performed. COMPARISON: Comparison is made with prior study dated 01/09/2021 11/03/2019. FINDINGS: Breast Composition: There are scattered areas of fibroglandular density. There are no dominant masses or suspicious calcifications. No other significant abnormalities are identified. There has been no significant change since the prior study. BI/SCRN MAMM (CAD)W/ELIJAH BILAT IMPRESSION: Stable bilateral screening mammogram. Yearly follow-up mammogram recommended. (A) ASSESSMENT CATEGORY: BIRADS Category 1: Negative. A letter regarding these results will be sent to the patient by the facility within 30 days. Approximately 10% of breast cancers are not detected by mammography. A normal mammogram should not delay biopsy of a clinically suspicious abnormality. [id number] Electronically Signed: Saurabh Oneal MD at 8:28 EST ,
== END | disposition home or self-care (01) ==
LOC: OPBI 01-14 06:55
PROVIDERS: PCP Nurse Practitioner Family; Visit Provider Obstetrics & Gynecology
DX: Z12.31 Encounter for screening mammogram for malignant neoplasm of breast (principal)
CPT/HCPCS: 77063; 77067

== ENCOUNTER 2022-02-25 21:53 | Emergency (ER) | payer OTHER, SELFPAY ==
[2022-02-25 21:56] VITALS: BP 174/120; PULSE 100; RESP 18; TEMP 36.7; O2SAT 99; BMI 42.0
--- NOTE | 2022-02-25 22:04 | RAD_ITS ---
INDICATION: SWALLOWING PROBLEM EXAMINATION/TECHNIQUE: X-RAY - XR Neck Soft Tissue COMPARISON: X-ray Cervical spine 04/18/2015. FINDINGS: No acute fracture or subluxation. Interval increased moderate anterior cervical spine osteophytosis C4-C7. SOFT TISSUES: Unremarkable. No radiopaque foreign body. EPIGLOTTIS: No pathologic thickening or enlargement. PROXIMAL AIRWAY: Grossly patent. RAD/Neck for Soft Tissue IMPRESSION: No radiopaque foreign body. Interval increased moderate anterior cervical spine osteophytosis, can sometimes be associated with dysphagia. Consider further characterization with esophagram. Electronically Signed: Dakotah Madrigal MD at 22:31 EST ,
--- NOTE | 2022-02-25 22:52 | EDS_ITS ---
HPI History of Present Illness Chief Complaint: General Illness Narrative Narrative: 56-year-old female presents with difficulty swallowing that she had intermittently for the last month. However, it worsened today. She states that over the last month she has had times where she felt food was getting caught in her throat and she had to cough it up. Today, she began having this consistent feeling like there is something stuck in her throat and that she was having difficulty even swallowing her own saliva. She was able to eat breakfast, and eats soup later today. She has been drinking water without difficulty. She states that she still has a sensation that she has something stuck in her throat. She states that she is having anxiety over it and is afraid to go to sleep. [facility] Medical History Abdominal pain Acute cholecystitis BMI greater than 40 Chronic cholecystitis History of back problems HTN (hypertension), benign Mixed stress and urge urinary incontinence Pancreatitis Presence of artificial intra-ocular lens (~2010) Sleep apnea Thyroid disease Home Medications losartan 50 mg tablet 50 mg PO DAILY 11/26/20 [History Last Taken Unknown] nystatin 100,000 unit/gram topical powder 1 applic topical BID #30 grams 11/28/20 [Rx Last Taken Unknown] levothyroxine 150 mcg tablet 1 tab PO DAILY 08/13/21 [History Last Taken Unknown] turmeric 400 mg capsule 1,200 mg PO DAILY 08/13/21 [History Last Taken Unknown] vitamin B complex 1 tab PO DAILY 08/13/21 [History Last Taken Unknown] doxycycline hyclate 100 mg capsule 100 mg PO DAILY #30 caps 11/21/21 [Rx Last Taken Unknown] oxybutynin chloride 5 mg tablet 10 mg PO DAILY BLADDER #60 tabs 11/21/21 [Rx Last Taken Unknown] pantoprazole 20 mg tablet,delayed release 40 mg PO DAILY STOMACH 11/21/21 [History Last Taken Unknown] naltrexone 8 mg-bupropion 90 mg tablet,extended release (Contrave) 1 tab PO QAM AND QPM #70 tabs 12/04/21 [Rx Last Taken Unknown] Allergy/AdvReac Type Severity Reaction Status Date / Time Gadolinium-MRI Contrast Allergy Hives Verified 02/25/22 21:59 Medium NSAIDS (Non-Steroidal Allergy Other Verified 02/25/22 21:59 Anti-Inflamma Penicillins AdvReac Rash Verified 02/25/22 21:59 Family History Mother Cancer Lung Father Dementia Daughter Asthma Thyroid disorder Surgical History H/O gastric bypass (~2007) H/O spinal fusion History of appendectomy History of cataract surgery History of section History of endometrial ablation History of tonsillectomy S/P laparoscopic cholecystectomy (~10/10/18) Social History adopted: No household members: family housing: house number of children: 2 current occupational status: employed 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 HEENT: No sore throat. Foreign body sensation in throat. Positive dysphagia. No odynophagia. No neck pain. No loss of vision. No rhinorrhea. Cardiovascular: No chest pain. No palpitations. No pedal edema. Respiratory: No cough, no shortness of breath. Abdominal: No abdominal pain. No nausea. No vomiting. Genitourinary: No dysuria. No hematuria. Musculoskeletal: No myalgias. No arthralgias. Neurologic: No headaches. No dizziness. No lightheadedness. Skin: No rash. No change in color. Psychiatric: No depression. No anxiety. EXAM Physical Exam Narrative Exam Narrative: Afebrile. Vital signs noted. HEENT: Normocephalic. Atraumatic. PERRL, EOMI. Neck soft and supple. No point tenderness or step off. Airway patent. No drooling or trismus. Able to drink water at bedside. Cardiovascular: Regular rate and rhythm. No murmurs, rubs, or gallops appreciated. Respiratory: No tachypnea. Lungs clear to auscultation bilaterally. Gastrointestinal: Abdomen soft, nontender, with normoactive bowel sounds. No rebound or guarding. Neurological: Awake. Alert. Nonfocal, nonlateralizing. Skin: No rash. Normal color. No pallor. Musculoskeletal: No pedal edema. Full range of motion extremities. Const Vital Signs: 02/25/22 21:56 Temperature 98.1 F Temperature Source Temporal Pulse Rate 100 Respiratory Rate 18 Blood Pressure 174/120 H Blood Pressure Mean 138 Pulse Ox 99 Oxygen Delivery Method Room Air MDM MDM MDM Narrative Medical decision making narrative: I discussed with the patient and her daughter globus hystericus versus esophageal webs/esophageal stricture. She denies any abdominal pain or diarrhea currently. I also discussed the possibility of Crohn's disease. I suggested follow-up with ENT and/or gastroenterology. X-rays were obtained of the soft tissue of neck, interpreted by myself which shows no evidence of foreign body, and a patent airway. Radiology confirms, but does comment regarding osteophytosis which can be associated with dysphagia. She was administered Ativan 1 mg intramuscularly for her globus hystericus. At this point in time, I feel she be discharged safely home with follow-up to her word processor operator at [facility]. She will continue a soft diet/clear liquid diet. Return instructions were reviewed. Disposition is discharged home in stable condition. Radiography Diagnostic Testing: Clinical Impression(s) from Imaging Studies Soft Tissue Neck X-Ray 02/25/22 22:04 IMPRESSION: No radiopaque foreign body. Interval increased moderate anterior cervical spine osteophytosis, can sometimes be associated with dysphagia. Consider further characterization with esophagram. Electronically Signed: Dakotah Madrigal MD at 22:31 EST , Discharge Plan Triage Chief Complaint: General Illness ED Provider: Alberto Kimball Dx/Rx/DC Orders Clinical Impression: Dysphagia, Foreign body sensation in throat Instructions: ED Symptoms With Uncertain Cause, ED Dysphagia (Adult) Prescriptions: No Action losartan 50 mg tablet 50 mg PO DAILY pantoprazole 20 mg tablet,delayed release (DR/EC) 40 mg PO DAILY oxybutynin chloride 5 mg tablet 10 mg PO DAILY Qty: 60 5RF doxycycline hyclate 100 mg capsule 100 mg PO DAILY Qty: 30 4RF levothyroxine 150 mcg tablet 1 tab PO DAILY Label Comments: Take 1 tablet by mouth once daily. Take on empty stomach. For thyroid vitamin B complex [B Complete] Tablet 1 tab PO DAILY turmeric 400 mg Capsule 1,200 mg PO DAILY nystatin 100,000 unit/gram powder 1 applic TOPICAL BID Qty: 30 4RF Contrave 8-90 mg tablet extended release 1 tab PO QAM AND QPM Qty: 70 0RF Rx Instructions: take 1 tab q am x 1 wk, then 1 tab bid x 1 week, then 2 tabs q am and 1 tab q pm x 1 week, then 2 tabs in am and 2 tabs in 2pm BMI 42 Primary Care Provider: Sharona Lai NP Referrals: Sharona Lai NP, GRE[employer] REFINING SUPERVISOR-C [Primary Care Provider] - Activity Restrictions/Additional Instructions: Call your word processor operator at the [facility] tomorrow. You may require outpatient swallowing study for your symptoms versus endoscopy. Disposition Disposition: Home, Self Care
[2022-02-25] MEDS: LORazepam 2 MG/ML Syringe 1 MG IM (23:27)
[2022-02-25 23:45] VITALS: BP 150/104; PULSE 72; RESP 18; O2SAT 95
[2022-02-25 23:46] VITALS: BP 150/104; PULSE 66; RESP 18; O2SAT 96
== END 2022-02-25 23:57 | disposition home or self-care (01) ==
PROVIDERS: Emergency Provider Emergency Medicine; PCP Nurse Practitioner Family; Visit Provider Emergency Medicine
DX: R13.10 Dysphagia, unspecified (principal); I10 Essential (primary) hypertension; R09.89 Other specified symptoms and signs involving the circulatory and respiratory systems
CPT/HCPCS: 70360; 99283

== ENCOUNTER 2022-05-27 08:00 | Outpatient (RCR) | payer OTHER, SELFPAY ==
--- NOTE | 2022-03-23 18:25 | HP.PTEVAL ---
Patient's Visit Information GABRIEL MOSCOSO is a 56 year old F referred to Physical Therapy by Dr. Nova Ruiz MD with a diagnosis of MIXED INCONTINENCE. Date of Evaluation: 03/23/22 Physical Therapist: Zoey Hoang PT, Cert MDT - Visit Plan Frequency: 1x/Week Duration: 8-12 Plan: PF THERAPY FOR STRENGTHENING AND ENDURANCE TRAINING. PELVIC FLOOR STRENGTHENING. URINARY URGE AND FREQUENCY EDUCATION. HEALTHY BLADDER HABIT EDUCATION. TRAINING IN COORDINATION OF PELVIC FLOOR MUSCULATURE WITH HIP AND CORE (TRANSVERSE ABDOMINUS) MUSCULATURE. POSTURE CORRECTION/STRENGTHENING. CORE STRENGTHENING. ARIAN LE ROM, STRETCHING AND STRENGTHENING. TRAINING IN ABDOMINAL CAVITY PRESSURE MGMT WITH ADL'S. 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 [employer]. Disability: NO. Present symptoms: PATIENT PRESENTS WITH C/O OF URINARY URGERNCY AND LEAKING. Present since: 20 + YEARS. Pain Scale: NO PELVIC PAIN AND INTERMITTENT LBP. WORST 4/10, LEAST 0/10. Currently: 0/10. Is it getting better, worse or staying the same: INCONTINENCE WAS DOING A LOT BETTER BUT SX'S HAVE RETURNED. LBP IS STAYING THE SAME. Commenced as a result of: NO APPARENT REASON OTHER THAN CHILD . Disturbed sleep: YES - GETTING UP TO URINATE ON AVG 2 TIMES A NIGHT. Previous history/Previous treatment: VIBRATOR PRESCRIBED BY DR. VERA ABOUT 3 YEARS AGO THAT HELPED TEMPORARILY. ALSO TRIED ANOTHER MEDICATION PRESCRIBED BY DR. VERA WHICH HELPED TEMPORARILY. NO PHYSICAL THERPAY. NO BLADDER SX. Treatment this episode: [facility] - GREATLY IMPROVED SX'S BUT JOINED WEIGHT WATCHERS MAR 01 2022 AND INCREASED FLUIDS TO RECOMMENDED AMT'S AND INCONTINENCE SX'S RETURNED. PATIENT REPORTS SHE NOTIFIED DR. RUIZ'S OFFICE AND AWAITING RETURN CALL. Coughing/sneezing - CAUSE INTERMITTENT LEAKING OF URINE. Gait: NORMAL. Bowel Dysfunction: NO BOWEL INCONTINECNE BUT HAS ISSUES WITH CONSTIPATION AND diarrheas. Accidents: No. Unexplained weight loss: NO. Imaging: NO. OTHER: BACK SURGERY 2019 - FOR CYST PUSHING ON SCIATIC NERVE - FUSION BY DR. LI. PATIENT REPORTS SURGERY HELPED A LOT. TRIED PT AND PAIN MGMT BEFORE BACK SURGERY. ALSO HAD PT AFTER BACK SURGERY. PATIENT DENIES ANY BACK RESTRICITONS. - Objective Sitting/Standing Posture: FAIR. REDUCED LUMBAR LORDOSIS BUT NO RELEVANT LATERAL SHIFT. Active Correction of posture: NE. Other Observations: INDEP GAIT AND TRANSFERS. Sensory deficit: ARIAN LE LIGHT TOUCH SENSATION GROSSLY INTACT AND SYMMETRICAL. ROM deficit: ARIAN LE'S WFL EXCEPT ARIAN HIP ADDUCTOR TIGHTNESS. Motor deficit: ARIAN LE'S GROSSLY 5/5 WITH MMT'ING. Dural Signs: NEGATIVE ARIAN LE'S. Lumbar mvmt loss: flex - NIL. ext - MIN. R SG - NIL. L SG - NIL. PATIENT DENIES INCRASED PAIN WITH LUMBAR ROM TESTING ALL PLANES. Core strength: POOR. Palpation: MANUAL INTERNAL VAGINAL TESTING OF PF STRENGTH REVEALS 3/5 STRENGTH X 6 SEC ENDURANCE X 3 REPS. PATIENT TOLERATED EXAM WELL AND DENIED PAIN OR DISCOMFORT WITH TESTING. FUNCTIONAL SCREEN: Incontinence Impact Questionnaire Score: 10. Urogenital Distress Inventory Score: 12. TREATMENT: EDUCATION ON PELVIC FLOOR CONTRACTIONS AND INITIATED HEP WITH QUICK FLICK KEGELS X 8, 3 TIMES A DAY. WRITTEN HEP INST PROVIDED. - Goals Goal 1:: DECREASE URINARY LEAKAGE EPISODES TO ONE OR LESS PER DAY Goal Time Frame: 8-12 Weeks Goal 2:: PATIENT WILL SUCCESSFULLY DELAY VOIDING FOR 10 MINUTES WHEN URGENCY OCCURS Goal Time Frame: 8-12 Weeks Goal 3:: PATIENT WILL HAVE INCREASED PELVIC FLOOR MUSCLE STRENGTH GRADE TO 5/5 Goal Time Frame: 6-8 Weeks Goal 4:: PATIENT WILL DEMONSTRATE 10 CONSISTENT AND CONSECUTIVE 10 SECOND PELVIC FLOOR MUSCLE CONTRACTIONS TO DEMONSTRATE IMPROVED PELVIC FLOOR ENDURANCE. Goal Time Frame: 8-12 Weeks Goal 5:: PATIENT WILL BE INDEP WITH A HEP/HOME INSTRUCTIONS FOR CONTINUED IMPROVEMENT ONCE FORMAL PHYSICAL THERAPY CONCLUDES. Goal Time Frame: 8-12 Weeks - Anticipated Interventions Patient/Client Instruction: Educate patient on: Condition, Plan of Care, Risk Factors For the Purpose of:: To improve self management Therapeutic Exercise to Include: Strength training, Endurance training, Coordination, Body mechanics, Postural training, Flexibilty training, Neuromotor development, Dynamic Lumbar Stabilization For the Purpose of:: To increase ROM, To improve muscle performance and motor function, To increase tolerance to activity/condition/position, To improve ability of physical actions for home/community/work/leisure Thank you for the opportunity to evaluate your patient. For Medicare and Medicare HMO plans, please review the plan of care and approve it. It will need to be FAXED BACK to us at [phone] for Medicare purposes. For Medicare only, by signing this I certify the plan of care. Please let me know if there are questions or concerns regarding this plan of care. Physician Signature: Date:
--- NOTE | 2022-08-11 12:21 | HP.PT.NRP ---
GABRIEL MOSCOSO was seen in my office for initial evaluation on 03/23/22. The following Plan of Care was established for this patient: Initial Frequency: 1x/Week Initial Duration: 8-12 Patient/Client Instruction: Educate patient on: Condition, Plan of Care, Risk Factors For the Purpose of:: To improve self management Therapeutic Exercise to Include: Strength training, Endurance training, Coordination, Body mechanics, Postural training, Flexibilty training, Neuromotor development, Dynamic Lumbar Stabilization For the Purpose of:: To increase ROM, To improve muscle performance and motor function, To increase tolerance to activity/condition/position, To improve ability of physical actions for home/community/work/leisure This patient was last seen in our office . Pertinent comments regarding their Physical therapy will appear below: This patient has not returned to Physical Therapy and is appropriate to return to MD for further follow-up as needed. At this point I will be discontinuing this patient from physical therapy. I would be happy to see this patient again in the future if found appropriate by the physician. Thank you! Zoey Hoang, PT, Cert MDT
== END 2022-05-27 19:00 | disposition home or self-care (01) ==
LOC: PT 08:00
PROVIDERS: PCP Nurse Practitioner Family; Referring Provider Urology; Visit Provider Urology
DX: N39.46 Mixed incontinence (principal)
CPT/HCPCS: 97162; 97530

== ENCOUNTER 2022-08-29 17:44 | Emergency (ER) | payer OTHER, SELFPAY ==
[2022-08-29 17:45] VITALS: BP 147/94; PULSE 79; RESP 16; TEMP 36.3; O2SAT 98
--- NOTE | 2022-08-29 17:55 | RAD_ITS ---
STUDY: X-RAY - RIGHT ANKLE REASON FOR EXAM: Female, 57 years old. fall injury TECHNIQUE: 3 view(s) of the ankle. COMPARISON: None. FINDINGS: Normal visualized distal tibia and fibula. Normal medial and lateral malleoli. Normal tibiotalar articulation and ankle mortise. Moderate plantar spur, otherwise negative visualized talus and calcaneus. The visualized subtalar, talonavicular, calcaneocuboid and tarsal articulations are normal. The soft tissue structures are unremarkable. RAD/Ankle min 3 Views IMPRESSION: No definite acute or significant abnormality seen. Electronically Signed: Tung Casiano MD at 19:00 EDT ,
--- NOTE | 2022-08-29 18:42 | EDS_ITS ---
HPI History of Present Illness Chief Complaint: Lower Extremity Injury Detail of Chief Complaint: Right ankle injury Informant: patient Onset/Context/Timing Onset: Today Current Severity: Moderate Narrative Narrative: Patient presents with fall and right ankle injury after falling while walking her dog. She states she rolled her ankle and went down. She has an abrasion to her anterior left knee and her left palm. Her primarily complaint is right ankle pain and swelling. She did not strike her head. No loss of consciousness. [facility] Medical History Abdominal pain Acute cholecystitis BMI greater than 40 Chronic cholecystitis History of back problems HTN (hypertension), benign Mixed stress and urge urinary incontinence Pancreatitis Presence of artificial intra-ocular lens (~2010) Sleep apnea Thyroid disease Home Medications losartan 50 mg tablet 50 mg PO DAILY 11/26/20 [History Last Taken Unknown] nystatin 100,000 unit/gram topical powder 1 applic topical BID #30 grams 11/28/20 [Rx Last Taken Unknown] levothyroxine 150 mcg tablet 1 tab PO DAILY 08/13/21 [History Last Taken Unknown] turmeric 400 mg capsule 1,200 mg PO DAILY 08/13/21 [History Last Taken Unknown] vitamin B complex 1 tab PO DAILY 08/13/21 [History Last Taken Unknown] doxycycline hyclate 100 mg capsule 100 mg PO DAILY #30 caps 11/21/21 [Rx Last Taken Unknown] oxybutynin chloride 5 mg tablet 10 mg (2 x 5 mg) PO DAILY BLADDER #60 tabs 11/21/21 [Rx Last Taken Unknown] pantoprazole 20 mg tablet,delayed release 40 mg PO DAILY STOMACH 11/21/21 [History Last Taken Unknown] naltrexone 8 mg-bupropion 90 mg tablet,extended release (Contrave) 1 tab PO QAM AND QPM #70 tabs 12/04/21 [Rx Last Taken Unknown] Allergy/AdvReac Type Severity Reaction Status Date / Time Gadolinium-MRI Contrast Allergy Hives Verified 08/29/22 17:45 Medium NSAIDS (Non-Steroidal Allergy Other Verified 08/29/22 17:45 Anti-Inflamma Penicillins AdvReac Rash Verified 08/29/22 17:45 Family History Mother Cancer Lung Father Dementia Daughter Asthma Thyroid disorder Surgical History H/O gastric bypass (~2007) H/O spinal fusion History of appendectomy History of cataract surgery History of section History of endometrial ablation History of tonsillectomy S/P laparoscopic cholecystectomy (~10/10/18) Social History adopted: No household members: family housing: house number of children: 2 current occupational status: employed 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 pets and animals: Yes history of recent travel: Yes ([place], [place], and [place]) out of country: Yes Smoking Status: Never smoker alcohol intake: current alcohol intake frequency: a few times a week substance use type: does not use seatbelt use: always do you feel safe at home: Yes additional social history: - [facility] MAK ROS ED Constitutional Constitutional ED: Denies chills or fever(s) Eyes Eyes: Denies change in vision or discharge from eye(s) ENT ENT ED: Denies discharge from eye(s), rhinorrhea or sore throat Cardiovascular Cardiovascular: Denies chest pain Respiratory/Chest Respiratory/Chest: Denies cough or dyspnea Gastrointestinal Gastrointestinal: Denies abdominal pain, nausea or vomiting Genitourinary Genitourinary ED: Denies dysuria Musculoskeletal Musculoskeletal: Reports extremity pain; Denies back pain Integumentary Reports Abrasions; Denies rash Neurologic Neurologic: Denies headache(s) or weakness Psychiatric Psychiatric: Denies anxiety or depression Endocrine Endocrinology: Denies polydipsia or polyuria Allergic/Immunologic Allergic/Immunologic ED: Denies lip swelling or urticaria EXAM Physical Exam Const Vital Signs: 08/29/22 17:45 Temperature 97.3 F L Temperature Source Temporal Pulse Rate 79 Respiratory Rate 16 Blood Pressure 147/94 H Blood Pressure Mean 111 Pulse Ox 98 Oxygen Delivery Method Room Air Positive well nourished and well developed General Appearance ED: well developed HEENT Reports normocephalic and head/scalp atraumatic Eyes PERRL and EOMs intact bilaterally Neck supple Chest Wall inspection of chest normal and palpation of chest normal Resp normal respiratory effort and clear to auscultation bilaterally Cardio regular rate and regular rhythm GI normal to inspection, nondistended, normoactive bowel sounds Palpation: soft Extremity Extremity Narrative: Abrasions to the palm of left hand. No bony tenderness with full range of motion. Tenderness outpatient and edema noted over the lateral malleolus of the right ankle. No tenderness of the foot itself or over the calcaneus. Good cap refill distally. Neuro oriented x3 and no sensory deficits noted Sensorium / Orientation: alert Motor Exam: strength 5/5 throughout Psych mental status grossly normal MDM MDM MDM Narrative Medical decision making narrative: Patient given Tylenol the time of my exam. Right ankle x-rays obtained per nursing protocol. Radiography Diagnostic Testing: Clinical Impression(s) from Imaging Studies Ankle X-Ray 08/29/22 17:55 IMPRESSION: No definite acute or significant abnormality seen. Electronically Signed: Tung Casiano MD at 19:00 EDT , Treatment and Re-Evaluation Narrative: Right ankle x-ray per my interpretation reveals no evidence of acute fracture. Radiology interpretation is reviewed and agrees. Patient will be given an air stirrup splint. Return instructions provided. Discharge Plan Triage Chief Complaint: Lower Extremity Injury ED Provider: Regina Andrea Dx/Rx/DC Orders Clinical Impression: Right ankle sprain Instructions: ED Ankle Sprain (Adult) Prescriptions: No Action losartan 50 mg tablet 50 mg PO DAILY pantoprazole 20 mg tablet,delayed release (DR/EC) 40 mg PO DAILY oxybutynin chloride 5 mg tablet 10 mg PO DAILY Qty: 60 5RF doxycycline hyclate 100 mg capsule 100 mg PO DAILY Qty: 30 4RF levothyroxine 150 mcg tablet 1 tab PO DAILY Patient Comments: Take 1 tablet by mouth once daily. Take on empty stomach. For thyroid vitamin B complex [B Complete] Tablet 1 tab PO DAILY turmeric 400 mg Capsule 1,200 mg PO DAILY nystatin 100,000 unit/gram powder 1 applic TOPICAL BID Qty: 30 4RF Contrave 8-90 mg tablet extended release 1 tab PO QAM AND QPM Qty: 70 0RF Rx Instructions: take 1 tab q am x 1 wk, then 1 tab bid x 1 week, then 2 tabs q am and 1 tab q pm x 1 week, then 2 tabs in am and 2 tabs in 2pm BMI 42 Primary Care Provider: Sharona Lai NP Referrals: Sharona Lai NP, ETCHER APPRENTICE-C [Primary Care Provider] - 1 Week if not improving Disposition Disposition: Home, Self Care
[2022-08-29] MEDS: Acetaminophen 500 MG Tablet 1000 MG PO (18:48)
[2022-08-29 18:49] VITALS: BMI 45.4
== END 2022-08-29 19:24 | disposition home or self-care (01) ==
PROVIDERS: Emergency Provider Emergency Medicine; PCP Nurse Practitioner Family; Visit Provider Emergency Medicine
DX: S93.401A Sprain of unspecified ligament of right ankle, initial encounter (principal); I10 Essential (primary) hypertension; Z90.49 Acquired absence of other specified parts of digestive tract; W01.0XXA Fall on same level from slipping, tripping and stumbling without subsequent striking against object, initial encounter; Y93.K1 Activity, walking an animal
CPT/HCPCS: 73610; 99283

== ENCOUNTER → 2023-01-14 | Outpatient (CLI) | payer OTHER, SELFPAY ==
--- NOTE | 2023-01-14 16:28 | BI_ITS ---
MAMMOGRAPHY - BILATERAL SCREENING REASON FOR EXAM: Female, 57 years old. Routine annual screening examination. PERTINENT HISTORY: Non-contributory. TECHNIQUE: Digital bilateral breast elijah (3D mammographic acquisition) in the CC and MLO projections. 2-D mediolateral oblique (MLO) and craniocaudad (CC) views of both breasts were obtained. CAD: Full Field Digital Mammography with Computer Added Detection was performed. COMPARISON: Comparison is made with prior study dated January 13, 2022 and January 09, 2021. FINDINGS: Breast Composition: The breasts are almost entirely fatty. There are no dominant masses or suspicious calcifications. No other significant abnormalities are identified. There has been no significant change since the prior study. BI/SCRN MAMM (CAD)W/ELIJAH BILAT IMPRESSION: Stable bilateral screening mammogram. Yearly follow-up mammogram recommended. (A) ASSESSMENT CATEGORY: BIRADS Category 1: Negative. A letter regarding these results will be sent to the patient by the facility within 30 days. Approximately 10% of breast cancers are not detected by mammography. A normal mammogram should not delay biopsy of a clinically suspicious abnormality. [id number] Electronically Signed: Saurabh Oneal MD at 8:44 EST ,
== END | disposition home or self-care (01) ==
LOC: OPBI 16:27
PROVIDERS: PCP Nurse Practitioner Family; Referring Provider Obstetrics & Gynecology; Visit Provider Obstetrics & Gynecology
DX: Z12.31 Encounter for screening mammogram for malignant neoplasm of breast (principal)
CPT/HCPCS: 77063; 77067

== ENCOUNTER → 2023-12-21 | Outpatient (CLI) | payer OTHER, SELFPAY ==
[2023-12-28 11:10] LABS: HPV APTIMA, High Risk Negative (Negative)
== END | disposition home or self-care (01) ==
LOC: LABSPEC 16:44
PROVIDERS: PCP Nurse Practitioner Family; Referring Provider Obstetrics & Gynecology; Visit Provider Obstetrics & Gynecology
DX: Z12.4 Encounter for screening for malignant neoplasm of cervix (principal)
CPT/HCPCS: 87624; 88175; G0145

== ENCOUNTER 2023-12-28 11:46 | Emergency (ER) | payer OTHER, SELFPAY ==
[2023-12-28 11:47] VITALS: BP 126/81; PULSE 76; RESP 18; TEMP 36.4; O2SAT 97; BMI 42.5
[2023-12-28 13:28] LABS: Absolute Lymphocyte Count 1.84 X10^3/uL (0.83-4.51); Absolute Neutrophil Count 9.2 X10^3/uL (2.0-7.7); Basophil# 0.06 X10^3/uL; Basophil% 0.5 % (0-1); Eosinophil# 0.13 X10^3/uL; Eosinophils% 1.1 % (0-5); Hematocrit 44.8 % (37-47); Hemoglobin 15.2 g/dL (12.0-15.0); Lymphocyte # 1.84 X10^3/ul (0.83-4.51); Lymphocyte % 15.2 % (19-41); Mean Corp Hgb Conc 33.9 g/dL (32-36); Mean Corpuscular Hgb 31.9 pg (27.0-32.0); Mean Corpuscular Volume 93.9 fL (81-99); Mean Platelet Vol. 9.3 fl (6.2-12.0); Monocyte# 0.83 X10^3/uL; Monocyte% 6.9 % (0-10); NRBC Flagged by Analyzer 0 % (0-5); Neutrophil # 9.19 X10^3/uL (2.7-7.7); Platelet Count 353 K/mm3 (150-450); RBC Distribution Width CV 12.3 % (11.6-14.6); RBC Distribution Width SD 42.4 fl (35.1-43.9); Red Blood Count 4.77 M/mm3 (4.2-5.4); White Blood Count 12.1 K/mm3 (4.4-11.0)
[2023-12-28 13:44] LABS: AST(SGOT) 43 U/L (15-37); Alanine Aminotransfer ALT/SGPT 59 U/L (13-56); Albumin, Serum 3.7 g/dL (3.2-5.0); Alkaline Phosphatase 116 U/L (45-117); Anion Gap 7 (5-15); BUN 19 mg/dL (7-18); Calcium,Total 9.4 mg/dL (8.5-10.1); Chloride 107 mmol/L (98-107); Creatinine, Serum 0.68 mg/dL (0.55-1.02); EST Glomerular Filtration Rate 95 mL/min (>60); Est Glom Filt Rate - Afr Amer 115 mL/min (>60); Estimated Creatinine Clearance 96.28 ml/min; Globulin 3.6 g/dL (2.2-4.2); Glucose 94 mg/dL (74-106); Potassium 3.8 mmol/L (3.5-5.1); Protein, Total 7.3 g/dL (6.4-8.2); Sodium Level 139 mmol/L (136-145)
[2023-12-28 14:16] VITALS: BP 111/78; PULSE 62; RESP 16; O2SAT 98
--- NOTE | 2023-12-28 14:28 | CT_ITS ---
STUDY: CT ABDOMEN AND PELVIS WITH CONTRAST REASON FOR EXAM: Female, 58 years old. abd pain RIGHT SIDE -- hx cholecystectomy and appendectomy AND GASTRIC BYPASS RADIATION DOSAGE (If Supplied By Facility): CTDIvol = ( 13.42 ) mGy, DLP = ( 1164.52 ) mGycm TECHNIQUE: Transaxial images were obtained from the dome of the diaphragm to the symphysis pubis without oral contrast. IV 100mL Isovue-300 was administered. Sagittal and coronal images were reconstructed. Individualized dose optimization techniques were used for this CT. COMPARISON: Comparison is made with prior study May 09, 2019. FINDINGS: The visualized lung bases are unremarkable. The visualized portions of the heart are within normal limits. There is decreased attenuation of the liver consistent with steatosis. The patient is status post cholecystectomy. A biliary stent is seen within the common bile duct. The distal portion is in the Normal spleen. Mildly dilated pancreatic duct. Normal bilateral adrenal glands. Normal right kidney. Normal left kidney. Status post gastric bypass surgery. Normal small intestine. Normal colon. The patient is status post cholecystectomy. Normal abdominal aorta. Normal inferior vena cava. Normal retroperitoneum. Normal urinary bladder. Normal abdominal wall. Fusion at the L4-L5 level. CT/Abdomen/Pelvis W IV Cont ONLY IMPRESSION: Biliary stent is seen with the distal tip in the second portion of the duodenum. Dilated pancreatic duct. Status post subtotal gastrectomy for gastric bypass surgery. Status post cholecystectomy and appendectomy. Electronically Signed: Saurabh Oneal MD at 15:09 EDT ,
--- NOTE | 2023-12-28 14:30 | ED.VIS.GI ---
HPI HPI - GI History of Present Illness Chief Complaint: Abd Pain Informant: patient Narrative Narrative: Worsening right upper quadrant pain rating to her back since 11 AM yesterday while at school. 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 Nausea without vomiting. Pain is worsened. Similar symptoms when she had choledocholithiasis in 2019. She had a cholecystectomy and appendectomy in the past. In addition started Tirzepatide injections status post 2 injections for weight loss. She had pancreatitis from her choledocholithiasis. Side effects from these injections are pancreatitis and she is concern for both. She reported increasing urine frequency she is on medication and saw her urologist today states urine did not seem right and was sent for culture. Denies fever or chills. 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 Prior similar symptoms: Yes [facility] Medical History Pancreatitis Chronic cholecystitis Acute cholecystitis Abdominal pain Sleep apnea History of back problems Thyroid disease BMI greater than 40 Mixed stress and urge urinary incontinence Presence of artificial intra-ocular lens (~2010) HTN (hypertension), benign Home Medications ?Medication ?Instructions ?Recorded ?Last Taken ?Type losartan 50 mg tablet 50 mg PO DAILY 11/26/20 Unknown History levothyroxine 150 mcg tablet 1 tab PO DAILY 08/13/21 Unknown History vitamin B complex 1 tab PO DAILY 08/13/21 Unknown History pantoprazole 20 mg tablet,delayed 40 mg PO DAILY STOMACH 11/21/21 Unknown History release vibegron 75 mg tablet (Gemtesa) 75 mg PO DAILY 12/11/22 Unknown History nystatin 100,000 unit/gram topical 1 applic topical BID PRN rash 12/21/23 Unknown History powder tirzepatide 2.5 mg/0.5 mL 2.5 mg subcut QWEEK 12/21/23 Unknown History subcutaneous pen injector (Wolfgang) nitrofurantoin 100 mg PO Q12 #10 CAPSULES 12/28/23 Unknown Rx monohydrate/macrocrystals 100 mg capsule ondansetron 4 mg disintegrating 4 mg PO Q8H PRN PRN Nausea #10 tabs 12/28/23 Unknown Rx tablet Allergy/AdvReac Type Severity Reaction Status Date / Time Gadolinium-MRI Contrast Allergy Hives Verified 12/28/23 11:47 Medium NSAIDS (Non-Steroidal Allergy Other Verified 12/28/23 11:47 Anti-Inflamma Penicillins AdvReac Rash Verified 12/28/23 11:47 Family History Mother Cancer Lung Father Dementia Daughter Asthma Thyroid disorder Surgical History S/P laparoscopic cholecystectomy (~10/10/18) History of section History of cataract surgery H/O spinal fusion H/O gastric bypass (~2007) History of endometrial ablation History of tonsillectomy History of appendectomy Social History adopted: No household members: family housing: house number of children: 2 current occupational status: employed 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[employer]- [employer] pets and animals: Yes history of recent travel: Yes ([place], [place], and [place]) out of country: Yes Smoking Status: Never smoker alcohol intake: current alcohol intake frequency: a few times a week substance use type: does not use seatbelt use: always do you feel safe at home: Yes additional social history: - [employer] ED Constitutional Constitutional ED: Denies chills, fever(s) or sweats Eyes Eyes: Denies change in vision ENT ENT ED: Denies dysphagia or sore throat Cardiovascular Cardiovascular: Denies chest pain, leg edema, palpitations or racing heartbeat Respiratory/Chest Respiratory/Chest: Denies cough, dyspnea or dyspnea on exertion Gastrointestinal Gastrointestinal: Reports abdominal pain and nausea; Denies diarrhea or vomiting Genitourinary Genitourinary ED: Denies dysuria, hematuria or urinary frequency Musculoskeletal Musculoskeletal: Denies back pain, extremity pain or neck pain Integumentary Denies rash or wounds Neurologic Neurologic: Denies headache(s), paresthesias or weakness EXAM Physical Exam Const Vital Signs: 12/28/23 11:47 12/28/23 14:16 12/28/23 15:58 Temperature 97.6 F L 97.6 F L Temperature Source Oral Pulse Rate 76 62 62 Respiratory Rate 18 16 16 Blood Pressure 126/81 H 111/78 111/78 Blood Pressure Mean 96 89 89 Pulse Ox 97 98 98 Oxygen Delivery Method Room Air Room Air Positive well nourished and well developed General Appearance ED: well developed and NAD HEENT Reports moist mucous membranes normocephalic and atraumatic Eyes EOMs intact bilaterally and conjunctivae normal General Eye ED: Yes normal appearance of both eyes Neck no lymphadenopathy and supple General: Negative for tenderness Chest Wall Chest: Negative for tenderness Resp normal respiratory effort and normal air movement Effort and Inspection: symmetric chest movement; Negative for respiratory distress Cardio regular rate, regular rhythm and no murmurs Peripheral Pulses: pulses 2+ throughout GI normal to inspection, nondistended, normoactive bowel sounds GI Narrative: Tender right upper quadrant and mild epigastrium, no guarding or rebound. Palpation: Negative for guarding or rebound tenderness present Back/Spine no CVA tenderness and no thoracic nor lumbar tenderness Extremity normal to inspection General Extremety ED: Negative for edema or tenderness General Extremity: Negative for edema Neuro oriented x3 and no sensory deficits noted Sensorium / Orientation: awake and alert Skin no rashes or lesions noted and no wounds MDM MDM MDM Narrative Medical decision making narrative: Interventions / MDM: Differential diagnosis: Medication side effects, abdominal pain Diagnosis considered but do not suspect: Pancreatitis, colitis however CT negative. My EKG interpretation: N/A Imaging independently reviewed and interpreted by myself: CT abdomen pelvis IV contrast: Biliary stent intact. No acute process. External documents reviewed: N/A Test considered but not ordered:N/A ED course: History of cholecystectomy and appendectomy in the past. Recent start of weight loss injections. History of choledocholithiasis and pancreatitis. Abdominal labs were ordered, low-dose morphine Zofran. CT scan IV contrast ordered for further evaluation. Labs stable slight transaminitis with AST and ALT. Patient reports it is known has been trending down. Normal bilirubin. Her CT scan was negative with stable biliary stent. Lipase was negative. Discussed with patient possibility with her Mounjaro injections as this could be side effects. She is due for her next dose tomorrow. Discussed with patient that her decision with her doctors to continue this. If it worsens, likely side effect from this. She will hold tomorrow's dose and discussed with her PCP. Urine did note leukocytes and bacteria. She is not increasing urine frequency. Urine culture sent. She started on nitrofurantoin. Prescription sent to her pharmacy antibiotics and antiemetics. Outpatient follow-up. All questions were answered. Re-evaluation: stable Disposition discussed with patient/family/significant other: Patient Case discussed with consulting clinician: N/A This note was generated with [employer] dictation software. It may contain incorrect words, spelling, and punctuation that were not noted in checking the note before signing. Lab Data Attestation: I reviewed the patient's lab results. Labs: Laboratory Results - last 24 hr 12/28/23 12/28/23 13:20 14:34 WBC 12.1 H RBC 4.77 Hgb 15.2 H Hct 44.8 MCV 93.9 MCH 31.9 MCHC 33.9 RDW Std Deviation 42.4 RDW Coeff of Kavitha 12.3 Plt Count 353 MPV 9.3 Immature Gran % (Auto) 0.300 Neut % (Auto) 76.0 H Lymph % (Auto) 15.2 L [place] % (Auto) 6.9 Eos % (Auto) 1.1 Baso % (Auto) 0.5 Absolute Neuts (auto) 9.2 H Absolute Lymphs (auto) 1.84 Nucleated RBC % 0 Sodium 139 Potassium 3.8 Chloride 107 Carbon Dioxide 25.0 Anion Gap 7 BUN 19 H Creatinine 0.68 Estim Creat Clear Calc 96.28 Est GFR (MDRD) Af Amer 115 Est GFR (MDRD) Non-Af 95 BUN/Creatinine Ratio 28.0 H Glucose 94 Calcium 9.4 Total Bilirubin 0.70 AST 43 H ALT 59 H Alkaline Phosphatase 116 Total Protein 7.3 Albumin 3.7 Globulin 3.6 Albumin/Globulin Ratio 1.0 Lipase 57 Urine Color Yellow Urine Clarity Clear Urine pH 6.0 Ur Specific [place] 1.015 Urine Protein Negative Urine Glucose (UA) Normal Urine Ketones 5 H Urine Occult Blood Negative Urine Nitrite Negative Urine Bilirubin Negative Urine Urobilinogen Normal Ur Leukocyte Esterase 100 H Urine RBC 0 SEEN Urine WBC 0-5 SEEN Ur Squamous Epith Cells 0-5 SEEN Ur Transition Epith Cell 0-5 SEEN Urine Bacteria 2+ Urine Mucus 0 SEEN Radiography Diagnostic Testing: Clinical Impression(s) from Imaging Studies Abdomen/Pelvis CT 12/28/23 14:28 IMPRESSION: Biliary stent is seen with the distal tip in the second portion of the duodenum. Dilated pancreatic duct. Status post subtotal gastrectomy for gastric bypass surgery. Status post cholecystectomy and appendectomy. Electronically Signed: Saurabh Oneal MD at 15:09 EDT , Discharge Plan Triage Chief Complaint: Abd Pain ED Provider: Rei Riley Dx/Rx/DC Orders Clinical Impression: Abdominal pain, Urinary tract infection Instructions: Abdominal Pain Prescriptions: New ondansetron 4 mg tablet,disintegrating 4 mg PO Q8H PRN PRN (Reason: Nausea) Qty: 10 0RF nitrofurantoin monohyd/m-cryst 100 mg capsule 100 mg PO Q12 Qty: 10 0RF No Action losartan 50 mg tablet 50 mg PO DAILY pantoprazole 20 mg tablet,delayed release (DR/EC) 40 mg PO DAILY Gemtesa 75 mg tablet 75 mg PO DAILY nystatin 100,000 unit/gram powder 1 applic TOPICAL BID PRN (Reason: rash) Mounjaro 2.5 mg/0.5 mL pen injector 2.5 mg subcut QWEEK Rx Instructions: for 4 weeks levothyroxine 150 mcg tablet 1 tab PO DAILY Patient Comments: Take 1 tablet by mouth once daily. Take on empty stomach. For thyroid vitamin B complex [B Complete] Tablet 1 tab PO DAILY Primary Care Provider: Sharona Lai NP Referrals: Sharona Lai NP, [employer]INE OPERATOR-[employer] [Primary Care Provider] - 1 Week Activity Restrictions/Additional Instructions: CT scan biliary stent normal position. No acute process. Labs stable, no pancreatitis noted. Your AST 43, ALT 59. Bilirubin is normal. Report history of slight elevation of your liver enzymes. Symptoms possibly from your Mounjaro injections. You may want to withhold the next injection, discussed with your doctor who prescribed this before restarting. Print Language: Latvian Disposition Disposition: Home, Self Care Discharge Date/Time: 12/28/23 15:59
[2023-12-28 14:40] LABS: Mucous, Urine 0 SEEN /hpf (<or=2+); Red Blood Cells-Urine 0 SEEN /hpf (0-5)
[2023-12-28 14:42] LABS: Color, Urine Yellow (Yellow); Glucose, Dipstick Normal (Normal); Ketone-Dipstick 5 mg/dl (Negative); Leukocyte Esterase-Dipstick 100 /ul (Negative); Nitrite-Dipstick Negative (Negative); Occult Blood-Urine Negative /ul (Negative); Protein-Dipstick Negative (Negative); Specific Gravity, Urine 1.015 (1.002-1.030); Urine Bilirubin Dipstick Negative (Negative); Urine Clarity Clear (Clear); Urine Urobilinogen Normal (Normal)
[2023-12-28] MEDS: Morphine 2 MG/ML Syringe IV (14:43)
[2023-12-28] MEDS: Ondansetron 4 MG/2 ML Vial IV (14:43)
--- NOTE | 2023-12-28 14:46 | ED.RN ---
Patient transported to CT
[2023-12-28 14:47] LABS: Squamous Epithelial Cells - UA 0-5 SEEN /hpf (5-10)
[2023-12-28 14:48] LABS: White Blood Cells 0-5 SEEN /hpf (0-5)
[2023-12-28 14:49] LABS: Bacteria 2+ /hpf (None Seen); Transitional Epithelial - Ur 0-5 SEEN /hpf (0-5)
[2023-12-28 14:58] LABS: Lipase 57 U/L (13-75)
[2023-12-28] MEDS: Nitrofurantoin Macrocrystals 100 MG Capsule PO (15:51)
[2023-12-28 15:58] VITALS: BP 111/78; PULSE 62; RESP 16; TEMP 36.4; O2SAT 98
--- OUTSIDE RECORDS SUMMARY | 2023-12-28 19:55 | XMS RPT_ITS | CCD ---
Author Organization [facility] Care Team Providers Care Marketing Sales Consultant Name Role Phone Kalie CREDIT INTERVIEWER.FACTORY ENGINEER, Tony BAUER Primary Care Provider Shiela CREDIT INTERVIEWER.JASON, Negra Primary Care Provider Shiela CREDIT INTERVIEWER.JASON, Negra Primary Care Provider Shiela CREDIT INTERVIEWER.Negra GOMEZ Primary Care Provider Shiela CREDIT INTERVIEWER.Negra GOMEZ Primary Care Provider SHIELA, NEGRA Primary Care Unavailable SHIELA, NEGRA Referring Unavailable SELF Referring Unavailable SHIELA, NEGRA Primary Care Unavailable SHIELA, NEGRA Attending Unavailable SHIELA, NEGRA Primary Care Unavailable SHIELA, NEGRA Referring Unavailable Allergies Allergy Classification Reported Allergen(s) Allergy Type Date of Onset Reaction(s) Facility (20 sources) gadoterate meglumine; Translations: [GADOTERATE MEGLUMINE] Drug Allergy 0 Hives, Itching, Other: See Comments [facility] (20 sources) levoFLOXacin; Translations: [LEVOFLOXACIN] Drug Allergy 6 Diarrhea [facility] (20 sources) Lisinopril; Translations: [LISINOPRIL] Drug Allergy 8 Cough [facility] (14 sources) Non-steroidal anti-inflammato ry agent; Translations: [NSAIDS (NON-STEROIDAL ANTI-INFLAMMATO RY DRUG)] Propensity to adverse reactions to drug 9 Other: See Comments [facility] (14 sources) Penicillins; Translations: [PENICILLINS] Propensity to adverse reactions 5 [facility] Work Phone: (20 sources) Iohexol; Translations: [IOHEXOL] Drug Allergy 2 Other: See Comments [facility] (20 sources) Non-steroidal anti-inflammato ry agent Propensity to adverse reactions to drug 9 Other: See Comments [facility] (20 sources) Penicillins Propensity to adverse reactions 5 [facility] Work Phone: Medications Current Medications Medication Drug Class(es) Dates Sig (Normalized) Sig (Original) azithromycin 250 mg oral tablet (1 source) Macrolide Antimicrobial Start: 01-07-2022 End: 01-12-2022 azithromycin (ZITHROMAX Z-DORETHA) 250 mg tablet Take 2 tablets day one, then, 1 tablet daily until gone. 6 tablet 0 01/07/2022 01/12/2022 Active Comment on above: Take 2 tablets day o ne, then, 1 tablet daily until gone. bisacodyl 5 mg delayed release oral tablet (11 sources) Stimulant Laxative Start: 06-20-2020 End: 08-22-2021 Bisacodyl (DULCOLAX) 5 mg tab Use as directed for Miralax / Gatorade Bowel Prep Kit 4 tablet 0 06/20/2020 08/22/2021 Discontinued Comment on above: Use as directed for Miralax / Gatorade Bowel Prep Kit busPIRone hydrochloride 5 mg oral tablet (14 sources) Start: 08-18-2022 End: 08-18-2023 take 1 tablet by mouth three times daily busPIRone (BUSPAR) 5 mg tablet Take 1 tablet by mouth three times daily. 270 tablet 3 08/18/2022 08/18/2023 Active Start: 04-08-2022 End: 11-18-2022 take 1 tablet by mouth three times daily busPIRone (BUSPAR) 5 mg tablet Take 1 tablet by mouth three times daily. 90 tablet 2 04/08/2022 05/08/2022 Active Comment on above: Take 1 tablet by lon th three times daily. Take 5 mg by mouth t hree times daily. Calcium Carbonate / vitamin D3 (11 sources) End: 08-22-2021 take 1 tablet by mouth once daily calcium carbonate/vitamin D3 (CALCIUM 500 + D, D3, ORAL) Take 1 tablet by mouth once daily. 0 08/22/2021 Discontinued take 1 tablet by mouth once barbara y calcium carbonate/vitamin D3 (CALCIUM 500 + D, D3, ORAL) Take 1 tablet by mouth once daily. 0 Active Comment on above: Take 1 tablet by lon th once daily. clotrimazole 10 mg/ml topical cream (2 sources) Azole Antifungal Start: 3 End: 3 clotrimazole (LOTRIMIN, CLOTRIM) 1 % cream Apply to affected area twice daily for 7 days. 60 g 0 03/21/2022 03/28/2022 Active Comment on above: Apply to affected ar ea twice daily for 7 days. doxycycline hyclate 100 mg oral tablet (13 sources) Tetracycline-class Drug Start: 2 End: 2 take 1 tablet by mouth twice daily doxycycline (VIBRA-TABS) 100 mg tablet Indications: Post-COVID syndrome , Chest congestion , Productive cough Take 1 tablet by mouth twice daily for 10 days. 20 tablet 0 09/22/2021 10/02/2021 Active Start: 08-06-2020 End: 08-22-2021 take 1 tablet by mouth once daily doxycycline (VIBRA-TABS) 100 mg tablet Indications: Need for malaria prophylaxis Take 1 tablet by mouth daily for malaria prophylaxis. Start 2 days before travel and take for 4 weeks after returning/exposure. 60 tablet 0 08/06/2020 08/22/2021 Discontinued Comment on above: Take 1 tablet by lon th daily for malaria prophylaxis. Start 2 days before travel and take for 4 weeks after returning/exposure. Take 1 tablet by lon th twice daily for 10 days. fluconazole 150 mg oral tablet (3 sources) Azole Antifungal Start: 023 End: 023 take 1 tablet by mouth once daily fluconazole (DIFLUCAN) 150 mg tablet Take 1 tablet by mouth once daily for 1 day. 1 tablet 0 03/24/2022 03/25/2022 Active Comment on above: Take 1 tablet by lon th once daily for 1 day. gabapentin 300 mg oral capsule (11 sources) Anti-epileptic Agent End: 022 take 1 capsule by mouth three times daily gabapentin (NEURONTIN) 300 mg capsule Take 300 mg by mouth three times daily. 0 08/22/2021 Discontinued Comment on above: Take 300 mg by mouth three times daily. Gatorade Sports Drink (11 sources) Start: 021 End: 022 Gatorade Sports Drink Use as directed for Miralax / Gatorade Bowel Prep Kit 64 oz 0 06/20/2020 08/22/2021 Discontinued Start: 06-20-2020 Gatorade Sport s Drink Use as directed for Miralax / Gatorade Bowel Prep Kit 64 oz 0 06/20/2020 Active Comment on above: Use as directed for Miralax / Gatorade Bowel Prep Kit GEMTESA 75 mg tablet (20 sources) Start: 10-07-2023 End: 01-05-2024 take 1 tablet by mouth once daily GEMTESA 75 mg tablet Take 1 tablet by mouth once daily. 90 tablet 10/07/2023 01/05/2024 Active Start: 10-07-2023 End: 01-05-2024 take 1 tablet by mouth once daily GEMTESA 75 mg tablet Take 1 tablet by mouth once daily. 90 tablet 0 10/07/2023 01/05/2024 Active Start: 10-06-2023 End: 10-07-2023 take 1 tablet by mouth once daily GEMTESA 75 mg tablet Take 1 tablet by mouth once daily. 90 tablet 0 10/06/2023 10/07/2023 Discontinued Start: 10-06-2023 End: 01-04-2024 take 1 tablet by mouth once daily GEMTESA 75 mg tablet Take 1 tablet by mouth once daily. 90 tablet 0 10/06/2023 01/04/2024 Active Start: 02-02-2022 End: 10-06-2023 take 1 tablet by mouth once daily GEMTESA 75 mg tablet Take 75 mg by mouth once daily. 0 02/02/2022 10/06/2023 Discontinued Start: 02-02-2022 take 1 tablet by lon th once daily GEMTESA 75 mg tablet Take 75 mg by mouth once daily. 0 02/02/2022 Active Comment on above: Take 75 mg by mouth once daily. levothyroxine sodium 0.15 mg oral tablet (20 sources) l-Thyroxine Start: 08-10-2023 levothyroxine (SYNTHROID) 150 mcg tablet Indications: Hypothyroidism, unspecified type TAKE 1 TABLET 5 DAYS WEEKLYAND 1 AND 1/2 TABLETS 2 DAYS WEEKLY ON AN EMPTY STOMACH FOR THYROID 90 tablet 1 08/10/2023 Active Start: 12-11-2021 End: 11-25-2023 levothyroxine (SYNTHROID) 15 0 mcg tablet Indications: Hypothyroidism, unspecified type Take on empty stomach. For thyroid. Take 1 tablet 5 days per week. Take 1.5 tablets 2 days per week. 90 tablet 11/26/2023 Active Start: 05-14-2021 End: 01-18-2022 take 1 tablet by mouth once daily for thyroid dysfunction levothyroxine (SYNTHROID) 150 mcg tablet Indications: Hypothyroidism, unspecified type Take 1 tablet by mouth once daily. Take on empty stomach. For thyroid 90 tablet 1 07/22/2021 12/05/2021 Discontinued Comment on above: Take 1 tablet by lon th once daily. Take on empty stomach. For thyroid Take on empty stomac h. For thyroid. Take 1 tablet 5 days per week. Take 1.5 tablets 2 days per week. losartan potassium 50 mg oral tablet (20 sources) Angiotensin 2 Receptor Candida Start: 05-14-2021 End: 10-06-2024 take 1 tablet by mouth once daily losartan (COZAAR) 50 mg tablet Indications: Hypertension, essential Take 1 tablet by mouth once daily. 90 tablet 1 10/07/2023 10/06/2024 Active Comment on above: Take 1 tablet by lon th once daily. nystatin 100 unt/mg topical powder (20 sources) Polyene Antifungal Start: 07-22-2021 End: 10-07-2023 nystatin (NYSTOP) powder Indications: Monilial intertrigo Apply 1 application to affected area two times a day. To abdominal skin folds 60 g 2 10/07/2023 Active Start: 05-14-2021 nystatin (NYST OP) powder Indications: Monilial intertrigo Apply 1 application to affected area twice daily. To abdominal skin folds 60 g 2 05/14/2021 Active Comment on above: Apply 1 application to affected area twice daily. To abdominal skin folds pantoprazole 40 mg delayed release oral tablet (20 sources) Proton Pump Inhibitor Start: 11-20-19 End: 10-07-19 take 1 tablet by mouth once daily before breakfast pantoprazole DR (PROTONIX) 40 mg tablet Indications: Bloating , RUQ pain , Epigastric pain , Gastritis without bleeding, unspecified chronicity, unspecified gastritis type Take 1 tablet by mouth daily before breakfast. Take on empty stomach, 1/2 hr before meal. 90 tablet 1 10/07/2023 Active Start: 03-23-2022 End: 08-03-2022 take 1 tablet by mouth once daily before breakfast pantoprazole DR (PROTONIX) 40 mg tablet Indications: Bloating , RUQ pain , Epigastric pain , Gastritis without bleeding, unspecified chronicity, unspecified gastritis type Take 1 tablet by mouth daily before breakfast. Take on empty stomach, 1/2 hr before meal. 90 tablet 0 05/13/2022 08/03/2022 Discontinued Start: 08-28-2021 End: 12-05-2021 take 1 tablet by mouth once daily before breakfast pantoprazole DR (PROTONIX) 40 mg tablet Indications: Bloating , RUQ pain , Epigastric pain , Gastritis without bleeding, unspecified chronicity, unspecified gastritis type Take 1 tablet by mouth daily before breakfast. Take on empty stomach, 1/2 hr before meal. 90 tablet 1 12/05/2021 Active Start: 08-22-2021 take 1 tablet by lon th once daily before breakfast pantoprazole DR (PROTONIX) 40 mg tablet Indications: Bloating , RUQ pain , Epigastric pain , Gastritis without bleeding, unspecified chronicity, unspecified gastritis type Take 1 tablet by mouth daily before breakfast. Take on empty stomach, 1/2 hr before meal. 0 08/22/2021 Active Start: 07-22-2021 End: 08-22-2021 take 1 tablet by mouth once daily before breakfast pantoprazole DR (PROTONIX) 20 mg tablet Indications: Gastritis without bleeding, unspecified chronicity, unspecified gastritis type Take 1 tablet by mouth daily before breakfast. Take on empty stomach, 1/2 hr before meal. 90 tablet 1 07/22/2021 08/22/2021 Discontinued Start: 05-14-2021 take 1 tablet by lon th once daily before breakfast pantoprazole DR (PROTONIX) 20 mg tablet Indications: Gastritis without bleeding, unspecified chronicity, unspecified gastritis type Take 1 tablet by mouth daily before breakfast. Take on empty stomach, 1/2 hr before meal. 90 tablet 1 05/14/2021 Active Comment on above: Take 1 tablet by lon th daily before breakfast. Take on empty stomach, 1/2 hr before meal. perflutren lipid microspheres 1.3 mL in NaCl (PF) 0.9% 10 mL injection (DEFINITY) (15 sources) Start: End: perflutren lipid microspheres 1.3 mL in NaCl (PF) 0.9% 10 mL injection (DEFINITY) polyethylene glycol 3350 24138 mg powder for oral solution (11 sources) Osmotic Laxative Start: End: polyethylene glycol 3350 (MIRALAX, GLYCOLAX) 17 gram/dose powder Use as directed for Miralax / Gatorade Bowel Prep Kit 238 g 0 06/20/2020 08/22/2021 Discontinued Comment on above: Use as directed for Miralax / Gatorade Bowel Prep Kit 125 ml sodium chloride 9 mg/ml prefilled syringe (15 sources) Start: End: sodium chloride 0.9 % (flush) 10 mL (BD POSIFLUSH) tirzepatide (MOUNJARO) 2.5 mg/0.5 mL pen injector (8 sources) Start: End: inject 2.5 mg by subcutaneous injection every week tirzepatide (MOUNJARO) 2.5 mg/0.5 mL pen injector Indications: Morbid obesity (HCC) Inject 2.5 mg subcutaneously one time a week. 2 mL 2 12/14/2023 03/13/2024 Active Start: 12-01-2023 End: 12-14-2023 inject 2.5 mg by subcutaneous injection every week tirzepatide (MOUNJARO) 2.5 mg/0.5 mL pen injector Indications: Morbid obesity (HCC) Inject 2.5 mg subcutaneously one time a week. 2 mL 2 12/01/2023 12/14/2023 Discontinued Start: 11-24-2023 End: 12-01-2023 inject 2.5 mg by subcutaneous injection every week tirzepatide (MOUNJARO) 2.5 mg/0.5 mL pen injector Indications: Hypothyroidism, unspecified type , Hypertension, essential , Morbid obesity (HCC) Inject 2.5 mg subcutaneously one time a week. 2 mL 2 11/24/2023 12/01/2023 Discontinued Start: 11-24-2023 End: 02-22-2024 inject 2.5 mg by subcutaneous injection every week tirzepatide (MOUNJARO) 2.5 mg/0.5 mL pen injector Indications: Hypothyroidism, unspecified type , Hypertension, essential , Morbid obesity (HCC) Inject 2.5 mg subcutaneously one time a week. 2 mL 2 11/24/2023 02/22/2024 Active Completed/Discontinued Medications Medication Drug Class(es) Dates Sig (Normalized) Sig (Original) benzonatate 100 mg oral capsule (20 sources) Non-narcotic Antitussive Start: 09-22-2021 End: 08-03-2022 take 1 capsule by mouth every eight hours as needed benzonatate (TESSALON PERLE) 100 mg capsule Take 1 capsule by mouth three times daily as needed for cough. 21 capsule 0 01/08/2022 08/03/2022 Discontinued Start: 07-14-2020 End: 08-22-2021 take 1 capsule by mouth every eight hours as needed benzonatate (TESSALON PERLES) 100 mg capsule Take 1 capsule by mouth three times daily as needed for Cough. 20 capsule 0 07/14/2020 08/22/2021 Discontinued Comment on above: Take 1 capsule by mo ut three times daily as needed for Cough. dicyclomine hydrochloride 10 mg oral capsule (20 sources) Anticholinergic Start: End: take 1 capsule by mouth at bedtime dicyclomine (BENTYL) 10 mg capsule Indications: Bloating , RUQ pain , Epigastric pain , Gastritis without bleeding, unspecified chronicity, unspecified gastritis type Take 1 capsule by mouth before meals and at bedtime. 80 capsule 0 08/22/2021 11/18/2022 Discontinued Comment on above: Take 1 capsule by mo uth before meals and at bedtime. 12 hr guaiFENesin 600 mg / pseudoephedrine hydrochloride 60 mg extended release oral tablet (20 sources) alpha-Adrenergic Agonist Start: End: take 1 tablet by mouth every twelve hours as needed pseudoephedrine-gua iFENesin (MUCINEX D) 60-600 mg per tablet Indications: Post-COVID syndrome , Chest congestion , Productive cough Take 1 tablet by mouth every 12 hours as needed for cold/allergy symptoms. 18 tablet 1 09/22/2021 08/03/2022 Discontinued Comment on above: Take 1 tablet by lon th every 12 hours as needed for cold/allergy symptoms. MEDICATION, NON-DATABASE (12 sources) End: 024 MEDICATION, NON-DATABASE 500 mg. Tumeric 11/24/2023 Discontinued End: 08-22-2021 take 1 tablet by mouth once daily MEDICATION, NON-DATABASE Prevagen: Take one tablet by mouth once daily. 0 08/22/2021 Discontinued take 1 tablet by lon th once daily MEDICATION, NON-DATABASE Prevagen: Take one tablet by mouth once daily. 0 Active Comment on above: Prevagen: Take one t ablet by mouth once daily. 24 hr oxybutynin chloride 10 mg extended release oral tablet (20 sources) Cholinergic Muscarinic Antagonist Start: 05-14-19 End: 08-04-19 take 1 tablet by mouth once daily oxybutynin ER (DITROPAN XL) 10 mg 24 hr tablet Take 1 tablet by mouth once daily. 90 tablet 1 07/22/2021 08/03/2022 Discontinued Comment on above: Take 1 tablet by lon once daily. polyethylene glycol 3350 308420 mg / potassium chloride 2970 mg / sodium bicarbonate 6740 mg / sodium chloride 5860 mg / sodium sulfate 10340 mg powder for oral solution (20 sources) Osmotic Laxative Start: 04-08-19 End: 11-24-19 peg 3350-Electrolytes (GOLYTELY) 236-22.74-6.74 -5.86 gram suspension Refer to printed patient instructions that will be mailed to you. 1 Each 05/20/2022 11/24/2023 Discontinued Comment on above: Refer to printed pat ient instructions that will be mailed to you. predniSONE 20 mg oral tablet (1 source) Start: 01-03-20 End: 01-08-20 take 2 tablets by mouth once daily predniSONE (DELTASONE) 20 mg tablet Take 2 tablets by mouth once daily for 5 days. 10 tablet 0 01/02/2022 01/07/2022 Comment on above: Take 2 tablets by mo uth once daily for 5 days. Turmeric extract (20 sources) End: 11-24-19 24 take 1200 mg by mouth twice daily TURMERIC ORAL Take 1,200 mg by mouth twice daily. 11/24/2023 Discontinued take 1200 mg by mouth twice barbara y TURMERIC ORAL Take 1,200 mg by mouth twice daily. 0 Active Comment on above: Take 1,200 mg by lon th twice daily. Vitamin B Complex (20 sources) End: 11-24-2023 vitamin B complex (B COMPLEX-VITAMIN B12 ORAL) Take by mouth. 11/24/2023 Discontinued vitamin B comple x (B COMPLEX-VITAMIN B12 ORAL) Take by mouth. 0 Active Comment on above: Take by mouth. Problems Active Problems Problem Classification Problem Date Documented Da te Episodic/Chronic Abdominal pain (19 sources) Right upper quadrant pain; Translations: [Right upper quadrant pain] Episodic Biliary tract disease (20 sources) Biliary stricture; Translations: [Obstruction of bile duct] Onset: 0 05-15-2019 Chronic Diabetes mellitus without complication (3 sources) Increased glucose level; Translations: [Other abnormal glucose] 11-11-2022 Episodic Diseases of white blood cells (20 sources) Leukocytosis; Translations: [Elevated white blood cell count, unspecified] Onset: 0 05-15-2019 Chronic Esophageal disorders (20 sources) Gastroesophageal reflux disease; Translations: [Gastro-esophageal reflux disease without esophagitis] Onset: 7 05-15-2019 Chronic Essential hypertension (20 sources) Essential hypertension; Translations: [Essential (primary) hypertension] Onset: 8 05-15-2019 Chronic Genitourinary symptoms and ill-defined conditions (20 sources) Urge incontinence of urine; Translations: [Urge incontinence] Onset: 3 05-15-2019 Chronic Immunizations and screening for infectious disease (1 source) Encounter for immunization; Translations: [Encounter for immunization] Onset: 4 Episodic Mycoses (3 sources) Candidal intertrigo; Translations: [Candidiasis of skin and nail] Episodic Nutritional deficiencies (1 source) Cobalamin deficiency; Translations: [Deficiency of other specified B group vitamins] 12-15-2023 Episodic Osteoarthritis (20 sources) Arthritis of knee; Translations: [Unilateral primary osteoarthritis, unspecified knee] Onset: 2 Chronic Other aftercare (5 sources) Patient encounter status; Translations: [Other penitentiary (current) drug therapy] Episodic Other circulatory disease (3 sources) Pulmonary congestion ; Translations: [Other specified symptoms and signs involving the circulatory and respiratory systems] Episodic Other circulatory disease (2 sources) Feeling of lump in throat; Translations: [Other specified symptoms and signs involving the circulatory and respiratory systems] Episodic Other diseases of bladder and urethra (20 sources) Overactive bladder; Translations: [Overactive bladder] Onset: 3 03-15-2012 Chronic Other gastrointestinal disorders (11 sources) Abdominal bloating; Translations: [Abdominal distension (gaseous)] Episodic Other gastrointestinal disorders (6 sources) Dysphagia; Translations: [Dysphagia, unspecified] Episodic Other gastrointestinal disorders (3 sources) Burping; Translations: [Eructation] 11-11-2022 Episodic Other gastrointestinal disorders (3 sources) Passing flatus; Translations: [Flatulence] 11-11-2022 Episodic Other infections; including parasitic (3 sources) Post-viral disorder; Translations: [Post-COVID syndrome] Chronic Other inflammatory condition of skin (1 source) Intertrigo; Translations: [Erythema intertrigo] Episodic Other liver diseases (2 sources) Steatosis of liver; Translations: [Fatty (change of) liver, not elsewhere classified] 12-14-2022 Chronic Other lower respiratory disease (3 sources) Productive cough ; Translations: [Productive cough] Episodic Other lower respiratory disease (1 source) Cough; Translations: [Acute cough] Episodic Other lower respiratory disease (1 source) Cough; Translations: [Acute cough] 01-01-2022 Episodic Other nutritional; endocrine; and metabolic disorders (20 sources) Body mass index 40+ - severely obese; Translations: [Morbid (severe) obesity due to excess calories] Onset: 8 07-18-2020 Chronic Other nutritional; endocrine; and metabolic disorders (1 source) Central obesity; Translations: [Localized adiposity] 11-11-2022 Chronic Other nutritional; endocrine; and metabolic disorders (3 sources) Morbid obesity; Translations: [Morbid (severe) obesity due to excess calories] 11-24-2023 Chronic Other nutritional; endocrine; and metabolic disorders (1 source) Morbid (severe) obesity due to excess calories; Translations: [Morbid obesity (HCC)] Onset: 4 Chronic Other nutritional; endocrine; and metabolic disorders (3 sources) Weight gain; Translations: [Abnormal weight gain] 11-11-2022 Episodic Other screening for suspected conditions (not mental disorders or infectious disease) (7 sources) Other specified abnormal findings of blood chemistry; Translations: [Other abnormal blood chemistry] Onset: 4 Episodic Other upper respiratory infections (2 sources) Upper respiratory infection; Translations: [Acute upper respiratory infection, unspecified] Episodic Residual codes; unclassified (20 sources) Sleep apnea; Translations: [Sleep apnea, unspecified] Onset: 2 03-18-2011 Chronic Screening and history of mental health and substance abuse codes (2 sources) Encounter for screening for depression; Translations: [Encounter for screening examination for other mental health and behavioral disorders] Onset: 4 Episodic Spondylosis; intervertebral disc disorders; other back problems (20 sources) Degeneration of lumbar intervertebral disc; Translations: [Other intervertebral disc degeneration, lumbar region] Onset: 9 07-11-2018 Chronic Thyroid disorders (20 sources) Hypothyroidism; Translations: [Hypothyroidism, unspecified] Onset: 6 05-15-2019 Chronic Past or Other Problems Problem Classification Problem Date Documented Da te Episodic/Chronic Deficiency and other anemia (20 sources) Iron deficiency anemia; Translations: [Iron deficiency anemia, unspecified] Onset: 04-26-2009 04-26-2009 Episodic Fluid and electrolyte disorders (20 sources) Hypokalemia; Translations: [Hypokalemia] Onset: 05-11-2019 05-15-2019 Episodic Gastritis and duodenitis (20 sources) Gastritis; Translations: [Gastritis, unspecified, without bleeding] Onset: 04-26-2009 Resolved: 09-18-2016 Episodic Intestinal obstruction without hernia (20 sources) Intestinal obstruction co-occurrent and due to decreased peristalsis; Translations: [Ileus, unspecified] Onset: 05-12-2019 05-15-2019 Episodic Menstrual disorders (12 sources) Menorrhagia; Translations: [Excessive and frequent menstruation with regular cycle] Onset: 02-17-2011 Resolved: 04-15-2011 04-15-2011 Chronic Other connective tissue disease (20 sources) Pain in bilateral legs; Translations: [Pain in right leg] Onset: 05-03-2017 05-03-2017 Episodic Other connective tissue disease (20 sources) History of lumbar fusion; Translations: [Arthrodesis status] Onset: 10-07-2018 10-07-2018 Episodic Other gastrointestinal disorders (20 sources) History of bypass of stomach; Translations: [Bariatric surgery status] Onset: 02-25-2009 05-15-2019 Episodic Pancreatic disorders (not diabetes) (20 sources) Acute pancreatitis; Translations: [Acute pancreatitis without necrosis or infection, unspecified] Onset: 05-09-2019 05-15-2019 Episodic Spondylosis; intervertebral disc disorders; other back problems (20 sources) Lumbar radiculopathy; Translations: [Radiculopathy, lumbar region] Onset: 07-11-2018 07-11-2018 Episodic Results Test Name Value Interpretation Reference Range Facility [facility] 12-15-2023 [facility] Telephone (FAMP[facility]) LIVIER ROMANO ([id number]) 1965 F Date Time Provider Department 12/15/23 NEGRA [facility] During your visit today, we recorded the following information about you: Angela Salinas RN 12/15/2023 8:50 AM Signed Patient states she began Mounjaro with added B12 yesterday. She is asking if she needs to continue her oral B12 supplements, or hold off on those while receiving it in the Mounjaro injection? States she has not had her Vit B12 levels checked recently, so unsure how to proceed. Of note, pt has appointment with Negra on 02/15 for 3 month follow up. Thank you. Negra Kuo APRN.JASON 12/15/2023 7:45 PM Signed She can continue her oral vitamin B12 supplement. We can check her B12 level in 3 months, I'm placing the order. Vitamin B12 is a water soluble vitamin, so too much will be excreted in her urine. Negra Kuo APRN.FACTORY ENGINEER Brooklynn Cohen MA 12/16/2023 8:22 AM Signed Pt informed Brooklynn Cohen MA Allergies As of Date: 12/15/2023 Noted Allergy Reaction DOTAREM (GADOTERATE MEGLUMINE) 03/07/2019 4 - Hives 9 - Itching 14 - Other: See Comments Comments: Pt developed a diffuse deep redness over upper torso and difficulty swallowing IOHEXOL 08/14/2021 14 - Other: See Comments Comments: Chest pain, nausea ANTI-INFLAMMATORY (NSAIDS (NON-ST*12/02/2018 14 - Other: See Comments LEVAQUIN (LEVOFLOXACIN) 03/04/2015 6 - Diarrhea LISINOPRIL 07/07/2017 3 - Cough PENICILLINS 12/09/2004 Date Reviewed: 11/24/2023 Reviewed by: Negra Kuo APRN.FACTORY ENGINEER - Fully Assessed Reason for Visit: Patient Question [1477] Primary Visit Diagnosis:Vitamin B12 deficiency [E53.8] Order(s):VITAMIN B12 [SQB12] Order #: [id number] FUTURE Prescriptions as of 12/16/2023 - tirzepatide (MOUNJARO) 2.5 mg/0.5 mL pen injector Inject 2.5 mg subcutaneously one time a week. - levothyroxine (SYNTHROID) 150 mcg tablet Take on empty stomach. For thyroid. Take 1 tablet 5 days per week. Take 1.5 tablets 2 days per week. - losartan (COZAAR) 50 mg tablet Take 1 tablet by mouth once daily. - nystatin (NYSTOP) powder Apply 1 application to affected area two times a day. To abdominal skin folds - pantoprazole DR (PROTONIX) 40 mg tablet Take 1 tablet by mouth daily before breakfast. Take on empty stomach, 1/2 hr before meal. - GEMTESA 75 mg tablet Take 1 tablet by mouth once daily. - levothyroxine (SYNTHROID) 150 mcg tablet TAKE 1 TABLET 5 DAYS WEEKLYAND 1 AND 1/2 TABLETS 2 DAYS WEEKLY ON AN EMPTY STOMACH FOR THYROID Problem List As Of Date 12/15/2023 Noted Resolved Hypothyroidism [E03.9] 10/30/2005 Gastric bypass status for obesity [Z98.84] 02/25/2009 Unspecified Iron Deficiency Anemia [D50.9] 04/26/2009 Acute gastritis without mention of hemorrhage [*04/26/2009 09/18/2016 Menorrhagia [N92.0] 02/17/2011 04/15/2011 Sleep apnea [G47.30] 03/18/2011 Overactive bladder [N32.81] 03/15/2012 Urge incontinence [N39.41] 03/15/2012 Gastroesophageal reflux disease [K21.9] 09/18/2016 Bilateral leg pain [M79.604, M79.605] 05/03/2017 Obesity, Class III, BMI 40-49.9 (morbid obesity*06/02/2017 Hypertension, essential [I10] 07/07/2017 DDD (degenerative disc disease), lumbar [M51.36*07/11/2018 Lumbar radiculopathy [M54.16] 07/11/2018 S/P lumbar spinal fusion [Z98.1] 10/07/2018 Acute pancreatitis [K85.90] 05/09/2019 Biliary stricture [K83.1] 05/09/2019 Leukocytosis [D72.829] 05/11/2019 Hypokalemia [E87.6] 05/11/2019 Ileus (HCC) [K56.7] 05/12/2019 Patellofemoral arthritis [M17.10] 07/15/2021 Degeneration of lumbar intervertebral disc [M51*07/15/2021 Spinal stenosis, lumbar region, without neuroge*08/13/2021 Encounter Status:Closed by BROOKLYNN COHEN on 12/16/23 [facility] [place] 12-06-2023 JASONN Telephone (GARRY) LIVIER ROMANO ([id number]) 1965 F Date Time Provider Department 12/06/23 NEGRA KUO During your visit today, we recorded the following information about you: Sudha Barker RN 12/06/2023 6:07 PM Signed patient is calling in concerning the rx for mounjaro. patient states that rx is high priced than stated in the office. pharmacy instructed patient it is due to the they are having them add vitamin b12 to the injection. patient states that she already takes prescribed vitamin b12 so she is wondering if this is needed to be added, does she need both b 12 doses, or should she stop the oral b12. please review and advise, patient needs called back with information Hortensia Augustin LPN 12/09/2023 8:46 AM Signed patient is calling back wanting a response about the mounjaro with the added B12. patient stated that it is a lot more expensive. Patient is already taking orally B12 and is wanting to know if she would be over dosing if she takes it with the added B12? Also she had blood work done but did not have a B12 level checked. Please review and advise. BRITTNEY Biswas Rebekah, APRN.CNP 12/14/2023 9:46 PM Signed I don't know whether the oral B12 will help as well as added to the injection. We can try the injection without the addition of the B12 and see how she tolerates it. I reordered the Mounjaro without the B12 added to the injection. Negra Kuo APRN.JASON The following approved medication requests have been transmitted electronically. Requested Prescriptions Signed Prescriptions Disp Refills tirzepatide (MOUNJARO) 2.5 mg/0.5 mL pen injector 2 mL 2 Sig: Inject 2.5 mg subcutaneously one time a week. Authorizing Provider: NEGRA KUO APRN.CNP Babulski, Amanda, RN 12/15/2023 8:38 AM Signed Called and left a voicemail for the Patient to call back and ask for a nurse to receive the providers message. DEREK Shelby Sherrie, RN 12/15/2023 8:50 AM Signed Patient returned call. See phone encounter for 12/15/23, with latest details. Angela Salinas RN Allergies As of Date: 12/06/2023 Noted Allergy Reaction DOTAREM (GADOTERATE MEGLUMINE) 03/07/2019 4 - Hives 9 - Itching 14 - Other: See Comments Comments: Pt developed a diffuse deep redness over upper torso and difficulty swallowing IOHEXOL 08/14/2021 14 - Other: See Comments Comments: Chest pain, nausea ANTI-INFLAMMATORY (NSAIDS (NON-ST*12/02/2018 14 - Other: See Comments LEVAQUIN (LEVOFLOXACIN) 03/04/2015 6 - Diarrhea LISINOPRIL 07/07/2017 3 - Cough PENICILLINS 12/09/2004 Date Reviewed: 11/24/2023 Reviewed by: Negra Kuo APRN.FACTORY ENGINEER - Fully Assessed Reason for Visit: Medication Question [6078] Visit Diagnosis:Morbid obesity (HCC) [E66.01] Order(s):tirzepatide (MOUNJARO) 2.5 mg/0.5 mL pen injectorInject 2.5 mg subcutaneously one time a week.Disp: 2 mLRfl: 2 Prescriptions as of 12/15/2023 - tirzepatide (MOUNJARO) 2.5 mg/0.5 mL pen injector Inject 2.5 mg subcutaneously one time a week. - levothyroxine (SYNTHROID) 150 mcg tablet Take on empty stomach. For thyroid. Take 1 tablet 5 days per week. Take 1.5 tablets 2 days per week. - losartan (COZAAR) 50 mg tablet Take 1 tablet by mouth once daily. - nystatin (NYSTOP) powder Apply 1 application to affected area two times a day. To abdominal skin folds - pantoprazole DR (PROTONIX) 40 mg tablet Take 1 tablet by mouth daily before breakfast. Take on empty stomach, 1/2 hr before meal. - GEMTESA 75 mg tablet Take 1 tablet by mouth once daily. - levothyroxine (SYNTHROID) 150 mcg tablet TAKE 1 TABLET 5 DAYS WEEKLYAND 1 AND 1/2 TABLETS 2 DAYS WEEKLY ON AN EMPTY STOMACH FOR THYROID Problem List As Of Date 12/06/2023 Noted Resolved Hypothyroidism [E03.9] 10/30/2005 Gastric bypass status for obesity [Z98.84] 02/25/2009 Unspecified Iron Deficiency Anemia [D50.9] 04/26/2009 Acute gastritis without mention of hemorrhage [*04/26/2009 09/18/2016 Menorrhagia [N92.0] 02/17/2011 04/15/2011 Sleep apnea [G47.30] 03/18/2011 Overactive bladder [N32.81] 03/15/2012 Urge incontinence [N39.41] 03/15/2012 Gastroesophageal reflux disease [K21.9] 09/18/2016 Bilateral leg pain [M79.604, M79.605] 05/03/2017 Obesity, Class III, BMI 40-49.9 (morbid obesity*06/02/2017 Hypertension, essential [I10] 07/07/2017 DDD (degenerative disc disease), lumbar [M51.36*07/11/2018 Lumbar radiculopathy [M54.16] 07/11/2018 S/P lumbar spinal fusion [Z98.1] 10/07/2018 Acute pancreatitis [K85.90] 05/09/2019 Biliary stricture [K83.1] 05/09/2019 Leukocytosis [D72.829] 05/11/2019 Hypokalemia [E87.6] 05/11/2019 Ileus (HCC) [K56.7] 05/12/2019 Patellofemoral arthritis [M17.10] 07/15/2021 Degeneration of lumbar intervertebral disc [M51*07/15/2021 Spinal stenosis, lumbar region, without neuroge*08/13/2021 (more content not included)... Normal [facility] CBC panel Auto (Bld)on 11-25 Erythrocyte distribution width (RBC) [Ratio] 12.4 % Normal 11.5-15.0 [facility] Comment on above: Order Comment: Speci men Type: BLOOD SPECIMENOrdering Facility: [facility] Address: [address] [place] [address] Performed By: #### 5 8410-2 ####[facility] LABCLIA [id number] [place] [address] [place] Hematocrit (Bld) [Volume fraction] 45.4 % Normal 36.0-46.0 [facility] Comment on above: Order Comment: Speci men Type: BLOOD SPECIMENOrdering Facility: [facility] Address: [address] [place] [address] Performed By: #### 5 8410-2 ####[facility] LABIA [id number] [place] [address] [place] Hemoglobin (Bld) [Mass/Vol] 15.2 g/dL Normal 11.5-15.5 [facility] Comment on above: Order Comment: Speci men Type: BLOOD SPECIMENOrdering Facility: [facility] Address: [address] [place] [address] Performed By: #### 5 8410-2 ####[facility] LABIA [id number] [place] [address] [place] MCH (RBC) [Entitic mass] 32.4 pg Normal 26.0-34.0 [facility] Comment on above: Order Comment: Speci men Type: BLOOD SPECIMENOrdering Facility: [facility] Address: [address] [place] [address] Performed By: #### 5 8410-2 ####[facility] [id number] [place] [address] [place] MCHC (RBC) [Mass/Vol] 33.5 g/dL Normal 30.5-36.0 [facility] Comment on above: Order Comment: Speci men Type: BLOOD SPECIMENOrdering Facility: [facility] Address: [address] [place] [address] Performed By: #### 5 8410-2 ####[facility] LABIA [id number] [place] [address] [place] MCV (RBC) [Entitic vol] 96.8 fL Normal 80.0-100.0 [facility] Comment on above: Order Comment: Speci men Type: BLOOD SPECIMENOrdering Facility: [facility] Address: [address] [place] [address] Performed By: #### 5 8410-2 ####[facility] [id number] [place] [id number] [place] Nucleated RBC (Bld) [#/Vol] 10*3/uL Normal <0.01 [facility] Comment on above: Order Comment: Speci men Type: BLOOD SPECIMENOrdering Facility: [facility] Address: [address] [place] [address] Performed By: #### 5 8410-2 ####[facility] LABCLIA [id number] [place] [address] [place] Platelet mean volume (Bld) [Entitic vol] 10.1 fL Normal 9.0-12.7 [facility] Comment on above: Order Comment: Speci men Type: BLOOD SPECIMENOrdering Facility: [facility] Address: [address] [place] [address] Performed By: #### 5 8410-2 ####[facility] LABCLIA [id number] [place] [address] [place] Platelets (Bld) [#/Vol] 283 10*3/uL Normal 150-400 [facility] Comment on above: Order Comment: Speci men Type: BLOOD SPECIMENOrdering Facility: [facility] Address: [address] [place] [address] Performed By: #### 5 8410-2 ####[facility] LABCLIA [id number] [place] [address] [place] RBC (Bld) [#/Vol] 4.69 10*6/uL Normal 3.90-5.20 [facility] Comment on above: Order Comment: Speci men Type: BLOOD SPECIMENOrdering Facility: [facility] Address: [address] [place] [address] Performed By: #### 5 8410-2 ####[facility] LABCLIA [id number] [place] [address] [place] WBC (Bld) [#/Vol] 6.73 10*3/uL Normal 3.70-11.00 [facility] Comment on above: Order Comment: Speci men Type: BLOOD SPECIMENOrdering Facility: [facility] Address: [address] [place] [address] Performed By: #### 5 8410-2 ####[facility] LABCLIA [id number] [place] [address] [place] Comprehensive metabolic 2000 panelon 11-26-2023 Albumin [Mass/Vol] 3.9 g/dL Normal 3.9-4.9 [facility] Comment on above: Order Comment: Speci men Type: BLOOD SPECIMEN Ordering Facility: [facility] Address: [address] [place] [address] Performed By: #### 3 024-7, 11601-3, 06121-3, 3016-3 #### [facility] LAB CLIA [id number] [address] [place] [address] [place] ALP [Catalytic activity/Vol] 115 U/L Normal 34-123 [facility] Comment on above: Order Comment: Speci men Type: BLOOD SPECIMEN Ordering Facility: [facility] Address: [address] [place] [address] Performed By: #### 3 024-7, 75735-2, 55378-8, 3016-3 #### [facility] CLIA [id number] [address] [place] [address] [place] ALT [Catalytic activity/Vol] 39 U/L High 7-38 [facility] Comment on above: Order Comment: Speci men Type: BLOOD SPECIMEN Ordering Facility: [facility] Address: [address] [place] [address] Performed By: #### 3 024-7, 68480-6, 51678-8, 3016-3 #### [facility] CLIA [id number] [address] [place] [address] [place] Anion gap [Moles/Vol] 10 mmol/L Normal 8-15 [facility] Comment on above: Order Comment: Speci men Type: BLOOD SPECIMEN Ordering Facility: [facility] Address: [address] [place] [address] Performed By: #### 3 024-7, 84517-5, 59779-0, 3016-3 #### [facility] CLIA [id number] [address] [place] [address] [place] AST [Catalytic activity/Vol] 40 U/L High 13-35 [facility] Comment on above: Order Comment: Speci men Type: BLOOD SPECIMEN Ordering Facility: [facility] Address: [address] [place] [address] Performed By: #### 3 024-7, 34316-5, 93575-8, 6-3 #### [facility] CLIA [id number] [address] [place] [address] [place] Bilirubin [Mass/Vol] 0.5 mg/dL Normal 0.2-1.3 [facility] Comment on above: Order Comment: Speci men Type: BLOOD SPECIMEN Ordering Facility: [facility] Address: [address] [place] [address] Performed By: #### 3 024-7, 51278-1, 26351-0, 6-3 #### [facility] CLIA [id number] [address] [place] [address] [place] Calcium [Mass/Vol] 8.9 mg/dL Normal 8.5-10.2 [facility] Comment on above: Order Comment: Speci men Type: BLOOD SPECIMEN Ordering Facility: [facility] Address: [address] [place] [address] Performed By: #### 3 024-7, 20179-1, 39131-8, 3016-3 #### [facility] CLIA [id number] [address] [place] [address] [place] Chloride [Moles/Vol] 102 mmol/L Normal 98-107 [facility] Comment on above: Order Comment: Speci men Type: BLOOD SPECIMEN Ordering Facility: [facility] Address: [address] [place] [address] Performed By: #### 3 024-7, 42853-7, 99838-8, 3016-3 #### [facility] CLIA [id number] [address] [place] [address] [place] CO2 [Moles/Vol] 26 mmol/L Normal 22-30 [facility] Comment on above: Order Comment: Speci men Type: BLOOD SPECIMEN Ordering Facility: [facility] Address: [address] [place] [address] Performed By: #### 3 024-7, 32651-1, 28439-2, 3016-3 #### [facility] CLIA [id number] [address] [place] [address] [place] Creatinine [Mass/Vol] 0.77 mg/dL Normal 0.58-0.96 [facility] Comment on above: Order Comment: Speci men Type: BLOOD SPECIMEN Ordering Facility: [facility] Address: [address] [place] [address] Performed By: #### 3 024-7, 55750-1, 47559-9, 3016-3 #### [facility] CLIA [id number] [address] [place] [address] [place] Creatinine and Glomerular filtration rate.predicted panel (S/P/Bld) 90 mL/min/1.73m??? Normal >=60 [facility] Comment on above: Order Comment: Tonei men Type: BLOOD SPECIMEN Ordering Facility: [facility] Address: [address] [place] [address] Result Comment: Luz mated Glomerular Filtration Rate (eGFR) is calculated using the 2020 CKD-EPI creatinine equation. This equation utilizes serum creatinine, sex, and age as parameters. The creatinine assay has traceable calibration to isotope dilution-mass spectrometry. Refer to KDIGO guidelines for clinical interpretation. In patients with unstable renal function, e.g. those with acute kidney injury, the eGFR may not accurately reflect actual GFR. Performed By: #### 3 024-7, 07311-6, 94951-7, 3016-3 #### [facility] CLIA [id number] [address] [place] [address] [place] Glucose [Mass/Vol] 126 mg/dL High 74-99 [facility] Comment on above: Order Comment: Speci men Type: BLOOD SPECIMEN Ordering Facility: [facility] Address: [address] [place] [address] Result Comment: The [place] Diabetes Association (ADA) provides guidance for cutoff values for fasting glucose and random glucose. The ADA defines fasting as no caloric intake for at least 8 hours. Fasting plasma glucose results between 100 to 125 [...] Standards of Medical Care in Diabetes 2016, [place] Diabetes Association. Diabetes Care. 2016.39(Suppl 1). Performed By: #### 3 024-7, 76711-9, 29973-3, 6-3 #### [facility] CLIA [id number] [address] [place] [address] [place] Potassium [Moles/Vol] 3.9 mmol/L Normal 3.7-5.1 [facility] Comment on above: Order Comment: Speci men Type: BLOOD SPECIMEN Ordering Facility: [facility] Address: [address] [place] [address] Performed By: #### 3 024-7, 48583-3, 82297-0, 3016-3 #### [facility] CLIA [id number] [address] [place] [address] [place] Protein [Mass/Vol] 6.8 g/dL Normal 6.3-8.0 [facility] Comment on above: Order Comment: Speci men Type: BLOOD SPECIMEN Ordering Facility: [facility] Address: [address] [place] [address] Performed By: #### 3 024-7, 22841-8, 73563-6, 3016-3 #### [facility] CLIA [id number] [address] [place] [address] [place] Sodium [Moles/Vol] 138 mmol/L Normal 136-144 [facility] Comment on above: Order Comment: Speci men Type: BLOOD SPECIMEN Ordering Facility: [facility] Address: [address] [place] [address] Performed By: #### 3 024-7, 04000-3, 85492-1, 3016-3 #### [facility] CLIA [id number] [address] [place] [address] [place] Urea nitrogen [Mass/Vol] 16 mg/dL Normal 7-21 [facility] Comment on above: Order Comment: Speci men Type: BLOOD SPECIMEN Ordering Facility: [facility] Address: [address] [place] [address] Performed By: #### 3 024-7, 15846-9, 35148-4, 3016-3 #### [facility] CLIA [id number] [address] [place] [address] [place] HbA1c (Bld)on 11-26-2023 Average glucose Estimated from glycated hemoglobin (Bld) [Mass/Vol] 100 mg/dL Normal [facility] Comment on above: Order Comment: Speci men Type: BLOOD SPECIMEN Ordering Facility: [facility] Address: [address] [place] [address] Result Comment: eAG: (Estimated average glucose) is a calculated value from HgbA1c and is sales representative leather goods of the average blood glucose level in the last 2-3 month period. Performed By: #### 5 5454-3 #### [facility] CLIA [id number] [address] [place] [address] [place] HbA1c (Bld) [Mass fraction] 5.1 % Normal 4.3-5.6 [facility] Comment on above: Order Comment: Cristofer imelda Type: BLOOD SPECIMEN Ordering Facility: [facility] Address: [address] [place] [address] Result Comment: [place] Diabetes Association guidelines indicate that patients with HgbA1c in the range 5.7-6.4% are at increased risk for development of diabetes, and intervention by lifestyle modification may be beneficial. HgbA1c greater or equal to 6.5% is considered diagnostic of diabetes. Performed By: #### 5 5454-3 #### [facility] CLIA [id number] [address] [place] [address] [place] Lipid 1996 panelon 4 Cholesterol [Mass/Vol] 180 mg/dL Normal <200 [facility] Comment on above: Order Comment: Cristofer segura Type: BLOOD SPECIMEN Ordering Facility: [facility] Address: [address] [place] [address] Result Comment: <200 mg/dL, Desirable 200-239 mg/dL, Borderline high >239 mg/dL, High Performed By: #### 3 024-7, 32169-7, 03691-4, 3016-3 #### [facility] CLIA [id number] [address] [place] [address] [place] Cholesterol in HDL [Mass/Vol] 58 mg/dL Normal >39 [facility] Comment on above: Order Comment: Cristofer imelda Type: BLOOD SPECIMEN Ordering Facility: [facility] Address: [address] [place] [address] Result Comment: 40-5 9 mg/dL, Acceptable >59 mg/dL, High: Negative risk factor for coronary heart disease <40 mg/dL, Low: Positive risk factor for coronary heart disease Performed By: #### 3 024-7, 42278-1, 51843-0, 3016-3 #### [facility] CLIA [id number] [address] [place] [address] [place] Cholesterol in LDL [Mass/Vol] 104 mg/dL High <100 [facility] Comment on above: Order Comment: Cristofer segura Type: BLOOD SPECIMEN Ordering Facility: [facility] Address: [address] [place] [address] Result Comment: <100 mg/dL, Optimal 100-129 mg/dL, Near optimal/above optimal 130-159 mg/dL, Borderline high 160-189 mg/dL, High >189 mg/dL, Very high Secondary prevention optimal LDL Cholesterol levels are recommended to be < 70 mg/dL Performed By: #### 3 024-7, 25021-9, 48068-9, 3016-3 #### [facility] CLIA [id number] [address] [place] [address] [place] Cholesterol in LDL/Cholesterol in HDL [Mass ratio] 1.79 {ratio} Normal <2.54 [facility] Comment on above: Order Comment: Cristofer segura Type: BLOOD SPECIMEN Ordering Facility: [facility] Address: [address] [place] [address] Result Comment: Joyce espino: 1. National Cholesterol Education Program ATP III Guideline At-A-Glance Quick Desk Reference: National Heart, Lung, and Blood [place]. National Institutes of Health. 2001: NIH Publication No. 01-3305. 2. An International Atherosclerosis Society position paper: global recommendations for the management of dyslipidemia: executive summary, Atherosclerosis. 2014: 232(2):410-413. Performed By: #### 3 024-7, 18529-0, 07322-3, 3016-3 #### [facility] CLIA [id number] [address] [place], [place] [address] [place] [address] [place] Cholesterol in VLDL [Mass/Vol] 18 mg/dL Normal <30 [facility] Comment on above: Order Comment: Cristofer segura Type: BLOOD SPECIMEN Ordering Facility: [facility] Address: [address] [place] [address] Performed By: #### 3 024-7, 55694-6, 43030-8, 3016-3 #### [facility] CLIA [id number] [address] [place], [place] [address] [place] [address] [place] Cholesterol non HDL [Mass/Vol] 122 mg/dL Normal <130 [facility] Comment on above: Order Comment: Speci men Type: BLOOD SPECIMEN Ordering Facility: [facility] Address: [address] [place] [address] Result Comment: <130 mg/dL, Optimal 130-159 mg/dL, Near optimal/above optimal 160-189 mg/dL, Borderline high 190-219 mg/dL, High >219 mg/dL, Very high Secondary prevention optimal non HDL Cholesterol levels are recommended to be <100 mg/dL Performed By: #### 3 024-7, 61038-7, 77559-6, 3016-3 #### [facility] CLIA [id number] [address] [place] [address] [place] Cholesterol.total/Ch olesterol in HDL [Mass ratio] 3.10 {ratio} Normal <5.10 [facility] Comment on above: Order Comment: Speci men Type: BLOOD SPECIMEN Ordering Facility: [facility] Address: [address] [place] [address] Performed By: #### 3 024-7, 70432-2, 12104-3, 3016-3 #### [facility] CLIA [id number] [address] [place] [address] [place] FASTING TIME 12 hrs Normal [facility] Comment on above: Order Comment: Speci men Type: BLOOD SPECIMEN Ordering Facility: [facility] Address: [address] [place] [address] Performed By: #### 3 024-7, 80725-9, 82123-1, 3016-3 #### [facility] CLIA [id number] [address] [place] [address] [place] Triglyceride [Mass/Vol] 88 mg/dL Normal <150 [facility] Comment on above: Order Comment: Speci men Type: BLOOD SPECIMEN Ordering Facility: [facility] Address: [address] [place] [address] Result Comment: <150 mg/dL, Normal 150-199 mg/dL, Borderline high 200-499 mg/dL, High >499 mg/dL, Very high Performed By: #### 3 024-7, 68604-9, 29535-0, 3016-3 #### [facility] CLIA [id number] [address] [place] [address] [place] T4 Free SerPl-mCncon 024 Free T4 [Mass/Vol] 1.7 ng/dL Normal 0.9-1.7 [facility] Comment on above: Order Comment: Speci men Type: BLOOD SPECIMENOrdering Facility: [facility] Address: [address] [place] [address] Performed By: #### 3 024-7, 31891-1, 13091-6, 3016-3 ####[facility] [id number] [place] [address] [place] TSH SerPl-aCncon 11-26-2023 TSH Qn 2.820 m[IU]/L Normal 0.270-4.200 [facility] Comment on above: Order Comment: Speci men Type: BLOOD SPECIMENOrdering Facility: [facility] Address: [address] [place] [address] Performed By: #### 3 024-7, 45385-4, 81254-6, 3016-3 ####[facility] [id number] [address] [place] CNPDestiney 11-25-2023 CNPN Telephone (INTMWS) LIVIER ROMANO ([id number]) 1965 F Date Time Provider Department 11/25/23 SHIELANEGRA BOLANOS During your visit today, we recorded the following information about you: Audra JonesBRITTNEY 11/25/2023 1:42 PM Signed Electronic PA rec'd and completed for mounjaro. This is not covered for weight loss. It was denied. Note from payer: Your PA request has been denied. Additional information will be provided in the denial communication. (Message 1140) Payer: [employer] [phone] Electronic appeal: Not supported Appeal instructions: Your PA request has been denied. Additional information will be provided in the denial communication. (Message 1140) View History Notes Time User Attachment Attachment received from payer. 11/25/2023 11:55 AM [facility], Rx Priorauth In Document Medication Being Authorized tirzepatide (MOUNJARO) 2.5 mg/0.5 mL pen injector Inject 2.5 mg subcutaneously one time a week. Dispense: 2 mL Refills: 2 Start: 11/24/2023 End: 02/22/2024 Class: Normal Diagnoses: Hypothyroidism, unspecified type; Hypertension, essential; Morbid obesity (HCC) This order has been released to its destination. To be filled at: [facility] [address] [place] [address] [address] [facility] - [phone] Audra JonesBRITTNEY 11/25/2023 4:35 PM Signed Pt notified via my chart. Allergies As of Date: 11/25/2023 Noted Allergy Reaction DOTAREM (GADOTERATE MEGLUMINE) 03/07/2019 4 - Hives 9 - Itching 14 - Other: See Comments Comments: Pt developed a diffuse deep redness over upper torso and difficulty swallowing IOHEXOL 08/14/2021 14 - Other: See Comments Comments: Chest pain, nausea ANTI-INFLAMMATORY (NSAIDS (NON-ST*12/02/2018 14 - Other: See Comments LEVAQUIN (LEVOFLOXACIN) 03/04/2015 6 - Diarrhea LISINOPRIL 07/07/2017 3 - Cough PENICILLINS 12/09/2004 Date Reviewed: 11/24/2023 Reviewed by: Negra Kuo APRN.FACTORY ENGINEER - Fully Assessed Reason for Visit: Insurance Authorization [[id number]] Prescriptions as of 11/25/2023 - tirzepatide (MOUNJARO) 2.5 mg/0.5 mL pen injector Inject 2.5 mg subcutaneously one time a week. - levothyroxine (SYNTHROID) 150 mcg tablet Take on empty stomach. For thyroid. Take 1 tablet 5 days per week. Take 1.5 tablets 2 days per week. - losartan (COZAAR) 50 mg tablet Take 1 tablet by mouth once daily. - nystatin (NYSTOP) powder Apply 1 application to affected area two times a day. To abdominal skin folds - pantoprazole DR (PROTONIX) 40 mg tablet Take 1 tablet by mouth daily before breakfast. Take on empty stomach, 1/2 hr before meal. - GEMTESA 75 mg tablet Take 1 tablet by mouth once daily. - levothyroxine (SYNTHROID) 150 mcg tablet TAKE 1 TABLET 5 DAYS WEEKLYAND 1 AND 1/2 TABLETS 2 DAYS WEEKLY ON AN EMPTY STOMACH FOR THYROID Problem List As Of Date 11/25/2023 Noted Resolved Hypothyroidism [E03.9] 10/30/2005 Gastric bypass status for obesity [Z98.84] 02/25/2009 Unspecified Iron Deficiency Anemia [D50.9] 04/26/2009 Acute gastritis without mention of hemorrhage [*04/26/2009 09/18/2016 Menorrhagia [N92.0] 02/17/2011 04/15/2011 Sleep apnea [G47.30] 03/18/2011 Overactive bladder [N32.81] 03/15/2012 Urge incontinence [N39.41] 03/15/2012 Gastroesophageal reflux disease [K21.9] 09/18/2016 Bilateral leg pain [M79.604, M79.605] 05/03/2017 Obesity, Class III, BMI 40-49.9 (morbid obesity*06/02/2017 Hypertension, essential [I10] 07/07/2017 DDD (degenerative disc disease), lumbar [M51.36]07/11/2018 Lumbar radiculopathy [M54.16] 07/11/2018 S/P lumbar spinal fusion [Z98.1] 10/07/2018 Acute pancreatitis [K85.90] 05/09/2019 Biliary stricture [K83.1] 05/09/2019 Leukocytosis [D72.829] 05/11/2019 Hypokalemia [E87.6] 05/11/2019 Ileus (HCC) [K56.7] 05/12/2019 Patellofemoral arthritis [M17.10] 07/15/2021 Degeneration of lumbar intervertebral disc [M51*07/15/2021 Spinal stenosis, lumbar region, without neuroge*08/13/2021 Encounter Status:Closed by AUDRA JONES on 11/25/23 [facility] CNOVon 11-24-2023 CNOV Office Visit (FAMPWS ) LIVIER ROMANO ([id number]) 1965 F Date Time Provider Department 11/24/23 4:00 PM [facility] your visit today, we recorded the following information about you: Pulse Respiration Blood pressure Weight 64/minute 16/minute 122/78 103.6 kg Height 1.52 m Negra Kuo APRN.FACTORY ENGINEER 11/24/2023 6:26 PM Signed Chief Complaint Patient presents with: Physical: Discuss weight loss options HPI Livier Roweton is a 58 year old female who presents here today for Above Complaints. Here today for her yearly physical. Denies CP, SOB, palpitations, new or persistent h/a, increased thirst or urination, difficulty swallowing. Weight-has been doing Weight Watchers since the beginning of this year. Will lose 15 pounds, then gain 5 overnight. Feels like she can't do more than 10-15 and then plateaus. Walks every single day. Past medical history, appointments, medications, allergies reviewed. Previous Medical History PAST MEDICAL HISTORY Diagnosis Date GERD (gastroesophageal reflux disease) Hypertension, essential 07/07/2017 Hypothyroid Iron deficiency anemia, unspecified Rosacea S/P lumbar spinal fusion 10/07/2018 Sleep apnea Snoring Unspecified inflammatory disease of female pelvic organs and tissues Previous Surgical History PAST SURGICAL HISTORY Procedure Laterality Date ABDOMINAL SURGERY HX APPENDECTOMY 1985 APPENDECTOMY HX BACK SURGERY HX CATHETER, ABLATION thermachoice DELIVERY ONLY COLONOSCOPY 09/29/2016 small benign hyperplastic polyp, otherwise normal-repeat in 10 years COLONOSCOPY 06/18/2022 EGD TRANSORAL BIOPSY SINGLE/MULTIPLE 04/26/2009 EYE SURGERY HX GASTRIC BYPASS 04/2004 laparoscopic Keira-en-Y gastric bypass at [facility] ICAPSULAR CATARACT XTRJ INSJ IO LENS PRSTH 1 STG o.u. PAST SURGICAL HISTORY OF DANDC x 2 REMOVAL GALLBLADDER TONSILLECTOMY HX TONSILLECTOMY PRIMARY/SECONDARY Tonsillectomy Family History FAMILY HISTORY Problem Relation Age of Onset Osteoporosis Mother Arthritis Mother Lung Cancer Mother other (Dementia) Father Arthritis Daughter Rheumatoid Patient Allergies ALLERGIES Allergen Reactions Dotarem [Gadoterate* Hives, Itching, Other: See Comments Pt developed a diffuse deep redness over upper torso and difficulty swallowing Iohexol Other: See Comments Chest pain, nausea Anti-Inflammatory [* Other: See Comments Levaquin [Levofloxa* Diarrhea Lisinopril Cough Penicillins Current Medications Current Outpatient Medications on File Prior to Visit Medication Sig MEDICATION, NON-DATABASE 500 mg. Tumeric levothyroxine (SYNTHROID) 150 mcg tablet Take on empty stomach. For thyroid. Take 1 tablet 5 days per week. Take 1.5 tablets 2 days per week. losartan (COZAAR) 50 mg tablet Take 1 tablet by mouth once daily. nystatin (NYSTOP) powder Apply 1 application to affected area two times a day. To abdominal skin folds pantoprazole DR (PROTONIX) 40 mg tablet Take 1 tablet by mouth daily before breakfast. Take on empty stomach, 1/2 hr before meal. GEMTESA 75 mg tablet Take 1 tablet by mouth once daily. levothyroxine (SYNTHROID) 150 mcg tablet TAKE 1 TABLET 5 DAYS WEEKLYAND 1 AND 1/2 TABLETS 2 DAYS WEEKLY ON AN EMPTY STOMACH FOR THYROID vitamin B complex (B COMPLEX-VITAMIN B12 ORAL) Take by mouth. peg 3350-Electrolytes (GOLYTELY) 236-22.74-6.74 -5.86 gram suspension Refer to printed patient instructions that will be mailed to you. (Patient not taking: Reported on 11/11/2022) TURMERIC ORAL Take 1,200 mg by mouth twice daily. (Patient not taking: Reported on 11/11/2022) No current facility-administered medications on file prior to visit. Social History Social History Tobacco Use Smoking status: Never Smokeless tobacco: Never Substance Use Topics Alcohol use: Yes Comment: Occasionally Drug use: No Review of Symptoms REVIEW OF SYSTEMS See HPI, otherwise negative EXAM: BP 122/78 (BP Site: Left Arm, BP Position: Sitting, BP Cuff Size: Regular Adult) Pulse 64 Resp 16 Ht 152 cm (4' 11.84 ) Wt 103.6 kg (228 lb 6.3 oz) LMP 08/18/2016 SpO2 97% BMI 44.84 kg/m? General Appearance: Well appearing, alert, in no acute distress, well-hydrated, well nourished. and Morbidly obese. Skin: Skin color, texture, turgor normal, no suspicious rashes or lesions. Head: Normocephalic, no masses, lesions, tenderness or abnormalities. Eyes: Anicteric sclera. Pupils are equally round and reactive to light. Extraocular movements are intact. . Ears: External ears normal, canals clear. Nose/Sinuses: Nares normal, septum midline, mucosa normal, no drainage or sinus tenderness. Oropharynx: Lips, mucosa, and tongue normal, teeth and gums normal, oropharynx normal. Neck: Supple, no adenopathy; thyroid symmetric, normal size, no bruits. Back: (more content not included)... Normal [facility] [facility] LIVIER ROMANO ([id number]) 1965 F Date Time Provider Department 11/24/23 NEGRA KUO [facility] During your visit today, we recorded the following information about you: Johanna Guzman RN 11/24/2023 5:32 PM Signed Patient calling to let provider know she had pancreatitis in 2019 with F hospital admission. She is asking if still okay to take Mounjaro? DEREK Santiago Krystle, RN 11/30/2023 4:32 PM Signed Patient calls back to add to the below message. She reports that insurance company is recommending an appeal for Mounjaro. Patient reports before moving forward with that she would like to verify that Mounjaro would be right for her given her history of pancreatitis. Also, reports that if provider feels it is ok to proceed and doesn't feel that an appeal is going to work she would like to proceed with the [facility] as discussed. DEREK Sterling Rebekah, APRN.JASON 11/30/2023 4:38 PM Signed I apologize, I just heard back from our pharmacist today regarding using Mounjaro in the past. Since she just had the 1 episode of pancreatitis and it was several years ago, she feels it would be safe to try the Mounjaro. JOSE Simmons Susan LPN 11/30/2023 5:00 PM Signed Pt. informed . For appeal needs Medical [place] [id number] Group [id number] Why Rx is needed clinical evidence statement why appeal should be approved. Negra Kuo APRN.CNP 12/01/2023 6:59 AM Signed Please route to PA. JOSE Simmons Janice, LPN 12/01/2023 10:19 AM Signed Mounajro is not covered with any insurance for weight loss. PA was denied for this reason. It is covered for diabetes only after trying multiple formulary medicines first. No appeal needed. Denial reason from insurance. Prescriber Name: Negra Kuo Prescriber Phone: [phone] Prescriber Fax: [phone] Dear LIVIER ROMANO: [facility]? received a request for coverage of Mounjaro (tirzepatide) for you. This is the initial adverse determination for this request. The request was denied because: Your plan only covers this drug when it is used for certain health conditions. Covered use is for type 2 diabetes mellitus. Your plan does not cover the drug for your health condition that your doctor told us you have. We reviewed the information we had. Your request has been denied. Your doctor can send us any new or missing information for us to review. For this drug, you may have to meet other criteria. You can request the drug policy for more details. You can also request other plan documents for your review. You may ask for a free copy of the actual benefit provision, guideline, protocol or other similar criterion used to make the decision and any other information related to this decision by calling Customer Care toll-free at the number on your benefit ID card. You may also choose to purchase this medicine at your own expense. For more information regarding your prescription benefit, please refer to the prescription benefit Negra Kuo APRN.CNP 12/01/2023 10:48 AM Signed Please let patient know below. Confirm she would like me to send to the [facility] and I'll get it sent in today. JOSE Simmons Jazzmin, MA 12/01/2023 11:22 AM Signed Pt informed. Please send script to [facility] pharmacy. CAROLINE Davis Rebekah, APRN.CNP 12/01/2023 11:31 AM Signed Rx sent to [facility]. The following approved medication requests have been transmitted electronically. Requested Prescriptions Signed Prescriptions Disp Refills tirzepatide (MOUNJARO) 2.5 mg/0.5 mL pen injector 2 mL 2 Sig: Inject 2.5 mg subcutaneously one time a week. Authorizing Provider: NEGRA KUO APRN.CNP McCullough, Krystle, RN 12/01/2023 4:19 PM Signed Patient calls with question about Mounjaro. Patient reports that medication is $20 more than originally quoted because they are adding B-12 to the injection. Patient reports that she takes oral vitamin B-12 and asking if it is better for the B-12 to be in the injection and stop taking the oral or if should be doing both and if to continue B-12 oral what dose is recommended? DEERK Sterling Rebekah, APRN.CNP 12/01/2023 5:14 PM Signed If she wants, she can do it without the vitamin B12 in the injection and try it with the oral. The oral B12 may possibly help, but isn't nearly as effective. Negra Kuo APRN.Brooklynn Davis MA 12/01/2023 6:40 PM Signed Left message to return call CAROLINE Davis Stephanie, RN 12/02/2023 12:29 PM Signed Patient calls back and notified of below. Patient states that her question is should she take both the oral and injection of B12? Patie (more content not included)... Normal [facility] US ABDOMEN COMPLETEon 2022 [facility] No Panel Informationon 12-03 [facility] CBC W Auto Differential pane l (Bld)on 08-03-2022 Basophils (Bld) [#/Vol] 0.05 10*3/uL <0.11 k/uL [facility] Basophils/100 WBC (Bld) 0.6 % [facility] Differential cell count method Nom (Bld) Auto [facility] Eosinophils (Bld) [#/Vol] 0.11 10*3/uL <0.46 k/uL [facility] Eosinophils/100 WBC (Bld) 1.3 % [facility] Erythrocyte distribution width (RBC) [Ratio] 13.7 % 11.5 - 15.0 % [facility] Hematocrit (Bld) [Volume fraction] 46.1 % High 36.0 - 46.0 % [facility] Hemoglobin (Bld) [Mass/Vol] 15.2 g/dL 11.5 - 15.5 g/dL [facility] Immature granulocytes (Bld) [#/Vol] <0.10 k/uL [facility] Immature granulocytes/100 WBC (Bld) 0.1 % [facility] Lymphocytes (Bld) [#/Vol] 1.73 10*3/uL 1.00 - 4.00 k/uL [facility] Lymphocytes/100 WBC (Bld) 20.9 % [facility] MCH (RBC) [Entitic mass] 32.5 pg 26.0 - 34.0 pg [facility] MCHC (RBC) [Mass/Vol] 33.0 g/dL 30.5 - 36.0 g/dL [facility] MCV (RBC) [Entitic vol] 98.5 fL 80.0 - 100.0 fL [facility] Monocytes (Bld) [#/Vol] 0.91 10*3/uL High <0.87 k/uL [facility] Monocytes/100 WBC (Bld) 11.0 % [facility] Neutrophils (Bld) [#/Vol] 5.48 10*3/uL 1.45 - 7.50 k/uL [facility] Neutrophils/100 WBC (Bld) 66.1 % [facility] Nucleated RBC (Bld) [#/Vol] <0.01 k/uL [facility] Nucleated RBC/100 WBC (Bld) [Ratio] 0.0 /100 WBC [facility] Platelet mean volume (Bld) [Entitic vol] 9.8 fL 9.0 - 12.7 fL [facility] Platelets (Bld) [#/Vol] 295 10*3/uL 150 - 400 k/uL [facility] RBC (Bld) [#/Vol] 4.68 10*6/uL 3.90 - 5.2 0 m/uL [facility] WBC (Bld) [#/Vol] 8.29 10*3/uL 3.70 - 11. 00 k/uL [facility] SURGICAL PATHOLOGYon 023 Case Report Surgical Pathology Report Case: [id number] Authorizing Provider: Tony Gallardo MD Collected: 06/18/2022 10:55 AM Ordering Location: Ambulatory Surgery Received: 06/18/2022 11:25 AM Pathologist: Álvaro Simpson MD Specimens: A) - COLON BIOPSY, Random colon bxs B) - RECTAL POLYP, Rectal polyps x 2 [facility] Diagnosis Comment A: The biopsies show colonic mucosa with a rare crypt involved by acute inflammation (cryptitis with crypt abscess). The majority of tissue fragments are within normal limits. There is no evidence of microscopic colitis, chronicity or granulomas. The findings are entirely nonspecific. The differential diagnosis includes an acute (self-limited) infectious colitis, medication use (NSAIDs), and bowel preparation among others. Clinical correlation is advised. [facility] FINAL DIAGNOSIS A. Colon, random biopsies: - Focal active colitis; see comment. B. Rectum, polyps x2, biopsy: - Hyperplastic polyp x1. - Tubular adenoma x1. [facility] Gross Description A. COLON BIOPSY Received in formalin are multiple pieces of hernandez, soft tissue aggregating to 2.0 x 1.0 x 0.1 cm. Totally submitted in four cassettes. B. RECTAL POLYP Received in formalin are two segments of hernandez polypoid tissue aggregating to 0.8 x 0.3 x 0.2 cm. No stalks are present. The lines of resection are noted. The specimens are not sectioned. Totally submitted in one cassette. Gross examination performed at [facility], [address] [place] [id number] FFS 06/18/2022 11:53 PM [facility] Performing Lab Diagnostic interpretation performed at [facility], [facility] [place] [id number] CLIA# [id number] Associate Director Career Services: Mitchell Galicia M.D. [facility] COLONOSCOPY SCREENINGon 05-31 [facility] XR ESOPHAGRAMon 03-16-2022 [facility] XR CHEST 2V FRONTAL/LATon [facility] XR Chest PA and Lateralon IMPRESSION: No acute radiographic abnormality. Electrocardiograph Operator: JOSE Transcribe Date/Time: Jan 01 2022 6:58P Dictated by : LALA DOMINGUEZ MD This examination was interpreted and the report reviewed and electronically signed by: LALA DOMINGUEZ MD on Jan 01 2022 6:58PM [facility] DIVISION OF RADIOLOGY * * *Final Report* * * DATE OF EXAM: Jan 01 2022 6:32PM WOX 5291 - XR CHEST 2V FRONTAL/LAT / PROCEDURE REASON: multiple diagnoses * * * * Physician Interpretation * * * * EXAMINATION: CHEST RADIOGRAPH (2 VIEW FRONTAL & LATERAL) CLINICAL HISTORY: Acute cough Upper respiratory tract infection, unspecified type MQ: XC2_6 EXAM DATE/TIME: 01/01/2022 6:32 PM COMPARISON: Chest x-ray 09/22/2021 RESULT: Lines, tubes, and devices: None. Lungs and pleura: No consolidation. No lung mass. No pleural effusion. No pneumothorax. Cardiomediastinal silhouette: Normal cardiomediastinal silhouette. Bones and soft tissues: Unremarkable. DIVISION OF RADIOLOGY Provider, [facility] - 01/01/2022 * * *Final Report* * * DATE OF EXAM: Jan 01 2022 6:32PM WOX 5291 - XR CHEST 2V FRONTAL/LAT / PROCEDURE REASON: multiple diagnoses * * * * Physician Interpretation * * * * EXAMINATION: CHEST RADIOGRAPH (2 VIEW FRONTAL & LATERAL) CLINICAL HISTORY: Acute cough Upper respiratory tract infection, unspecified type MQ: XC2_6 EXAM DATE/TIME: 01/01/2022 6:32 PM COMPARISON: Chest x-ray 09/22/2021 RESULT: Lines, tubes, and devices: None. Lungs and pleura: No consolidation. No lung mass. No pleural effusion. No pneumothorax. Cardiomediastinal silhouette: Normal cardiomediastinal silhouette. Bones and soft tissues: Unremarkable. IMPRESSION IMPRESSION: No acute radiographic abnormality. Electrocardiograph Operator: [facility] Transcribe Date/Time: Jan 01 2022 6:58P Dictated by : LALA DOMINGUEZ MD This examination was interpreted and the report reviewed and electronically signed by: LALA DOMINGUEZ MD on Jan 01 2022 6:58PM EST [facility] Radiology Study observation (narrative) [facility] XR Chest PA and LateralOrder ed By: [facility] Provider on 01-01-2022 [facility] T3 Don 12-10-2021 T3 [Mass/Vol] 96 ng/dL 79 - 165 ng/dL [facility] T4 FREE/FREE THYROXon 2021 Free T4 [Mass/Vol] 1.3 ng/dL 0.9 - 1.7 ng/dL [facility] TSH Don 12-10-2021 TSH Qn 3.740 m[IU]/L 0.270 - 4.200 mIU/L [facility] XR CHEST 2V FRONTAL/LATon [facility] XR Chest PA and Lateralon IMPRESSION: No acute radiographic abnormality. Electrocardiograph Operator: [facility] Transcribe Date/Time: Sep 22 2021 11:48A Dictated by : ROSALIND CASTRO MD This examination was interpreted and the report reviewed and electronically signed by: ROSALIND CASTRO MD on Sep 22 2021 11:49AM EST [facility]_DO_NOT_USE _DIVISION OF RADIOLOGY * * *Final Report* * * DATE OF EXAM: Sep 22 2021 11:46AM WOX 5291 - XR CHEST 2V FRONTAL/LAT / PROCEDURE REASON: multiple diagnoses * * * * Physician Interpretation * * * * EXAMINATION: CHEST RADIOGRAPH (2 VIEW FRONTAL & LATERAL) CLINICAL HISTORY: Post-COVID syndrome Chest congestion MQ: XC2_6 EXAM DATE/TIME: 09/22/2021 11:46 AM COMPARISON: 03/04/2016 RESULT: Lines, tubes, and devices: None. Lungs and pleura: No consolidation. No lung mass. No pleural effusion. No pneumothorax. Cardiomediastinal silhouette: Normal cardiomediastinal silhouette. Bones and soft tissues: Unremarkable. [facility]_DO_NOT_USE _DIVISION OF RADIOLOGY Provider, [facility] - 09/22/2021 * * *Final Report* * * DATE OF EXAM: Sep 22 2021 11:46AM WOX 5291 - XR CHEST 2V FRONTAL/LAT / PROCEDURE REASON: multiple diagnoses * * * * Physician Interpretation * * * * EXAMINATION: CHEST RADIOGRAPH (2 VIEW FRONTAL & LATERAL) CLINICAL HISTORY: Post-COVID syndrome Chest congestion MQ: [id number] EXAM DATE/TIME: 09/22/2021 11:46 AM COMPARISON: 03/04/2016 RESULT: Lines, tubes, and devices: None. Lungs and pleura: No consolidation. No lung mass. No pleural effusion. No pneumothorax. Cardiomediastinal silhouette: Normal cardiomediastinal silhouette. Bones and soft tissues: Unremarkable. IMPRESSION IMPRESSION: No acute radiographic abnormality. Electrocardiograph Operator: JOSE Transcribe Date/Time: Sep 22 2021 11:48A Dictated by : ROSALIND CASTRO MD This examination was interpreted and the report reviewed and electronically signed by: ROSALIND CASTRO MD on Sep 22 2021 11:49AM EST [facility] Radiology Study observation (narrative) [facility] XR Chest PA and LateralOrder ed By: Cc Provider on 09-22-2021 [facility] No Panel Informationon 08-22 [facility] [place]sten 08-14-2021 CNPN Telephone (AGSPINE1) LIVIER ROMANO ([id number]) 1965 F Date Time Provider Department 08/14/21 LORELEI BETTS AGSPINE1 During your visit today, we recorded the following information about you: Lexii Chavez 08/14/2021 10:30 AM Signed Patient has left me a voicemail stating that she had a reaction yesterday on her way home from [place] after her injections and went to the hospital. After the nurse from [place] called her today to make sure she was okay she told her what happened and she was given our number to let you know as well. Lexii Chavez Lorelei Betts MD 08/14/2021 12:59 PM Signed Attempted to contact Livier Romano via phone, there was no answer, I left a voicemail asking for a call back or mychart with further questions or concerns. Lorelei Betts III, MD, HEAVENLY Allergies As of Date: 08/14/2021 Noted Allergy Reaction DOTAREM (GADOTERATE MEGLUMINE) 03/07/2019 4 - Hives 9 - Itching 14 - Other: See Comments Comments: Pt developed a diffuse deep redness over upper torso and difficulty swallowing IOHEXOL 08/14/2021 14 - Other: See Comments Comments: Chest pain, nausea ANTI-INFLAMMATORY (NSAIDS (NON-ST*12/02/2018 14 - Other: See Comments LEVAQUIN (LEVOFLOXACIN) 03/04/2015 6 - Diarrhea LISINOPRIL 07/07/2017 3 - Cough PENICILLINS 12/09/2004 Date Reviewed: 08/14/2021 Reviewed by: Radha Mcdaniels RN - Fully Assessed Reason for Visit: Patient Update [1234] Prescriptions as of 08/14/2021 - losartan (COZAAR) 50 mg tablet Take 1 tablet by mouth once daily. - nystatin (NYSTOP) powder Apply 1 application to affected area twice daily. To abdominal skin folds - levothyroxine (SYNTHROID) 150 mcg tablet Take 1 tablet by mouth once daily. Take on empty stomach. For thyroid - pantoprazole DR (PROTONIX) 20 mg tablet Take 1 tablet by mouth daily before breakfast. Take on empty stomach, 1/2 hr before meal. - oxybutynin ER (DITROPAN XL) 10 mg 24 hr tablet Take 1 tablet by mouth once daily. - TURMERIC ORAL Take 1,200 mg by mouth twice daily. - vitamin B complex (B COMPLEX-VITAMIN B12 ORAL) Take by mouth. - doxycycline (VIBRA-TABS) 100 mg tablet Take 1 tablet by mouth daily for malaria prophylaxis. Start 2 days before travel and take for 4 weeks after returning/exposure. - benzonatate (TESSALON PERLES) 100 mg capsule Take 1 capsule by mouth three times daily as needed for Cough. - MEDICATION, NON-DATABASE Prevagen: Take one tablet by mouth once daily. - gabapentin (NEURONTIN) 300 mg capsule Take 300 mg by mouth three times daily. - polyethylene glycol 3350 (MIRALAX, GLYCOLAX) 17 gram/dose powder Use as directed for Miralax / Gatorade Bowel Prep Kit - Gatorade Sports Drink Use as directed for Miralax / Gatorade Bowel Prep Kit - Bisacodyl (DULCOLAX) 5 mg tab Use as directed for Miralax / Gatorade Bowel Prep Kit - calcium carbonate/vitamin D3 (CALCIUM 500 + D, D3, ORAL) Take 1 tablet by mouth once daily. Facility-Administered Medications as of 08/14/2021 - perflutren lipid microspheres 1.3 mL in NaCl (PF) 0.9% 10 mL injection (DEFINITY) - sodium chloride 0.9 % (flush) 10 mL (BD POSIFLUSH) Problem List As Of Date 08/14/2021 Noted Resolved Hypothyroidism [E03.9] 10/30/2005 Gastric bypass status for obesity [Z98.84] 02/25/2009 Unspecified Iron Deficiency Anemia [D50.9] 04/26/2009 Acute gastritis without mention of hemorrhage [*04/26/2009 09/18/2016 Menorrhagia [N92.0] 02/17/2011 04/15/2011 Sleep apnea [G47.30] 03/18/2011 Overactive bladder [N32.81] 03/15/2012 Urge incontinence [N39.41] 03/15/2012 Gastroesophageal reflux disease [K21.9] 09/18/2016 Bilateral leg pain [M79.604, M79.605] 05/03/2017 Obesity, Class III, BMI 40-49.9 (morbid obesity*06/02/2017 Hypertension, essential [I10] 07/07/2017 DDD (degenerative disc disease), lumbar [M51.36]07/11/2018 Lumbar radiculopathy [M54.16] 07/11/2018 S/P lumbar spinal fusion [Z98.1] 10/07/2018 Acute pancreatitis [K85.90] 05/09/2019 Biliary stricture [K83.1] 05/09/2019 Leukocytosis [D72.829] 05/11/2019 Hypokalemia [E87.6] 05/11/2019 Ileus (HCC) [K56.7] 05/12/2019 Patellofemoral arthritis [M17.10] 07/15/2021 Degeneration of lumbar intervertebral disc [M51*07/15/2021 Spinal stenosis, lumbar region, without neuroge*08/13/2021 Encounter Status:Closed by LORELEI BETTS on 08/14/21 [facility] CNOVon 07-10-2021 CNOV Office Visit (SPAGWO ) LIVIER ROMANO ([id number]) 1965 F Date Time Provider Department 07/10/21 3:00 PM LORELEI BETTS During your visit today, we recorded the following information about you: Pulse Respiration Normal [facility] CNPNon 07-10-2021 CNPN Telephone (SPAGWO) LIVIER ROMANO ([id number]) 1965 F Date Time Provider Department 07/10/21 LORELEI BETTS During your visit today, we recorded the following information about you: Corey Escobedo 07/10/2021 3:43 PM Signed 1.Are you diabetic No 2. Are you on any blood thinners? No 3. Are you taking any aspirin? No 4. Have you had any recent imaging done on your body part that's being injected? Yes Xray,ct and mri 5. Do you have any allergies to latex? No 6. Do you have any allergies to seafood? No 7. Do you have any allergies to shellfish? No 8. Do you have any allergies to x-ray dye? Yes MRI Dye 9. Are you taking Xanax for the procedure? No 10. Have you done physical therapy in the last year? No If yes, When and Where? (Medical Records Release needs to be signed.) 11. Were the pre-procedure instructions explained to the patient? Yes 12. Do you have a pacemaker? No 13. Do you have an internal stimulator of any kind? No If yes, please bring the remote with you to your procedure visit. 14. Have you received the COVID-19 Vaccine? Yes. If yes, date(s) received: Booster 07/08/21 (Patient should not receive a procedure including steroids 14 days prior to their first dose of the COVID vaccine. They should not receive any procedure containing steroids in the time frame between their 1st and 2nd doses of the COVID vaccine. They should not receive a procedure containing steroids 14 days after their 2nd dose of the COVID vaccine.) Corey Escobedo Allergies As of Date: 07/10/2021 Noted Allergy Reaction DOTAREM (GADOTERATE MEGLUMINE) 03/07/2019 4 - Hives 9 - Itching 14 - Other: See Comments Comments: Pt developed a diffuse deep redness over upper torso and difficulty swallowing ANTI-INFLAMMATORY (NSAIDS (NON-ST*12/02/2018 14 - Other: See Comments LEVAQUIN (LEVOFLOXACIN) 03/04/2015 6 - Diarrhea LISINOPRIL 07/07/2017 3 - Cough PENICILLINS 12/09/2004 Date Reviewed: 07/10/2021 Reviewed by: Ronna Woodard MA - Fully Assessed Reason for Visit: Injections [199] Prescriptions as of 07/10/2021 - nystatin (NYSTOP) powder Apply 1 application to affected area twice daily. To abdominal skin folds - levothyroxine (SYNTHROID) 150 mcg tablet Take 1 tablet by mouth once daily. Take on empty stomach. For thyroid - losartan (COZAAR) 50 mg tablet Take 1 tablet by mouth once daily. - pantoprazole DR (PROTONIX) 20 mg tablet Take 1 tablet by mouth daily before breakfast. Take on empty stomach, 1/2 hr before meal. - oxybutynin ER (DITROPAN XL) 10 mg 24 hr tablet Take 1 tablet by mouth once daily. - TURMERIC ORAL Take 1,200 mg by mouth twice daily. - vitamin B complex (B COMPLEX-VITAMIN B12 ORAL) Take by mouth. - doxycycline (VIBRA-TABS) 100 mg tablet Take 1 tablet by mouth daily for malaria prophylaxis. Start 2 days before travel and take for 4 weeks after returning/exposure. - benzonatate (TESSALON PERLES) 100 mg capsule Take 1 capsule by mouth three times daily as needed for Cough. - MEDICATION, NON-DATABASE Prevagen: Take one tablet by mouth once daily. - gabapentin (NEURONTIN) 300 mg capsule Take 300 mg by mouth three times daily. - polyethylene glycol 3350 (MIRALAX, GLYCOLAX) 17 gram/dose powder Use as directed for Miralax / Gatorade Bowel Prep Kit - Gatorade Sports Drink Use as directed for Miralax / Gatorade Bowel Prep Kit - Bisacodyl (DULCOLAX) 5 mg tab Use as directed for Miralax / Gatorade Bowel Prep Kit - calcium carbonate/vitamin D3 (CALCIUM 500 + D, D3, ORAL) Take 1 tablet by mouth once daily. Facility-Administered Medications as of 07/10/2021 - perflutren lipid microspheres 1.3 mL in NaCl (PF) 0.9% 10 mL injection (DEFINITY) - sodium chloride 0.9 % (flush) 10 mL (BD POSIFLUSH) Problem List As Of Date 07/10/2021 Noted Resolved Hypothyroidism [E03.9] 10/30/2005 Gastric bypass status for obesity [Z98.84] 02/25/2009 Unspecified Iron Deficiency Anemia [D50.9] 04/26/2009 Acute gastritis without mention of hemorrhage [*04/26/2009 09/18/2016 Menorrhagia [N92.0] 02/17/2011 04/15/2011 Sleep apnea [G47.30] 03/18/2011 Overactive bladder [N32.81] 03/15/2012 Urge incontinence [N39.41] 03/15/2012 Gastroesophageal reflux disease [K21.9] 09/18/2016 Bilateral leg pain [M79.604, M79.605] 05/03/2017 Obesity, Class III, BMI 40-49.9 (morbid obesity*06/02/2017 Hypertension, essential [I10] 07/07/2017 DDD (degenerative disc disease), lumbar [M51.36]07/11/2018 Lumbar radiculopathy [M54.16] 07/11/2018 S/P lumbar spinal fusion [Z98.1] 10/07/2018 Acute pancreatitis [K85.90] 05/09/2019 Biliary stricture [K83.1] 05/09/2019 Leukocytosis [D72.829] 05/11/2019 Hypokalemia [E87.6] 05/11/2019 Ileus (HCC) [K56.7] 05/12/2019 Encounter Status:Closed by COREY ESCOBEDO on 07/10/21 [facility] DDI VIBRATION CONTROLLED TRA NSIENT ELASTOGRAPHY (VCTE) [facility] Vital Signs Date Time Vital Sign Value Performing Clinician Carolina noel 11-24-2023 16:01-0400 Body height 152 cm Negra Kuo APRN.CNP Work Phone: [facility] 11-24-2023 16:01-0400 Body mass index (BMI) [Ratio] 44.84 kg/m2 Negra Kuo APRN.CNP Work Phone: [facility] 11-24-2023 16:01-0400 Body weight 103.6 kg Negra Kuo APRN.CNP Work Phone: [facility] 11-24-2023 16:01-0400 Diastolic blood pressure 78 mm[Hg] Negra Kuo APRN.CNP Work Phone: [facility] 11-24-2023 16:01-0400 Heart rate 64 /min Negra Kuo APRN.CNP Work Phone: [facility] 11-24-2023 16:01-0400 Respiratory rate 16 /min Negra Shiela CREDIT INTERVIEWER.FACTORY ENGINEER Work Phone: [facility] 11-24-2023 16:01-0400 SaO2% (BldA) [Mass fraction] 97 % Negra Shiela CREDIT INTERVIEWER.FACTORY ENGINEER Work Phone: [facility] 11-24-2023 16:01-0400 Systolic blood pressure 122 mm[Hg] Negra Shiela CREDIT INTERVIEWER.FACTORY ENGINEER Work Phone: [facility] 11-11-2022 16:05-0400 Body height 151.4 cm Negra Shiela CREDIT INTERVIEWER.FACTORY ENGINEER Work Phone: [facility] 11-11-2022 16:05-0400 Body weight 106.05 kg Negra Shiela CREDIT INTERVIEWER.FACTORY ENGINEER Work Phone: [facility] 11-11-2022 16:05-0400 Diastolic blood pressure 82 mm[Hg] Negra Shiela CREDIT INTERVIEWER.FACTORY ENGINEER Work Phone: [facility] 11-11-2022 16:05-0400 Heart rate 71 /min Negra Shiela CREDIT INTERVIEWER.FACTORY ENGINEER Work Phone: [facility] 11-11-2022 16:05-0400 Respiratory rate 16 /min Negra Shiela CREDIT INTERVIEWER.FACTORY ENGINEER Work Phone: [facility] 11-11-2022 16:05-0400 SaO2% (BldA) [Mass fraction] 96 % Negra Shiela CREDIT INTERVIEWER.FACTORY ENGINEER Work Phone: [facility] 11-11-2022 16:05-0400 Systolic blood pressure 126 mm[Hg] Negra Shiela CREDIT INTERVIEWER.FACTORY ENGINEER Work Phone: [facility] 08-03-2022 15:52-0400 Body weight 104.33 kg Kellee Prince CREDIT INTERVIEWER.FACTORY ENGINEER Work Phone: [facility] 08-03-2022 15:52-0400 Diastolic blood pressure 78 mm[Hg] Kellee Prince CREDIT INTERVIEWER.FACTORY ENGINEER Work Phone: [facility] 08-03-2022 15:52-0400 Heart rate 86 /min Kellee Prince CREDIT INTERVIEWER.FACTORY ENGINEER Work Phone: [facility] 08-03-2022 15:52-0400 Respiratory rate 16 /min Kellee Prince CREDIT INTERVIEWER.FACTORY ENGINEER Work Phone: [facility] 08-03-2022 15:52-0400 Systolic blood pressure 120 mm[Hg] Kellee Prince CREDIT INTERVIEWER.FACTORY ENGINEER Work Phone: [facility] 06-18-2022 11:36-0400 Diastolic blood pressure 73 mm[Hg] Tony Gallardo MD Work Phone: [facility] 06-18-2022 11:36-0400 Heart rate 55 /min Tony Gallardo MD Work Phone: [facility] 06-18-2022 11:36-0400 SaO2% (BldA) [Mass fraction] 95 % Tony Gallardo MD Work Phone: [facility] 06-18-2022 11:36-0400 Systolic blood pressure 117 mm[Hg] Tony Gallardo MD Work Phone: [facility] 06-18-2022 10:33-0400 Respiratory rate 16 /min Tony Gallardo MD Work Phone: [facility] 06-18-2022 10:25-0400 Body temperature 97.5 [degF] Tony Gallardo MD Work Phone: [facility] 06-18-2022 10:25-0400 Body weight 99.6 kg Tony Gallardo MD Work Phone: [facility] 04-08-2022 08:53-0500 Body height 152.4 cm Angélica Stanley MD Work Phone: [facility] 04-08-2022 08:53-0500 Body temperature 97.9 [degF] Angélica Stanley MD Work Phone: [facility] 04-08-2022 08:53-0500 Body weight 99.61 kg Angélica Stanley MD Work Phone: [facility] 04-08-2022 08:53-0500 Diastolic blood pressure 81 mm[Hg] Angélica Stanley MD Work Phone: [facility] 04-08-2022 08:53-0500 Heart rate 71 /min Angélica Stanley MD Work Phone: [facility] 04-08-2022 08:53-0500 SaO2% (BldA) [Mass fraction] 97 % Angélica Stanley MD Work Phone: [facility] 04-08-2022 08:53-0500 Systolic blood pressure 123 mm[Hg] Angélica Stanley MD Work Phone: [facility] 03-21-2022 13:08-0500 Body temperature 98.29 [degF] Val Athy PA-C Work Phone: [facility] 03-21-2022 13:08-0500 Body weight 98.88 kg Val Athy PA-C Work Phone: [facility] 03-21-2022 13:08-0500 Diastolic blood pressure 66 mm[Hg] Val Athy PA-C Work Phone: [facility] 03-21-2022 13:08-0500 Heart rate 98 /min Val Athy PA-C Work Phone: [facility] 03-21-2022 13:08-0500 Respiratory rate 16 /min Val Athy PA-C Work Phone: [facility] 03-21-2022 13:08-0500 SaO2% (BldA) [Mass fraction] 96 % Val Athy PA-C Work Phone: [facility] 03-21-2022 13:08-0500 Systolic blood pressure 110 mm[Hg] Val Athy PA-C Work Phone: [facility] 01-01-2022 17:29-0400 Body temperature 97.81 [degF] Nadia Duncan CREDIT INTERVIEWER.FACTORY ENGINEER Work Phone: [facility] 01-01-2022 17:29-0400 Body weight 100.97 kg Nadia Duncan CREDIT INTERVIEWER.FACTORY ENGINEER Work Phone: [facility] 01-01-2022 17:29-0400 Diastolic blood pressure 84 mm[Hg] Nadia Duncan CREDIT INTERVIEWER.FACTORY ENGINEER Work Phone: [facility] 01-01-2022 17:29-0400 Heart rate 69 /min Nadia Duncan CREDIT INTERVIEWER.FACTORY ENGINEER Work Phone: [facility] 01-01-2022 17:29-0400 Respiratory rate 18 /min Nadia Duncan CREDIT INTERVIEWER.FACTORY ENGINEER Work Phone: [facility] 01-01-2022 17:29-0400 SaO2% (BldA) [Mass fraction] 98 % Nadia Duncan CREDIT INTERVIEWER.FACTORY ENGINEER Work Phone: [facility] 01-01-2022 17:29-0400 Systolic blood pressure 128 mm[Hg] Nadia Duncan CREDIT INTERVIEWER.FACTORY ENGINEER Work Phone: [facility] 09-23-2021 07:53-0400 Body height 152.4 cm Ahmed Elghawy DO Work Phone: [facility] 09-23-2021 07:53-0400 Body temperature 97.3 [degF] Ahmed Elghawy DO Work Phone: [facility] 09-23-2021 07:53-0400 Body weight 96.16 kg Ahmed Elghawy DO Work Phone: [facility] 09-23-2021 07:53-0400 Diastolic blood pressure 81 mm[Hg] Ahmed Elghawy DO Work Phone: [facility] 09-23-2021 07:53-0400 Heart rate 68 /min Ahmed Elghawy DO Work Phone: [facility] 09-23-2021 07:53-0400 Systolic blood pressure 121 mm[Hg] Ahmed Elghawy DO Work Phone: [facility] 09-22-2021 10:48-0400 Body weight 96.44 kg Negra Shiela CREDIT INTERVIEWER.FACTORY ENGINEER Work Phone: [facility] 09-22-2021 10:48-0400 Diastolic blood pressure 86 mm[Hg] Negra Shiela CREDIT INTERVIEWER.FACTORY ENGINEER Work Phone: [facility] 09-22-2021 10:48-0400 Heart rate 72 /min Negra Shiela CREDIT INTERVIEWER.FACTORY ENGINEER Work Phone: [facility] 09-22-2021 10:48-0400 Respiratory rate 16 /min Negra Shiela CREDIT INTERVIEWER.FACTORY ENGINEER Work Phone: [facility] 09-22-2021 10:48-0400 SaO2% (BldA) [Mass fraction] 95 % Negra Shiela CREDIT INTERVIEWER.FACTORY ENGINEER Work Phone: [facility] 09-22-2021 10:48-0400 Systolic blood pressure 118 mm[Hg] Negra Shiela CREDIT INTERVIEWER.FACTORY ENGINEER Work Phone: [facility] 08-22-2021 08:25-0400 Body weight 94.35 kg Negra Shiela CREDIT INTERVIEWER.FACTORY ENGINEER Work Phone: [facility] 08-22-2021 08:25-0400 Diastolic blood pressure 78 mm[Hg] Negra Shiela CREDIT INTERVIEWER.FACTORY ENGINEER Work Phone: [facility] 08-22-2021 08:25-0400 Heart rate 81 /min Negra Shiela CREDIT INTERVIEWER.FACTORY ENGINEER Work Phone: [facility] 08-22-2021 08:25-0400 Respiratory rate 16 /min Negra Shiela CREDIT INTERVIEWER.FACTORY ENGINEER Work Phone: [facility] 08-22-2021 08:25-0400 SaO2% (BldA) [Mass fraction] 98 % Negra Shiela CREDIT INTERVIEWER.FACTORY ENGINEER Work Phone: [facility] 08-22-2021 08: Systolic blood pressure 120 mm[Hg] Negra Kuo APRN.CNP Work Phone: [facility] Encounters Encounter Date Encounter Type Care Provider Facility Start: 12-15-2023 End: 12-16-2023 Telephone encounter Negra Kuo APRN.CNP Work Phone: [facility] [place] Comment on above: Patient Question Start: 12-06-2023 End: 12-15-2023 Telephone encounter Negra Kuo APRN.FACTORY ENGINEER Work Phone: [facility] [place] Comment on above: Medication Question Start: 11-26-2023 End: 11-26-2023 ambulatory NEGRA KUO Facility:[facility] Start: 11-25-2023 End: 11-26-2023 Telephone encounter Negra Kuo APRN.FACTORY ENGINEER Work Phone: [facility] [place] Comment on above: Insurance Authorizat ion Refill Request Start: 11-24-2023 End: 11-24-2023 Office outpatient visit 40 minutes Negra Kuo APRN.FACTORY ENGINEER Work Phone: [facility] [place] Comment on above: Well adult exam (Verenice jeyson Dx); Hypertension, essential; Hypothyroidism, unspecified type; Morbid obesity (HCC); Encounter for screening mammogram for breast cancer; Screening for depression; Encounter for screening examination for other mental health and behavioral disorders; Encounter for immunization Start: 11-24-2023 End: 11-24-2023 Patient encounter status Negra Kuo APRN.FACTORY ENGINEER Work Phone: [facility] Work Phone: Start: 11-24-2023 End: 11-24-2023 ambulatory SELF Facility:[facility] Start: 11-24-2023 Encounter for genera l adult medical examination without abnormal findings NEGRA KUO [facility] Start: 11-24-2023 End: 12-14-2023 Telephone encounter Negra Kuo APRN.CNP Work Phone: [facility] [place] Comment on above: Patient Question Start: 10-07-2023 Refill Negra Stutzm an CREDIT INTERVIEWER.FACTORY ENGINEER Work Phone: [facility] [place] Comment on above: Refill Request Start: 10-06-2023 Refill Negraandres Dawkinsm an CREDIT INTERVIEWER.FACTORY ENGINEER Work Phone: [facility] [place] Comment on above: Refill Request Start: 09-24-2023 Refill Negra Stutzm an CREDIT INTERVIEWER.FACTORY ENGINEER Work Phone: [facility] [place] Comment on above: Refill Request Start: 08-10-2023 Refill Negra Stutzm an CREDIT INTERVIEWER.FACTORY ENGINEER Work Phone: [facility] [place] Comment on above: Refill Request Start: 05-31-2023 Refill Negra Stutzm an CREDIT INTERVIEWER.FACTORY ENGINEER Work Phone: [facility] [place] Comment on above: Refill Request Start: 04-13-2023 Refill Negraandres Dawkinsm an CREDIT INTERVIEWER.FACTORY ENGINEER Work Phone: [facility] [place] Comment on above: Refill Request Start: 04-05-2023 Refill Negraandres Dawkinsm an CREDIT INTERVIEWER.FACTORY ENGINEER Work Phone: [facility] [place] Comment on above: Refill Request Start: 12-21-2022 End: 12-21-2022 ambulatory NEGRAANDRES KUO Gastroenterology Start: 12-21-2022 End: 12-21-2022 Patient encounter procedure Hepatology Procedures A5 Work Phone: [facility] Start: 12-14-2022 Telephone encounter Negra Alberto CREDIT INTERVIEWER.FACTORY ENGINEER Work Phone: [facility] [place] Comment on above: Results Start: 12-11-2022 End: 12-11-2022 Subsequent hospital visit by physician [facility] Work Phone: Radiology Comment on above: Hypertension, essent ial [I10] Start: 12-03-2022 End: 12-03-2022 Subsequent hospital visit by physician [facility] Work Phone: Radiology Comment on above: Hypertension, essent ial [I10] Start: 12-02-2022 Telephone encounter Negraandres Alberto FACTORY ENGINEER Work Phone: [facility] [place] Comment on above: Appointment Start: 11-11-2022 End: 11-11-2022 Patient encounter procedure Negra Kuo CREDIT INTERVIEWER.FACTORY ENGINEER Work Phone: [facility] [place] Comment on above: Hypothyroidism, unsp ecified type (Primary Dx); Hypertension, essential; Elevated LFTs; Elevated glucose; Bloating; Belching; Flatulence; RUQ pain; Weight gain; Obesity, Class III, BMI 40-49.9 (morbid obesity) (HCC); Encounter for immunization; Encounter for screening mammogram for breast cancer; Central obesity Start: 09-30-2022 Refill Negra Bangura keyona CREDIT INTERVIEWER.FACTORY ENGINEER Work Phone: [facility] [place] Comment on above: Refill Request Start: 08-17-2022 Get Medical Advice Brigido Stanley MD Work Phone: Gastroenterology Comment on above: Buspar not refillabl e Start: 08-06-2022 Telephone encounter Kellee ocampo APRN.FACTORY ENGINEER Work Phone: [facility] [place] Comment on above: Results Start: 08-03-2022 End: 08-03-2022 Patient encounter procedure Kellee Prince APRN.FACTORY ENGINEER Work Phone: [facility] [place] Comment on above: Medication managemen t (Primary Dx); Bloating; RUQ pain; Epigastric pain; Gastritis without bleeding, unspecified chronicity, unspecified gastritis type Start: 06-29-2022 ambulatory Angélica Flanagan MD Work Phone: [facility] Start: 06-29-2022 Follow-up encounter Angélica Stanley MD Work Phone: Gastroenterology Comment on above: Follow up Start: 06-23-2022 End: 06-23-2022 Nursing evaluation of patient and report Nurse [facility] Comment on above: Dysphagia, unspecifi ed type (Primary Dx) Start: 06-18-2022 End: 06-18-2022 Subsequent hospital visit by physician Tony Gallardo MD Work Phone: Ambulatory Surgery Comment on above: Dysphagia, unspecifi ed type [R13.10] Start: 06-12-2022 Telephone encounter Angélica Stanley MD Work Phone: Gastroenterology Comment on above: Preparations For Pro cedures Start: 05-20-2022 Telephone encounter Negra Alberto APRN.FACTORY ENGINEER Work Phone: Family [facility] [place] Comment on above: Patient Update Start: 05-13-2022 Refill Tony Baca APRN.FACTORY ENGINEER, DNP Work Phone: [facility] [place] Comment on above: Refill Request Start: 04-08-2022 End: 04-08-2022 Patient encounter procedure Angélica Stanley MD Work Phone: Gastroenterology Comment on above: Globus sensation (Pr imary Dx); Dysphagia, unspecified type; Gastroesophageal reflux disease, unspecified whether esophagitis present Start: 03-21-2022 Refill Val R Athy PA -C Work Phone: [facility] Comment on above: Refill Request Start: 03-21-2022 End: 03-21-2022 Patient encounter procedure Val R Athy PA-C Work Phone: [facility] Comment on above: Intertrigo (Primary Dx) Start: 03-16-2022 End: 03-16-2022 Subsequent hospital visit by physician [facility] (I-[facility]) Radiology Comment on above: Dysphagia, unspecifi ed type [R13.10] Start: 03-05-2022 End: 03-05-2022 ambulatory So Durham MD Work Phone: Gastroenterology Comment on above: Dysphagia, unspecifi ed type (Primary Dx) Start: 03-05-2022 End: 03-05-2022 Telemedicine consultation with patient So Durham MD Work Phone: [facility] Start: 01-02-2022 Telephone encounter Negra Alberto CREDIT INTERVIEWER.FACTORY ENGINEER Work Phone: [facility] Comment on above: Patient Question Start: 01-01-2022 End: 01-01-2022 Subsequent hospital visit by physician [facility] Work Phone: Radiology Comment on above: Acute cough [R05.1] Start: 01-01-2022 End: 01-01-2022 Patient encounter procedure Nadia Duncan APRN.CNP Work Phone: [facility] Comment on above: Acute cough (Primary Dx); Upper respiratory tract infection, unspecified type Start: 12-05-2021 Refill Tony Baca APRN.CNP, DNP Work Phone: [facility] Comment on above: Refill Request Start: 09-23-2021 End: 09-23-2021 Patient encounter procedure Gloria Ricardo DO Work Phone: [facility] Comment on above: Patellofemoral arthr itis (Primary Dx); DDD (degenerative disc disease), lumbar Start: 09-22-2021 Telephone encounter Negra Alberto APRN.CNP Work Phone: [facility] Comment on above: Results Start: 09-22-2021 End: 09-22-2021 Subsequent hospital visit by physician [facility] Work Phone: Radiology Comment on above: Post-COVID syndrome [U09.9] Start: 09-22-2021 End: 09-22-2021 Patient encounter procedure Negra Kuo APRN.CNP Work Phone: [facility] Comment on above: Post-COVID syndrome (Primary Dx); Chest congestion; Productive cough Start: 08-22-2021 End: 08-22-2021 ambulatory Nadia Jurado PT [facility] Comment on above: Patellofemoral arthr itis; Degeneration of lumbar intervertebral disc Start: 08-22-2021 End: 08-22-2021 Subsequent hospital visit by physician [facility] Work Phone: Radiology Comment on above: Bloating [R14.0] Start: 08-22-2021 End: 08-22-2021 Patient encounter procedure Negra Shiela CHRISTIE.FACTORY ENGINEER Work Phone: [facility] Comment on above: Bloating (Primary Dx ); RUQ pain; Epigastric pain; Gastritis without bleeding, unspecified chronicity, unspecified gastritis type Start: 08-21-[address] CHRISTIE.FACTORY ENGINEER Work Phone: [facility] Comment on above: [facility] ER f/u- epigastr ic pain Start: 08-18-2021 End: 08-18-2021 ambulatory Lo Sorensen MANAGER OF DIGITAL Work Phone: [facility] Comment on above: Patellofemoral arthr itis; Degeneration of lumbar intervertebral disc Start: 08-14-2021 Telephone encounter Lorelei Betts MD Work Phone: [facility] Comment on above: Patient Update Start: 08-13-2021 Telephone encounter Lorelei Betts MD Work Phone: [facility] Comment on above: Pain Start: 08-11-2021 End: 08-11-2021 ambulatory Nadia O'Gregory PT [facility] Comment on above: Patellofemoral arthr itis; Degeneration of lumbar intervertebral disc Start: 07-31-2021 End: 07-31-2021 ambulatory Nadia O'Gregory PT [facility] Comment on above: Patellofemoral arthr itis; Degeneration of lumbar intervertebral disc Start: 07-25-2021 End: 07-25-2021 ambulatory Nadia O'Gregory PT [facility] Comment on above: Patellofemoral arthr itis; Degeneration of lumbar intervertebral disc Start: 07-15-2021 End: 07-15-2021 ambulatory Nadia O'Gregory PT Work Phone: [facility] Comment on above: DDD (degenerative di sc disease), lumbar (Primary Dx); Patellofemoral arthritis; Degeneration of lumbar intervertebral disc Start: 07-14-2021 Orders Only Lorelei Betts MD Work Phone: [facility] Comment on above: Spinal stenosis, lum bar region, without neurogenic claudication (Primary Dx); Lumbar radiculopathy Start: 07-10-2021 Telephone encounter Lorelei Betts MD Work Phone: [facility] Comment on above: Injections Procedures Date Procedure Procedure Detail Performing Clinician Start: 11-26-2023 Lipid 1996 panel - S ankit or Plasma Negra Kuo CREDIT INTERVIEWER.FACTORY ENGINEER Work Phone: Start: 11-24-2023 Adult depression scr eening assessment Negra Kuo CREDIT INTERVIEWER.FACTORY ENGINEER Work Phone: Start: 12-21-2022 Liver elastography w /o imag w/i&r Negra Kuo CREDIT INTERVIEWER.FACTORY ENGINEER Work Phone: Start: 12-11-2022 Us abdominal real ti me w/image documentation Negra Kuo CREDIT INTERVIEWER.FACTORY ENGINEER Work Phone: Start: 12-03-2022 Us pelvic nonobstetr ic image dcmtn limited/f/u Negra Kuo CREDIT INTERVIEWER.FACTORY ENGINEER Work Phone: Start: 11-11-2022 INFLUENZA VACCINE, A GE 6 MO - 64 YR, QUADRIVALENT (AFLURIA, FLULAVAL, FLUZONE) Negra Kuo CREDIT INTERVIEWER.FACTORY ENGINEER Work Phone: Start: 06-18-2022 Level iv surg pathol ogy gross&microscopic exam Tony Gallardo MD Work Phone: Start: 06-18-2022 Colonoscopy flx dx w /collj spec when pfrmd Angélica Stanley MD Work Phone: Start: 06-18-2022 Colonoscopy Nurse Lab I Start: 03-16-2022 Radiologic exam esop hagus single contrast study So Durham MD Work Phone: Start: 01-13-2022 Mammography So Durham MD Work Phone: Start: 01-01-2022 Radiologic exam ches t 2 views Nadia Duncan CREDIT INTERVIEWER.FACTORY ENGINEER Work Phone: Start: 09-22-2021 Radiologic exam ches t 2 views Negra Kuo CREDIT INTERVIEWER.FACTORY ENGINEER Work Phone: Start: 08-22-2021 Us abdominal real ti me w/image documentation Negra Kuo APRN.JASON Work Phone: Start: 07-10-2021 Adult depression scr eening assessment Lorelei Betts MD Work Phone: Start: 01-09-2021 Mammography Lorelei Betts MD Work Phone: Start: 11-24-2019 Lipid 1996 panel - S ankit or Plasma Negra Kuo CREDIT INTERVIEWER.FACTORY ENGINEER Work Phone: Start: 09-29-2016 Colonoscopy Lorelei Betts MD Work Phone: Plan of Treatment Date Care Activity Detail Author Start: 06-18-2032 Colonoscopy COLONOSCOPY [facility] Start: 06-18-2032 COLORECTAL CANCER SCREENING COLORECTAL CANCER SCREENING [facility] Start: 06-18-2032 Screening for malign ant neoplasm of colon [facility] Start: 07-18-2030 Urine microalbumin profile [facility] Start: 11-25-2028 Lipid panel Lipid Screening [facility] Start: 11-25-2026 Diabetes Screening Diabetes Screenin g [facility] Start: 09-29-2026 Colonoscopy COLONOSCOPY [facility] Start: 09-29-2026 COLORECTAL CANCER SCREENING COLORECTAL CANCER SCREENING [facility] Start: 11-14-2025 Diabetes Screening Diabetes Screenin g [facility] Start: 11-05-2025 Diabetes Screening Diabetes Screenin g [facility] Start: 08-03-2025 DIABETES SCREEN DIABETES SCREEN [facility] Start: 11-23-2024 Annual PCP Team [place] Historian k[place] Disease Visit Annual PCP Team Chronic Disease Visit [facility] Start: 11-23-2024 Anxiety Screening Anxiety Screening [facility] Start: 11-23-2024 BP Controlled (<130/80) BP Controlle d (<130/80) [facility] Start: 11-23-2024 Depression Screening Depression Scre ening [facility] Start: 11-23-2024 Lipid 1996 panel - S ankit or Plasma Lipid Screening [facility] Start: 11-23-2024 Lipid panel Lipid Screening [facility] Start: 11-23-2024 LIPID SCREEN LIPID SCREEN [facility] Start: 11-08-2024 HPV TESTING HPV TESTING [facility] Start: 11-08-2024 PAP TESTING PAP TESTING [facility] Start: 11-08-2024 Screening for malign ant neoplasm of cervix [facility] Start: 03-16-2024 End: 06-15-2024 Cobalamin (Vitamin B12) [Mass/volume] in Serum or Plasma VITAMIN B12 Lab Routine Vitamin B12 deficiency Expected: 03/16/2024, Expires: 06/15/2024 [facility] Work Phone: Comment on above: Expected: 03/16/2024 , Expires: 06/15/2024 Start: 02-18-2024 DIABETES SCREEN DIABETES SCREEN [facility] Start: 02-16-2024 End: 02-16-2024 Patient encounter procedure 02/16/2024 4:20 PM EST Office Visit [facility] [address] [place] [address] Negra Kuo, CREDIT INTERVIEWER.FACTORY ENGINEER [address] [place], [place] [id number] 3 month weight [facility] Comment on above: 3 month weight Start: 01-15-2024 Screening for malign ant neoplasm of breast Mammogram Screening [facility] Start: 11-24-2023 End: 11-24-2023 Patient encounter procedure 11/24/2023 4:00 PM EDT Office Visit Family [facility] [place] [address] [place] [id number] Negra Kuo, CREDIT INTERVIEWER.FACTORY ENGINEER [address] [place], [place] [id number] physical [facility] Comment on above: physical Start: 11-24-2023 End: 02-23-2024 CBC panel - Blood by Automated count COMPLETE BLOOD COUNT Lab Routine Hypertension, essential Morbid obesity (HCC) Expected: 11/24/2023, Expires: 02/23/2024 [facility] Comment on above: Expected: 11/24/2023 , Expires: 02/23/2024 Start: 11-24-2023 End: 02-23-2024 Comprehensive metabolic 2000 panel - Serum or Plasma COMPREHENSIVE METABOLIC PANEL Lab Routine Hypertension, essential Morbid obesity (HCC) Expected: 11/24/2023, Expires: 02/23/2024 [facility] Comment on above: Expected: 11/24/2023 , Expires: 02/23/2024 Start: 11-24-2023 End: 02-23-2024 Hemoglobin A1c in Blood HEMOGLOBIN A1C Lab Routine Morbid obesity (HCC) Expected: 11/24/2023, Expires: 02/23/2024 [facility] Comment on above: Expected: 11/24/2023 , Expires: 02/23/2024 Start: 11-24-2023 End: 02-23-2024 Lipid 1996 panel - Serum or Plasma LIPID PANEL BASIC Lab Routine Morbid obesity (HCC) Expected: 11/24/2023, Expires: 02/23/2024 [facility] Comment on above: Expected: 11/24/2023 , Expires: 02/23/2024 Start: 11-24-2023 End: 02-23-2024 Thyrotropin [Units/volume] in Serum or Plasma THYROID STIMULATING HORMONE Lab Routine Hypothyroidism, unspecified type Expected: 11/24/2023, Expires: 02/23/2024 [facility] Comment on above: Expected: 11/24/2023 , Expires: 02/23/2024 Start: 11-24-2023 End: 02-23-2024 Thyroxine (T4) free [Mass/volume] in Serum or Plasma T4 FREE/FREE THYROXINE Lab Routine Hypothyroidism, unspecified type Expected: 11/24/2023, Expires: 02/23/2024 [facility] Comment on above: Expected: 11/24/2023 , Expires: 02/23/2024 Start: 11-12-2023 Annual PCP Team [place] Histor[place] k[place] Disease Visit Annual PCP Team Chronic Disease Visit [facility] Start: 11-12-2023 Mammography Mammogram Screening [facility] Comment on above: Postponed from 01/13 (Declined at this time) Start: 10-31-2023 Influenza vaccination Influenza Vacc ine (#1) [facility] Start: 08-04-2023 ANNUAL PCP TEAM SUPERVISOR SHIPPING KAREN DISEASE VISIT ANNUAL PCP TEAM CHRONIC DISEASE VISIT [facility] Start: 08-04-2023 BP CONTROLLED (<130/80) BP CONTROLLE D (<130/80) [facility] Start: 03-21-2023 BP CONTROLLED (<130/80) BP CONTROLLE D (<130/80) [facility] Start: 03-01-2023 Behavioral Health Screening Behavioral Health Screening [facility] Start: 03-01-2023 Depression Assessment Depression Ass essment [facility] Start: 01-13-2023 Mammography MAMMOGRAM [facility] Start: 01-02-2023 ANNUAL PCP TEAM SUPERVISOR SHIPPING KAREN DISEASE VISIT ANNUAL PCP TEAM CHRONIC DISEASE VISIT [facility] Start: 11-11-2022 End: 01-11-2023 17-Hydroxyprogesterone [Mass/volume] in Serum or Plasma HYDROXYPROGESTERO-17 Lab Routine Hypertension, essential Elevated glucose Bloating Belching Flatulence RUQ pain Weight gain Obesity, Class III, BMI 40-49.9 (morbid obesity) ([facility]) Expected: 11/11/2022, Expires: 01/11/2023 [facility] Work Phone: Comment on above: Expected: 11/11/2022 , Expires: 01/11/2023 Start: 11-11-2022 End: 01-11-2023 DHEA-S BLD DHEA-S BLD Lab Routine Hypertension, essential Elevated glucose Bloating Belching Flatulence RUQ pain Weight gain Obesity, Class III, BMI 40-49.9 (morbid obesity) ([facility]) Expected: 11/11/2022, Expires: 01/11/2023 [facility] Work Phone: Comment on above: Expected: 11/11/2022 , Expires: 01/11/2023 Start: 11-11-2022 End: 01-11-2023 GLUC ORLIN, 2-HR NON-GEST, 75 GM, FASTING GLUC ORLIN, 2-HR NON-GEST, 75 GM, FASTING Lab Routine Hypertension, essential Elevated glucose Bloating Belching Flatulence RUQ pain Weight gain Obesity, Class III, BMI 40-49.9 (morbid obesity) ([facility]) Expected: 11/11/2022, Expires: 01/11/2023 [facility] Work Phone: Comment on above: Expected: 11/11/2022 , Expires: 01/11/2023 Start: 11-11-2022 End: 01-11-2023 Hemoglobin A1c in Blood HGB A1C Lab Routine Hypertension, essential Elevated glucose Bloating Belching Flatulence RUQ pain Weight gain Expected: 11/11/2022, Expires: 01/11/2023 [facility] Work Phone: Comment on above: Expected: 11/11/2022 , Expires: 01/11/2023 Start: 11-11-2022 End: 01-11-2023 Prolactin [Mass/volume] in Serum or Plasma PROLACTIN BLD Lab Routine Hypertension, essential Elevated glucose Bloating Belching Flatulence RUQ pain Weight gain Obesity, Class III, BMI 40-49.9 (morbid obesity) ([facility]) Expected: 11/11/2022, Expires: 01/11/2023 [facility] Work Phone: Comment on above: Expected: 11/11/2022 , Expires: 01/11/2023 Start: 11-11-2022 End: 01-11-2023 TESTOSTERONE, FREE AND TOTAL TESTOSTERONE, FREE AND TOTAL Lab Routine Hypertension, essential Elevated glucose Bloating Belching Flatulence RUQ pain Weight gain Obesity, Class III, BMI 40-49.9 (morbid obesity) ([facility]) Expected: 11/11/2022, Expires: 01/11/2023 [facility] Work Phone: Comment on above: Expected: 11/11/2022 , Expires: 01/11/2023 Start: 11-11-2022 End: 01-11-2023 Thyrotropin [Units/volume] in Serum or Plasma TSH BLD Lab Routine Hypothyroidism, unspecified type Hypertension, essential Elevated glucose Bloating Belching Flatulence RUQ pain Weight gain Obesity, Class III, BMI 40-49.9 (morbid obesity) ([facility]) Expected: 11/11/2022, Expires: 01/11/2023 [facility] Work Phone: Comment on above: Expected: 11/11/2022 , Expires: 01/11/2023 Start: 11-11-2022 End: 11-13-2023 Thyroxine (T4) free [Mass/volume] in Serum or Plasma T4 FREE/FREE THYROX Lab Routine Hypothyroidism, unspecified type Hypertension, essential Elevated glucose Bloating Belching Flatulence RUQ pain Weight gain Obesity, Class III, BMI 40-49.9 (morbid obesity) (HCC) Expected: 11/11/2022, Expires: 01/11/2023 [facility] Work Phone: Comment on above: Expected: 11/11/2022 , Expires: 01/11/2023 Start: 11-11-2022 End: 01-11-2023 Triiodothyronine (T3) [Mass/volume] in Serum or Plasma T3 BLD Lab Routine Hypothyroidism, unspecified type Hypertension, essential Elevated glucose Bloating Belching Flatulence RUQ pain Weight gain Obesity, Class III, BMI 40-49.9 (morbid obesity) (HCC) Expected: 11/11/2022, Expires: 01/11/2023 [facility] Work Phone: Comment on above: Expected: 11/11/2022 , Expires: 01/11/2023 Start: 10-30-2022 Covid-19 Vaccine ( season) Covid-19 Vaccine () [facility] Start: 10-30-2022 Influenza vaccination INFLUENZA (#1) [facility] Start: 09-22-2022 ANNUAL PCP TEAM SUPERVISOR SHIPPING KAREN DISEASE VISIT ANNUAL PCP TEAM CHRONIC DISEASE VISIT [facility] Start: 09-05-2022 End: 11-05-2022 Comprehensive metabolic 2000 panel - Serum or Plasma COMP METABOLIC PANEL Lab Routine Elevated LFTs Expected: 09/05/2022, Expires: 11/05/2022 [facility] Work Phone: Comment on above: Expected: 09/05/2022 , Expires: 11/05/2022 Start: 08-22-2022 ANNUAL PCP TEAM SUPERVISOR SHIPPING KAREN DISEASE VISIT ANNUAL PCP TEAM CHRONIC DISEASE VISIT [facility] Start: 08-22-2022 BP CONTROLLED (<130/80) BP CONTROLLE D (<130/80) [facility] Start: 08-03-2022 End: 10-03-2022 Comprehensive metabolic 2000 panel - Serum or Plasma [facility] Work Phone: Comment on above: Expected: 08/03/2022 , Expires: 10/03/2022 Start: 08-03-2022 End: 10-03-2022 Thyrotropin [Units/volume] in Serum or Plasma [facility] Work Phone: Comment on above: Expected: 08/03/2022 , Expires: 10/03/2022 Start: 08-03-2022 End: 10-03-2022 Thyroxine (T4) free [Mass/volume] in Serum or Plasma [facility] Work Phone: Comment on above: Expected: 08/03/2022 , Expires: 10/03/2022 Start: 08-03-2022 End: 10-03-2022 Triiodothyronine (T3) [Mass/volume] in Serum or Plasma [facility] Work Phone: Comment on above: Expected: 08/03/2022 , Expires: 10/03/2022 Start: 07-10-2022 Adult depression scr eening assessment DEPRESSION SCREENING [facility] Start: 05-07-2022 BP CONTROLLED (<130/80) BP CONTROLLE D (<130/80) [facility] Start: 03-01-2022 DEPRESSION ASSESSMENT DEPRESSION ASS ESSMENT [facility] Start: 01-09-2022 Mammography MAMMOGRAM [facility] Start: 01-01-2022 End: 01-15-2022 Influenza virus A and B RNA and SARS-CoV-2 (COVID-19) N gene panel - Respiratory specimen by BUCK with probe detection COVID WITH FLUA+B, ROUTINE Microbiology Routine Acute cough Upper respiratory tract infection, unspecified type Expected: 01/01/2022, Expires: 01/15/2022 [facility] Work Phone: Comment on above: Expected: 01/01/2022 , Expires: 01/15/2022 Start: 12-20-2021 ANNUAL PCP TEAM SUPERVISOR SHIPPING KAREN DISEASE VISIT ANNUAL PCP TEAM CHRONIC DISEASE VISIT [facility] Start: 10-30-2021 BP CONTROLLED (<130/80) BP CONTROLLE D (<130/80) [facility] Start: 10-30-2021 Influenza vaccination INFLUENZA (#1) [facility] Start: 09-02-2021 COVID-19 VACCINE (5 - Booster for Pfizer series) COVID-19 VACCINE (5 - Booster for Pfizer series) [facility] Start: 03-01-2021 DEPRESSION ASSESSMENT DEPRESSION ASS ESSMENT [facility] Start: 2011 COLOGUARD (FIT-DNA) COLOGUARD (FIT-D NA) [facility] Start: [address] COLONOGRAPHY [facility] Start: 2011 FECAL OCCULT BLOOD FECAL OCCULT BLOO D [facility] Start: 2011 Screening for malign ant neoplasm of colon [facility] Start: 2011 SIGMOIDOSCOPY SIGMOIDOSCOPY [facility] Start: 1984 Anxiety Screening Anxiety Screening [facility] Start: 1984 Depression Screening Depression Scre ening [facility] End: 12-23-2024 DBT Breast - bilateral screening ALEXX SCREENING W ELIJAH Radiology Routine Encounter for screening mammogram for breast cancer 1 Occurrences starting 11/24/2023 until 12/23/2024 [facility] Work Phone: Comment on above: 1 Occurrences starti ng 11/24/2023 until 12/23/2024 DDI VIBRATION CONTRO LLED TRANSIENT ELASTOGRAPHY (VCTE) DDI VIBRATION CONTROLLED TRANSIENT ELASTOGRAPHY (VCTE) Endoscopy Routine Hepatic steatosis Ordered: 12/14/2022 [facility] Work Phone: Comment on above: Ordered: 12/14/2022 End: 04-08-2023 Esophageal motility study w/interp&rpt MANOMETRY ESOPHAGEAL Endoscopy Routine Dysphagia, unspecified type 1 Occurrences starting 04/08/2022 until 04/08/2023 [facility] Work Phone: Comment on above: 1 Occurrences starti ng 04/08/2022 until 04/08/2023 End: 04-08-2023 PH INSERT OFF MEDS PH INSERT OFF MEDS Endoscopy Routine Dysphagia, unspecified type 1 Occurrences starting 04/08/2022 until 04/08/2023 [facility] Work Phone: Comment on above: 1 Occurrences starti ng 04/08/2022 until 04/08/2023 PT PLAN OF CARE CERTIFICATION PT PLAN OF CARE CERTIFICATION Procedures Routine Patellofemoral arthritis DDD (degenerative disc disease), lumbar Degeneration of lumbar intervertebral disc Ordered: 07/15/2021 [facility] Work Phone: Comment on above: Ordered: 07/15/2021 End: 04-04-2023 Radiologic exam esophagus single contrast study XR ESOPHAGRAM Radiology Routine Dysphagia, unspecified type 1 Occurrences starting 03/05/2022 until 04/04/2023 [facility] Work Phone: Comment on above: 1 Occurrences starti ng 03/05/2022 until 04/04/2023 End: 04-08-2023 Screening colonoscopy COLONOSCOPY SCREENING Endoscopy Routine Dysphagia, unspecified type 1 Occurrences starting 04/08/2022 until 04/08/2023 [facility] Work Phone: Comment on above: 1 Occurrences starti ng 04/08/2022 until 04/08/2023 End: 12-11-2023 US ABDOMEN COMPLETE US ABDOMEN COMPLETE Radiology Routine Hypertension, essential Elevated LFTs Elevated glucose Bloating Belching Flatulence RUQ pain Weight gain Obesity, Class III, BMI 40-49.9 (morbid obesity) ([facility]) 1 Occurrences starting 11/11/2022 until 12/11/2023 [facility] Work Phone: Comment on above: 1 Occurrences starti ng 11/11/2022 until 12/11/2023 End: 12-11-2023 Us pelvic nonobstetric image dcmtn limited/f/u US FEMALE PELVIS TRANSABD LTD Radiology Routine Hypertension, essential Elevated glucose Bloating Belching Flatulence RUQ pain Weight gain Obesity, Class III, BMI 40-49.9 (morbid obesity) (HCC) 1 Occurrences starting 11/11/2022 until 12/11/2023 [facility] Work Phone: Comment on above: 1 Occurrences starti ng 11/11/2022 until 12/11/2023 End: 12-11-2023 Us transvaginal US FEMALE PELVIS TRANSVAG Radiology Routine Hypertension, essential Elevated glucose Bloating Belching Flatulence RUQ pain Weight gain Obesity, Class III, BMI 40-49.9 (morbid obesity) ([facility]) 1 Occurrences starting 11/11/2022 until 12/11/2023 [facility] Work Phone: Comment on above: 1 Occurrences starti ng 11/11/2022 until 12/11/2023 [facility] Immunizations Immunization Date Immunization Notes Care Provider [facility] 11-24-2023 influenza, seasonal, injectable Negra Shiela CREDIT INTERVIEWER.FACTORY ENGINEER Work Phone: [facility] 11-11-2022 influenza, injectabl e, quadrivalent, contains preservative Negra Shiela CREDIT INTERVIEWER.FACTORY ENGINEER Work Phone: [facility] 11-11-2022 influenza virus vaccine, unspecified formulation Negra Shiela CREDIT INTERVIEWER.FACTORY ENGINEER Work Phone: [facility] 12-18-2020 influenza, seasonal, injectable Lorelei Betts MD Work Phone: [facility] 10-30-2020 zoster vaccine recombinant Lorelei Betts MD Work Phone: [facility] 07-18-2020 tetanus toxoid, redu victor manuel diphtheria toxoid, and acellular pertussis vaccine, adsorbed Lorelei Betts MD Work Phone: [facility] 07-18-2020 zoster vaccine recombinant Lorelei Betts MD Work Phone: [facility] 05-16-2020 COVID-19 vaccine, ag e 12+ yr (PFIZER-BIONTECH - PURPLE TOP) Lorelei Betts MD Work Phone: [facility] 04-25-2020 COVID-19 vaccine, ag e 12+ yr (PFIZER-BIONTECH - PURPLE TOP) Lorelei Betts MD Work Phone: [facility] 12-08-2019 influenza, injectabl e, quadrivalent, preservative free Lorelei Betts MD Work Phone: [facility] Work Phone: 12-08-2018 influenza virus vaccine, unspecified formulation Lorelei Betts MD Work Phone: [facility] Work Phone: 11-30-2018 Influenza, injectabl e, [place]in [place] Canine Kidney, preservative free, quadrivalent Lorelei Betts MD Work Phone: [facility] Work Phone: 11-29-2017 influenza, seasonal, injectable, preservative free Lorelei Betts MD Work Phone: [facility] Work Phone: 11-21-2017 Influenza, injectabl e, [place]in [place] Canine Kidney, preservative free, quadrivalent Lorelei Betts MD Work Phone: [facility] Work Phone: 12-14-2016 influenza, injectabl e, quadrivalent, contains preservative Lorelei Betts MD Work Phone: [facility] 11-12-2016 influenza, injectabl e, quadrivalent, preservative free Lorelei Betts MD Work Phone: [facility] Work Phone: 12-17-2015 influenza, injectabl e, quadrivalent, preservative free Lorelei Betts MD Work Phone: [facility] Work Phone: 12-02-2015 influenza, seasonal, injectable, preservative free Lorelei Betts MD Work Phone: [facility] Work Phone: 12-07-2014 influenza, seasonal, injectable, preservative free Lorelei Betts MD Work Phone: [facility] Work Phone: 06-27-2013 hepatitis A vaccine, adult dosage Lorelei Betts MD Work Phone: [facility] Work Phone: 06-27-2013 hepatitis A vaccine, pediatric/adolescent dosage, 2 dose schedule Lorelei Betts MD Work Phone: [facility] Work Phone: 11-29-2010 influenza virus vaccine, unspecified formulation Lorelei Betts MD Work Phone: [facility] Work Phone: 05-07-2009 novel [id number], preservative-free, injectable Lorelei Betts MD Work Phone: [facility] Work Phone: 05-28-2008 hepatitis B vaccine, adult dosage Lorelei Betts MD Work Phone: [facility] Work Phone: 01-23-2008 hepatitis B vaccine, adult dosage Lorelei Betts MD Work Phone: [facility] Work Phone: 01-09-2008 influenza virus vaccine, whole virus Lorelei Betts MD Work Phone: [facility] Work Phone: 11-07-2007 hepatitis B vaccine, adult dosage Lorelei Betts MD Work Phone: [facility] Work Phone: 06-30-2006 tetanus and diphther ia toxoids, adsorbed, preservative free, for adult use (2 Lf of tetanus toxoid and 2 Lf of diphtheria toxoid) Lorelei Betts MD Work Phone: [facility] Payers Date Payer Category Payer Unknown MMO MMO [employer] [id number] 2021-Present [phone] [address] [place] [address] O [id number] 2021 Unknown [id number] 2021 Unknown [id number] Social History Date Type Detail Facility Start: 02-17-2011 End: 01-01-2022 Tobacco smoking status NHIS Never smoked tobacco [facility] Start: 07-10-2021 End: 11-24-2023 Alcohol intake Current drinker of alcohol (finding) [facility] Start: 07-11-2020 End: 08-02-2022 History SDOH Alcohol Frequency 4 [facility] Start: 07-11-2020 End: 08-02-2022 History SDOH Alcohol Std Drinks 2 [facility] Start: 07-11-2020 End: 08-02-2022 History SDOH Social Connections Get Together 3 [facility] Start: 07-11-2020 End: 08-02-2022 History SDOH Physical Activity DPW 5 [facility] Start: 07-11-2020 End: 08-02-2022 History SDOH Food Worry 1 [facility] Start: 07-11-2020 Education 18 [facility] Start: 1965 Sex Assigned At Female [facility] Start: 06-30-2021 End: 01-01-2022 Exposure to SARS-CoV-2 (event) Not sure [facility] Start: 02-17-2011 End: 01-01-2022 Tobacco use and exposure Smokeless tobacco non-user [facility] Work Phone: Start: 08-02-2022 End: 11-24-2023 History of Social function [facility] Start: 08-02-2022 End: 11-24-2023 Social connection and isolation panel [facility] Do you belong to any clubs or organizations such as jehovah's witness groups, unions, fraternal or athletic groups, or school groups? No [facility] Attends Club or Organization Meetings Not on file [facility] Are you now , , , , never or living with a partner? [facility] How often to you hav e a drink containing alcohol? 2-3 time sa week [facility] How many standard dr inks containing alcohol do you have on a typical day? 3 or 4 [facility] How often do you hav e 6 or more drinks on 1 occasion? Monthly [facility] Do you feel stress - tense, restless, nervous, or anxious, or unable to sleep at night because your mind is troubled all the time - these days [OSQ] Only a little [facility] (I/We) worried wheth er (my/our) food would run out before (I/we) got money to buy more. Never true [facility] Start: 2019 Gender identity Identifies as female gender (finding) [facility] Start: 2019 Sexual orientation Heterosexual (finding) [facility] How often do you hav e 6 or more drinks on 1 occasion? Monthly [facility] How often do you hav e 6 or more drinks on 1 occasion? Less than monthly [facility] Do you feel stress - tense, restless, nervous, or anxious, or unable to sleep at night because your mind is troubled all the time - these days [OSQ] To some extent [facility] Clinical Notes 02-17-2011 to 12-16-2023 Telephone Encounter - Brooklynn Cohen MA - 12/16/2023 8:22 AM EDTTelephone Encounter - Brooklynn Cohen MA - 12/16/2023 8:22 AM EDTTelephone Encounter - Angela Salinas RN - 12/15/2023 8:46 AM EDT Note Date & Type Note Facility 12-16-2023 Telephone encounter Note Pt informed Brooklynn Cohen MA [facility] 12-16-2023 Miscellaneous Notes Pt informed Brooklynn Cohen MA She can continue her oral vitamin B12 supplement. We can check her B12 level in 3 months, I'm placing the order. Vitamin B12 is a water soluble vitamin, so too much will be excreted in her urine. Negra Kuo APRN.JASON Patient states she began Mounjaro with added B12 yesterday. She is asking if she needs to continue her oral B12 supplements, or hold off on those while receiving it in the Mounjaro injection? States she has not had her Vit B12 levels checked recently, so unsure how to proceed. Of note, pt has appointment with Negra on 02/15 for 3 month follow up. Thank you. documented in this encounter [facility] 12-15-2023 Telephone encounter Note She can continue her oral vitamin B12 supplement. We can check her B12 level in 3 months, I'm placing the order. Vitamin B12 is a water soluble vitamin, so too much will be excreted in her urine. Negra Kuo APRN.JASON [facility] 12-15-2023 Telephone encounter Note Patient states she began Mounjaro with added B12 yesterday. She is asking if she needs to continue her oral B12 supplements, or hold off on those while receiving it in the Mounjaro injection? States she has not had her Vit B12 levels checked recently, so unsure how to proceed. Of note, pt has appointment with Negra on 02/15 for 3 month follow up. Thank you. [facility] 12-15-2023 Telephone encounter Note Patient returned call. See phone encounter for 12/15/23, with latest details. Angela Salinas RN [facility] 12-15-2023 Miscellaneous Notes Patient returned call. See phone encounter for 12/15/23, with latest details. Angela Salinas RN Called and left a voicemail for the Patient to call back and ask for a nurse to receive the providers message. Ashley Hoyos, RN I don't know whether the oral B12 will help as well as added to the injection. We can try the injection without the addition of the B12 and see how she tolerates it. I reordered the Mounjaro without the B12 added to the injection. Negra Kuo APRN.FACTORY ENGINEER The following approved medication requests have been transmitted electronically. Requested Prescriptions Signed Prescriptions Disp Refills tirzepatide (MOUNJARO) 2.5 mg/0.5 mL pen injector 2 mL 2 Sig: Inject 2.5 mg subcutaneously one time a week. Authorizing Provider: NEGRA KUO APRN.CNP patient is calling back wanting a response about the mounjaro with the added B12. patient stated that it is a lot more expensive. Patient is already taking orally B12 and is wanting to know if she would be over dosing if she takes it with the added B12? Also she had blood work done but did not have a B12 level checked. Please review and advise. Hortensia Augustin LPN patient is calling in concerning the rx for mounjaro. patient states that rx is high priced than stated in the office. pharmacy instructed patient it is due to the they are having them add vitamin b12 to the injection. patient states that she already takes prescribed vitamin b12 so she is wondering if this is needed to be added, does she need both b 12 doses, or should she stop the oral b12. please review and advise, patient needs called back with information documented in this encounter [facility] 12-15-2023 Telephone encounter Note Called and left a voicemail for the Patient to call back and ask for a nurse to receive the providers message. Ashley Hoyos RN [facility] 12-14-2023 Telephone encounter Note I don't know whether the oral B12 will help as well as added to the injection. We can try the injection without the addition of the B12 and see how she tolerates it. I reordered the Mounjaro without the B12 added to the injection. Negra Kuo APRN.CNP The following approved medication requests have been transmitted electronically. Requested Prescriptions Signed Prescriptions Disp Refills tirzepatide (MOUNJARO) 2.5 mg/0.5 mL pen injector 2 mL 2 Sig: Inject 2.5 mg subcutaneously one time a week. Authorizing Provider: NEGRA KUO APRN.CNP [facility] 12-14-2023 Telephone encounter Note See separate encounter from 12/05. Closing this encounter. Negra Kuo APRN.CNP [facility] 12-14-2023 Miscellaneous Notes See separate encounter from 12/05. Closing this encounter. Negra Kuo APRN.CNP Patient calls back and notified of below. Patient states that her question is should she take both the oral and injection of B12? Patient already takes oral B12 due to Gastric Bypass surgery. Patient asking if taking both oral and injection would be too much B12? Please review and advise, Marcelle Thrasher RN Left message to return call Brooklynn Cohen MA If she wants, she can do it without the vitamin B12 in the injection and try it with the oral. The oral B12 may possibly help, but isn't nearly as effective. Negra Kuo APRN.CNP Patient calls with question about Mounjaro. Patient reports that medication is $20 more than originally quoted because they are adding B-12 to the injection. Patient reports that she takes oral vitamin B-12 and asking if it is better for the B-12 to be in the injection and stop taking the oral or if should be doing both and if to continue B-12 oral what dose is recommended? Eva Hamilton RN Rx sent to [facility]. The following approved medication requests have been transmitted electronically. Requested Prescriptions Signed Prescriptions Disp Refills tirzepatide (MOUNJARO) 2.5 mg/0.5 mL pen injector 2 mL 2 Sig: Inject 2.5 mg subcutaneously one time a week. Authorizing Provider: NEGRA KUO APRN.CNP Pt informed. Please send script to [facility]. Brooklynn Cohen MA Please let patient know below. Confirm she would like me to send to the [facility] and I'll get it sent in today. Negra Kuo APRN.CNP Mounajro is not covered with any insurance for weight loss. PA was denied for this reason. It is covered for diabetes only after trying multiple formulary medicines first. No appeal needed. Denial reason from insurance. Prescriber Name: Negra Shiela Prescriber Phone: [phone] Prescriber Fax: [phone] Dear LIVIER ROMANO: [facility] received a request for coverage of Mounjaro (tirzepatide) for you. This is the initial adverse determination for this request. The request was denied because: Your plan only covers this drug when it is used for certain health conditions. Covered use is for type 2 diabetes mellitus. Your plan does not cover the drug for your health condition that your doctor told us you have. We reviewed the information we had. Your request has been denied. Your doctor can send us any new or missing information for us to review. For this drug, you may have to meet other criteria. You can request the drug policy for more details. You can also request other plan documents for your review. You may ask for a free copy of the actual benefit provision, guideline, protocol or other similar criterion used to make the decision and any other information related to this decision by calling Customer Care toll-free at the number on your benefit ID card. You may also choose to purchase this medicine at your own expense. For more information regarding your prescription benefit, please refer to the prescription benefit Please route to PA. Negra Kuo APRN.CNP Pt. informed . For appeal needs Medical [place] [id number] Group [id number] Why Rx is needed clinical evidence statement why appeal should be approved. I apologize, I just heard back from our pharmacist today regarding using Mounjaro in the past. Since she just had the 1 episode of pancreatitis and it was several years ago, she feels it would be safe to try the Mounjaro. Negra Kuo APRN.JASON Patient calls back to add to the below message. She reports that insurance company is recommending an appeal for Mounjaro. Patient reports before moving forward with that she would like to verify that Mounjaro would be right for her given her history of pancreatitis. Also, reports that if provider feels it is ok to proceed and doesn't feel that an appeal is going to work she would like to proceed with the [facility] as discussed. Eva Hamilton RN Patient calling to let provider know she had pancreatitis in 2019 with [facility] hospital admission. She is asking if still okay to take Mounjaro? Johanna Guzman, DEREK documented in this encounter [facility] 12-09-2023 Telephone encounter Note patient is calling back wanting a response about the mounjaro with the added B12. patient stated that it is a lot more expensive. Patient is already taking orally B12 and is wanting to know if she would be over dosing if she takes it with the added B12? Also she had blood work done but did not have a B12 level checked. Please review and advise. Hortensia Augustin LPN [facility] 12-06-2023 Telephone encounter Note patient is calling in concerning the rx for mounjaro. patient states that rx is high priced than stated in the office. pharmacy instructed patient it is due to the they are having them add vitamin b12 to the injection. patient states that she already takes prescribed vitamin b12 so she is wondering if this is needed to be added, does she need both b 12 doses, or should she stop the oral b12. please review and advise, patient needs called back with information [facility] 12-02-2023 Telephone encounter Note Patient calls back and notified of below. Patient states that her question is should she take both the oral and injection of B12? Patient already takes oral B12 due to Gastric Bypass surgery. Patient asking if taking both oral and injection would be too much B12? Please review and advise, Marcelle Thrasher RN [facility] 12-01-2023 Telephone encounter Note Left message to return call Brooklynn Cohen MA [facility] 12-01-2023 Telephone encounter Note If she wants, she can do it without the vitamin B12 in the injection and try it with the oral. The oral B12 may possibly help, but isn't nearly as effective. Negra Kuo APRN.JASON [facility] 12-01-2023 Telephone encounter Note Patient calls with question about Mounjaro. Patient reports that medication is $20 more than originally quoted because they are adding B-12 to the injection. Patient reports that she takes oral vitamin B-12 and asking if it is better for the B-12 to be in the injection and stop taking the oral or if should be doing both and if to continue B-12 oral what dose is recommended? Eva Hamilton, RN [facility] 12-01-2023 Telephone encounter Note Rx sent to [facility]. The following approved medication requests have been transmitted electronically. Requested Prescriptions Signed Prescriptions Disp Refills tirzepatide (MOUNJARO) 2.5 mg/0.5 mL pen injector 2 mL 2 Sig: Inject 2.5 mg subcutaneously one time a week. Authorizing Provider: NEGRA KUO APRN.CNP [facility] 12-01-2023 Telephone encounter Note Pt informed. [facility]. Brooklynn Cohen MA [facility] 12-01-2023 Telephone encounter Note Please let patient know below. Confirm she would like me to send to the [facility] and I'll get it sent in today. Negra Kuo APRN.FACTORY ENGINEER [facility] 12-01-2023 Telephone encounter Note Mounajro is not covered with any insurance for weight loss. PA was denied for this reason. It is covered for diabetes only after trying multiple formulary medicines first. No appeal needed. Denial reason from insurance. Prescriber Name: Negra Kuo Prescriber Phone: [phone] Prescriber Fax: [phone] Dear LIVIER ROMANO: [facility] received a request for coverage of Mounjaro (tirzepatide) for you. This is the initial adverse determination for this request. The request was denied because: Your plan only covers this drug when it is used for certain health conditions. Covered use is for type 2 diabetes mellitus. Your plan does not cover the drug for your health condition that your doctor told us you have. We reviewed the information we had. Your request has been denied. Your doctor can send us any new or missing information for us to review. For this drug, you may have to meet other criteria. You can request the drug policy for more details. You can also request other plan documents for your review. You may ask for a free copy of the actual benefit provision, guideline, protocol or other similar criterion used to make the decision and any other information related to this decision by calling Customer Care toll-free at the number on your benefit ID card. You may also choose to purchase this medicine at your own expense. For more information regarding your prescription benefit, please refer to the prescription benefit [facility] 12-01-2023 Telephone encounter Note Please route to PA. Negra Kuo APRN.CNP [facility] 11-30-2023 Telephone encounter Note Pt. informed . For appeal needs Medical [place] [id number] Group [id number] Why Rx is needed clinical evidence statement why appeal should be approved. [facility] 11-30-2023 Telephone encounter Note I apologize, I just heard back from our pharmacist today regarding using Mounjaro in the past. Since she just had the 1 episode of pancreatitis and it was several years ago, she feels it would be safe to try the Mounjaro. Negra Kuo APRN.CNP [facility] 11-30-2023 Telephone encounter Note Patient calls back to add to the below message. She reports that insurance company is recommending an appeal for Mounjaro. Patient reports before moving forward with that she would like to verify that Mounjaro would be right for her given her history of pancreatitis. Also, reports that if provider feels it is ok to proceed and doesn't feel that an appeal is going to work she would like to proceed with the [facility] as discussed. Eva Hamilton RN [facility] 11-25-2023 Telephone encounter Note Pt notified via my chart. [facility] 11-25-2023 Miscellaneous Notes Pt notified via my chart. Images from the original note were not included. Electronic PA rec'd and completed for mounjaro. This is not covered for weight loss. It was denied. Note from payer: Your PA request has been denied. Additional information will be provided in the denial communication. (Message 1140) Payer: [employer] [phone] Electronic appeal: Not supported Appeal instructions: Your PA request has been denied. Additional information will be provided in the denial communication. (Message 1140) View History Notes Time User Attachment Attachment received from payer. 11/25/2023 11:55 AM [facility], Rx Priorauth In Document Medication Being Authorized tirzepatide (MOUNJARO) 2.5 mg/0.5 mL pen injector Inject 2.5 mg subcutaneously one time a week. Dispense: 2 mL Refills: 2 Start: 11/24/2023 End: 02/22/2024 Class: Normal Diagnoses: Hypothyroidism, unspecified type; Hypertension, essential; Morbid obesity (HCC) This order has been released to its destination. To be filled at: [facility] [id number] [place] [address] [address] - [phone] documented in this encounter [facility] 11-25-2023 Telephone encounter Note Prescription Refill Information The patient has been identified by name and date of : Yes Caregiver verified no other encounters exist for this prescription request: Yes Caregiver confirmed with patient/requestor that no other refills are due, in the near future, with this provider at this time: Yes The last office visit in the department: 11/24/2023 Does the patient have a future office visit with this provider/department: Yes Requested Prescriptions Pending Prescriptions Disp Refills levothyroxine (SYNTHROID) 150 mcg tablet 90 tablet 0 Sig: Take on empty stomach. For thyroid. Take 1 tablet 5 days per week. Take 1.5 tablets 2 days per week. Juliane Farr November 25, 2023 2:46 PM [facility] 11-25-2023 Miscellaneous Notes Prescription Refill Information The patient has been identified by name and date of : Yes Caregiver verified no other encounters exist for this prescription request: Yes Caregiver confirmed with patient/requestor that no other refills are due, in the near future, with this provider at this time: Yes The last office visit in the department: 11/24/2023 Does the patient have a future office visit with this provider/department: Yes Requested Prescriptions Pending Prescriptions Disp Refills levothyroxine (SYNTHROID) 150 mcg tablet 90 tablet 0 Sig: Take on empty stomach. For thyroid. Take 1 tablet 5 days per week. Take 1.5 tablets 2 days per week. Juliane Farr November 25, 2023 2:46 PM documented in this encounter [facility] 11-25-2023 Telephone encounter Note Images from the original note were not included. Electronic PA rec'd and completed for mounjaro. This is not covered for weight loss. It was denied. Note from payer: Your PA request has been denied. Additional information will be provided in the denial communication. (Message 1140) Payer: [employer] [phone] Electronic appeal: Not supported Appeal instructions: Your PA request has been denied. Additional information will be provided in the denial communication. (Message 1140) View History Notes Time User Attachment Attachment received from payer. 11/25/2023 11:55 AM [facility], Rx Priorauth In Document Medication Being Authorized tirzepatide (MOUNJARO) 2.5 mg/0.5 mL pen injector Inject 2.5 mg subcutaneously one time a week. Dispense: 2 mL Refills: 2 Start: 11/24/2023 End: 02/22/2024 Class: Normal Diagnoses: Hypothyroidism, unspecified type; Hypertension, essential; Morbid obesity (HCC) This order has been released to its destination. To be filled at: [facility] [id number] - [place] [address] [address] [facility] - [phone] [facility] 11-24-2023 Telephone encounter Note Patient calling to let provider know she had pancreatitis in 2019 with [facility] hospital admission. She is asking if still okay to take Mounjaro? Johanna Guzman RN [facility] [facility]23 Note HNO ID: [id number] Author: NEGRA KUO APRN.JASON Service: ? Author Type: Nurse Practitioner Type: Progress Notes Filed: 11/24/2023 18:26 Note Text: Chief Complaint Patient presents with: Physical: Discuss weight loss options HPI Livier Romano is a 58 year old female who presents here today for Above Complaints. Here today for her yearly physical. Denies CP, SOB, palpitations, new or persistent h/a, increased thirst or urination, difficulty swallowing. Weight-has been doing Weight Watchers since the beginning of this year. Will lose 15 pounds, then gain 5 overnight. Feels like she can't do more than 10-15 and then plateaus. Walks every single day. Past medical history, appointments, medications, allergies reviewed. Previous Medical History PAST MEDICAL HISTORY Diagnosis Date GERD (gastroesophageal reflux disease) Hypertension, essential 07/07/2017 Hypothyroid Iron deficiency anemia, unspecified Rosacea S/P lumbar spinal fusion 10/07/2018 Sleep apnea Snoring Unspecified inflammatory disease of female pelvic organs and tissues Previous Surgical History PAST SURGICAL HISTORY Procedure Laterality Date ABDOMINAL SURGERY HX APPENDECTOMY 1984 APPENDECTOMY HX BACK SURGERY HX CATHETER, ABLATION thermachoice DELIVERY ONLY COLONOSCOPY 09/29/2016 small benign hyperplastic polyp, otherwise normal-repeat in 10 years COLONOSCOPY 06/18/2022 EGD TRANSORAL BIOPSY SINGLE/MULTIPLE 04/26/2009 EYE SURGERY HX GASTRIC BYPASS 04/2004 laparoscopic Keira-en-Y gastric bypass at [facility] ICAPSULAR CATARACT XTRJ INSJ IO LENS PRSTH 1 STG o.u. PAST SURGICAL HISTORY OF DANDC x 2 REMOVAL GALLBLADDER TONSILLECTOMY HX TONSILLECTOMY PRIMARY/SECONDARY Tonsillectomy Family History FAMILY HISTORY Problem Relation Age of Onset Osteoporosis Mother Arthritis Mother Lung Cancer Mother other (Dementia) Father Arthritis Daughter Rheumatoid Patient Allergies ALLERGIES Allergen Reactions Dotarem [Gadoterate* Hives, Itching, Other: See Comments Pt developed a diffuse deep redness over upper torso and difficulty swallowing Iohexol Other: See Comments Chest pain, nausea Anti-Inflammatory [* Other: See Comments Levaquin [Levofloxa* Diarrhea Lisinopril Cough Penicillins Current Medications Current Outpatient Medications on File Prior to Visit Medication Sig MEDICATION, NON-DATABASE 500 mg. Tumeric levothyroxine (SYNTHROID) 150 mcg tablet Take on empty stomach. For thyroid. Take 1 tablet 5 days per week. Take 1.5 tablets 2 days per week. losartan (COZAAR) 50 mg tablet Take 1 tablet by mouth once daily. nystatin (NYSTOP) powder Apply 1 application to affected area two times a day. To abdominal skin folds pantoprazole DR (PROTONIX) 40 mg tablet Take 1 tablet by mouth daily before breakfast. Take on empty stomach, 1/2 hr before meal. GEMTESA 75 mg tablet Take 1 tablet by mouth once daily. levothyroxine (SYNTHROID) 150 mcg tablet TAKE 1 TABLET 5 DAYS WEEKLYAND 1 AND 1/2 TABLETS 2 DAYS WEEKLY ON AN EMPTY STOMACH FOR THYROID vitamin B complex (B COMPLEX-VITAMIN B12 ORAL) Take by mouth. peg 3350-Electrolytes (GOLYTELY) 236-22.74-6.74 -5.86 gram suspension Refer to printed patient instructions that will be mailed to you. (Patient not taking: Reported on 11/11/2022) TURMERIC ORAL Take 1,200 mg by mouth twice daily. (Patient not taking: Reported on 11/11/2022) No current facility-administered medications on file prior to visit. Social History Social History Tobacco Use Smoking status: Never Smokeless tobacco: Never Substance Use Topics Alcohol use: Yes Comment: Occasionally Drug use: No Review of Symptoms REVIEW OF SYSTEMS See HPI, otherwise negative EXAM: BP 122/78 (BP Site: Left Arm, BP Position: Sitting, BP Cuff Size: Regular Adult) Pulse 64 Resp 16 Ht 152 cm (4' 11.84 ) Wt 103.6 kg (228 lb 6.3 oz) LMP 08/18/2016 SpO2 97% BMI 44.84 kg/m? General Appearance: Well appearing, alert, in no acute distress, well-hydrated, well nourished. and Morbidly obese. Skin: Skin color, texture, turgor normal, no suspicious rashes or lesions. Head: Normocephalic, no masses, lesions, tenderness or abnormalities. Eyes: Anicteric sclera. Pupils are equally round and reactive to light. Extraocular movements are intact. . Ears: External ears normal, canals clear. Nose/Sinuses: Nares normal, septum midline, mucosa normal, no drainage or sinus tenderness. Oropharynx: Lips, mucosa, and tongue normal, teeth and gums normal, oropharynx normal. Neck: Supple, no adenopathy; thyroid symmetric, normal size, no bruits. Back:no pain to palpation of vertebrae, good flexion and extension, good range of motion, no muscle tenderness, motor and sensory appear to be normal Lungs: Lungs clear to auscultation. No wheezing, rhonchi, rales.. Heart: RRR without murmur, gallop, or rubs. No ectopy. Abdomen: Normal abdom (more content not included)... [facility] 11-24-2023 History of Presen t illness Narrative Chief Complaint Patient presents with: Physical: Discuss weight loss options HPI Livier Romano is a 58 year old female who presents here today for Above Complaints. Here today for her yearly physical. Denies CP, SOB, palpitations, new or persistent h/a, increased thirst or urination, difficulty swallowing. Weight-has been doing Weight Watchers since the beginning of this year. Will lose 15 pounds, then gain 5 overnight. Feels like she can't do more than 10-15 and then plateaus. Walks every single day. Past medical history, appointments, medications, allergies reviewed. Previous Medical History PAST MEDICAL HISTORY Diagnosis Date GERD (gastroesophageal reflux disease) Hypertension, essential 07/07/2017 Hypothyroid Iron deficiency anemia, unspecified Rosacea S/P lumbar spinal fusion 10/07/2018 Sleep apnea Snoring Unspecified inflammatory disease of female pelvic organs and tissues Previous Surgical History PAST SURGICAL HISTORY Procedure Laterality Date ABDOMINAL SURGERY HX APPENDECTOMY 1984 APPENDECTOMY HX BACK SURGERY HX CATHETER, ABLATION thermachoice DELIVERY ONLY COLONOSCOPY 09/29/2016 small benign hyperplastic polyp, otherwise normal-repeat in 10 years COLONOSCOPY 06/18/2022 EGD TRANSORAL BIOPSY SINGLE/MULTIPLE 04/26/2009 EYE SURGERY HX GASTRIC BYPASS 04/2004 laparoscopic Keira-en-Y gastric bypass at [facility] ICAPSULAR CATARACT XTRJ INSJ IO LENS PRSTH 1 STG o.u. PAST SURGICAL HISTORY OF D&C x 2 REMOVAL GALLBLADDER TONSILLECTOMY HX TONSILLECTOMY PRIMARY/SECONDARY <AGE 13 Tonsillectomy Family History FAMILY HISTORY Problem Relation Age of Onset Osteoporosis Mother Arthritis Mother Lung Cancer Mother other (Dementia) Father Arthritis Daughter Rheumatoid Patient Allergies ALLERGIES Allergen Reactions Dotarem [Gadoterate* Hives, Itching, Other: See Comments Pt developed a diffuse deep redness over upper torso and difficulty swallowing Iohexol Other: See Comments Chest pain, nausea Anti-Inflammatory [* Other: See Comments Levaquin [Levofloxa* Diarrhea Lisinopril Cough Penicillins Current Medications Current Outpatient Medications on File Prior to Visit Medication Sig MEDICATION, NON-DATABASE 500 mg. Tumeric levothyroxine (SYNTHROID) 150 mcg tablet Take on empty stomach. For thyroid. Take 1 tablet 5 days per week. Take 1.5 tablets 2 days per week. losartan (COZAAR) 50 mg tablet Take 1 tablet by mouth once daily. nystatin (NYSTOP) powder Apply 1 application to affected area two times a day. To abdominal skin folds pantoprazole DR (PROTONIX) 40 mg tablet Take 1 tablet by mouth daily before breakfast. Take on empty stomach, 1/2 hr before meal. GEMTESA 75 mg tablet Take 1 tablet by mouth once daily. levothyroxine (SYNTHROID) 150 mcg tablet TAKE 1 TABLET 5 DAYS WEEKLYAND 1 AND 1/2 TABLETS 2 DAYS WEEKLY ON AN EMPTY STOMACH FOR THYROID vitamin B complex (B COMPLEX-VITAMIN B12 ORAL) Take by mouth. peg 3350-Electrolytes (GOLYTELY) 236-22.74-6.74 -5.86 gram suspension Refer to printed patient instructions that will be mailed to you. (Patient not taking: Reported on 11/11/2022) TURMERIC ORAL Take 1,200 mg by mouth twice daily. (Patient not taking: Reported on 11/11/2022) No current facility-administered medications on file prior to visit. Social History Social History Tobacco Use Smoking status: Never Smokeless tobacco: Never Substance Use Topics Alcohol use: Yes Comment: Occasionally Drug use: No Review of Symptoms REVIEW OF SYSTEMS See HPI, otherwise negative EXAM: BP 122/78 (BP Site: Left Arm, BP Position: Sitting, BP Cuff Size: Regular Adult) Pulse 64 Resp 16 Ht 152 cm (4' 11.84 ) Wt 103.6 kg (228 lb 6.3 oz) LMP 08/18/2016 SpO2 97% BMI 44.84 kg/m General Appearance: Well appearing, alert, in no acute distress, well-hydrated, well nourished. and Morbidly obese. Skin: Skin color, texture, turgor normal, no suspicious rashes or lesions. Head: Normocephalic, no masses, lesions, tenderness or abnormalities. Eyes: Anicteric sclera. Pupils are equally round and reactive to light. Extraocular movements are intact. . Ears: External ears normal, canals clear. Nose/Sinuses: Nares normal, septum midline, mucosa normal, no drainage or sinus tenderness. Oropharynx: Lips, mucosa, and tongue normal, teeth and gums normal, oropharynx normal. Neck: Supple, no adenopathy; thyroid symmetric, normal size, no bruits. Back:no pain to palpation of vertebrae, good flexion and extension, good range of motion, no muscle tenderness, motor and sensory appear to be normal Lungs: Lungs clear to auscultation. No wheezing, rhonchi, rales.. Heart: RRR without murmur, gallop, or rubs. No ectopy. Abdomen: Normal abdominal exam, Abdomen soft, non-tender. Bowel sounds normal. No masses, organomegaly. Extremities: No deformities, edema, skin discoloration, clubbing or cyanosis. Good capillary refill. . Musculoskeletal: No joint swelling, deformity, or tenderness. Peripheral Pulses: Normal. Neurologic: Gait normal. Reflexes normal and symmetric. Sensation grossly intact.. Lymph Nodes: No cervical lymphadenopathy and No supraclavicular lymphadenopathy. Psychiatric: pleasant, cooperative. Health Maintenance List Depression Screening Never done Anxiety Screening Never done BP Controlled (<130/80) due on 10/30/2021 Influenza Vaccine(1) due on 10/31/2023 Mammogram Screening due on 01/15/2024 Cervical Cancer Screening due on 11/08/2024 Lipid Screening due on 11/23/2024 Annual PCP Team Chronic Disease Visit due on 11/23/2024 Diabetes Screening due on 11/14/2025 DTaP,Tdap,Td Vaccine(2 - Td or Tdap) due on 07/18/2030 Colorectal Cancer Screening due on 06/18/2032 Hepatitis B Vaccine Completed Hepatitis C Screening Completed Shingrix Vaccine Completed Covid-19 Vaccine Completed HIV Screening Discontinued Data reviewed Previous records, office notes ASSESSMENT/PLAN: 1. Well adult exam - ICD9: V70.0, ICD10: Z00.00 (primary diagnosis) - Counseled on healthy diet and regular exercise - Discussed need and benefit for weight loss. BMI 44.84 kg/(m^2) - Follow up for annual exam in one year 2. Hypertension, essential - ICD9: 401.9, ICD10: I10 - Controlled - Continue current medications - Recommend home blood pressure monitoring, to bring results to next visit - Encouraged sodium restriction, DASH or Mediterranean diet - Recommend regular aerobic exercise - COMPLETE BLOOD COUNT - COMPREHENSIVE METABOLIC PANEL - TIRZEPATIDE 2.5 MG/0.5 ML SUBCUTANEOUS PEN INJECTOR 3. Hypothyroidism, unspecified type - ICD9: 244.9, ICD10: E03.9 - Instructed patient on importance of taking on an empty stomach either first thing in the morning or at bedtime. - THYROID STIMULATING HORMONE - T4 FREE/FREE THYROXINE - TIRZEPATIDE 2.5 MG/0.5 ML SUBCUTANEOUS PEN INJECTOR 4. Morbid obesity (HCC) - ICD9: 278.01, ICD10: E66.01 Stable - Behavioral and pharmacological intervention - COMPLETE BLOOD COUNT - COMPREHENSIVE METABOLIC PANEL - LIPID PANEL BASIC - HEMOGLOBIN A1C - TIRZEPATIDE 2.5 MG/0.5 ML SUBCUTANEOUS PEN INJECTOR 5. Encounter for screening mammogram for breast cancer - ICD9: V76.12, ICD10: Z12.31 - Follow up for annual exam in one year. - ALEXX SCREENING W ELIJAH 6. Screening for depression - ICD9: V79.0, ICD10: Z13.31 - DEPRESSION SCREENING 7. Encounter for screening examination for other mental health and behavioral disorders - ICD9: V79.8, ICD10: Z13.39 - ANXIETY SCREENING 8. Encounter for immunization - ICD9: V03.89, ICD10: Z23 - INFLUENZA VACCINE, AGE 6MO-64YR, TRIVALENT (AFLURIA, FLULAVAL, FLUVIRIN, FLUZONE) Negra Kuo APRN.JASON documented in this encounter [facility] 10-07-2023 Telephone encounter Note Patient calling to say her refills went to wrong pharmacy. She states she requested they go to [facility]. Pended per request. Johanna Guzman RN [facility] 10-07-2023 Miscellaneous Notes Patient calling to say her refills went to wrong pharmacy. She states she requested they go to [facility]. Pended per request. Johanna Guzman RN documented in this encounter [facility] 10-06-2023 Telephone encounter Note Prescription Refill Information The patient has been identified by name and date of : Yes Caregiver verified no other encounters exist for this prescription request: Yes Caregiver confirmed with patient/requestor that no other refills are due, in the near future, with this provider at this time: Yes The last office visit in the department: 11/12/2023 Does the patient have a future office visit with this provider/department: No Requested Prescriptions Pending Prescriptions Disp Refills levothyroxine (SYNTHROID) 150 mcg tablet 30 tablet 0 Sig: Take on empty stomach. For thyroid. Take 1 tablet 5 days per week. Take 1.5 tablets 2 days per week. losartan (COZAAR) 50 mg tablet 90 tablet 1 Sig: Take 1 tablet by mouth once daily. nystatin (NYSTOP) powder 60 g 2 Sig: Apply 1 application to affected area two times a day. To abdominal skin folds pantoprazole DR (PROTONIX) 40 mg tablet 90 tablet 1 Sig: Take 1 tablet by mouth daily before breakfast. Take on empty stomach, 1/2 hr before meal. GEMTESA 75 mg tablet Sig: Take 1 tablet by mouth once daily. Kristen Sheppard October 06, 2023 5:16 PM T [facility] 10-06-2023 Miscellaneous Notes Prescription Refill Information The patient has been identified by name and date of : Yes Caregiver verified no other encounters exist for this prescription request: Yes Caregiver confirmed with patient/requestor that no other refills are due, in the near future, with this provider at this time: Yes The last office visit in the department: 11/12/2023 Does the patient have a future office visit with this provider/department: No Requested Prescriptions Pending Prescriptions Disp Refills levothyroxine (SYNTHROID) 150 mcg tablet 30 tablet 0 Sig: Take on empty stomach. For thyroid. Take 1 tablet 5 days per week. Take 1.5 tablets 2 days per week. losartan (COZAAR) 50 mg tablet 90 tablet 1 Sig: Take 1 tablet by mouth once daily. nystatin (NYSTOP) powder 60 g 2 Sig: Apply 1 application to affected area two times a day. To abdominal skin folds pantoprazole DR (PROTONIX) 40 mg tablet 90 tablet 1 Sig: Take 1 tablet by mouth daily before breakfast. Take on empty stomach, 1/2 hr before meal. GEMTESA 75 mg tablet Sig: Take 1 tablet by mouth once daily. Kristen Sheppard October 06, 2023 5:16 PM documented in this encounter [facility] 08-10-2023 Miscellaneous Notes Prescription Refill Information The patient has been identified by name and date of : Yes Caregiver verified no other encounters exist for this prescription request: Yes Caregiver confirmed with patient/requestor that no other refills are due, in the near future, with this provider at this time: Yes The last office visit in the department: 11/11/2022 Does the patient have a future office visit with this provider/department: No Requested Prescriptions Pending Prescriptions Disp Refills levothyroxine (SYNTHROID) 150 mcg tablet [Pharmacy Med Name: SYNTHROID TAB 150MCG] 90 tablet 1 Sig: TAKE 1 TABLET 5 DAYS WEEKLYAND 1 AND 1/2 TABLETS 2 DAYS WEEKLY ON AN EMPTY STOMACH FOR THYROID Catalina Murray LPN August 10, 2023 4:54 PM documented in this encounter [facility] 08-10-2023 Telephone encounter Note Prescription Refill Information The patient has been identified by name and date of : Yes Caregiver verified no other encounters exist for this prescription request: Yes Caregiver confirmed with patient/requestor that no other refills are due, in the near future, with this provider at this time: Yes The last office visit in the department: 11/11/2022 Does the patient have a future office visit with this provider/department: No Requested Prescriptions Pending Prescriptions Disp Refills levothyroxine (SYNTHROID) 150 mcg tablet [Pharmacy Med Name: SYNTHROID TAB 150MCG] 90 tablet 1 Sig: TAKE 1 TABLET 5 DAYS WEEKLYAND 1 AND 1/2 TABLETS 2 DAYS WEEKLY ON AN EMPTY STOMACH FOR THYROID Catalina Murray LPN August 10, 2023 4:54 PM [facility] 05-31-2023 Miscellaneous Notes Patient has been identified by name and date of : Patient phones for refill(s): Requested Prescriptions Pending Prescriptions Disp Refills pantoprazole DR (PROTONIX) 40 mg tablet 90 tablet 1 Sig: Take 1 tablet by mouth daily before breakfast. Take on empty stomach, 1/2 hr before meal. Date of last office visit in primary care: 11/11/2022 Date of next office visit in primary care: None Please advise. Thank you. Marcelle Thrasher RN. documented in this encounter [facility] 04-13-2023 Miscellaneous Notes Patient has been identified by name and date of : Patient phones for refill(s): Requested Prescriptions Pending Prescriptions Disp Refills losartan (COZAAR) 50 mg tablet 90 tablet 1 Sig: Take 1 tablet by mouth once daily. Date of last office visit in primary care: 11/11/2022 Date of next office visit in primary care: none Please advise. Thank you. Rebecca Baum. documented in this encounter [facility] 04-05-2023 Miscellaneous Notes Patient has been identified by name and date of : Yes, [facility]): Requested Prescriptions Pending Prescriptions Disp Refills levothyroxine (SYNTHROID) 150 mcg tablet 90 tablet 1 Sig: Take on empty stomach. For thyroid. Take 1 tablet 5 days per week. Take 1.5 tablets 2 days per week. Date of last office visit in primary care: 11/11/2022 Date of next office visit in primary care: Visit date not found Component Latest Ref Rng & Units 11/14/2022 TSH 0.270 - 4.200 mIU/L 1.330 T3 79 - 165 ng/dL 104 Free T4 0.9 - 1.7 ng/dL 1.5 Please advise. Thank you. Adeola Rosales LPN. documented in this encounter [facility] 12-21-2022 Note HNO ID: [id number] Author: Francy Negron APRN.JASON Service: ? Author Type: Nurse Practitioner Type: Progress Notes Filed: 12/21/2022 2:53 PM Note Text: Patient fasting for 3 hours:Yes Fibroscan was performed on December 21, 2022, by Polina Carter LPN and results are interpreted by Francy Negron APRN, CNP Diagnosis: Fatty liver Please refer to get images report for individual readings Number of readings: 10 IQR %: 6 E (kpa): 4.6 CAP: 270 Impression The reading was adequate. FS=4.6 kPA. The CAP score is 270 and corresponds to steatosis grade of S2. This reading corresponds: A 97% chance of stage 0-2 fibrosis A 3% chance of stage 3-4 fibrosis (advanced fibrosis) A <1% chance of stage 4 fibrosis (cirrhosis).A kPa >20 indicates a high likelihood of stage 4 fibrosis/cirrhosis, consider further testing to confirm. Francy Negron APRN.JASON NAFLD Fibroscan Fibrosis Risk <7 kPA = F0-F2 97%, F3+F4 3%, F4 <1% <10 kPA = F0-F2 91%, F3+F4 9%, F4 1.3% 10-15 kPA = F0-F2 56%, F3+F4 43%, F4 14% >15 kPA = F0-F2 26%, F3+F4 74%, F4 46% Grade CAP value up to 237 dB/M corresponds to S0 (< 10 % Fat) CAP value between (238 - 258 dB/M) corresponds to S1 (>/= 11 % Fat) CAP value between (259 - 289 dB/M) corresponds to S2 (>/= 33 % Fat) CAP value > 290dB/M corresponds to S3 (>/= 67 % Fat) stage 0 ( S0:< 10 % steatosis) stage 1 (>/= S1: 11%-33% steatosis) stage 2 (>/= S2: 34%-66% steatosis) stage 3 (>/= S3: > 66% steatosis) Reference Abdulkadir Y, Rhys Q, Abdulkadir T, Cheryl J, Abdulkadir H, Jose T. Controlled attenuation parameter for assessment of hepatic steatosis grades: a diagnostic meta-analysis. Int J Clin Exp Med. 2015 Nov 15;8(10):58359-50. PMID: 34340173; PMCID: [id number]. Graham Eddy, Marcus GREG, Paty M, Esvin F, Byron J, Liz O, Pasquale F, Stacy M, Anum G, Pam A, Cielo E, Kenia L, Joan G, Amarilys A, Raymon U, Jeyson S, Omar P, Avery V, Ortiz V, Reuben Eddy, Bertha BARRY. Refining the Baveno elastography criteria for the definition of compensated advanced chronic liver disease. J Hepatol. 2020;74(5):8340-0172. doi: 10.1016/j.jhep.2020.11.050. Epub 2019Feb 06. PMID: [id number]. [facility] 12-21-2022 History of Presen t illness Narrative Patient fasting for 3 hours:Yes Fibroscan was performed on December 21, 2022, by Polina Carter LPN and results are interpreted by Francy Negron APRN, JASON Diagnosis: Fatty liver Please refer to get images report for individual readings Number of readings: 10 IQR %: 6 E (kpa): 4.6 CAP: 270 Impression The reading was adequate. FS=4.6 kPA. The CAP score is 270 and corresponds to steatosis grade of S2. This reading corresponds: A 97% chance of stage 0-2 fibrosis A 3% chance of stage 3-4 fibrosis (advanced fibrosis) A <1% chance of stage 4 fibrosis (cirrhosis).A kPa >20 indicates a high likelihood of stage 4 fibrosis/cirrhosis, consider further testing to confirm. Francy Negron APRN.FACTORY ENGINEER NAFLD Fibroscan Fibrosis Risk <7 kPA = F0-F2 97%, F3+F4 3%, F4 <1% <10 kPA = F0-F2 91%, F3+F4 9%, F4 1.3% 10-15 kPA = F0-F2 56%, F3+F4 43%, F4 14% >15 kPA = F0-F2 26%, F3+F4 74%, F4 46% Grade CAP value up to 237 dB/M corresponds to S0 (< 10 % Fat) CAP value between (238 - 258 dB/M) corresponds to S1 (>/= 11 % Fat) CAP value between (259 - 289 dB/M) corresponds to S2 (>/= 33 % Fat) CAP value > 290dB/M corresponds to S3 (>/= 67 % Fat) stage 0 ( S0:< 10 % steatosis) stage 1 (>/= S1: 11%-33% steatosis) stage 2 (>/= S2: 34%-66% steatosis) stage 3 (>/= S3: > 66% steatosis) Reference Panchal Y, Rhys Q, Panchal T, Cheryl J, Panchal H, Jose T. Controlled attenuation parameter for assessment of hepatic steatosis grades: a diagnostic meta-analysis. Int J Clin Exp Med. 2015 Nov 15;8(10):62293-97. PMID: [id number]; PMCID: [id number]. Graham Eddy, Marcus GARZA, Paty M, Esvin F, Byron J, Liz O, Pasquale F, Stacy M, Anum G, Pam A, Cielo E, Kenia L, Joan G, Amarilys A, Raymon U, Benítez S, Omar P, Raino V, de Ruddy V, Reuben M, Bertha BARRY. Refining the Baveno elastography criteria for the definition of compensated advanced chronic liver disease. J Hepatol. 2020;74(5):2925-9149. doi: 10.1016/j.jhep.2020.11.050. Epub 2019Feb 06. PMID: [id number]. documented in this encounter [facility] 12-14-2022 Miscellaneous Notes Patient returned call and given provider's message below and patient verbalized understanding. Dheeraj Salinas RN Message left for pt to call back for results. Radha Paredes MA Please let her know I received her CT results. It does show that she has a likely fatty liver, but this is typically a painless finding. Otherwise the rest of the CT looks normal. I would like her to have a fibroscan, which looks at the extent of the fatty liver. Please assist her to schedule this test. To improve a fatty liver, she should focus on a low fat diet and exercise. Negra Kuo APRN.CNP documented in this encounter [facility] 12-11-2022 History of Presen t illness Narrative Radiology Service Progress Note PATIENT NAME: Livier Romano DATE OF SERVICE: December 11, 2022 TIME: 9:44 AM PATIENT IDENTITY VERIFICATION COMPLETED USING TWO (2) IDENTIFIERS: Name and Date of confirmed by patient verbally. FALL SCREENING: Has the patient had 2 falls in the last year or 1 fall with injury or currently using an Ambulatory Assistive Device (Walker, Cane, Wheelchair, Crutches, etc.)? No PATIENT GENDER DATA: Female. status: : No status: NO. PATIENT RELEVANT IMPLANT DATA REVIEWED: Not Applicable RADIOLOGY DEPARTMENT: Ultrasound PERIPHERAL IV DATA: Not applicable SIGNED BY: Nadia Robison RDMS T December 11, 2022 9:44 AM documented in this encounter [facility] 12-03-2022 History of Presen t illness Narrative Radiology Service Progress Note PATIENT NAME: Livier Romano DATE OF SERVICE: December 03, 2022 TIME: 4:27 PM PATIENT IDENTITY VERIFICATION COMPLETED USING TWO (2) IDENTIFIERS: Name and Date of confirmed by patient verbally. FALL SCREENING: Has the patient had 2 falls in the last year or 1 fall with injury or currently using an Ambulatory Assistive Device (Walker, Cane, Wheelchair, Crutches, etc.)? No PATIENT GENDER DATA: Female. status: : No status: NO. PATIENT RELEVANT IMPLANT DATA REVIEWED: N/A RADIOLOGY DEPARTMENT: Ultrasound PERIPHERAL IV DATA: Not applicable SIGNED BY: Nadia Robison RDMS RVT December 03, 2022 4:27 PM documented in this encounter [facility] 12-02-2022 Miscellaneous Notes Pt called in and reports she had received a call about her US for tomorrow. Let her know that they had the trans vaginal and abdominal, because they hadn't allotted enough time for both. Let her know that she needs to have the full bladder for tomorrow. documented in this encounter [facility] 11-11-2022 History of Presen t illness Narrative Chief Complaint Patient presents with: Physical: Discuss weight loss HPI Livier Romano is a 57 year old female who presents here today for Above Complaints. Today: Was actively trying to lose weight-seems to be only gaining and not losing. Feels bloated. As actively trying to lose, gained instead. Has been able to lose in the past when she has been trying. Wondering if she may have PCOS, both of her daughters have this. Seems to gain weight in her abdominal area. Past medical history, appointments, medications, allergies reviewed. 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 PAST SURGICAL HISTORY OF D&C x 2 REMOVAL GALLBLADDER TONSILLECTOMY HX TONSILLECTOMY PRIMARY/SECONDARY <AGE 13 Tonsillectomy Family History FAMILY HISTORY Problem Relation Age of Onset Osteoporosis Mother Arthritis Mother Lung Cancer Mother other (Dementia) Father Arthritis Daughter Rheumatoid Patient Allergies ALLERGIES Allergen Reactions Dotarem [Gadoterate* Hives, Itching, Other: See Comments Pt developed a diffuse deep redness over upper torso and difficulty swallowing Iohexol Other: See Comments Chest pain, nausea Anti-Inflammatory [* Other: See Comments Levaquin [Levofloxa* Diarrhea Lisinopril Cough Penicillins Current Medications Current Outpatient Medications on File Prior to Visit Medication Sig levothyroxine (SYNTHROID) 150 mcg tablet Take on empty stomach. For thyroid. Take 1 tablet 5 days per week. Take 1.5 tablets 2 days per week. levothyroxine (SYNTHROID) 150 mcg tablet Take on empty stomach. For thyroid. Take 1 tablet 5 days per week. Take 1.5 tablets 2 days per week. losartan (COZAAR) 50 mg tablet Take 1 tablet by mouth once daily. pantoprazole DR (PROTONIX) 40 mg tablet Take 1 tablet by mouth daily before breakfast. Take on empty stomach, 1/2 hr before meal. nystatin (NYSTOP) powder Apply 1 application to affected area twice daily. To abdominal skin folds GEMTESA 75 mg tablet Take 75 mg by mouth once daily. vitamin B complex (B COMPLEX-VITAMIN B12 ORAL) Take by mouth. busPIRone (BUSPAR) 5 mg tablet Take 1 tablet by mouth three times daily. (Patient not taking: Reported on 11/11/2022) busPIRone (BUSPAR) 5 mg tablet Take 5 mg by mouth three times daily. (Patient not taking: Reported on 11/11/2022) peg 3350-Electrolytes (GOLYTELY) 236-22.74-6.74 -5.86 gram suspension Refer to printed patient instructions that will be mailed to you. (Patient not taking: Reported on 11/11/2022) dicyclomine (BENTYL) 10 mg capsule Take 1 capsule by mouth before meals and at bedtime. (Patient not taking: Reported on 11/11/2022) TURMERIC ORAL Take 1,200 mg by mouth twice daily. (Patient not taking: Reported on 11/11/2022) No current facility-administered medications on file prior to visit. Social History Social History Tobacco Use Smoking status: Never Smokeless tobacco: Never Substance Use Topics Alcohol use: Yes Comment: Occasionally Drug use: No Review of Symptoms REVIEW OF SYSTEMS See HPI, otherwise negative EXAM: BP 126/82 (BP Site: Left Arm, BP Position: Sitting, BP Cuff Size: Regular Adult) Pulse 71 Resp 16 Ht 151.4 cm (4' 11.61 ) Wt 106.1 kg (233 lb 12.8 oz) LMP 08/18/2016 SpO2 96% BMI 46.27 kg/m General Appearance: Well appearing, alert, in no acute distress, well-hydrated, well nourished. and Morbidly obese. Skin: Skin color, texture, turgor normal, no suspicious rashes or lesions. Head: Normocephalic, no masses, lesions, tenderness or abnormalities. Eyes: Anicteric sclera. Pupils are equally round and reactive to light. Extraocular movements are intact. . Ears: External ears normal, canals clear. Nose/Sinuses: Nares normal, septum midline, mucosa normal, no drainage or sinus tenderness. Oropharynx: Lips, mucosa, and tongue normal, teeth and gums normal, oropharynx normal. Neck: Supple, no adenopathy; thyroid symmetric, normal size, no bruits. Back:no pain to palpation of vertebrae, good flexion and extension, good range of motion, no muscle tenderness, motor and sensory appear to be normal Lungs: Lungs clear to auscultation. No wheezing, rhonchi, rales.. Heart: RRR without murmur, gallop, or rubs. No ectopy. Abdomen: Difficult to accurately assess due to body habitus. Abdomen soft, non-tender. Bowel sounds normal. No masses, organomegaly, large. Extremities: No deformities, edema, skin discoloration, clubbing or cyanosis. Good capillary refill. . Musculoskeletal: No joint swelling, deformity, or tenderness. Peripheral Pulses: Normal. Neurologic: Gait normal. Reflexes normal and symmetric. Sensation grossly intact.. Lymph Nodes: No cervical lymphadenopathy and No supraclavicular lymphadenopathy. Psychiatric: pleasant, cooperative. Health Maintenance List Depression Assessment Never done Influenza Vaccine(1) due on 10/30/2022 Mammogram Screening due on 11/12/2023 Annual PCP Team Chronic Disease Visit due on 08/04/2023 BP Controlled (<130/80) due on 08/04/2023 Pap Testing due on 11/08/2024 HPV Testing due on 11/08/2024 Lipid Screening due on 11/23/2024 Diabetes Screening due on 11/05/2025 DTaP,Tdap,Td Vaccine(2 - Td or Tdap) due on 07/18/2030 Colorectal Cancer Screening due on 06/18/2032 Hepatitis B Vaccine Completed Hepatitis C Screening Completed Shingrix Vaccine Completed Covid-19 Vaccine Completed HIV Screening Discontinued Data reviewed Previous records, office notes ASSESSMENT/PLAN: 1. Hypothyroidism, unspecified type - ICD9: 244.9, ICD10: E03.9 (primary diagnosis) - Instructed patient on importance of taking on an empty stomach either first thing in the morning or at bedtime. - TSH BLD - T3 BLD - T4 FREE/FREE THYROX 2. Hypertension, essential - ICD9: 401.9, ICD10: I10 - Controlled - Recommend home blood pressure monitoring, to bring results to next visit - Encouraged sodium restriction, DASH or Mediterranean diet - Recommend regular aerobic exercise - HGB A1C - TSH BLD - T3 BLD - T4 FREE/FREE THYROX - US ABDOMEN COMPLETE - US FEMALE PELVIS TRANSABD LTD - US FEMALE PELVIS TRANSVAG - TESTOSTERONE, FREE AND TOTAL - HYDROXYPROGESTERO-17 - DHEA-S BLD - PROLACTIN BLD - GLUC ORLIN, 2-HR NON-GEST, 75 GM, FASTING 3. Elevated LFTs - ICD9: 790.6, ICD10: R79.89 - US ABDOMEN COMPLETE 4. Elevated glucose - ICD9: 790.29, ICD10: R73.09 - HGB A1C - TSH BLD - T3 BLD - T4 FREE/FREE THYROX - US ABDOMEN COMPLETE - US FEMALE PELVIS TRANSABD LTD - US FEMALE PELVIS TRANSVAG - TESTOSTERONE, FREE AND TOTAL - HYDROXYPROGESTERO-17 - DHEA-S BLD - PROLACTIN BLD - GLUC ORLIN, 2-HR NON-GEST, 75 GM, FASTING 5. Bloating - ICD9: 787.3, ICD10: R14.0 - HGB A1C - TSH BLD - T3 BLD - T4 FREE/FREE THYROX - US ABDOMEN COMPLETE - US FEMALE PELVIS TRANSABD LTD - US FEMALE PELVIS TRANSVAG - TESTOSTERONE, FREE AND TOTAL - HYDROXYPROGESTERO-17 - DHEA-S BLD - PROLACTIN BLD - GLUC ORLIN, 2-HR NON-GEST, 75 GM, FASTING 6. Belching - ICD9: 787.3, ICD10: R14.2 - HGB A1C - TSH BLD - T3 BLD - T4 FREE/FREE THYROX - US ABDOMEN COMPLETE - US FEMALE PELVIS TRANSABD LTD - US FEMALE PELVIS TRANSVAG - TESTOSTERONE, FREE AND TOTAL - HYDROXYPROGESTERO-17 - DHEA-S BLD - PROLACTIN BLD - GLUC ORLIN, 2-HR NON-GEST, 75 GM, FASTING 7. Flatulence - ICD9: 787.3, ICD10: R14.3 - HGB A1C - TSH BLD - T3 BLD - T4 FREE/FREE THYROX - US ABDOMEN COMPLETE - US FEMALE PELVIS TRANSABD LTD - US FEMALE PELVIS TRANSVAG - TESTOSTERONE, FREE AND TOTAL - HYDROXYPROGESTERO-17 - DHEA-S BLD - PROLACTIN BLD - GLUC ORLIN, 2-HR NON-GEST, 75 GM, FASTING 8. RUQ pain - ICD9: 789.01, ICD10: R10.11 - HGB A1C - TSH BLD - T3 BLD - T4 FREE/FREE THYROX - US ABDOMEN COMPLETE - US FEMALE PELVIS TRANSABD LTD - US FEMALE PELVIS TRANSVAG - TESTOSTERONE, FREE AND TOTAL - HYDROXYPROGESTERO-17 - DHEA-S BLD - PROLACTIN BLD - GLUC ORLIN, 2-HR NON-GEST, 75 GM, FASTING 9. Weight gain - ICD9: 783.1, ICD10: R63.5 - HGB A1C - TSH BLD - T3 BLD - T4 FREE/FREE THYROX - US ABDOMEN COMPLETE - US FEMALE PELVIS TRANSABD LTD - US FEMALE PELVIS TRANSVAG - TESTOSTERONE, FREE AND TOTAL - HYDROXYPROGESTERO-17 - DHEA-S BLD - PROLACTIN BLD - GLUC ORLIN, 2-HR NON-GEST, 75 GM, FASTING 10. Obesity, Class III, BMI 40-49.9 (morbid obesity) (HCC) - ICD9: 278.01, ICD10: E66.01 Weight increasing - TSH BLD - T3 BLD - T4 FREE/FREE THYROX - US ABDOMEN COMPLETE - US FEMALE PELVIS TRANSABD LTD - US FEMALE PELVIS TRANSVAG - TESTOSTERONE, FREE AND TOTAL - HYDROXYPROGESTERO-17 - DHEA-S BLD - PROLACTIN BLD - GLUC ORLIN, 2-HR NON-GEST, 75 GM, FASTING 11. Encounter for immunization - ICD9: V03.89, ICD10: Z23 - INFLUENZA VACCINE, AGE 6 MO - 64 YR, QUADRIVALENT (AFLURIA, FLULAVAL, FLUZONE) 12. Encounter for screening mammogram for breast cancer - ICD9: V76.12, ICD10: Z12.31 13. Central obesity - ICD9: 278.1, ICD10: E65 Weight increasing - TSH BLD - T3 BLD - T4 FREE/FREE THYROX - US ABDOMEN COMPLETE - US FEMALE PELVIS TRANSABD LTD - US FEMALE PELVIS TRANSVAG - TESTOSTERONE, FREE AND TOTAL - HYDROXYPROGESTERO-17 - DHEA-S BLD - PROLACTIN BLD - GLUC ORLIN, 2-HR NON-GEST, 75 GM, FASTING Negra Kuo APRN.FACTORY ENGINEER documented in this encounter [facility] 09-30-2022 Miscellaneous Notes Patient calling asking for short term rx for her thyroid medication, leaving on vacation Wednesday and knows mail away pharmacy will not have rx to her in time.Pending rx to file.Please advise Patient has been identified by name and date of : Patient phones for refill(s): Requested Prescriptions Pending Prescriptions Disp Refills levothyroxine (SYNTHROID) 150 mcg tablet 90 tablet 1 Sig: Take on empty stomach. For thyroid. Take 1 tablet 5 days per week. Take 1.5 tablets 2 days per week. levothyroxine (SYNTHROID) 150 mcg tablet 30 tablet 0 Sig: Take on empty stomach. For thyroid. Take 1 tablet 5 days per week. Take 1.5 tablets 2 days per week. losartan (COZAAR) 50 mg tablet 90 tablet 1 Sig: Take 1 tablet by mouth once daily. Date of last office visit in primary care: 08/03/2022, has appt 10/14/2022 Last 2 Encounter Wt Readings: Date: Wt: 08/03/2022 104.3 kg (230 lb) 06/18/2022 99.6 kg (219 lb 9.3 oz) Previous labs/tests for medication: Thyroid: TSH Date Value 08/03/2022 0.715 mIU/L 12/20/2020 1.510 uU/mL Blood Pressure: BUN (mg/dL) Date Value 08/03/2022 16 02/17/2021 12 Sodium (mmol/L) Date Value 08/03/2022 139 02/17/2021 139 Last 1 Encounter BP Readings: Date: BP: 08/03/2022 120/78 Please advise. Thank you. Gauri Watt LPN documented in this encounter [facility] 08-07-2022 Miscellaneous Notes Patient returned call and given provider's message below with verbalized understanding. Left message for patient to return call. Miriam Barnes Ma Please let patient know her liver enzymes are slightly elevated. We will repeat labs in 4 weeks. documented in this encounter [facility] 08-03-2022 Instructions Kellee Prince APRN.CNP - 08/03/2022 4:03 PM EDT Complete labs Continue current medications Follow up with Negra for wellness exam. documented in this encounter [facility] 08-03-2022 History of Presen t illness Narrative Chief Complaint Patient presents with: Follow Up HPI Livier Natalia Romano is a 57 year old female who presents here today for Above Complaints.. Patient presents today for medication refills and lab work. Patient has not had recent wellness visit. Past medical history, appointments, medications, allergies reviewed. Previous Medical History PAST MEDICAL HISTORY Diagnosis Date GERD (gastroesophageal reflux disease) Hypertension, essential 07/07/2017 Hypothyroid Iron deficiency anemia, unspecified Rosacea S/P lumbar spinal fusion 10/07/2018 Sleep apnea Snoring Unspecified inflammatory disease of female pelvic organs and tissues Previous Surgical History PAST SURGICAL HISTORY Procedure Laterality Date ABDOMINAL SURGERY HX APPENDECTOMY 1985 APPENDECTOMY HX BACK SURGERY HX CATHETER, ABLATION thermachoice DELIVERY ONLY COLONOSCOPY 09/29/2016 small benign hyperplastic polyp, otherwise normal-repeat in 10 years COLONOSCOPY 06/18/2022 EGD TRANSORAL BIOPSY SINGLE/MULTIPLE 04/26/2009 EYE SURGERY HX GASTRIC BYPASS 04/2004 laparoscopic Keira-en-Y gastric bypass at [facility] ICAPSULAR CATARACT XTRJ INSJ IO LENS PRSTH 1 STG o.u. PAST SURGICAL HISTORY OF D&C x 2 REMOVAL GALLBLADDER TONSILLECTOMY HX TONSILLECTOMY PRIMARY/SECONDARY <AGE 13 Tonsillectomy Family History FAMILY HISTORY Problem Relation Age of Onset Osteoporosis Mother Arthritis Mother Lung Cancer Mother other (Dementia) Father Arthritis Daughter Rheumatoid Patient Allergies ALLERGIES Allergen Reactions Dotarem [Gadoterate* Hives, Itching, Other: See Comments Pt developed a diffuse deep redness over upper torso and difficulty swallowing Iohexol Other: See Comments Chest pain, nausea Anti-Inflammatory [* Other: See Comments Levaquin [Levofloxa* Diarrhea Lisinopril Cough Penicillins Current Medications Current Outpatient Medications on File Prior to Visit Medication Sig busPIRone (BUSPAR) 5 mg tablet Take 5 mg by mouth three times daily. peg 3350-Electrolytes (GOLYTELY) 236-22.74-6.74 -5.86 gram suspension Refer to printed patient instructions that will be mailed to you. pantoprazole DR (PROTONIX) 40 mg tablet Take 1 tablet by mouth daily before breakfast. Take on empty stomach, 1/2 hr before meal. nystatin (NYSTOP) powder Apply 1 application to affected area twice daily. To abdominal skin folds losartan (COZAAR) 50 mg tablet Take 1 tablet by mouth once daily. levothyroxine (SYNTHROID) 150 mcg tablet Take on empty stomach. For thyroid. Take 1 tablet 5 days per week. Take 1.5 tablets 2 days per week. GEMTESA 75 mg tablet Take 75 mg by mouth once daily. benzonatate (TESSALON PERLE) 100 mg capsule Take 1 capsule by mouth three times daily as needed for cough. pseudoephedrine-guaiFENesin (MUCINEX D) 60-600 mg per tablet Take 1 tablet by mouth every 12 hours as needed for cold/allergy symptoms. benzonatate (TESSALON PERLES) 100 mg capsule Take 1 capsule by mouth three times daily as needed for cough. dicyclomine (BENTYL) 10 mg capsule Take 1 capsule by mouth before meals and at bedtime. TURMERIC ORAL Take 1,200 mg by mouth twice daily. vitamin B complex (B COMPLEX-VITAMIN B12 ORAL) Take by mouth. No current facility-administered medications on file prior to visit. Social History Social History Tobacco Use Smoking status: Never Smokeless tobacco: Never Substance Use Topics Alcohol use: Yes Comment: Occasionally Drug use: No Review of Symptoms REVIEW OF SYSTEMS SEE HPI EXAM: BP 120/78 Pulse 86 Resp 16 Wt 104.3 kg (230 lb) LMP 08/18/2016 BMI 44.92 kg/m General Appearance: Well appearing, alert, in no acute distress, well-hydrated, well nourished.. Abdomen: Normal abdominal exam, Abdomen soft, non-tender. Bowel sounds normal. No masses, organomegaly. Health Maintenance List BP CONTROLLED (<130/80) due on 10/30/2021 DEPRESSION ASSESSMENT Never done ANNUAL PCP TEAM CHRONIC DISEASE VISIT due on 01/02/2023 MAMMOGRAM due on 01/13/2023 DIABETES SCREEN due on 02/18/2024 PAP TESTING due on 11/08/2024 HPV TESTING due on 11/08/2024 LIPID SCREEN due on 11/23/2024 DTAP,TDAP,TD(2 - Td or Tdap) due on 07/18/2030 COLORECTAL CANCER SCREENING due on 06/18/2032 HEPATITIS B Completed INFLUENZA Completed HEPATITIS C SCREENING Completed SHINGRIX VACCINE Completed COVID-19 VACCINE Completed HIV SCREENING Discontinued ASSESSMENT/PLAN: 1. Medication management - ICD9: V58.69, ICD10: Z79.899 (primary diagnosis) - TSH BLD - T4 FREE/FREE THYROX - T3 BLD - CBC + DIFF - COMP METABOLIC PANEL 2. Bloating - ICD9: 787.3, ICD10: R14.0 - PANTOPRAZOLE 40 MG TABLET,DELAYED RELEASE 3. RUQ pain - ICD9: 789.01, ICD10: R10.11 - PANTOPRAZOLE 40 MG TABLET,DELAYED RELEASE 4. Epigastric pain - ICD9: 789.06, ICD10: R10.13 - PANTOPRAZOLE 40 MG TABLET,DELAYED RELEASE 5. Gastritis without bleeding, unspecified chronicity, unspecified gastritis type - ICD9: 535.50, ICD10: K29.70 - PANTOPRAZOLE 40 MG TABLET,DELAYED RELEASE Kellee Prince APRN.FACTORY ENGINEER documented in this encounter [facility] 06-30-2022 Miscellaneous Notes Discussed with the patient yesterday about test results. Reviewed colonscopy, ESMO and pH results Trial of Buspar recommended Angélica Stanley MD documented in this encounter [facility] 06-25-2022 History of Presen t illness Narrative Name: Livier Romano [facility]#: [id number] Date: 06/25/2022 24 HOUR pH PROBE REMOVAL The pH probe was removed and the data was downloaded from the utility driver for physician review. Lita Rubalcava RN documented in this encounter [facility] 06-18-2022 Nurse Note Noted to be passing large amounts of air rectally. Patient received in PACU via cot left lateral position, eyes open, skin warm and dry, respirations regular and unlabored. Alert to self and event, denies pain or cramping, denies nausea, abdomen soft and non distended. Resting comfortably on left side. documented in this encounter [facility] 06-18-2022 History and physical note Images from the original note were not included. REASON FOR VISIT Livier Romano is a 57 year old female who is scheduled for difficulty swallowing at the consult request of [place]. My final recommendations will be communicated back to the requesting physician by the way of the shared medical record, fax, or via US Mail. PRESENTING COMPLAINT & HISTORY 57 yr old NHW woman presents with her She had GERD symptoms during her 26 yrs ago She had RYGB 15 years ago Since then, having epigastric pain, chest pain and burping- attributed by her Drs to GERD In Dec 2021, she started noticing food impactions After eating bread, she felt food getting stuck in back of throat ( after 2-3 bites) Barium swallow performed Also has globus sensation She describes what sounds like laryngospasm episodes Had cholecystectomy followed by ERCP for biliary stricture Also has IBS - constipation alternating with diarrhea Has bloating Does patient have achalasia? No GI EVALUATION Reviewed CURRENT MEDICATIONS pantoprazole DR (PROTONIX) 40 mg tablet Take 1 tablet by mouth daily before breakfast. Take on empty stomach, 1/2 hr before meal. GEMTESA 75 mg tablet Take 75 mg by mouth once daily. levothyroxine (SYNTHROID) 150 mcg tablet Take on empty stomach. For thyroid. Take 1 tablet 5 days per week. Take 1.5 tablets 2 days per week. losartan (COZAAR) 50 mg tablet Take 1 tablet by mouth once daily. dicyclomine (BENTYL) 10 mg capsule Take 1 capsule by mouth before meals and at bedtime. nystatin (NYSTOP) powder Apply 1 application to affected area twice daily. To abdominal skin folds TURMERIC ORAL Take 1,200 mg by mouth twice daily. vitamin B complex (B COMPLEX-VITAMIN B12 ORAL) Take by mouth. benzonatate (TESSALON PERLE) 100 mg capsule Take 1 capsule by mouth three times daily as needed for cough. pseudoephedrine-guaiFENesin (MUCINEX D) 60-600 mg per tablet Take 1 tablet by mouth every 12 hours as needed for cold/allergy symptoms. benzonatate (TESSALON PERLES) 100 mg capsule Take 1 capsule by mouth three times daily as needed for cough. oxybutynin ER (DITROPAN XL) 10 mg 24 hr tablet Take 1 tablet by mouth once daily. (Patient not taking: Reported on 01/01/2022) Dotarem [Gadoterate Meglumine], Iohexol, Anti-Inflammatory [Nsaids (Non-Steroidal Anti-Inflammatory Drug)], Levaquin [Levofloxacin], Lisinopril, and Penicillins FAMILY HISTORY Colon Cancer: No Other Cancers: Yes FAMILY HISTORY FAMILY HISTORY Problem Relation Age of Onset Osteoporosis Mother Arthritis Mother Lung Cancer Mother other (Dementia) Father Arthritis Daughter Rheumatoid PAST MEDICAL HISTORY PAST MEDICAL HISTORY Diagnosis Date GERD (gastroesophageal reflux disease) Hypertension, essential 07/07/2017 Hypothyroid Iron deficiency anemia, unspecified Rosacea S/P lumbar spinal fusion 10/07/2018 Snoring Unspecified inflammatory disease of female pelvic organs and tissues PAST SURGICAL HISTORY PAST SURGICAL HISTORY Procedure Laterality Date APPENDECTOMY 1984 BACK SURGERY HX CATHETER, ABLATION thermachoice DELIVERY ONLY COLONOSCOPY 09/29/2016 small benign hyperplastic polyp, otherwise normal-repeat in 10 years EGD TRANSORAL BIOPSY SINGLE/MULTIPLE 04/26/2009 GASTRIC BYPASS 04/2004 laparoscopic Keira-en-Y gastric bypass at [facility] ICAPSULAR CATARACT XTRJ INSJ IO LENS PRSTH 1 STG o.u. PAST SURGICAL HISTORY OF D&C x 2 REMOVAL GALLBLADDER TONSILLECTOMY PRIMARY/SECONDARY <AGE 13 Tonsillectomy SOCIAL HISTORY Social History Tobacco Use Smoking status: Never Smokeless tobacco: Never Substance Use Topics Alcohol use: Yes Comment: Occasionally Drug use: No REVIEW OF SYSTEMS EyesNegative for vision changes, diplopia or epiphora. Ears, Mouth, nose, throat:No problems Cardiovascular: No Problems Respiratory: Negative for cough, wheezing and shortness of breath Gastrointestinal : as above Musuloskeletal: Denies significant problems Integumentary: no rashes, lesions, or jaundice Neurological: No history of neurologic problems Endocrine: Negative for cold or heat intolerance, polyuria, polydipsia and goiter. Psychiatric: Cooperative and agreeable Allergic/ Immunologic: Negative All others negative. PHYSICAL EXAMINATION BP 123/81 Pulse 71 Temp (Src) 97.9 (Temporal) Ht 5' 0 (1.52m) Wt 219 lb 9.6 oz (99.6kg) SpO2 97% LMP 08/18/2016 BMI 42.89 kg/(m^2). General - Normal, healthy, cooperative, in no acute distress Able to interact well. Psych - ORIENTATION: normal to time place, person and situation Mood/Affect: AFFECT AND MOOD: Normal Head/Neuro - Normal size and shape Facial appearance normal Pulmonary - respiratory effort normal Extremities- extremities normal, warm, no cyanosis,no clubbing, and no edema Skin - abnormal lesions not visualized Motor - patient seen sitting with Normal appearing strength and coordination Assessment Impression and Plan Dysphagia- contributing factors: cervical osteophytes; Distal ring suspect esophageal dysmotility 2) Globus sensation- Start Buspar 5 mg TID with meals 3) GERD- Protonix 20 mg BID NPO for 3 hrs before going to bed if no response, ESMO and 24 hr pH off meds If all unrevealing, may try EGD with empiric dilation I spent a total of 45 minutes on the date of the service which included preparing to see the patient, [id number] patient care, completing clinical documentation, obtaining and/or reviewing separately obtained history, performing a medically appropriate examination, counseling and educating the patient/family/caregiver, ordering medications, tests, or procedures, communicating with other HCPs (not separately reported), independently interpreting results (not separately reported), communicating results to the patient/family/caregiver, and care coordination (not separately reported). Angélica Stanley MD April 08, 2022 8:48 AM Answers submitted by the patient for this visit: Review of Systems Gastroenterology (Submitted on 04/05/2022) Fever: No Chills: No Night Sweats: No Unitentional Weight Change: No A Cough: No Difficulty Breathing: No Chest Pain: No Belly pain: No A feeling of fullness or have belly pain after eating: No Food getting stuck in your throat or chest after eating: No Nausea - that is, a feeling like you could vomit: No Regurgitation - that is, food or liquid coming back up into your throat or mouth without vomiting, or feel burning behind your breast bone: No Loss of appetite: No To throw up or vomit: No Blood in your stools: No Black tarry stools: No Loose or watery stools: No The feeling like you need to empty your bowels right away - that is, feel as if you would have an accident: No Bowel incontinence - that is, have an accident because you cannot make it to the bathroom in time: No Problems with straining while having bowel movements , hard or lumpy stools, or feel unfinished (that you have not passed all your stool): No Pain in rectum or anus during bowel movements: No Problems with jaundice - that is, yellow discoloration of your skin or eyes, now or in the past: No Problems with having to flush the toilet more than two times due to oily stool, or see stool floating with oil: No UPDATED HISTORY AND PHYSICAL EXAMINATION SERVICE DATE: 06/18/2022 SERVICE TIME: 10:32 AM PHYSICAL EXAM MUST BE COMPLETED ON ADMISSION The History and Physical (completed in the past 30 days) has been reviewed and the patient has been examined. The contents accurately reflect the patient's condition with the following additions or revisions since the H&P was completed. Examination indicates no changes. This H&P can be found in the attached. SIGNATURE: Tony Gallardo III, MD PATIENT NAME: Livier Romano DATE: June 18, 2022 TIME: 10:32 AM documented in this encounter [facility] 06-12-2022 Miscellaneous Notes Suggest doing ESMO and pH test first and then depending on the results, will plan for EGD. We can do EGD and colonscopy at same time if she prefers at [facility], Angélica Stanley MD Spoke with Ms Romano and reviewed instructions for manometry and PH testing. Will also send to [facility]. She knows, based on conversation with Dr Stanley, that EGD might be next step. Should she delay colonoscopy in favor of doing both together, or could Dr Stanley order EGD to be done on 06/18 with colonoscopy? Patient called. Scheduled for Manometry on 06-22-22. Says last time ended up in ER because she was off the Pantoprazole for 3 days. Plus, supposed to have dosing increased. Is there an alternate medication she can take, or anything she can do - ER Staff advised she cannot be off the Pantoprazole? Also, scheduled for colonoscopy (06-18-22) in [place] by Dr. Gallardo, and advised EGD can be added. Can Dr. Stanley please place orders?? Please advise. documented in this encounter [facility] 05-20-2022 Miscellaneous Notes The following approved medication requests have been transmitted electronically. Requested Prescriptions Signed Prescriptions Disp Refills peg 3350-Electrolytes (GOLYTELY) 236-22.74-6.74 -5.86 gram suspension 1 Each 0 Sig: Refer to printed patient instructions that will be mailed to you. Authorizing Provider: NEGRA KUO APRN.FACTORY ENGINEER Can you please send a prescription of Golytely Bowel Prep to [facility] on [facility] for patient's colonoscopy. Anne Andrade documented in this encounter [facility] 05-13-2022 Miscellaneous Notes RACH--01/02/22 NOV--NOTHING SCHEDULED LAST REFILL--LEVOTHYROXIN--12/11/21 90 WITH 1 REFILL LOSARTAN--12/05/21 90 WITH 1 REFILL [facility]--12/09/21 documented in this encounter [facility] 05-13-2022 Miscellaneous Notes RACH--01/02/22 NOV--NOTHING SCHEDULED LAST REFILL--03/23/22 90 WITH 0 REFILLS [facility]ST [facility]--12/09/21 documented in this encounter [facility] 04-08-2022 History of Presen t illness Narrative New Patient/Consult REASON FOR VISIT Livier Romano is a 57 year old female who is scheduled for difficulty swallowing at the consult request of [facility] [place]. My final recommendations will be communicated back to the requesting physician by the way of the shared medical record, fax, or via US Mail. PRESENTING COMPLAINT & HISTORY 57 yr old NHW woman presents with her She had GERD symptoms during her 26 yrs ago She had RYGB 15 years ago Since then, having epigastric pain, chest pain and burping- attributed by her Drs to GERD In Dec 2021, she started noticing food impactions After eating bread, she felt food getting stuck in back of throat ( after 2-3 bites) Barium swallow performed Also has globus sensation She describes what sounds like laryngospasm episodes Had cholecystectomy followed by ERCP for biliary stricture Also has IBS - constipation alternating with diarrhea Has bloating Does patient have achalasia? No GI EVALUATION Reviewed pantoprazole DR (PROTONIX) 40 mg tablet Take 1 tablet by mouth daily before breakfast. Take on empty stomach, 1/2 hr before meal. GEMTESA 75 mg tablet Take 75 mg by mouth once daily. levothyroxine (SYNTHROID) 150 mcg tablet Take on empty stomach. For thyroid. Take 1 tablet 5 days per week. Take 1.5 tablets 2 days per week. losartan (COZAAR) 50 mg tablet Take 1 tablet by mouth once daily. dicyclomine (BENTYL) 10 mg capsule Take 1 capsule by mouth before meals and at bedtime. nystatin (NYSTOP) powder Apply 1 application to affected area twice daily. To abdominal skin folds TURMERIC ORAL Take 1,200 mg by mouth twice daily. vitamin B complex (B COMPLEX-VITAMIN B12 ORAL) Take by mouth. benzonatate (TESSALON PERLE) 100 mg capsule Take 1 capsule by mouth three times daily as needed for cough. pseudoephedrine-guaiFENesin (MUCINEX D) 60-600 mg per tablet Take 1 tablet by mouth every 12 hours as needed for cold/allergy symptoms. benzonatate (TESSALON PERLES) 100 mg capsule Take 1 capsule by mouth three times daily as needed for cough. oxybutynin ER (DITROPAN XL) 10 mg 24 hr tablet Take 1 tablet by mouth once daily. (Patient not taking: Reported on 01/01/2022) Dotarem [Gadoterate Meglumine], Iohexol, Anti-Inflammatory [Nsaids (Non-Steroidal Anti-Inflammatory Drug)], Levaquin [Levofloxacin], Lisinopril, and Penicillins FAMILY HISTORY Colon Cancer: No Other Cancers: Yes FAMILY HISTORY Problem Relation Age of Onset Osteoporosis Mother Arthritis Mother Lung Cancer Mother other (Dementia) Father Arthritis Daughter Rheumatoid PAST MEDICAL HISTORY Diagnosis Date GERD (gastroesophageal reflux disease) Hypertension, essential 07/07/2017 Hypothyroid Iron deficiency anemia, unspecified Rosacea S/P lumbar spinal fusion 10/07/2018 Snoring Unspecified inflammatory disease of female pelvic organs and tissues PAST SURGICAL HISTORY Procedure Laterality Date APPENDECTOMY 1984 BACK SURGERY HX CATHETER, ABLATION thermachoice DELIVERY ONLY COLONOSCOPY 09/29/2016 small benign hyperplastic polyp, otherwise normal-repeat in 10 years EGD TRANSORAL BIOPSY SINGLE/MULTIPLE 04/26/2009 GASTRIC BYPASS 04/2004 laparoscopic Keira-en-Y gastric bypass at [facility] ICAPSULAR CATARACT XTRJ INSJ IO LENS PRSTH 1 STG o.u. PAST SURGICAL HISTORY OF D&C x 2 REMOVAL GALLBLADDER TONSILLECTOMY PRIMARY/SECONDARY <AGE 13 Tonsillectomy Social History Tobacco Use Smoking status: Never Smokeless tobacco: Never Substance Use Topics Alcohol use: Yes Comment: Occasionally Drug use: No REVIEW OF SYSTEMS EyesNegative for vision changes, diplopia or epiphora. Ears, Mouth, nose, throat:No problems Cardiovascular: No Problems Respiratory: Negative for cough, wheezing and shortness of breath Gastrointestinal : as above Musuloskeletal: Denies significant problems Integumentary: no rashes, lesions, or jaundice Neurological: No history of neurologic problems Endocrine: Negative for cold or heat intolerance, polyuria, polydipsia and goiter. Psychiatric: Cooperative and agreeable Allergic/ Immunologic: Negative All others negative. PHYSICAL EXAMINATION BP 123/81 Pulse 71 Temp (Src) 97.9 (Temporal) Ht 5' 0 (1.52m) Wt 219 lb 9.6 oz (99.6kg) SpO2 97% LMP 08/18/2016 BMI 42.89 kg/(m^2). General - Normal, healthy, cooperative, in no acute distress Able to interact well. Psych - ORIENTATION: normal to time place, person and situation Mood/Affect: AFFECT AND MOOD: Normal Head/Neuro - Normal size and shape Facial appearance normal Pulmonary - respiratory effort normal Extremities- extremities normal, warm, no cyanosis,no clubbing, and no edema Skin - abnormal lesions not visualized Motor - patient seen sitting with Normal appearing strength and coordination Assessment Impression and Plan Dysphagia- contributing factors: cervical osteophytes; Distal ring suspect esophageal dysmotility 2) Globus sensation- Start Buspar 5 mg TID with meals 3) GERD- Protonix 20 mg BID NPO for 3 hrs before going to bed if no response, ESMO and 24 hr pH off meds If all unrevealing, may try EGD with empiric dilation I spent a total of 45 minutes on the date of the service which included preparing to see the patient, [id number] patient care, completing clinical documentation, obtaining and/or reviewing separately obtained history, performing a medically appropriate examination, counseling and educating the patient/family/caregiver, ordering medications, tests, or procedures, communicating with other HCPs (not separately reported), independently interpreting results (not separately reported), communicating results to the patient/family/caregiver, and care coordination (not separately reported). Angélica Stanley MD April 08, 2022 8:48 AM Answers submitted by the patient for this visit: Review of Systems Gastroenterology (Submitted on 04/05/2022) Fever: No Chills: No Night Sweats: No Unitentional Weight Change: No A Cough: No Difficulty Breathing: No Chest Pain: No Belly pain: No A feeling of fullness or have belly pain after eating: No Food getting stuck in your throat or chest after eating: No Nausea - that is, a feeling like you could vomit: No Regurgitation - that is, food or liquid coming back up into your throat or mouth without vomiting, or feel burning behind your breast bone: No Loss of appetite: No To throw up or vomit: No Blood in your stools: No Black tarry stools: No Loose or watery stools: No The feeling like you need to empty your bowels right away - that is, feel as if you would have an accident: No Bowel incontinence - that is, have an accident because you cannot make it to the bathroom in time: No Problems with straining while having bowel movements , hard or lumpy stools, or feel unfinished (that you have not passed all your stool): No Pain in rectum or anus during bowel movements: No Problems with jaundice - that is, yellow discoloration of your skin or eyes, now or in the past: No Problems with having to flush the toilet more than two times due to oily stool, or see stool floating with oil: No documented in this encounter [facility] 03-24-2022 Miscellaneous Notes Patient has been identified by name and date of : Yes, Provider Negra Kuo CNP Date 03/24/22 Time 7:31 am Pharmacy phones for refill(s): Requested Prescriptions Pending Prescriptions Disp Refills fluconazole (DIFLUCAN) 150 mg tablet [Pharmacy Med Name: fluconazole 150 mg tablet] 1 tablet 0 Sig: Take 1 tablet by mouth once daily for 1 day. Date of last office visit in primary care: 01/02/22 Last 2 Encounter Wt Readings: Date: Wt: 03/21/2022 98.9 kg (218 lb) 01/01/2022 101 kg (222 lb 9.6 oz) Previous labs/tests for medication: Not applicable Thank you. Rosa Rosa LPN documented in this encounter [facility] 03-21-2022 History of Presen t illness Narrative Images from the original note were not included. This note was created using [email or web address]. Subjective Livier Romano is a 56 year old female. HPI Patient presents with a rash in her groin and pannus that worsened this morning. She has a history of getting yeast infections here and has always used nystatin powder. She had seen dermatology and had mentioned that she gets this so they recommended trying triamcinolone. She used this yesterday and then her rash significantly worsened. No fever or chills. She is not sure if she is used this previously. Review of Systems Constitutional: Negative. HENT: Negative. Respiratory: Negative. Cardiovascular: Negative. Gastrointestinal: Negative. Skin: Positive for rash. All other systems reviewed and are negative. PAST MEDICAL HISTORY Diagnosis Date GERD (gastroesophageal reflux disease) Hypertension, essential 07/07/2017 Hypothyroid Iron deficiency anemia, unspecified Rosacea S/P lumbar spinal fusion 10/07/2018 Snoring Unspecified inflammatory disease of female pelvic organs and tissues Current Outpatient Medications Medication Sig Dispense Refill levothyroxine (SYNTHROID) 150 mcg tablet Take on empty stomach. For thyroid. Take 1 tablet 5 days per week. Take 1.5 tablets 2 days per week. [address] (PROTONIX) 40 mg tablet Take 1 tablet by mouth daily before breakfast. Take on empty stomach, 1/2 hr before meal. 90 tablet 1 losartan (COZAAR) 50 mg tablet Take 1 tablet by mouth once daily. 90 tablet 1 dicyclomine (BENTYL) 10 mg capsule Take 1 capsule by mouth before meals and at bedtime. 80 capsule 0 nystatin (NYSTOP) powder Apply 1 application to affected area twice daily. To abdominal skin folds 60 g 2 TURMERIC ORAL Take 1,200 mg by mouth twice daily. vitamin B complex (B COMPLEX-VITAMIN B12 ORAL) Take by mouth. GEMTESA 75 mg tablet Take 75 mg by mouth once daily. fluconazole (DIFLUCAN) 150 mg tablet Take 1 tablet by mouth once daily for 1 day. 1 tablet 0 clotrimazole (LOTRIMIN, CLOTRIM) 1 % cream Apply to affected area twice daily for 7 days. 60 g 0 benzonatate (TESSALON PERLE) 100 mg capsule Take 1 capsule by mouth three times daily as needed for cough. 21 capsule 0 pseudoephedrine-guaiFENesin (MUCINEX D) 60-600 mg per tablet Take 1 tablet by mouth every 12 hours as needed for cold/allergy symptoms. 18 tablet 1 benzonatate (TESSALON PERLES) 100 mg capsule Take 1 capsule by mouth three times daily as needed for cough. 21 capsule 1 oxybutynin ER (DITROPAN XL) 10 mg 24 hr tablet Take 1 tablet by mouth once daily. (Patient not taking: Reported on 01/01/2022) 90 tablet 1 No current facility-administered medications for this visit. PAST SURGICAL HISTORY Procedure Laterality Date APPENDECTOMY 1984 BACK SURGERY HX CATHETER, ABLATION thermachoice DELIVERY ONLY COLONOSCOPY 09/29/2016 small benign hyperplastic polyp, otherwise normal-repeat in 10 years EGD TRANSORAL BIOPSY SINGLE/MULTIPLE 04/26/2009 GASTRIC BYPASS 04/2004 laparoscopic Keira-en-Y gastric bypass at [facility] ICAPSULAR CATARACT XTRJ INSJ IO LENS PRSTH 1 STG o.u. PAST SURGICAL HISTORY OF D&C x 2 REMOVAL GALLBLADDER TONSILLECTOMY PRIMARY/SECONDARY <AGE 13 Tonsillectomy FAMILY HISTORY Problem Relation Age of Onset Osteoporosis Mother Arthritis Mother Lung Cancer Mother other (Dementia) Father Arthritis Daughter Rheumatoid Social History Tobacco Use Smoking status: Never Smokeless tobacco: Never Substance Use Topics Alcohol use: Yes Comment: Occasionally Drug use: No Objective BP 110/66 Pulse 98 Temp 36.8 C (98.3 F) Resp 16 Wt 98.9 kg (218 lb) LMP 08/18/2016 SpO2 96% BMI 42.58 kg/m Physical Exam Vitals reviewed. Constitutional: Appearance: Normal appearance. HENT: Head: Normocephalic and atraumatic. Abdominal: Comments: Patient has beefy red erythema with satellite lesions under her pannus and in the left groin area. Neurological: Mental Status: She is alert. Assessment and Plan ASSESSMENT/PLAN: 1. Intertrigo - ICD9: 695.89, ICD10: L30.4 Likely exacerbated by topical steroids, discussed not using this anymore. Given clotrimazole cream and 1 Diflucan. If not improving follow-up with PCP. Patient agreeable. Val Espinoza PA-C documented in this encounter [facility] 03-16-2022 History of Presen t illness Narrative Radiology Service Progress Note PATIENT NAME: Livier Romano DATE OF SERVICE: March 16, 2022 TIME: 2:26 PM PATIENT IDENTITY VERIFICATION COMPLETED USING TWO (2) IDENTIFIERS: Name and Date of confirmed by patient verbally. FALL SCREENING: Has the patient had 2 falls in the last year or 1 fall with injury or currently using an Ambulatory Assistive Device (Walker, Cane, Wheelchair, Crutches, etc.)? No PATIENT GENDER DATA: Female. status: : No status: NO. PATIENT RELEVANT IMPLANT DATA REVIEWED: Yes RADIOLOGY DEPARTMENT: General X-ray: Exam(s) Completed: GI/ Procedure(s): Esophogram with barium contrast PERIPHERAL IV DATA: Not applicable SIGNED BY: RT Abraham(R) March 16, 2022 2:26 PM documented in this encounter [facility] 03-05-2022 History of Presen t illness Narrative VIRTUAL VISIT PROGRESS NOTE This is a virtual visit using [employer]late video visit. It required patient-provider interaction for the medical decision making as documented below. Livier Romano is a 56 year old female seen for .Dysphagia. Seen in ED for dysphagia symptoms. Cervical Xray revealed worsening C4-5 osteophytosis likely causing her dysphagia. ERCP EUS in 2019 did not reveal any esophageal luminal narrowing. Still also having issues with IBS HISTORY REVIEWED (electronic chart updated): PAST MEDICAL HISTORY Diagnosis Date GERD (gastroesophageal reflux disease) Hypertension, essential 07/07/2017 Hypothyroid Iron deficiency anemia, unspecified Rosacea S/P lumbar spinal fusion 10/07/2018 Snoring Unspecified inflammatory disease of female pelvic organs and tissues PAST SURGICAL HISTORY Procedure Laterality Date APPENDECTOMY 1984 BACK SURGERY HX CATHETER, ABLATION thermachoice DELIVERY ONLY COLONOSCOPY 09/29/2016 small benign hyperplastic polyp, otherwise normal-repeat in 10 years EGD TRANSORAL BIOPSY SINGLE/MULTIPLE 04/26/2009 GASTRIC BYPASS [facility] PRSTH 1 STG o.u. PAST SURGICAL HISTORY OF D&C x 2 REMOVAL GALLBLADDER TONSILLECTOMY PRIMARY/SECONDARY <AGE 13 Tonsillectomy FAMILY HISTORY Problem Relation Age of Onset Osteoporosis Mother Arthritis Mother Lung Cancer Mother other (Dementia) Father Arthritis Daughter Rheumatoid Social History Tobacco Use Smoking status: Never Smokeless tobacco: Never Substance Use Topics Alcohol use: Yes Comment: Occasionally Drug use: No Current Outpatient Medications Medication Sig benzonatate (TESSALON PERLE) 100 mg capsule Take 1 capsule by mouth three times daily as needed for cough. levothyroxine (SYNTHROID) 150 mcg tablet Take on empty stomach. For thyroid. Take 1 tablet 5 days per week. Take 1.5 tablets 2 days per week. pantoprazole DR (PROTONIX) 40 mg tablet Take 1 tablet by mouth daily before breakfast. Take on empty stomach, 1/2 hr before meal. losartan (COZAAR) 50 mg tablet Take 1 tablet by mouth once daily. pseudoephedrine-guaiFENesin (MUCINEX D) 60-600 mg per tablet Take 1 tablet by mouth every 12 hours as needed for cold/allergy symptoms. benzonatate (TESSALON PERLES) 100 mg capsule Take 1 capsule by mouth three times daily as needed for cough. dicyclomine (BENTYL) 10 mg capsule Take 1 capsule by mouth before meals and at bedtime. nystatin (NYSTOP) powder Apply 1 application to affected area twice daily. To abdominal skin folds oxybutynin ER (DITROPAN XL) 10 mg 24 hr tablet Take 1 tablet by mouth once daily. (Patient not taking: Reported on 01/01/2022) TURMERIC ORAL Take 1,200 mg by mouth twice daily. vitamin B complex (B COMPLEX-VITAMIN B12 ORAL) Take by mouth. No current facility-administered medications for this visit. ALLERGIES Allergen Reactions Dotarem [Gadoterate* Hives, Itching, Other: See Comments Pt developed a diffuse deep redness over upper torso and difficulty swallowing Iohexol Other: See Comments Chest pain, nausea Anti-Inflammatory [* Other: See Comments Levaquin [Levofloxa* Diarrhea Lisinopril Cough Penicillins REVIEW OF SYSTEMS: GENERAL: feeling well without fatigue, no recent change in weight ASSESSMENT: No diagnosis found. PLAN: Livier, is a pleasant woman who is currently having issues with dysphagia. We will place orders for Esophogram, and consult for Swallowing Center. There are no Patient Instructions on file for this visit. Answers submitted by the patient for this visit: Review of Systems Gastroenterology (Submitted on 03/02/2022) Fever: No Chills: No Night Sweats: No Unitentional Weight Change: No A Cough: No Difficulty Breathing: No Chest Pain: No Belly pain: No A feeling of fullness or have belly pain after eating: No Food getting stuck in your throat or chest after eating: Yes Nausea - that is, a feeling like you could vomit: No Regurgitation - that is, food or liquid coming back up into your throat or mouth without vomiting, or feel burning behind your breast bone: No Loss of appetite: No To throw up or vomit: No Blood in your stools: No Black tarry stools: No Loose or watery stools: Yes The feeling like you need to empty your bowels right away - that is, feel as if you would have an accident: Yes Bowel incontinence - that is, have an accident because you cannot make it to the bathroom in time: No Problems with straining while having bowel movements , hard or lumpy stools, or feel unfinished (that you have not passed all your stool): No Pain in rectum or anus during bowel movements: No Problems with jaundice - that is, yellow discoloration of your skin or eyes, now or in the past: No Problems with having to flush the toilet more than two times due to oily stool, or see stool floating with oil: No Answers submitted by the patient for this visit: Review of Systems Gastroenterology (Submitted on 03/02/2022) Fever: No Chills: No Night Sweats: No Unitentional Weight Change: No A Cough: No Difficulty Breathing: No Chest Pain: No Belly pain: No A feeling of fullness or have belly pain after eating: No Food getting stuck in your throat or chest after eating: Yes Nausea - that is, a feeling like you could vomit: No Regurgitation - that is, food or liquid coming back up into your throat or mouth without vomiting, or feel burning behind your breast bone: No Loss of appetite: No To throw up or vomit: No Blood in your stools: No Black tarry stools: No Loose or watery stools: Yes The feeling like you need to empty your bowels right away - that is, feel as if you would have an accident: Yes Bowel incontinence - that is, have an accident because you cannot make it to the bathroom in time: No Problems with straining while having bowel movements , hard or lumpy stools, or feel unfinished (that you have not passed all your stool): No Pain in rectum or anus during bowel movements: No Problems with jaundice - that is, yellow discoloration of your skin or eyes, now or in the past: No Problems with having to flush the toilet more than two times due to oily stool, or see stool floating with oil: No documented in this encounter [facility] 01-09-2022 Miscellaneous Notes Patient returned call and given provider's message below with verbalized understanding. Patient reports she cancelled the prednisone, but completed the AB, and is feeling better, so she has no further needs. Called and left a voicemail for the Patient to call back and ask for a nurse to receive the providers message. Ashley Hoyos RN If she is still feeling poorly, she can take the oral prednisone. The following approved medication requests have been transmitted electronically. Requested Prescriptions Signed Prescriptions Disp Refills predniSONE (DELTASONE) 20 mg tablet 10 tablet 0 Sig: Take 2 tablets by mouth once daily for 5 days. Authorizing Provider: NAKITA ASHBY azithromycin (ZITHROMAX Z-DORETHA) 250 mg tablet 6 tablet 0 Sig: Take 2 tablets day one, then, 1 tablet daily until gone. Authorizing Provider: NEGRA KUO benzonatate (TESSALON PERLE) 100 mg capsule 21 capsule 0 Sig: Take 1 capsule by mouth three times daily as needed for cough. Authorizing Provider: NEGRA KUO APRN.CNP Pt called and is notified of providers message and instructions. Pt voices understanding. She reports she was given a steroid injection at the providers office last Wednesday. She wanted to know if the provider still wanted her to take the oral Prednisone as well. She was asking for the Tessalon Pearls as she has had them before and they have worked for her. Please call and advise. Ashley Hoyos RN Yes, we can try an antibiotic. Does she need something for the cough as well? I would also recommend she take the PO prednisone that was sent in for her as well. Negra Kuo APRN.JASON The following approved medication requests have been transmitted electronically. Requested Prescriptions Signed Prescriptions Disp Refills predniSONE (DELTASONE) 20 mg tablet 10 tablet 0 Sig: Take 2 tablets by mouth once daily for 5 days. Authorizing Provider: NAKITA ASHBY azithromycin (ZITHROMAX Z-DORETHA) 250 mg tablet 6 tablet 0 Sig: Take 2 tablets day one, then, 1 tablet daily until gone. Authorizing Provider: NEGRA KUO APRN.CNP Patient calls and states that she still is coughing and has headache. Patient has been coughing up green mucous. Patient calling and asking if provider can send antibiotic? [facility]. Patient had the steroid shot but did not take any oral prednisone. Please review and advise, Marcelle Thrasher RN Prednisone called to pharmacy Prednisone 40 mg (2-20mg tablets) po QD for 5 days Follow up with PCP if no improvement. * Seek medical care immediately, call 911, go to ER if you have chest pain, difficulty breathing, shortness of breath, inability to swallow. Phone call placed patient advised prescription for oral steroid will be sent to [facility]. Patient verbalized understanding, agreed with plan of care. Rubia Rosa LPN Pt called in and reports that she was in [facility] yesterday and the provider wanted to give her a steroid shot, but only if the influenza came back negative because it would lower her immune system. She reports the flu came back negative and was asking about getting the steroid injection. Please call and advise. documented in this encounter [facility] 01-01-2022 Miscellaneous Notes Addended by: NADIA DUNCAN on: 01/01/2022 07:28 PM Modules accepted: Orders documented in this encounter [facility] 01-01-2022 Instructions Nadia Duncan APRN.CNP - 01/01/2022 7:02 PM EDT RESPIRATORY INFECTION GENERAL INFORMATION: An upper respiratory tract infection, or cold, is a viral infection of the airway passages. It can be caused by any one of almost 200 different viruses. Common symptoms include a runny or stuffy nose, sneezing, watery eyes, sore throat, cough, and slight fever. Colds are contagious, especially during the first 3 or 4 days and cannot be cured by antibiotics. They are spread by coughs, sneezes, and direct contact, especially [id number]. A respiratory tract infection usually clears up in a few days, but some people may be sick for a week or two. INSTRUCTIONS: 1. Be careful not to blow your nose too hard because this may cause a nosebleed. 2. Use a cool-mist humidifier (vaporizer) to increase air moisture. This will make it easier for you to breathe. Do not use hot steam. 3. Rest as much as possible and get plenty of sleep. 4. Wash your hands often, especially after you blow your nose. Cover your mouth and nose with a tissue when you sneeze or cough. 5. Drink plenty of clear fluids (8 glasses a day) such as water, fruit juice, tea, clear soups, and carbonated beverages. CONTACT YOUR DOCTOR IF : 1. Your fever lasts more than 3 days. 2. You have a sore throat that gets worse or you see white or yellow spots in your throat. 3. Your cough gets worse or lasts more than 10 days. 4. You develop a rash anywhere on your skin. 5. You have an earache or a headache. 6. You have thick greenish or yellowish discharge from your nose. RETURN IMMEDIATELY IF: 1. You cough up thick yellow, green, jarrett, or bloody sputum. 2. You have difficulty breathing, pain in your chest, or your skin or nails look jarrett or blue. 3. You have shaking chills or a temperature over 102 F (39 C). documented in this encounter [facility] 01-01-2022 History of Presen t illness Narrative This note was created using [email or web address]. Subjective Livier Romano is a 56 year old female. with PMH HTN and hypothyroid presents with illness Acute onset Wednesday Just sniffles States progressed +cough +chest congestion +productive sputum Denies CP Denies SOB Denies dyspnea. 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 Took Tylenol Cold and Flu The history is provided by the patient. No language path was used. Cough This is a new problem. The problem occurs constantly. The problem has been gradually worsening. The cough is Productive of sputum. There has been no fever. Associated symptoms include chills, headaches, rhinorrhea, sore throat, myalgias, shortness of breath and wheezing. Pertinent negatives include no chest pain, no sweats, no weight loss, no ear congestion, no ear pain and no eye redness. Treatments tried: Tylenol Cold and Flu. She is not a smoker. Her past medical history does not include bronchitis, pneumonia, bronchiectasis, COPD, emphysema or asthma. PAST MEDICAL HISTORY Diagnosis Date GERD (gastroesophageal reflux disease) Hypertension, essential 07/07/2017 Hypothyroid Iron deficiency anemia, unspecified Rosacea S/P lumbar spinal fusion 10/07/2018 Snoring Unspecified inflammatory disease of female pelvic organs and tissues PAST SURGICAL HISTORY Procedure Laterality Date APPENDECTOMY 1984 BACK SURGERY HX CATHETER, ABLATION thermachoice DELIVERY ONLY COLONOSCOPY 09/29/2016 small benign hyperplastic polyp, otherwise normal-repeat in 10 years EGD TRANSORAL BIOPSY SINGLE/MULTIPLE 04/26/2009 GASTRIC BYPASS 04/2004 laparoscopic Keira-en-Y gastric bypass at [facility] ICAPSULAR CATARACT XTRJ INSJ IO LENS PRSTH 1 STG o.u. PAST SURGICAL HISTORY OF D&C x 2 REMOVAL GALLBLADDER TONSILLECTOMY PRIMARY/SECONDARY <AGE 13 Tonsillectomy ALLERGIES Dotarem [Gadoterate Meglumine], Iohexol, Anti-Inflammatory [Nsaids (Non-Steroidal Anti-Inflammatory Drug)], Levaquin [Levofloxacin], Lisinopril, and Penicillins MEDICATIONS levothyroxine (SYNTHROID) 150 mcg tablet Take on empty stomach. For thyroid. Take 1 tablet 5 days per week. Take 1.5 tablets 2 days per week. pantoprazole DR (PROTONIX) 40 mg tablet Take 1 tablet by mouth daily before breakfast. Take on empty stomach, 1/2 hr before meal. losartan (COZAAR) 50 mg tablet Take 1 tablet by mouth once daily. dicyclomine (BENTYL) 10 mg capsule Take 1 capsule by mouth before meals and at bedtime. nystatin (NYSTOP) powder Apply 1 application to affected area twice daily. To abdominal skin folds TURMERIC ORAL Take 1,200 mg by mouth twice daily. vitamin B complex (B COMPLEX-VITAMIN B12 ORAL) Take by mouth. pseudoephedrine-guaiFENesin (MUCINEX D) 60-600 mg per tablet Take 1 tablet by mouth every 12 hours as needed for cold/allergy symptoms. benzonatate (TESSALON PERLES) 100 mg capsule Take 1 capsule by mouth three times daily as needed for cough. oxybutynin ER (DITROPAN XL) 10 mg 24 hr tablet Take 1 tablet by mouth once daily. (Patient not taking: Reported on 01/01/2022) FAMILY HISTORY Problem Relation Age of Onset Osteoporosis Mother Arthritis Mother Lung Cancer Mother other (Dementia) Father Arthritis Daughter Rheumatoid Social History Tobacco Use Smoking status: Never Smokeless tobacco: Never Substance Use Topics Alcohol use: Yes Comment: Occasionally Drug use: No Review of Systems Constitutional: Positive for chills and fatigue. Negative for fever and weight loss. HENT: Positive for congestion, rhinorrhea and sore throat. Negative for ear pain. Eyes: Negative for redness. Respiratory: Positive for cough, shortness of breath and wheezing. Negative for apnea and chest tightness. Cardiovascular: Negative for chest pain. Gastrointestinal: Negative for abdominal pain, diarrhea, nausea and vomiting. Musculoskeletal: Positive for myalgias. Allergic/Immunologic: Negative for environmental allergies, food allergies and immunocompromised state. Neurological: Positive for headaches. Negative for dizziness and facial asymmetry. Hematological: Negative for adenopathy. Does not bruise/bleed easily. Psychiatric/Behavioral: Negative for agitation and behavioral problems. Objective BP 128/84 Pulse 69 Temp 36.6 C (97.8 F) Resp 18 Wt 101 kg (222 lb 9.6 oz) LMP 08/18/2016 SpO2 98% BMI 43.47 kg/m Physical Exam Vitals and nursing note reviewed. Constitutional: General: She is not in acute distress. Appearance: Normal appearance. She is normal weight. She is not ill-appearing, toxic-appearing or diaphoretic. HENT: Head: Normocephalic and atraumatic. Right Ear: Ear canal and external ear normal. Left Ear: Ear canal and external ear normal. Nose: Nose normal. No congestion or rhinorrhea. Mouth/Throat: Mouth: Mucous membranes are moist. Pharynx: No oropharyngeal exudate or posterior oropharyngeal erythema. Eyes: General: Right eye: No discharge. Left eye: No discharge. Extraocular Movements: Extraocular movements intact. Conjunctiva/sclera: Conjunctivae normal. Pupils: Pupils are equal, round, and reactive to light. Cardiovascular: Rate and Rhythm: Normal rate and regular rhythm. Pulses: Normal pulses. Heart sounds: Normal heart sounds. No murmur heard. No friction rub. Pulmonary: Effort: Pulmonary effort is normal. No respiratory distress. Breath sounds: Normal breath sounds. No stridor. No wheezing, rhonchi or rales. Chest: Chest wall: No tenderness. Abdominal: General: Abdomen is flat. There is no distension. Palpations: Abdomen is soft. There is no mass. Tenderness: There is no abdominal tenderness. There is no right CVA tenderness, left CVA tenderness, guarding or rebound. Hernia: No hernia is present. Musculoskeletal: General: No swelling, tenderness, deformity or signs of injury. Normal range of motion. Cervical back: Normal range of motion and neck supple. No rigidity. Right lower leg: No edema. Left lower leg: No edema. Lymphadenopathy: Cervical: No cervical adenopathy. Skin: General: Skin is warm and dry. Capillary Refill: Capillary refill takes less than 2 seconds. Coloration: Skin is not jaundiced or pale. Findings: No bruising, erythema, lesion or rash. Neurological: General: No focal deficit present. Mental Status: She is alert and oriented to person, place, and time. Cranial Nerves: No cranial nerve deficit. Sensory: No sensory deficit. Motor: No weakness. Coordination: Coordination normal. Gait: Gait normal. Psychiatric: Mood and Affect: Mood normal. Behavior: Behavior normal. Thought Content: Thought content normal. Judgment: Judgment normal. Assessment and Plan ASSESSMENT/PLAN: 1. 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 Upper respiratory tract infection, unspecified type - ICD9: 465.9, ICD10: J06.9 - Discussed viral etiology and rationale for treatment. - Symptomatic treatment with prn analgesia - Supportive care with fluids and rest - The patient may also use OTC cough and cold meds as needed, warm salt water gargles, throat lozenges and/or OTC throat spray as needed, and nasal saline gtts and suction prn. - Follow up in 3-5 days if symptoms persist or sooner if worsening of symptoms - XR CHEST 2V FRONTAL/LAT Nadia Duncan APRN.CNP documented in this encounter [facility] 12-11-2021 Miscellaneous Notes The following approved medication requests have been transmitted electronically. Requested Prescriptions Signed Prescriptions Disp Refills levothyroxine (SYNTHROID) 150 mcg tablet 90 tablet 1 Sig: Take on empty stomach. For thyroid. Take 1 tablet 5 days per week. Take 1.5 tablets 2 days per week. Authorizing Provider: TONY BACA Ordering User: NEGRA KUO APRN.CNP Patient returned call and given provider's message below . Patient would like to try the increase of levothyroxine. Please send to [facility]. Left a message for pt to call the office and ask to speak to a nurse. Rosa Rosa LPN Her thyroid levels are in normal range. However, she may feel a little better if we increase her levothyroxine a bit to get her TSH level a little lower. But we do not have to make this change. I'll leave this up to her. Negra Kuo APRN.JASON Component Latest Ref Rng & Units 12/09/2021 TSH 0.270 - 4.200 mIU/L 3.740 T3 79 - 165 ng/dL 96 Free T4 0.9 - 1.7 ng/dL 1.3 Please advise. Blood work in process. Rosa Rosa LPN Pt was notified of such. Yes, let's recheck thyroid labs prior to levothyroxine refill. Negra Kuo APRN.JASON Patient phones requesting refills as follows: Requested Prescriptions Pending Prescriptions Disp Refills levothyroxine (SYNTHROID) 150 mcg tablet 90 tablet 1 Sig: Take 1 tablet by mouth once daily. Take on empty stomach. For thyroid RACH 09/22/21 NOV no upcoming appt noted Please review and advise. Lisa Roman LPN documented in this encounter [facility] 12-05-2021 Miscellaneous Notes Patient phones requesting refills as follows: Requested Prescriptions Pending Prescriptions Disp Refills pantoprazole DR (PROTONIX) 40 mg tablet 90 tablet 1 Sig: Take 1 tablet by mouth daily before breakfast. Take on empty stomach, 1/2 hr before meal. RACH 09/22/21 NOV no upcoming appt noted Please review and advise. Lisa Roman LPN documented in this encounter [facility] 12-05-2021 Miscellaneous Notes Patient phones requesting refills as follows: Requested Prescriptions Pending Prescriptions Disp Refills losartan (COZAAR) 50 mg tablet 90 tablet 1 Sig: Take 1 tablet by mouth once daily. RACH 09/22/21 NOV no upcoming appt noted Please review and advise. Lisa Roman LPN documented in this encounter [facility] 09-23-2021 History of Presen t illness Narrative Images from the original note were not included. Rheumatology Outpatient Clinic Date of Service: 09/23/2021 Patient: Livier Romano Medical Record: [id number] Primary Care Physician: Negra Kuo APRN.FACTORY ENGINEER Last Rheumatology visit: 05/07/2021 (with Gloria Ricardo) History of Present Illness Livier Romano is a 56 year old female who presents on 09/23/2021 for an in-person visit for evaluation of No chief complaint on file.. Livier is both RF - 9 (12/20/2020) and CCP - 13.5 (02/17/2021) negative. Her most recent DARRYL was negative (12/20/2020). 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 The patient states she has had pain all over for many years, especially her low back, found to have a synovial cyst in the lower lumbar spine status post surgical decompression with much relief in her symptoms. Over time her lower back symptoms returned and were accompanied by lower extremity shooting pains described as ice pricks as well as pains in her hands and feet with subjective swelling and morning stiffness up to an hour. She states that her mother also had a history of rheumatoid arthritis as well as Raynaud's and that she admits to a personal history of psoriasis in her scalp. At today's visit she has no evidence of psoriasis, joint swelling and she states that she herself does not have a history of Raynaud's. She denies any rash, photosensitivity, dry eyes, dry mouth but does admit to oral ulcers. She also denies any nail pitting or dactylitis. Occasion she will have alternating constipation and diarrhea but denies any bleeding. She denies any history of inflammatory eye disease. No recent infections. Patient-Entered Data PAIN EVALUATION 09/23/2021 0754 Pain Level: 2 Frequency: Continuous PROMIS Assessments PROMIS Assessments 04/30/2021 08/11/2021 09/19/2021 Physical Health Percentile 10 % 15 % - Mental Health Percentile 26 % 43 % - Pain Score 3 4 - Pain Interference Percentile 4 % - 31 % Fatigue Percentile 5 % 27 % 31 % Physical Function Percentile 5 % 10 % 12 % RAPID 3 Reyes Activities of Daily Living 09/19/2021 9:12 AM 04/30/2021 6:34 PM 02/10/2021 1:23 PM Dress self? Without ANY difficulty With SOME difficulty With SOME difficulty Get in and out of bed? Without ANY difficulty With SOME difficulty With SOME difficulty Walk outdoors? Without ANY difficulty With SOME difficulty With MUCH difficulty Wash and dry body? Without ANY difficulty With SOME difficulty With MUCH difficulty Get in and out of car? With SOME difficulty With SOME difficulty With SOME difficulty RAPID 3 Disease Activity Weighed Score Levels: 0 - 1: Near Remission 1.3 - 2.0: Low Severity 2.3 - 4.0: Moderate Severity 4.3 - 10.0: High Severity RAPID-3 Weighed Score 02/10/2021 04/30/2021 09/19/2021 RAPID 3 Weighed Score 7 (High Severity (HS)) 4.56 (High Severity (HS)) 1.78 (Low Severity (LS)) Review of Systems Review of Systems CONSTITUTION: Negative for: Fever and Recent weight change HEENT: Negative for: Nosebleeds, Mouth sores, Trouble swallowing and Dry mouth RESPIRATORY: Positive for: Cough Negative for: Shortness of breath, Pain with breathing and Coughing up blood GASTROINTESTINAL: Negative for: Melena, Diarrhea, Heartburn and Abdominal pain MUSCULOSKELETAL: Positive for: Arthralgias, Myalgias and Morning Joint Stiffness Negative for: Muscle weakness and Joint swelling NEUROLOGICAL: Positive for: Memory loss Negative for: Headaches and Numbness SKIN: Negative for: Rash, Skin changes, Hair loss and Nail changes EYES: Positive for: Eye redness Negative for: Eye pain, Eye dryness and visual disturbance CARDIOVASCULAR: Negative for: Chest pain and Leg swelling GENITOURINARY: Negative for: Dysuria and Hematuria HEMATOLOGIC/LYMPHATIC: Negative for: Swollen glands All other reviewed and negative other than HPI. Past Medical History PAST MEDICAL HISTORY Diagnosis Date GERD (gastroesophageal reflux disease) Hypertension, essential 07/07/2017 Hypothyroid Iron deficiency anemia, unspecified Rosacea S/P lumbar spinal fusion 10/07/2018 Snoring Unspecified inflammatory disease of female pelvic organs and tissues Past Surgical History PAST SURGICAL HISTORY Procedure Laterality Date APPENDECTOMY 1985 BACK SURGERY HX CATHETER, ABLATION thermachoice DELIVERY ONLY COLONOSCOPY 09/29/2016 small benign hyperplastic polyp, otherwise normal-repeat in 10 years EGD TRANSORAL BIOPSY SINGLE/MULTIPLE 04/26/2009 GASTRIC BYPASS 04/2004 laparoscopic Keira-en-Y gastric bypass at [facility] ICAPSULAR CATARACT XTRJ INSJ IO LENS PRSTH 1 STG o.u. PAST SURGICAL HISTORY OF D&C x 2 REMOVAL GALLBLADDER TONSILLECTOMY PRIMARY/SECONDARY <AGE 13 Tonsillectomy Family History FAMILY HISTORY Problem Relation Age of Onset Osteoporosis Mother Arthritis Mother Lung Cancer Mother other (Dementia) Father Arthritis Daughter Rheumatoid Social History Social History Tobacco Use Smoking status: Never Smoker Smokeless tobacco: Never Used Vaping Use Vaping Use: Not on file Substance Use Topics Alcohol use: Yes Comment: Occasionally Drug use: No Current Medications Current Outpatient Medications on File Prior to Visit Medication Sig pseudoephedrine-guaiFENesin (MUCINEX D) 60-600 mg per tablet Take 1 tablet by mouth every 12 hours as needed for cold/allergy symptoms. benzonatate (TESSALON PERLES) 100 mg capsule Take 1 capsule by mouth three times daily as needed for cough. doxycycline (VIBRA-TABS) 100 mg tablet Take 1 tablet by mouth twice daily for [address] (PROTONIX) 40 mg tablet Take 1 tablet by mouth daily before breakfast. Take on empty stomach, 1/2 hr before meal. dicyclomine (BENTYL) 10 mg capsule Take 1 capsule by mouth before meals and at bedtime. losartan (COZAAR) 50 mg tablet Take 1 tablet by mouth once daily. nystatin (NYSTOP) powder Apply 1 application to affected area twice daily. To abdominal skin folds levothyroxine (SYNTHROID) 150 mcg tablet Take 1 tablet by mouth once daily. Take on empty stomach. For thyroid oxybutynin ER (DITROPAN XL) 10 mg 24 hr tablet Take 1 tablet by mouth once daily. TURMERIC ORAL Take 1,200 mg by mouth twice daily. vitamin B complex (B COMPLEX-VITAMIN B12 ORAL) Take by mouth. Current Facility-Administered Medications on File Prior to Visit Medication perflutren lipid microspheres 1.3 mL in NaCl (PF) 0.9% 10 mL injection (DEFINITY) sodium chloride 0.9 % (flush) 10 mL (BD POSIFLUSH) Labs CBC Latest Ref Rng & Units 06/20/2020 06/26/2020 12/20/2020 02/17/2021 WBC 3.70 - 11.00 k/uL 7.04 7.97 6.84 7.83 HGB 14 - 16.5 g/dL - - - - HEMOGLOBIN 11.5 - 15.5 g/dL 15.7(H) 15.4 15.0 15.5 HEMOGLOBIN, LIZZETH 11.5 - 15.5 g/dL - - - - HEMATOCRIT 36.0 - 46.0 % 46.4(H) 44.7 46.3(H) 45.9 PLATELETS 150 - 400 k/uL 253 279 310 282 PLT 140 - 440 K/uL - - - - NEUT ABS 1.9 - 8 K/uL - - - - ABS NEUT (ANC) 1.45 - 7.50 k/uL 4.41 5.30 4.26 4.99 ABS NEUT, LIZZETH 2.0 - 8.1 k/uL - - - - LYMPH ABS 1.2 - 4 K/uL - - - - ABS LYMP, LIZZETH 1.0 - 5.5 k/uL - - - - ABS LYMPH 1.00 - 4.00 k/uL 1.91 1.84 1.82 1.92 CMP Latest Ref Rng & Units 05/16/2020 05/24/2020 12/20/2020 02/17/2021 NA 136 - 145 mmol/L - - - - SODIUM 136 - 144 mmol/L 141 143 142 139 SODIUM, LIZZETH 132 - 148 mmol/L - - - - SODIUM, LIZZETH 132 - 148 mmol/L - - - - K 3.5 - 5.1 mmol/L - - - - POTASSIUM 3.7 - 5.1 mmol/L 4.0 3.8 4.0 3.8 POTASSIUM, LIZZETH 3.5 - 5.0 mmol/L - - - - CHLORIDE 97 - 105 mmol/L 103 101 105 103 CHLORIDE, LIZZETH 98 - 110 mmol/L - - - - CO2 22 - 30 mmol/L 29 28 25 22 CO2, LIZZETH 23.0 - 32.0 mmol/L - - - - GLUCOSE 74 - 99 mg/dL 100(H) 86 86 79 GLUCOSE, LIZZETH 65 - 100 mg/dL - - - - BUN 7 - 21 mg/dL 16 14 13 12 BUN, LIZZETH 10 - 25 mg/dL - - - - CREATININE 0.58 - 0.96 mg/dL 0.79 0.73 0.82 0.71 CREATININE, LIZZETH 0.7 - 1.4 mg/dL - - - - CALCIUM 8.5 - 10.1 mg/dL - - - - CALCIUM, LIZZETH 8.5 - 10.5 mg/dL - - - - CALCIUM, TOTAL 8.5 - 10.2 mg/dL 9.0 9.4 9.2 9.1 AST 13 - 35 U/L - 37(H) 29 33 AST, LIZZETH 7 - 40 U/L - - - - ALT 7 - 38 U/L - 36 25 27 ALT (SGPT) 12 - 78 U/L - - - - ALT, LIZZETH 0 - 45 U/L - - - - ALKALINE PHOS TOTAL 45 - 117 U/L - - - - ALKALINE PHOS TOTAL 45 - 117 U/L - - - - ALKALINE PHOSPHATASE 34 - 123 U/L - 131(H) 140(H) 144(H) ESR, WSR Latest Ref Rng & Units 05/24/2020 02/17/2021 WSR 0 - 20 mm/hr 5 6 CRP Latest Ref Rng & Units 02/17/2021 CRP <0.9 mg/dL <0.3 C3, C4 Latest Ref Rng & Units 02/17/2021 C3 86 - 166 mg/dL 146 C4 13 - 46 mg/dL 34 RF and CCP Latest Ref Rng & Units 12/20/2020 02/17/2021 RHEUMATOID FACTOR <16 IU/mL <10 - CCP ANTIBODY, IGG <20 Units - <15 Hepatitis Screen Latest Ref Rng & Units 05/30/2004 02/24/2014 HEPBCOTOL NEGAT Negative Negative HEPSABQ NEGAT Negative Negative HEPCABEIA NEGAT Negative Negative HBSAGR NEGAT Negative Negative Antibodies Latest Ref Rng & Units 05/09/2019 12/20/2020 02/17/2021 DARRYL Negative - Negative - DARRYL TITER Negative - Negative - DARRYL PATTERN - - Not applicable for negative result. - DNA ANTIBODY <30 IU/mL - - <12 PROGRAMS DIRECTOR ANTIBODY <1.0 AI - - 0.2 SSA ANTIBODY <1.0 AI - - <0.2 SSB ANTIBODY <1.0 AI - - <0.2 ANDRESSA 1 ANTIBODY <1.0 AI - - <0.2 RIBOSOMAL PROGRAMS DIRECTOR <1.0 AI - - <0.2 SM ANTIBODY <1.0 AI - - <0.2 SCLERODERMA AB, IGG <1.0 AI - - <0.2 CENTROMERE AB <1.0 AI - - <0.2 CHROMATIN ANTIBODY <1.0 AI - - <0.2 PT SEC 9.7 - 13.0 sec 10.3 - - PT INR 0.9 - 1.3 1.0 - - PTT 23.0 - 32.4 sec 24.8 - - Urinalysis Latest Ref Rng & Units 02/19/2014 05/11/2019 05/14/2019 02/17/2021 PROTEIN, URINE Negative Negative >=300(A) Negative Negative RBC, URINE 0 - 3 /HPF 0-3 0-3 0-3 0-3 PROTEIN/CREATININE RATIO <0.2 - - - 0.1 Imaging Last XR Hand/Finger - Impression Only XR HAND/WRIST SURVEY ARTHRITIS 1V PA BILATERAL Exam End: 02/17/2021 11:27 AM (Final result) Impression: IMPRESSION: No evidence of inflammatory/erosive arthropathy in the hands, feet, or knees. No evidence of spondyloarthropathy. Degenerative changes as described. ... Complete Results Last MRI Hand - Impression Only No resulted procedures found. Last XR Chest - Impression Only XR CHEST 2V FRONTAL/LAT Exam End: 09/22/2021 11:46 AM (Final result) Impression: IMPRESSION: No acute radiographic abnormality. Electrocardiograph Operator: JOSE Transcribe Date/Time: Sep 22 2021 11:48A... Complete Results Last XR Cervical Spine - Impression Only No resulted procedures found. Last XR Lumbar Spine - Impression Only No resulted procedures found. Last XR Knee - Impression Only XR KNEE GENERAL 4V AP BOTH/PA BOTH/LAT/MERC BILATERAL Exam End: 02/17/2021 11:27 AM (Final result) Impression: IMPRESSION: No evidence of inflammatory/erosive arthropathy in the hands, feet, or knees. No evidence of spondyloarthropathy. Degenerative changes as described. ... Complete Results Health Maintenance Current Immunizations Reviewed on 09/23/2021 Name Date COVID-19 vaccine ([employer] LEM[employer]) 07/08/2021 COVID-19 vaccine ([employer] - PURPLE TOP) 12/10/2020 , 05/16/2020 , 04/25/2020 Flucelvax Quadrivalent, preservative free 11/30/2018 , 11/21/2017 HEPATITIS A 06/27/2013 , 06/27/2013 HEPATITIS B 05/28/2008 , 05/28/2008 , 01/23/2008 , 01/23/2008 , 11/07/2007 , 11/07/2007 INFLUENZA 12/18/2020 , 12/08/2019 , 12/08/2018 , 11/29/2017 , 12/14/2016 , 11/12/2016 , 12/17/2015 , 12/02/2015 , 12/07/2014 , 11/29/2010 , 05/07/2009 , 01/09/2008 TETANUS DIPHTHERIA (TD) 06/30/2006 Tdap (Age 7+) 07/18/2020 VARICELLA-ZOSTER (SHINGLES) 10/30/2020 , 07/18/2020 Physical Exam GENERAL APPEARANCE: Well groomed. Alert and oriented x 3. In no distress. VITAL SIGNS: BP 121/81 Pulse 68 Temp (Src) 97.3 (Temporal) Ht 5' 0 (1.52m) Wt 212 lb (96.2kg) LMP 08/18/2016 BMI 41.40 kg/(m^2). SKIN: No rash, thickening, nodules, discoloration. EYES: PERRL, EOMI HENT: Normal external examination of the ears and nose, lips, oropharynx and tongue. No oropharyngeal lesions, exudate, or sores. NECK: No mass or asymmetry. RESPIRATORY: Normal respiratory effort. Clear to auscultation and percussion. CARDIOVASCULAR: Heart RRR without gallop, murmur, or rub ABDOMEN: BS normal. No bruits, No tenderness, mass, or hepatosplenomegaly. NEUROLOGIC: Sensory exam normal. MUSCULOSKELETAL EXAMINATION: Soft tissue tender points: None Motor exam: Normal 5+/5+ muscle strength. Normal bulk and tone. Spine: Cervical spine: No visible abnormalities. Full ROM. No tenderness to palpation. Thoracic spine: No visible abnormalities. No tenderness to palpation. Lumbar spine: No visible abnormalities. Full ROM. No tenderness to palpation SI Joints: No tenderness to palpation. Negative Lori s Test Lower extremities: Knees: Full ROM in flexion and extension. No swelling or effusion. No tenderness to palpation. Negative patellar apprehension and glide. Negative patellar crepitus and grind. Negative provocative exams including Kimmy s, valgus stress at 0 and 30 degrees, varus stress at 0 and 30 degrees, McMurrays Test, and Posterior Drawer. Ankles: Full ROM in all [place]. No swelling or effusion. No tenderness to palpation along the joint line, medial/lateral malleolus, ATFL, PTFL, CFL, or Achilles Tendon. Feet: Full ROM in toe flexion/extension. No effusion. No tenderness to palpation. No evidence of MTP swelling. Impression Diagnoses: No diagnosis found. Plan Orders this visit: No orders found for this visit on 09/23/21. No follow-ups on file. I spent a total of 30 minutes on the date of the service which included preparing to see the patient, [id number] patient care, completing clinical documentation, obtaining and/or reviewing separately obtained history, performing a medically appropriate examination, counseling and educating the patient/family/caregiver and communicating results to the patient/family/caregiver. Medical Decision Making: Problems: Moderate: 2+ stable chronic illnesses Data: Unique source(s) for external note(s) reviewed: 1 Unique test result(s) reviewed: 3+ Risk: Low: Low risk from testing/treatment Medical Decision Making Level: 4 - Moderate Gloria Ricardo DO Rheumatology Date: September 23, 2021 Time: 8:01 AM documented in this encounter [facility] 09-22-2021 Miscellaneous Notes Patient returned call and given provider's message below and patient verbalized understanding. Dheeraj Salinas RN Vm left with patient to contact office for results Brooklynn Zheng Ma Please let Livier know that her chest xray looks completely normal, no signs of pneumonia. I'm sending in doxycycline (antibiotic) for her to begin taking twice daily for 10 days. The following approved medication requests have been transmitted electronically. Signed Prescriptions Disp Refills doxycycline (VIBRA-TABS) 100 mg tablet 20 tablet 0 Sig: Take 1 tablet by mouth twice daily for 10 days. Authorizing Provider: NEGRA KUO APRN.CNP documented in this encounter [facility] 09-22-2021 History of Presen t illness Narrative Chief Complaint Patient presents with: F/U 1 month HPI Livier Romano is a 56 year old female who presents here today for Above Complaints. Today: Her abdomen is feeling much better. 1 month ago saw myself for heartburn. Protonix was increased from 20mg to 40mg daily. COVID-tested positive for COVID on 09/03 when she was in [place] visiting. Tested negative on 09/14. Overall feeling better. Still with cough, chest congestion. Coughing up thick mucous-sometimes is green, sometimes brownish. No CP. Does get exertional SOB-but learning to take breaks. Past medical history, appointments, medications, allergies reviewed. Previous Medical History PAST MEDICAL HISTORY Diagnosis Date GERD (gastroesophageal reflux disease) Hypertension, essential 07/07/2017 Hypothyroid Iron deficiency anemia, unspecified Rosacea S/P lumbar spinal fusion 10/07/2018 Snoring Unspecified inflammatory disease of female pelvic organs and tissues Previous Surgical History PAST SURGICAL HISTORY Procedure Laterality Date APPENDECTOMY 1984 BACK SURGERY HX CATHETER, ABLATION thermachoice DELIVERY ONLY COLONOSCOPY 09/29/2016 small benign hyperplastic polyp, otherwise normal-repeat in 10 years EGD TRANSORAL BIOPSY SINGLE/MULTIPLE 04/26/2009 GASTRIC BYPASS 04/[facility] LENS PRSTH 1 STG o.u. PAST SURGICAL HISTORY OF D&C x 2 REMOVAL GALLBLADDER TONSILLECTOMY PRIMARY/SECONDARY <AGE 13 Tonsillectomy Family History FAMILY HISTORY Problem Relation Age of Onset Osteoporosis Mother Arthritis Mother Lung Cancer Mother other (Dementia) Father Arthritis Daughter Rheumatoid Patient Allergies ALLERGIES Allergen Reactions Dotarem [Gadoterate* Hives, Itching, Other: See Comments Pt developed a diffuse deep redness over upper torso and difficulty swallowing Iohexol Other: See Comments Chest pain, nausea Anti-Inflammatory [* Other: See Comments Levaquin [Levofloxa* Diarrhea Lisinopril Cough Penicillins Current Medications Current Outpatient Medications on File Prior to Visit Medication Sig pantoprazole DR (PROTONIX) 40 mg tablet Take 1 tablet by mouth daily before breakfast. Take on empty stomach, 1/2 hr before meal. dicyclomine (BENTYL) 10 mg capsule Take 1 capsule by mouth before meals and at bedtime. losartan (COZAAR) 50 mg tablet Take 1 tablet by mouth once daily. nystatin (NYSTOP) powder Apply 1 application to affected area twice daily. To abdominal skin folds levothyroxine (SYNTHROID) 150 mcg tablet Take 1 tablet by mouth once daily. Take on empty stomach. For thyroid oxybutynin ER (DITROPAN XL) 10 mg 24 hr tablet Take 1 tablet by mouth once daily. TURMERIC ORAL Take 1,200 mg by mouth twice daily. vitamin B complex (B COMPLEX-VITAMIN B12 ORAL) Take by mouth. Current Facility-Administered Medications on File Prior to Visit Medication perflutren lipid microspheres 1.3 mL in NaCl (PF) 0.9% 10 mL injection (DEFINITY) sodium chloride 0.9 % (flush) 10 mL (BD POSIFLUSH) Social History Social History Tobacco Use Smoking status: Never Smoker Smokeless tobacco: Never Used Vaping Use Vaping Use: Not on file Substance Use Topics Alcohol use: Yes Comment: Occasionally Drug use: No Review of Symptoms REVIEW OF SYSTEMS see HPI, otherwise negative EXAM: BP 118/86 (BP Site: Left Arm, BP Position: Sitting, BP Cuff Size: Regular Adult) Pulse 72 Resp 16 Wt 96.4 kg (212 lb 9.6 oz) LMP 08/18/2016 SpO2 95% BMI 41.52 kg/m General Appearance: Well appearing, alert, in no acute distress, well-hydrated, well nourished.. Lungs: Lungs clear to auscultation. No wheezing, rhonchi, rales.. Heart: RRR without murmur, gallop, or rubs. No ectopy. Health Maintenance List INFLUENZA(1) due on 10/30/2021 BP CONTROLLED (<130/80) due on 10/30/2021 MAMMOGRAM due on 01/09/2022 DEPRESSION SCREENING due on 07/10/2022 ANNUAL PCP TEAM CHRONIC DISEASE VISIT due on 09/22/2022 DIABETES SCREEN due on 02/18/2024 PAP TESTING due on 11/08/2024 HPV TESTING due on 11/08/2024 LIPID SCREEN due on 11/23/2024 COLORECTAL CANCER SCREENING due on 09/29/2026 DTAP,TDAP,TD(2 - Td or Tdap) due on 07/18/2030 HEPATITIS C SCREENING Completed SHINGRIX VACCINE Completed COVID-19 VACCINE Completed HIV SCREENING Discontinued Data reviewed Previous records, office notes ASSESSMENT/PLAN: 1. 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 Mucinex. Tessalon Perles. Chest xray to r/o pneumonia. - XR CHEST 2V FRONTAL/LAT - PSEUDOEPHEDRINE-GUAIFENESIN ER 60 MG-600 MG TABLET,EXTEND RELEASE 12HR - BENZONATATE 100 MG CAPSULE 2. Chest congestion - ICD9: 786.9, ICD10: R09.89 Supportive care-fluids, acetaminophen/ibuprofen prn. Mucinex. Tessalon Perles. Chest xray to r/o pneumonia. - XR CHEST 2V FRONTAL/LAT - PSEUDOEPHEDRINE-GUAIFENESIN ER 60 MG-600 MG TABLET,EXTEND RELEASE 12HR - BENZONATATE 100 MG CAPSULE 3. Productive cough - ICD9: 786.2, ICD10: R05.8 Supportive care-fluids, acetaminophen/ibuprofen prn. Mucinex. Tessalon Perles. Chest xray to r/o pneumonia. - XR CHEST 2V FRONTAL/LAT - PSEUDOEPHEDRINE-GUAIFENESIN ER 60 MG-600 MG TABLET,EXTEND RELEASE 12HR - BENZONATATE 100 MG CAPSULE Negra Kuo APRN.CNP documented in this encounter [facility] 08-22-2021 History of Presen t illness Narrative Episode Visit Count: 7 Therapist That Will Oversee The Plan Of Care: Nadia Jurado Start of Care Date: 07/15/21 Onset Date: 07/16/19 Plan of Care Certification Date: 07/15/21 Next Certification Due Date: 08/26/21 [facility]AB[facility]ER[facility]Y PHYSICAL THERAPY DISCONTINUANCE OF CARE PLAN OF CARE UPDATE: Assessment: Livier Romano is discontinued from Physical Therapy services due to goal achievement and maximal benefit.. Patient was seen for 7 visits from Start of Care Date: 07/15/21 to 08/22/2021 and treatment included: Therapeutic exercise, Neuromuscular re-education and Self-group home management. Goals for Episode of Care: created on 07/15/21 through 08/26/21 Goals updated on 08/22/2021. Independent in home exercises. -- MET Patient will decrease pain to 1-2/10 with functional activities to allow patient to improve ambulation, transfers and standing tolerance for ADLs. -- MET Restore pain-free lumbar ROM to moderate to minimal limitation lumbar extension and side flexion to the R to allow for improved posture and transfers with less pain. -- MET Stand / Walk 1-2 hours without pain/symptoms. -- MET, walks the dog x1 hour Sit 1-2 hours without pain/symptoms to allow for seated activities and Driving.-- MET Maintain proper sitting posture throughout session -- MET Patient will be able to tolerate work activities for 6-8 hours without increased symptoms. -- MET Patient will be able to correct postural deviations independently in order to improve postural alignment of trunk during transfers, ambulation, sitting, standing and functional activities. -- MET Knowledgeable regarding prophylaxis. -- MET Patient Goals: prolonged sitting, standing, and ambulation while walking the dog without limitation due to low back pain or radiating LE symptoms. -- MET SUBJECTIVE: Patient Reason for Visit: Reports no pain today, agrees to discharge. Pt. will be leaving for [place] soon.. Pain: Pain Pain Level: 0 Pain Location: Buttocks - Right;Buttocks - Left (B lateral upper thighs) Frequency: Intermittent Post Treatment Pain Post Treatment Pain Level: 0 Post Treatment Pain Location: Buttocks - Right;Buttocks - Left;Thigh - Right;Thigh - Left PROMIS Scales Higher is Better 02/10/2021 04/30/2021 08/11/2021 Phys Func - Score 31 (moderate dysfunction) 34 (moderate dysfunction) 37 (moderate dysfunction) Phys Func - Percentile 3 % 5 % 10 % Social Roles - Score - - 43 (mild dysfunction) Social Role - Percentile - - 24 % GH Physical - Score 29.6 (Poor) 37.4 (Fair) 39.8 (Fair) GH Physical - Percentile 2 % 10 % 15 % GH Mental - Score 43.5 (Good) 43.5 (Good) 48.3 (Very Good) GH Mental - Percentile 26 % 26 % 43 % Self-Eff Symptom - Score - - 46 (Average) Self-Eff Symptom - Percentile - - 34 % T-scores: mean of general population = 50. 5 points is clinically meaningfully difference Percentiles provide an indication of how the patient's score ranks in relation to the general population. Higher percentile rankings indicate better function/quality of life. 50th percentile is the average of the general population and indicates half of respondents had a worse score. Lower is Better 02/10/2021 04/30/2021 08/11/2021 Fatigue - Score 74 (severe) 66 (moderate) 56 (mild) Fatigue - Percentile 1 % 5 % 27 % T-scores: mean of general population = 50. 5 points is clinically meaningfully difference Percentiles provide an indication of how the patient's score ranks in relation to the general population. Higher percentile rankings indicate better function/quality of life. 50th percentile is the average of the general population and indicates half of respondents had a worse score. OBJECTIVE MEASURES WITH LEVEL OF FUNCTION: Lumbar Spine AROM Lumbar Flexion: Normal Lumbar Extension: Normal Lumbar R Side-Bend: Normal Lumbar L Side-Bend: Normal Lumbar R Rotation: Normal Lumbar L Rotation: Normal TREATMENT: Therapeutic Exercise: 2: Supine thiago slides right and left AROM 2x10 reps 3: Sidelying hip series 100%-50 percent, 0-50 %, circles cw and ccw and hip marching 1x10 each B 5: standing hip extension 2x15 each side OTB (x1 UE support with chair) 6: standing hip abduction 2x15 each side OTB (x1 UE support chair) 7: sit <> stand 2x10 with out UE support or arm rests 9: step ups foward and lateral 8 step, without BUE support // bars, each LE lead 2x10 each Skilled Intervention: Patient was educated in proper exercise technique and purpose for exercises. Reviewed and educated patient on additions/changes for home exercise program as above (*). Skilled judgment was provided in selection of appropriate interventions. Correct performance of therapeutic exercises was facilitated with verbal, visual and tactile cuing. Additional time necessary for assessing progress toward goals due to discharge today. Educated patient on rationale for performing exercises in regards to decreasing fatigue , increase ease of ADL and ROM and function . Patient education as noted. Billing Therapeutic Exercise Treatment Minutes: 30 Total Treatment Time Minutes (timed/untimed): 30 Nadia Jurado PT documented in this encounter [facility] 08-22-2021 History of Presen t illness Narrative Radiology Service Progress Note PATIENT NAME: Livier Romano DATE OF SERVICE: August 22, 2021 TIME: 1:03 PM PATIENT IDENTITY VERIFICATION COMPLETED USING TWO (2) IDENTIFIERS: Name and Date of confirmed by patient verbally. FALL SCREENING: Has the patient had 2 falls in the last year or 1 fall with injury or currently using an Ambulatory Assistive Device (Walker, Cane, Wheelchair, Crutches, etc.)? No PATIENT GENDER DATA: Female. status: : No status: NO. PATIENT RELEVANT IMPLANT DATA REVIEWED: Not Applicable RADIOLOGY DEPARTMENT: Ultrasound PERIPHERAL IV DATA: Not applicable SIGNED BY: RT Miquel(R) August 22, 2021 1:03 PM documented in this encounter [facility] 08-22-2021 Instructions Negra Kuo APRN.CNP - 08/22/2021 8:51 AM EDT Increase your Protonix to 40mg daily. Start taking the dicyclomine 4 times daily, for 2 weeks. If symptoms are improving, you can take the medication as needed. Schedule your ultrasound. Send me a [employer] message next Wednesday or with an update. If we need to, we'll see you again and/or get you stocked up with what you may need during your trip. documented in this encounter [facility] 08-22-2021 History of Presen t illness Narrative Chief Complaint Patient presents with: Abdominal Pain HPI Livier Romano is a 56 year old female who presents here today for Above Complaints. Per telephone encounter on 08/21: Patient reports she had an appt with Dr. Betts on 08-13-21, and received an injection in the spine. On the way home, developed CP. Drove to [facility], tests were done and ruled out heart causes. Reports it was acute epigastric pain. Reports the pain has continued since ER, and she is unable to sleep. Taking protonix 20 mg daily, and would like to be seen by a provider andressa. States she believes she needs a medication adjustment for her heart burn. Especially concerned right now, because she is leaving on a trip to [place] on 09-01-21, and really wants to feel better. Scheduled ER f/u appt with [facility]. Today: Is having intermittent discomfort in her chest, but when she belches, it is relieved. Has GERD, already takes medication for this. For the most part, this has worked until recently. Denies n/v/d. No fevers. Had gallbladder removed and has chronic RUQ discomfort, has a stent in her bile duct-during surgery poked into her pancreas-so had pancreatitis at that time as well, illus. Is very careful about her diet-eliminates spicy and greasy foods. Eats an antiinflammatory diet. Denies CP or SOB. Past medical history, appointments, medications, allergies reviewed. 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 ICAPSULAR CATARACT XTRJ INSJ IO LENS PRSTH 1 STG o.u. PAST SURGICAL HISTORY OF D&C x 2 REMOVAL GALLBLADDER TONSILLECTOMY PRIMARY/SECONDARY <AGE 13 Tonsillectomy Family History FAMILY HISTORY Problem Relation Age of Onset Osteoporosis Mother Arthritis Mother Lung Cancer Mother other (Dementia) Father Arthritis Daughter Rheumatoid Patient Allergies ALLERGIES Allergen Reactions Dotarem [Gadoterate* Hives, Itching, Other: See Comments Pt developed a diffuse deep redness over upper torso and difficulty swallowing Iohexol Other: See Comments Chest pain, nausea Anti-Inflammatory [* Other: See Comments Levaquin [Levofloxa* Diarrhea Lisinopril Cough Penicillins Current Medications Current Outpatient Medications on File Prior to Visit Medication Sig losartan (COZAAR) 50 mg tablet Take 1 tablet by mouth once daily. nystatin (NYSTOP) powder Apply 1 application to affected area twice daily. To abdominal skin folds levothyroxine (SYNTHROID) 150 mcg tablet Take 1 tablet by mouth once daily. Take on empty stomach. For thyroid oxybutynin ER (DITROPAN XL) 10 mg 24 hr tablet Take 1 tablet by mouth once daily. TURMERIC ORAL Take 1,200 mg by mouth twice daily. vitamin B complex (B COMPLEX-VITAMIN B12 ORAL) Take by mouth. pantoprazole DR (PROTONIX) 20 mg tablet Take 1 tablet by mouth daily before breakfast. Take on empty stomach, 1/2 hr before meal. doxycycline (VIBRA-TABS) 100 mg tablet Take 1 tablet by mouth daily for malaria prophylaxis. Start 2 days before travel and take for 4 weeks after returning/exposure. benzonatate (TESSALON PERLES) 100 mg capsule Take 1 capsule by mouth three times daily as needed for Cough. MEDICATION, NON-DATABASE Prevagen: Take one tablet by mouth once daily. gabapentin (NEURONTIN) 300 mg capsule Take 300 mg by mouth three times daily. polyethylene glycol 3350 (MIRALAX, GLYCOLAX) 17 gram/dose powder Use as directed for Miralax / Gatorade Bowel Prep Kit Gatorade Sports Drink Use as directed for Miralax / Gatorade Bowel Prep Kit (Patient not taking: Reported on 09/03/2020 ) Bisacodyl (DULCOLAX) 5 mg tab Use as directed for Miralax / Gatorade Bowel Prep Kit (Patient not taking: Reported on 02/17/2021 ) calcium carbonate/vitamin D3 (CALCIUM 500 + D, D3, ORAL) Take 1 tablet by mouth once daily. (Patient not taking: Reported on 02/17/2021 ) Current Facility-Administered Medications on File Prior to Visit Medication perflutren lipid microspheres 1.3 mL in NaCl (PF) 0.9% 10 mL injection (DEFINITY) sodium chloride 0.9 % (flush) 10 mL (BD POSIFLUSH) Social History Social History Tobacco Use Smoking status: Never Smoker Smokeless tobacco: Never Used Vaping Use Vaping Use: Not on file Substance Use Topics Alcohol use: Yes Comment: Occasionally Drug use: No Review of Symptoms REVIEW OF SYSTEMS see HPI, otherwise negative EXAM: BP 120/78 (BP Site: Left Arm, BP Position: Sitting, BP Cuff Size: Regular Adult) Pulse 81 Resp 16 Wt 94.3 kg (208 lb) LMP 08/18/2016 SpO2 98% BMI 40.62 kg/m General Appearance: Well appearing, alert, in no acute distress, well-hydrated, well nourished.. Lungs: Lungs clear to auscultation. No wheezing, rhonchi, rales.. Heart: RRR without murmur, gallop, or rubs. No ectopy. Abdomen: Normal abdominal exam, Abdomen soft, non-tender. Bowel sounds normal. No masses, organomegaly. Health Maintenance List ANNUAL PCP TEAM CHRONIC DISEASE VISIT due on 12/20/2021 MAMMOGRAM due on 01/09/2022 BP CONTROLLED (<130/80) due on 05/07/2022 DEPRESSION SCREENING due on 07/10/2022 DIABETES SCREEN due on 02/18/2024 PAP TESTING due on 11/08/2024 HPV TESTING due on 11/08/2024 LIPID SCREEN due on 11/23/2024 COLORECTAL CANCER SCREENING due on 09/29/2026 DTAP,TDAP,TD(2 - Td or Tdap) due on 07/18/2030 INFLUENZA Completed HEPATITIS C SCREENING Completed SHINGRIX VACCINE Completed COVID-19 VACCINE Completed HIV SCREENING Discontinued Data reviewed Previous records, office notes ASSESSMENT/PLAN: 1. Bloating - ICD9: 787.3, ICD10: R14.0 (primary diagnosis) Increase Protonix from 20mg to 40mg daily. Begin dicyclomine scheduled qid for 2 weeks, then may go to prn if sx are improving. Ultrasound of abdomen given discomfort and significant abdominal medical and surgical hx. Cardiac workup negative at [facility]. - PANTOPRAZOLE 40 MG TABLET,DELAYED RELEASE - DICYCLOMINE 10 MG CAPSULE - US ABDOMEN COMPLETE 2. RUQ pain - ICD9: 789.01, ICD10: R10.11 Increase Protonix from 20mg to 40mg daily. Begin dicyclomine scheduled qid for 2 weeks, then may go to prn if sx are improving. Ultrasound of abdomen given discomfort and significant abdominal medical and surgical hx. Cardiac workup negative at [facility]. - PANTOPRAZOLE 40 MG TABLET,DELAYED RELEASE - DICYCLOMINE 10 MG CAPSULE - US ABDOMEN COMPLETE 3. Epigastric pain - ICD9: 789.06, ICD10: R10.13 Increase Protonix from 20mg to 40mg daily. Begin dicyclomine scheduled qid for 2 weeks, then may go to prn if sx are improving. Ultrasound of abdomen given discomfort and significant abdominal medical and surgical hx. Cardiac workup negative at [facility]. - PANTOPRAZOLE 40 MG TABLET,DELAYED RELEASE - DICYCLOMINE 10 MG CAPSULE - US ABDOMEN COMPLETE 4. Gastritis without bleeding, unspecified chronicity, unspecified gastritis type - ICD9: 535.50, ICD10: K29.70 Increase Protonix from 20mg to 40mg daily. Begin dicyclomine scheduled qid for 2 weeks, then may go to prn if sx are improving. Ultrasound of abdomen given discomfort and significant abdominal medical and surgical hx. Cardiac workup negative at [facility]. - PANTOPRAZOLE 40 MG TABLET,DELAYED RELEASE - DICYCLOMINE 10 MG CAPSULE - US ABDOMEN COMPLETE Negra Kuo APRN.JASON documented in this encounter [facility] 08-21-2021 Miscellaneous Notes Noted, thank you. Negra Kuo APRN.CNP Patient reports she had an appt with Dr. Betts on 08-13-21, and received an injection in the spine. On the way home, developed CP. Drove to [facility], tests were done and ruled out heart causes. Reports it was acute epigastric pain. Reports the pain has continued since ER, and she is unable to sleep. Taking protonix 20 mg daily, and would like to be seen by a provider andressa. States she believes she needs a medication adjustment for her heart burn. Especially concerned right now, because she is leaving on a trip to [place] on 09-01-21, and really wants to feel better. Scheduled ER f/u appt with Sox Analyst. documented in this encounter [facility] 08-18-2021 History of Presen t illness Narrative Episode Visit Count: 6 Therapist That Will Oversee The Plan Of Care: Nadia Jurado Start of Care Date: 07/15/21 Onset Date: 07/16/19 Plan of Care Certification Date: 07/15/21 Next Certification Due Date: 08/26/21 Patient Identified by Name and Date of : Yes REHABILITATION AND SPORTS THERAPY PHYSICAL THERAPY TREATMENT NOTE ASSESSMENT: Livier Romano tolerated the session with decreased symptoms. She demonstrated improvements in heavy feeling in buttocks and thighs with addition of ScFit seated stepper at start of treatment. She was unable to tolerate forward step downs from 4 step due to pain and this was deferred. Tolerated all other exercises well and had no pain at end of treatment.. The patient will continue to benefit from ongoing skilled physical therapy to progress toward set goals. PLAN FOR NEXT VISIT: Possibly add wall slides SUBJECTIVE: Patient Reason for Visit: Patient reports she had a spinal injection last Wednesday and the back feels better. She reports B buttocks and upper legs feel very heavy. Pain: Pain Pain Level: 3 Pain Location: Buttocks - Right;Buttocks - Left (B lateral upper thighs) Description: (heavy feeling) Frequency: Intermittent Post Treatment Pain Post Treatment Pain Level: 0 Post Treatment Pain Location: Buttocks - Right;Buttocks - Left;Thigh - Right;Thigh - Left Post Treatment Symptoms: no pain and feels good OBJECTIVE MEASURES WITH LEVEL OF FUNCTION: Patient unable to tolerate forward step downs from 4 step due to pain and this was deferred. TREATMENT: Therapeutic Exercise: 1: SciFit seat 9 x 5 minutes (education on purpose of this exercise.) 2: Supine thiago slides right and left AROM 2x10 reps 3: *Sidelying hip series 100%-50 percent, 0-50 %, circles cw and ccw and hip marching 1x10 each B 4: Hook lying hip abd with TA activation 2 sec in and out 2x12 BTB 5: standing hip extension 2x15 each side OTB (x1 UE support with chair) 6: standing hip abduction 2x15 each side OTB (x1 UE support chair) 7: Sit to stand from chiar holding 11# ball 2x12 8: 4 inch step down right and left eccentric control with increase pain and this was stopped. 9: step ups foward and lateral 8 step, BUE support // bars, each LE lead [id number] Skilled Intervention: Patient was educated in proper exercise technique and purpose for exercises. Reviewed and educated patient on additions/changes for home exercise program and patient to add sidellying hip abductor series to HEP. Skilled judgment was provided in selection of appropriate interventions. Provided written instruction for home exercise program to facilitate proper performance and compliance. Correct performance of therapeutic exercises was facilitated with verbal and visual cuing. Neuromuscular Re-Education: 1: Forward step ups alternating BOSU 2x10 each leg (1 UE assist) 2: Lateral step up and over BOSU 2x[address] (2 UE assist) Skilled Intervention: Skilled judgment used to assess appropriate program for balance and coordination activity. Billing Therapeutic Exercise Treatment Minutes: 37 Neuromuscular Re-Education Treatment Minutes: 8 Total Treatment Time Minutes (timed/untimed): 45 MATILDA Mandujano PT documented in this encounter [facility] 08-14-2021 Miscellaneous Notes Attempted to contact Livier Romano via phone, there was no answer, I left a voicemail asking for a call back or mychart with further questions or concerns. Lorelei Betts III, MD, HEAVENLY Patient has left me a voicemail stating that she had a reaction yesterday on her way home from [place] after her injections and went to the hospital. After the nurse from [place] called her today to make sure she was okay she told her what happened and she was given our number to let you know as well. Lexii Chavez documented in this encounter [facility] 08-13-2021 Miscellaneous Notes We discussed Livier Romano's knees today while at her low back injection appointment. No improvement with PT. She has a follow-up in August. If no improvement, recommend Synvisc One injections to both knees under ultrasound guidance. Lorelei Betts III, MD, HEAVENLY documented in this encounter [facility] 08-11-2021 History of Presen t illness Narrative Episode Visit Count: 5 Therapist That Will Oversee The Plan Of Care: Nadia Jurado Start of Care Date: 07/15/21 Onset Date: 07/16/19 Plan of Care Certification Date: 07/15/21 Next Certification Due Date: 08/26/21 Patient Identified by Name and Date of : Yes REHABILITATION AND SPORTS THERAPY PHYSICAL THERAPY TREATMENT NOTE ASSESSMENT: Livier Romano tolerated the session with decreased symptoms of the lower back, but continues to have knee pain. She reported a reduction in L knee pain when given tactile cues, demonstration, and verbal cues to avoid anterior translation of the proximal L tibia and L knee adduction with step up and step down. HEP was updated with additional hip strengthening exercises. The patient will continue to benefit from ongoing skilled physical therapy to progress toward set goals. PLAN FOR NEXT VISIT: Assess symptom response to step ups and carry over of corrections. If pt. reports reduced knee pain, add more functional strengthening including mini squats, continue BOSU ball, add eccentric step down from 4 progressing to 6 and 8 SUBJECTIVE: Patient Reason for Visit: Pt. reports no pain today. She was able to self manage her symptoms over vacation and tolerated a long car ride without much low back pain. She continues to have pain with stair negociation and on uneven surfaces. She is trying to be mindful of TA activaiton with funcitonal movements. Her next injection is . Pain: Pain Pain Level: 0 Pain Location: Knee - Right Frequency: Stairs (with negociating steps) Additional Pain Information : Location 2 Pain Level 2: 0 Pain Location 2: Low Back/Lumbar Spine - Left;Low Back/Lumbar Spine - Right Frequency 2: Sitting;Walking;Standing (can get up to 6-7 after 1 mile amb) Post Treatment Pain Post Treatment Pain Level: 0 Post Treatment Pain Location: Low Back/Lumbar Spine - Left;Low Back/Lumbar Spine - Right Post Treatment Pain Description: Aching Post Treatment Pain Score 2: 3/10 Post Treatment Pain Location 2: Knee - Left;Knee - Right OBJECTIVE MEASURES WITH LEVEL OF FUNCTION: TREATMENT: Therapeutic Exercise: 2: Hook lying hip abd with TA activation 1x15 BTB (denies pain with this exercise, not enough challenge) 3: *BTB issued 4: *Hook lying hip abd with TA activation 2 sec in and out 2x10 BTB 5: *standing hip extension 2x15 each side OTB (x1 UE support with chair) 6: *standing hip abduction 2x15 each side OTB (x1 UE support chair) 7: *step ups foward and lateral 8 step, BUE support // bars, each LE lead 3x10 each (tactile cues for hip abduction and flexion while avoiding anterior translation of proximal tibia) 8: *OTB issued Skilled Intervention: Patient was educated in proper exercise technique and purpose for exercises. Reviewed and educated patient on additions/changes for home exercise program as above (*). Skilled judgment was provided in selection of appropriate interventions. Provided written instruction for home exercise program to facilitate proper performance and compliance. Correct performance of therapeutic exercises was facilitated with verbal, visual and tactile cuing. Additional time necessary for providing updated HEP due to additional hip strengthening exercises added. Educated patient on rationale for performing exercises in regards to decreasing fatigue , including balance, increase ease of ADL and ROM and function . Patient education as noted. Neuromuscular Re-Education: 1: BOSU ball step ups forward 3x5 each LE lead with BUE support at // bars 2: BOSU ball step ups forward 3x5 each LE lead with BUE support at // bars Skilled Intervention: Skilled judgment used to assess appropriate program for balance and coordination activity. Education in proprioceptive/kinesthetic awareness during standing and dynamic activities. Insured patient safety with use of // bars. Reviewed and educated patient on additions/changes for home program as noted above with an (*). Patient education as noted. Self-Penitentiary Management: 1: *pt. education regarding the importance of hip abd, ER, and extensor strengthening and how it affects knee pain Skilled Intervention: Skilled judgment in the selection of proper modification for activity of daily living/home management based on clinical presentation, deficits, and needs. Physical assistance was provided during education for modifications and patient safety. Educated the patient regarding recommendations and provided written instruction to facilitate compliance. Provided written instruction for activities of daily living techniques to facilitate proper performance and compliance. Reviewed patient specific diagnosis in relation to activities of daily living/home management. Activity progression based on professional judgement. Moderate verbal cues for maintaining neutral spine alignment. Reviewed and educated patient on additions/changes for home program as noted above with an (*). Correct performance of home program was facilitated with verbal, visual and tactile cueing. Billing Therapeutic Exercise Treatment Minutes: 25 Neuromuscular Re-Education Treatment Minutes: 10 Self-Care/Home Management Treatment Minutes: 5 Total Treatment Time Minutes (timed/untimed): 40 Nadia Jurado PT documented in this encounter [facility] 07-31-2021 History of Presen t illness Narrative Episode Visit Count: 4 Therapist That Will Oversee The Plan Of Care: Nadia Jurado Start of Care Date: 07/15/21 Onset Date: 07/16/19 Plan of Care Certification Date: 07/15/21 Next Certification Due Date: 08/26/21 Patient Identified by Name and Date of : Yes REHABILITATION AND SPORTS THERAPY PHYSICAL THERAPY TREATMENT NOTE ASSESSMENT: Livier Romano tolerated the session with no issues. She demonstrated improvements in TA activation and had no difficulty with standing exercises this visit. The patient will continue to benefit from ongoing skilled physical therapy to progress toward set goals. PLAN FOR NEXT VISIT: NMRE on BOSU ball with step ups forward and lateral SUBJECTIVE: Patient Reason for Visit: Pt. reports continued improvement. She was able to walk her dog x2 mi without pain, but does report heaviness in the tops of the B legs and some pain in the B greater trochanter land howell. She has had injections in the past for this. Mornings she still feels stiff and painful in the lower back but this improves throughout the day. Pain: Pain Pain Level: 0 Pain Location: Knee - Right Frequency: With movement (with negociating steps) Additional Pain Information : Location 2 Pain Level 2: 0 Pain Location 2: Low Back/Lumbar Spine - Left;Low Back/Lumbar Spine - Right Frequency 2: Sitting;Walking;Standing (can get up to 6-7 after 1 mile amb) Post Treatment Pain Post Treatment Pain Level: 0 Post Treatment Pain Location: Low Back/Lumbar Spine - Left;Low Back/Lumbar Spine - Right Post Treatment Pain Description: Aching Post Treatment Pain Location 2: Knee - Left;Knee - Right OBJECTIVE MEASURES WITH LEVEL OF FUNCTION: TREATMENT: Therapeutic Exercise: 1: TA PPT 3x10 (warm up) 2: *hook lying TA activation hold through duration of x20 B hip add ball 3x20 3: *hook lying TA activation hold through duration of x20 B hip abd GTB 3x20 4: *GTB issued 5: *standing hip extension 2x10 each side (verbal cues to avoid lumbar extension or side flexion) 6: *standing hip abduction 2x10 each side (verbal cues to avoid lumbar extension or side flexion) 7: hoist multifidus walk outs 1 plate + 1 small round 2x5 steps, x5 times each side 8: hoist stir the pot 1 plate + 1 small round 30 sec CW and 30 sec CCW 2x each side Skilled Intervention: Patient was educated in proper exercise technique and purpose for exercises. Reviewed and educated patient on additions/changes for home exercise program as above (*). Skilled judgment was provided in selection of appropriate interventions. Provided written instruction for home exercise program to facilitate proper performance and compliance. Correct performance of therapeutic exercises was facilitated with verbal, visual and tactile cuing. Additional time necessary for providing updated HEP due to adding hip strengthening and standing exercises. Educated patient on rationale for performing exercises in regards to decreasing fatigue , increase ease of ADL and ROM and function . Patient education as noted. Billing Therapeutic Exercise Treatment Minutes: 30 Total Treatment Time Minutes (timed/untimed): 30 Nadia Jurado PT documented in this encounter [facility] 07-25-2021 History of Presen t illness Narrative Episode Visit Count: 3 Therapist That Will Oversee The Plan Of Care: Nadia Jurado Start of Care Date: 07/15/21 Onset Date: 07/16/19 Plan of Care Certification Date: 07/15/21 Next Certification Due Date: 08/26/21 Patient Identified by Name and Date of : Yes REHABILITATION AND SPORTS THERAPY PHYSICAL THERAPY TREATMENT NOTE ASSESSMENT: Livier Natalia Juan Antonio tolerated the session with expected muscle soreness. She demonstrated improvements in lower back pain symptoms following TA progression in the hook lying position, and so this was given as an HEP . The patient will continue to benefit from ongoing skilled physical therapy to progress toward set goals. 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 She did the HEP forward flexion exercises at lunch but had to return to lifting items. Pain: Pain Pain Level: 0 Pain Location: Knee - Right Frequency: With movement (with negociating steps) Additional Pain Information : Location 2 Pain Level 2: 5 Pain Location 2: Low Back/Lumbar Spine - Left;Low Back/Lumbar Spine - Right Description 2: Sore Frequency 2: Sitting;Walking;Standing (can get up to 6-7 after 1 mile amb) Post Treatment Pain Post Treatment Pain Level: 3 Post Treatment Pain Location: Low Back/Lumbar Spine - Left;Low Back/Lumbar Spine - Right Post Treatment Pain Description: Aching Post Treatment Symptoms: It actually feels pretty good to be moving! Post Treatment Pain Score 2: 0/10 Post Treatment Pain Location 2: Knee - Left;Knee - Right OBJECTIVE MEASURES WITH LEVEL OF FUNCTION: TREATMENT: Therapeutic Exercise: 1: *TA PPT 3x10 2: *TA heel slides 2x5 each leg 3: *TA hook lying alt hip flexions 2x20 alt 4: *TA alt UE movements 2x20 5: *TA hook lying bent knee fall outs 2x10 alt 6: *TA arm and leg movements 2x20 alternating opposites 7: seated HS stretch seated EOB 3x30 sec each LE Skilled Intervention: Patient was educated in proper exercise technique and purpose for exercises. Reviewed and educated patient on additions/changes for home exercise program as above (*). Skilled judgment was provided in selection of appropriate interventions. Provided written instruction for home exercise program to facilitate proper performance and compliance. Correct performance of therapeutic exercises was facilitated with verbal, visual and tactile cuing. Additional time necessary for providing updated HEP due to adding TA strengthening progression. Educated patient on rationale for performing exercises in regards to decreasing fatigue , increase ease of ADL and ROM and function . Patient education as noted. Billing Therapeutic Exercise Treatment Minutes: 30 Total Treatment Time Minutes (timed/untimed): 30 Nadia Jurado PT documented in this encounter [facility] 07-15-2021 History of Presen t illness Narrative Episode Visit Count: 1 Therapist That Will Oversee The Plan Of Care: Nadia Hennessy Start of Care Date: 07/15/21 Onset Date: 07/16/19 Plan of Care Certification Date: 07/15/21 Next Certification Due Date: 08/26/21 Patient Identified by Name and Date of : Yes REHABILITATION AND SPORTS THERAPY PHYSICAL THERAPY EVALUATION PLAN OF CARE: Assessment: Livier Romano presents with diagnosis of DDD lumbar spine and patellofemoral arthritis that interferes with sitting;standing;rising from a chair;walking;walking in the house;walking in the community;stair negotiation;driving . She presents with impairments in ADL's, flexibility, gait, independence in exercise, joint mobility, overall function, patient reported outcome measures, range of motion, strength and tissue tenderness. . Prognosis for therapy is Good due to: good support system/ coping skills;current objective clinical presentation;positive past response to therapy . She will benefit from skilled therapy services to meet the goals established for this plan of care as noted below. Classification Low Back Pain Subgroup Classification: Specific exercise subgroup: recommended visits 8. Specific Exercies Subgroup Classification based on: peripheralization;directional preference Core Stabilization Subgroup Classification based on: segmental hinging;pain with transitional movements Goals for Episode of Care: created on 07/15/21 through 08/26/21 Independent in home exercises. Patient will decrease pain to 1-2/10 with functional activities to allow patient to improve ambulation, transfers and standing tolerance for ADLs. Restore pain-free lumbar ROM to moderate to minimal limitation lumbar extension and side flexion to the R to allow for improved posture and transfers with less pain. Stand / Walk 1-2 hours without pain/symptoms. Sit 1-2 hours without pain/symptoms to allow for seated activities and driving. Maintain proper sitting posture throughout session Patient will be able to tolerate work activities for 6-8 hours without increased symptoms. Patient will be able to correct postural deviations independently in order to improve postural alignment of trunk during transfers, ambulation, sitting, standing and functional activities. Knowledgeable regarding prophylaxis. Patient Goals: prolonged sitting, standing, and ambulation while walking the dog without limitation due to low back pain or radiating LE symptoms. Planned Interventions, Frequency, and Duration: Current Frequency: 2x/week Duration: 6 weeks Total Number of Visits Planned: 12 Planned Treatment Interventions: Therapeutic exercise (91566);Neuromuscular re-education (87973);Therapeutic activities (41088);Self-group home management (79568);Patient/Family/Caregiver Education;Gait Training (59931) PLAN FOR NEXT VISIT: Assess symptom response to sciatic nerve glides and lumbar flexion static stretch unloaded and seated positions. Add standing or seated, or hook lying core stabilization strenghtening exercises to HEP. Patient demonstrates good understanding of plan of care and treatment. The above goals and plan of care were discussed and agreed upon by patient/family. SUBJECTIVE: Livier Romano is a 56 year old female seen today for for chronic low back pain that has become worse since summer 2019. Pt. has history of lumbar decompression and fusion surgery summer 2018 due to BLE symptoms without low back pain, LLE worse than RLE. Pain returned summer 2019 but only in the lower back. Pt. also presents for B knee pain since a fall onto B [employer] January 2021. She reports the swelling in the knees has reduced since she has started losing weight on an anti-inflammatory diet. Pt. states that she was initially apprehenisve to try PT for her LB and knee pain symptoms, but she feels better and is willing to try movement. Pt. has had injections in the knees and the lower back through pain management prior. She will follow up with physician in 2 months. Patient Goals: prolonged sitting, standing, and ambulation while walking the dog without limitation due to low back pain or radiating LE symptoms. 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 Hobbies / Interests: walking the dog Home Environment Patient Lives With: Spouse Intake Information: Prescription present Previous Treatment: Physical Therapy ;Surgery ;Injections ;Pain Management ;Steroids ;Topicals (tylenol arhritis, injections both knee and back) Falls Interview: Fall with injury in the last year Falls Intervention: More thorough falls assessment to be performed Red Flags Vertebral Fracture Red Flags: Female Vertebral Fracture Clinical Reasoning: Proceed with caution due to the above (1-2) risk factors Abdominal Aortic Aneurysm Clinical Reasoning: No identified risk factors. Cancer Red Flags: Age >50 or <20 Cancer Clinical Reasoning: Proceed with caution Infection Clinical Reasoning: No identified risk factors. Cauda Equina Syndrome Clinical Reasoning: No identified risk factors. Red Flags - Cervical Cancer Red Flags: Age >50 or <20 Cancer Clinical Reasoning: Proceed with caution Infection Clinical Reasoning: No identified risk factors. Spine History Symptoms Location at Onset: Back;Thigh;Calf Symptoms Since Onset: Worsening Pain is Worse Always: Sitting;Driving;Walking;Prolonge d positions;AM;Standing Pain is Better Always: Lying;Rest Sleep Affected by Pain: Not affected by pain Pain: Pain Pain Level: 0 Pain Location: Knee - Left;Knee - Right Description: Aching Frequency: With movement (with negociating steps) Additional Pain Information : Location 2 Pain Level 2: 3 Pain Location 2: Low Back/Lumbar Spine - Left;Low Back/Lumbar Spine - Right Description 2: Aching Frequency 2: Sitting;Walking;Standing (can get up to 6-7 after 1 mile amb) Post Treatment Pain Post Treatment Pain Level: 0 Post Treatment Pain Location: Low Back/Lumbar Spine - Left;Low Back/Lumbar Spine - Right Post Treatment Pain Description: Aching Post Treatment Symptoms: no pain with rolling, supine to sit, or standing from sitting EOB following repeated lumbar flexion and sciatic nerve glides Post Treatment Pain Score 2: 0/10 Post Treatment Pain Location 2: Knee - Left;Knee - Right PROMIS Scales Higher is Better 06/17/2020 02/10/2021 04/30/2021 Phys Func - Score - 31 (moderate dysfunction) 34 (moderate dysfunction) Phys Func - Percentile - 3 % 5 % GH Physical - Score 39.8 29.6 (Poor) 37.4 (Fair) GH Physical - Percentile 15 % 2 % 10 % GH Mental - Score 45.8 43.5 (Good) 43.5 (Good) GH Mental - Percentile 34 % 26 % 26 % T-scores: mean of general population = 50. 5 points is clinically meaningfully difference Percentiles provide an indication of how the patient's score ranks in relation to the general population. Higher percentile rankings indicate better function/quality of life. 50th percentile is the average of the general population and indicates half of respondents had a worse score. Lower is Better 02/10/2021 04/30/2021 Fatigue - Score 74 (severe) 66 (moderate) Fatigue - Percentile 1 % 5 % T-scores: mean of general population = 50. 5 points is clinically meaningfully difference Percentiles provide an indication of how the patient's score ranks in relation to the general population. Higher percentile rankings indicate better function/quality of life. 50th percentile is the average of the general population and indicates half of respondents had a worse score. OBJECTIVE MEASURES WITH LEVEL OF FUNCTION: Cognition Cognition: Follows Commands Posture / Alignment Posture: Comments (unremarkable) Sitting Posture: Comments Sitting Posture Comments: unremarkable Effects of Posture Correction: no effect Lumbar Spine AROM Lumbar Flexion: Normal Lumbar Extension: Major limitation;Increased pain Lumbar R Side-Bend: Normal;Increased pain Lumbar L Side-Bend: Normal;Increased pain Repeated Test Movements - Lumbar RFIS - Symptoms During: no effect RFIS - Symptoms After: increase ROM RALPH - Symptoms During: produces RALPH - Symptoms After: worse;no effect on ROM;peripheralized (unable to complete x10 reps) RFIL - Symptoms During: abolishes RFIL - Symptoms After: better LE AROM R LE AROM: full knee AROM flexion and extension with over pressure applied at endrange without symptoms L LE AROM: full knee AROM flexion and extension with over pressure applied at endrange without symptoms LE Flexibility Flexibility: Hamstring Flexibility;Gastrocnemius Flexibility R Hamstring Flexibility: tightness L Hamstring Flexibility: tightness R Gastrocnemius Flexibility: tightness L Gastrocnemius Flexibility: tightness LE Strength R LE Strength: no myotomal weakness observed L Hip Flexion (L2): 3/5 L Knee Extension (L3): 3+/5 L Ankle Dorsiflexion (L4): 4/5 Functional Strength Functional Strength: Sit<>stand;Step up;Step down Sit/Stand: no use of UE, but reports pain with transfer following prolonged sitting Step up: no UE support or symptoms Step down: no UE support or symptoms Special Tests - Hip and Spine Hip and Spine Special Tests: SLR Test;Slump Test;Active SLR;FADDIR Test;GAYATRI Test;Scour Test SLR Test: Right Positive;Left Positive Slump Test: Left Positive;Right Negative GAYATRI Test: Right Negative;Left Negative FADDIR Test: Right Negative;Left Negative Scour Test: Left Negative;Right Negative Active SLR: Right Negative;Left Negative Gait Gait: Independent Gait Distance (feet): 50 Gait Device: None Gait Observation: unremarkable Education: Education Learning Preferences: Demonstration;Explanation;Perfor alli;Printed Materials Barriers: None Learning/educational needs: Home exercise program;Plan of Care Education Provided: Yes, see treatment interventions for education provided Education Provided To: Patient Education Mode/Type: Demonstration;Explanation/Discus cari;Literature/Printed Materials;Performance Response to Education/Teach Back: States/Identifies;Return Demonstration TREATMENT: PT Treatment Interventions: Therapeutic Exercise;Self-Penitentiary Management Evaluation Evaluation Therapeutic Exercise: 1: *sciatic nerve glides 3 sets of 8-10 each LE, supine or seated 2: *B KTC stretch 3x30 sec, supine or chest to knees seated Skilled Intervention: Patient was educated in proper exercise technique and purpose for exercises. Skilled judgment was provided in selection of appropriate interventions. Provided written instruction for home exercise program to facilitate proper performance and compliance. Correct performance of therapeutic exercises was facilitated with verbal, visual and tactile cuing. Additional time necessary for providing pt. education due to initial evaluation. Educated patient on rationale for performing exercises in regards to decreasing fatigue , including balance, increase ease of ADL and ROM and function . Patient education as noted. Self-Penitentiary Management: 1: *1st goal to reduce symptoms/self manage symptoms with HEP 2: *2nd goal to improve tolerance to activities with acceptable level of pain for greater duration. Skilled Intervention: Skilled judgment in the selection of proper modification for activity of daily living/home management based on clinical presentation, deficits, and needs. Educated the patient regarding recommendations and provided written instruction to facilitate compliance. Provided written instruction for activities of daily living techniques to facilitate proper performance and compliance. Reviewed patient specific diagnosis in relation to activities of daily living/home management. Activity progression based on professional judgement. Provided written instruction for home program to facilitate proper performance and compliance. Correct performance of home program was facilitated with verbal, visual and tactile cueing. Billing * Evaluation Low Complexity: 1 Unit Therapeutic Exercise Treatment Minutes: 10 Self-Care/Home Management Treatment Minutes: 5 Total Treatment Time Minutes (timed/untimed): 35 Nadia Jurado PT documented in this encounter [facility] 07-10-2021 Note HNO ID: [id number] Author: Ronna Woodard MA Service: ? Author Type: Principal Trainer Type: Progress Notes Filed: 07/10/2021 3:36 PM Note Text: Review of Systems Constitutional: Negative for activity change, chills, fever and unexpected weight change. Genitourinary: Negative for difficulty urinating. Musculoskeletal: Positive for back pain, gait problem and myalgias. Negative for arthralgias, joint swelling, neck pain and neck stiffness. Neurological: Positive for weakness, numbness and headaches. Psychiatric/Behavioral: Negative for dysphoric mood, sleep disturbance and suicidal ideas. The patient is not nervous/anxious. [facility] 07-10-2021 Miscellaneous Notes 1.Are you diabetic No 2. Are you on any blood thinners? No 3. Are you taking any aspirin? No 4. Have you had any recent imaging done on your body part that's being injected? Yes Xray,ct and mri 5. Do you have any allergies to latex? No 6. Do you have any allergies to seafood? No 7. Do you have any allergies to shellfish? No 8. Do you have any allergies to x-ray dye? Yes MRI Dye 9. Are you taking Xanax for the procedure? No 10. Have you done physical therapy in the last year? No If yes, When and Where? (Medical Records Release needs to be signed.) 11. Were the pre-procedure instructions explained to the patient? Yes 12. Do you have a pacemaker? No 13. Do you have an internal stimulator of any kind? No If yes, please bring the remote with you to your procedure visit. 14. Have you received the COVID-19 Vaccine? Yes. If yes, date(s) received: Booster 07/08/21 (Patient should not receive a procedure including steroids 14 days prior to their first dose of the COVID vaccine. They should not receive any procedure containing steroids in the time frame between their 1st and 2nd doses of the COVID vaccine. They should not receive a procedure containing steroids 14 days after their 2nd dose of the COVID vaccine.) Corey Escobedo documented in this encounter [facility] 07-10-2021 Note HNO ID: [id number] Author: Lorelei Betts MD Service: ? Author Type: Physician Type: Progress Notes Filed: 07/10/2021 3:36 PM Note Text: [facility] Name: Livier Romano : 1965 Purpose: New Patient Consultation Today's Date: 07/10/2021 Thank you, Gloria Ricardo DO, or referring Livier Romano for evaluation and management options for the chief complaint(s) noted below. Initial HPI: (Obtained on 07/10/2021) Referred by Gloria Ricardo DO. Livier Romano is a 56 year old year-old female, who presents with the following chief complaint(s): low back pain. Symptoms were first noted six years ago. The onset of symptoms was not sudden and was without associated trauma. The left lower limb pain radiated into the left lateral thigh and right medial calf. She saw a pain management group in [place], who performed epidurals, with good relief. They attempted to drain the cyst that was found in her back under MRI. She went through PT, eventually had surgery at [facility] in 2019, she had fusion (decompression at L4-5 and L5-S1 with transpedicular fixation at L4-5), which relieved her pain for about a year. Unfortunately, pain returned in both lower limbs now, anterior thighs, left > right, as a heaviness, worse with taking stairs. She also has had axial low back pain, constant and dull, worsens as the day progresses. She reports she had negative testing for RA. Treatments prior to initial presentation include the following: Medications (See below), Injections (See below), Surgery (See below), Modalities (eg. Heat, Ice), Physical Therapy , Home Exercise Program and Activity Modification. She has recently started an anti-inflammatory diet, has lost 10 pounds in 6 weeks, having less pain. Additionally, she has had aching pain in both knees. Imaging has been obtained. No treatments to date other than one steroid injection in the right knee, which did not help. Current Status: INTAKE PAIN ASSESSMENT 05/07/2021 07/10/2021 Are you having pain associated with your visit today? No Yes, Provider notified Pain Scales - Verbal (Numeric Rating or Visual Analog Scale) Pain Level - 3 Pain Location - Back-Lower Description - Aching Duration Amount of Time - - Duration Units - Years Frequency - Continuous Intervention/Comfort measure - Medication;Reposition;Relaxation Pain Assessment (RN/SCALE CLERK) - - Medication: - Current pain medications: o Tylenol Arthritis - uses sparingly (2 per day) o Voltaren Gel - uses for back and knees - Analgesia: partially adequate Functional Goals: To remain active and independent. 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 Compliance: PDMP website checked and validated. All prescriptions have been APPROPRIATELY filled. No suspicious activity was identified. by Lorelei Betts MD 07/10/2021 Last Drug screen: Not Applicable Risk Assessment: MIKE-7: MIKE - 7 SCORES 07/10/2021 MIKE-7 Score 1 (0-4) minimal anxiety, (5-9) mild anxiety, (10-14) moderate anxiety, (15-21) severe anxiety PHQ-9: PHQ-9 05/24/2020 07/10/2021 Score 0 6 (0-4) minimal depression, (5-9) mild depression, (10-14) moderate depression, (15-19) moderately severe depression, (20-27) severe depression Opioid Risk Tool: Family History of Substance Abuse: 0 - No Personal History of Substance Abuse: 0 - No Age between 16-45: 0 - No History of Pre-Adolescence Sexual Abuse: 0 - No Psychological Disease: 0 - No Risk Total: 0 Total Score Risk Category: Low Risk 0-3 (low risk) (0-3, low risk or no risk; 4-7, moderate risk, 8+, high risk) Pain Medications Taken to Date (for the chief complaint(s)): Membrane Stabilizers: Neurontin (Gabapentin) - caused fogginess and dry mouth NSAIDS: none - had Gastric Bypass Opioids: none Muscle Relaxants: none Topicals: Voltaren Gel Other Prescription or OTC Pain Medications: Tylenol (Acetaminophen) Non-Pain Meds of Note: None Allergies: ALLERGIES Allergen Reactions - Dotarem [Gadoterate* Hives, Itching, Other: See Comments Pt developed a diffuse deep redness over upper torso and difficulty swallowing - Anti-Inflammatory [* Other: See Comments - Levaquin [Levofloxa* Diarrhea - Lisinopril Cough - Penicillins Current Medications, Past Medical History, Past Surgical History, Family History, Social History and Review of Systems: On today's date, noted above, I have confirmed and edited as necessary, the PFSH and ROS obtained by others. Diagnostic Studies: Reviewed Personally on today's date, noted above MRI Spine Report MRI LUMBAR SPINE WO IVCON Exam End: 07/22/2017 8:51 AM (Final result) Narrative: * * *Final Report* * * DATE OF EXAM: Jul 22 2017 8:51AM [id number] - MRI LUMBAR SPINE WO IVCON / PROCEDURE REASON: Radiculopathy, lumbar region * * * * Physician Interpretation * * * * EXAMINATION: MRI LUMBAR SPINE WO IVCON CLINICAL HISTOR (more content not included)... [facility] 02-17-2011 History of Past i llness Narrative Problem Noted Date Resolved Date Menorrhagia 02/17/2011 04/15/2011 Acute gastritis without mention of hemorrhage 09/18/2016 documented as of this encounter (statuses as of 07/10/2021) [facility] History of Past illness Narrative* Problem Noted Date Resolved Date Menorrhagia 02/17/2011 04/15/2011 Acute gastritis without mention of hemorrhage 09/18/2016 documented as of this encounter (statuses as of 07/14/2021) [facility] History of Past illness Narrative* Problem Noted Date Resolved Date Menorrhagia 02/17/2011 04/15/2011 Acute gastritis without mention of hemorrhage 09/18/2016 documented as of this encounter (statuses as of 07/15/2021) [facility] History of Past illness Narrative* Problem Noted Date Resolved Date Menorrhagia 02/17/2011 04/15/2011 Acute gastritis without mention of hemorrhage 09/18/2016 documented as of this encounter (statuses as of 07/25/2021) [facility] History of Past illness Narrative* Problem Noted Date Resolved Date Menorrhagia 02/17/2011 04/15/2011 Acute gastritis without mention of hemorrhage 09/18/2016 documented as of this encounter (statuses as of 07/31/2021) [place] [id number] History of Past illness Narrative* Problem Noted Date Resolved Date Menorrhagia 02/17/2011 04/15/2011 Acute gastritis without mention of hemorrhage 09/18/2016 documented as of this encounter (statuses as of 08/11/2021) [facility] History of Past illness Narrative* Problem Noted Date Resolved Date Menorrhagia 02/17/2011 04/15/2011 Acute gastritis without mention of hemorrhage 09/18/2016 documented as of this encounter (statuses as of 08/13/2021) [facility] History of Past illness Narrative* Problem Noted Date Resolved Date Menorrhagia 02/17/2011 04/15/2011 Acute gastritis without mention of hemorrhage 09/18/2016 documented as of this encounter (statuses as of 08/14/2021) [facility] History of Past illness Narrative* Problem Noted Date Resolved Date Menorrhagia 02/17/2011 04/15/2011 Acute gastritis without mention of hemorrhage 09/18/2016 documented as of this encounter (statuses as of 08/18/2021) [facility] History of Past illness Narrative* Problem Noted Date Resolved Date Menorrhagia 02/17/2011 04/15/2011 Acute gastritis without mention of hemorrhage 09/18/2016 documented as of this encounter (statuses as of 08/21/2021) [facility] History of Past illness Narrative* Problem Noted Date Resolved Date Menorrhagia 02/17/2011 04/15/2011 Acute gastritis without mention of hemorrhage 09/18/2016 documented as of this encounter (statuses as of 08/22/2021) [facility] History of Past illness Narrative* Problem Noted Date Resolved Date Menorrhagia 02/17/2011 04/15/2011 Acute gastritis without mention of hemorrhage 09/18/2016 documented as of this encounter (statuses as of 08/22/2021) [facility] History of Past illness Narrative* Problem Noted Date Resolved Date Menorrhagia 02/17/2011 04/15/2011 Acute gastritis without mention of hemorrhage 09/18/2016 documented as of this encounter (statuses as of 08/23/2021) [address]20-2011 History of Past illness Narrative* Problem Noted Date Resolved Date Menorrhagia 02/17/2011 04/15/2011 Acute gastritis without mention of hemorrhage 09/18/2016 documented as of this encounter (statuses as of 09/22/2021) [facility] History of Past illness Narrative* Problem Noted Date Resolved Date Menorrhagia 02/17/2011 04/15/2011 Acute gastritis without mention of hemorrhage 09/18/2016 documented as of this encounter (statuses as of 09/23/2021) [facility] History of Past illness Narrative* Problem Noted Date Resolved Date Menorrhagia 02/17/2011 04/15/2011 Acute gastritis without mention of hemorrhage 09/18/2016 documented as of this encounter (statuses as of 09/24/2021) [facility] History of Past illness Narrative* Problem Noted Date Resolved Date Menorrhagia 02/17/2011 04/15/2011 Acute gastritis without mention of hemorrhage 09/18/2016 documented as of this encounter (statuses as of 12/05/2021) [facility] History of Past illness Narrative* Problem Noted Date Resolved Date Menorrhagia 02/17/2011 04/15/2011 Acute gastritis without mention of hemorrhage 09/18/2016 documented as of this encounter (statuses as of 12/05/2021) [facility] History of Past illness Narrative* Problem Noted Date Resolved Date Menorrhagia 02/17/2011 04/15/2011 Acute gastritis without mention of hemorrhage 09/18/2016 documented as of this encounter (statuses as of 12/11/2021) [facility] History of Past illness Narrative* Problem Noted Date Resolved Date Menorrhagia 02/17/2011 04/15/2011 Acute gastritis without mention of hemorrhage 09/18/2016 documented as of this encounter (statuses as of 01/01/2022) [place] [id number] History of Past illness Narrative* Problem Noted Date Resolved Date Menorrhagia 02/17/2011 04/15/2011 Acute gastritis without mention of hemorrhage 09/18/2016 documented as of this encounter (statuses as of 01/09/2022) [place] [id number] History of Past illness Narrative* Problem Noted Date Resolved Date Menorrhagia 02/17/2011 04/15/2011 Acute gastritis without mention of hemorrhage 09/18/2016 documented as of this encounter (statuses as of 03/09/2022) [place] [id number] History of Past illness Narrative* Problem Noted Date Resolved Date Menorrhagia 02/17/2011 04/15/2011 Acute gastritis without mention of hemorrhage 09/18/2016 documented as of this encounter (statuses as of 03/17/2022) [facility] History of Past illness Narrative* Problem Noted Date Resolved Date Menorrhagia 02/17/2011 04/15/2011 Acute gastritis without mention of hemorrhage 09/18/2016 documented as of this encounter (statuses as of 03/21/2022) [facility] History of Past illness Narrative* Problem Noted Date Resolved Date Menorrhagia 02/17/2011 04/15/2011 Acute gastritis without mention of hemorrhage 09/18/2016 documented as of this encounter (statuses as of 03/24/2022) [facility] History of Past illness Narrative* Problem Noted Date Resolved Date Menorrhagia 02/17/2011 04/15/2011 Acute gastritis without mention of hemorrhage 09/18/2016 documented as of this encounter (statuses as of 04/08/2022) [facility] History of Past illness Narrative* Problem Noted Date Resolved Date Menorrhagia 02/17/2011 04/15/2011 Acute gastritis without mention of hemorrhage 09/18/2016 documented as of this encounter (statuses as of 05/13/2022) [facility] History of Past illness Narrative* Problem Noted Date Resolved Date Menorrhagia 02/17/2011 04/15/2011 Acute gastritis without mention of hemorrhage 09/18/2016 documented as of this encounter (statuses as of 05/13/2022) [place] [id number] History of Past illness Narrative* Problem Noted Date Resolved Date Menorrhagia 02/17/2011 04/15/2011 Acute gastritis without mention of hemorrhage 09/18/2016 documented as of this encounter (statuses as of 05/20/2022) [facility] History of Past illness Narrative* Problem Noted Date Resolved Date Menorrhagia 02/17/2011 04/15/2011 Acute gastritis without mention of hemorrhage 09/18/2016 documented as of this encounter (statuses as of 06/13/2022) [facility] History of Past illness Narrative* Problem Noted Date Resolved Date Menorrhagia 02/17/2011 04/15/2011 Acute gastritis without mention of hemorrhage 09/18/2016 documented as of this encounter (statuses as of 06/25/2022) [facility] History of Past illness Narrative* Problem Noted Date Resolved Date Menorrhagia 02/17/2011 04/15/2011 Acute gastritis without mention of hemorrhage 09/18/2016 documented as of this encounter (statuses as of 06/30/2022) [facility] History of Past illness Narrative* Problem Noted Date Resolved Date Menorrhagia 02/17/2011 04/15/2011 Acute gastritis without mention of hemorrhage 09/18/2016 documented as of this encounter (statuses as of 08/07/2022) [facility] History of Past illness Narrative* Problem Noted Date Resolved Date Menorrhagia 02/17/2011 04/15/2011 Acute gastritis without mention of hemorrhage 09/18/2016 documented as of this encounter (statuses as of 08/04/2022) [facility] History of Past illness Narrative* Problem Noted Date Resolved Date Menorrhagia 02/17/2011 04/15/2011 Acute gastritis without mention of hemorrhage 09/18/2016 documented as of this encounter (statuses as of 08/18/2022) [facility] History of Past illness Narrative* Problem Noted Date Diagnosed Date Resolved Date Menorrhagia 02/17/2011 04/15/2011 Acute gastritis without mention of hemorrhage 04/26/19 10 09/18/2016 documented as of this encounter (statuses as of 09/30/2022) [facility] History of Past illness Narrative* Problem Noted Date Diagnosed Date Resolved Date Menorrhagia 02/17/2011 04/15/2011 Acute gastritis without mention of hemorrhage 04/26/19 10 09/18/2016 documented as of this encounter (statuses as of 11/12/2022) [facility] History of Past illness Narrative* Problem Noted Date Diagnosed Date Resolved Date Menorrhagia 02/17/2011 04/15/2011 Acute gastritis without mention of hemorrhage 04/26/19 10 09/18/2016 documented as of this encounter (statuses as of 12/04/2022) [facility] History of Past illness Narrative* Problem Noted Date Diagnosed Date Resolved Date Menorrhagia 02/17/2011 04/15/2011 Acute gastritis without mention of hemorrhage 04/26/19 10 09/18/2016 documented as of this encounter (statuses as of 12/14/2022) [facility] History of Past illness Narrative* Problem Noted Date Diagnosed Date Resolved Date Menorrhagia 02/17/2011 04/15/2011 Acute gastritis without mention of hemorrhage 04/26/19 10 09/18/2016 documented as of this encounter (statuses as of 12/22/2022) [facility] History of Past illness Narrative* Problem Noted Date Diagnosed Date Resolved Date Menorrhagia 02/17/2011 04/15/2011 Acute gastritis without mention of hemorrhage 04/26/19 10 09/18/2016 documented as of this encounter (statuses as of 01/03/2023) [facility] History of Past illness Narrative* Problem Noted Date Diagnosed Date Resolved Date Menorrhagia 02/17/2011 04/15/2011 Acute gastritis without mention of hemorrhage 04/26/19 10 09/18/2016 documented as of this encounter (statuses as of 01/03/2023) [facility] History of Past illness Narrative* Problem Noted Date Diagnosed Date Resolved Date Menorrhagia 02/17/2011 04/15/2011 Acute gastritis without mention of hemorrhage 04/26/19 10 09/18/2016 documented as of this encounter (statuses as of 04/06/2023) [facility] History of Past illness Narrative* Problem Noted Date Diagnosed Date Resolved Date Menorrhagia 02/17/2011 04/15/2011 Acute gastritis without mention of hemorrhage 04/26/19 10 09/18/2016 documented as of this encounter (statuses as of 04/14/2023) [facility] History of Past illness Narrative* Problem Noted Date Diagnosed Date Resolved Date Menorrhagia 02/17/2011 04/15/2011 Acute gastritis without mention of hemorrhage 04/26/19 10 09/18/2016 documented as of this encounter (statuses as of 06/01/2023) [facility] Spinal stenosis, lumbar region, without neurogenic claudication- Primary Lumbar radiculopathy Thoracic or lumbosacral neuritis or radiculitis, unspecified [facility] DDD (degenerative disc disease), lumbar- Primary Degeneration of lumbar or lumbosacral intervertebral disc Patellofemoral arthritis Unspecified arthropathy, lower leg Degeneration of lumbar intervertebral disc Degeneration of lumbar or lumbosacral intervertebral disc Spinal stenosis, lumbar region, without neurogenic claudication Lumbar radiculopathy Thoracic or lumbosacral neuritis or radiculitis, unspecified [facility] Diagnosis Patellofemoral arthritis Unspecified arthropathy, lower leg Degeneration of lumbar intervertebral disc Degeneration of lumbar or lumbosacral intervertebral disc Spinal stenosis, lumbar region, without neurogenic claudication Lumbar radiculopathy Thoracic or lumbosacral neuritis or radiculitis, unspecified [facility] Patellofemoral arthritis Unspecified arthropathy, lower leg Degeneration of lumbar intervertebral disc Degeneration of lumbar or lumbosacral intervertebral disc Spinal stenosis, lumbar region, without neurogenic claudication Lumbar radiculopathy Thoracic or lumbosacral neuritis or radiculitis, unspecified [facility] Patellofemoral arthritis Unspecified arthropathy, lower leg Degeneration of lumbar intervertebral disc Degeneration of lumbar or lumbosacral intervertebral disc Spinal stenosis, lumbar region, without neurogenic claudication Lumbar radiculopathy Thoracic or lumbosacral neuritis or radiculitis, unspecified documented in this encounter [facility] note* Diagnosis Patellofemoral arthritis Unspecified arthropathy, lower leg Degeneration of lumbar intervertebral disc Degeneration of lumbar or lumbosacral intervertebral disc documented in this encounter [facility] note* Diagnosis Bloating- Primary Flatulence, eructation, and gas pain RUQ pain Abdominal pain, right upper quadrant Epigastric pain Abdominal pain, epigastric Gastritis without bleeding, unspecified chronicity, unspecified gastritis type documented in this encounter [facility] note* Diagnosis Patellofemoral arthritis Unspecified arthropathy, lower leg Degeneration of lumbar intervertebral disc Degeneration of lumbar or lumbosacral intervertebral disc documented in this encounter [facility] note* Diagnosis Bloating Flatulence, eructation, and gas pain RUQ pain Abdominal pain, right upper quadrant Epigastric pain Abdominal pain, epigastric Gastritis without bleeding, unspecified chronicity, unspecified gastritis type documented in this encounter [facility] note* Diagnosis Post-COVID syndrome- Primary Chest congestion Other symptoms involving respiratory system and chest Productive cough Cough documented in this encounter [facility] note* Diagnosis Patellofemoral arthritis- Primary Unspecified arthropathy, lower leg DDD (degenerative disc disease), lumbar Degeneration of lumbar or lumbosacral intervertebral disc documented in this encounter [facility] note* Diagnosis Post-COVID syndrome- Primary Chest congestion Other symptoms involving respiratory system and chest Productive cough Cough documented in this encounter [facility] note* Diagnosis Hypertension, essential Unspecified essential hypertension documented in this encounter [facility] note* Diagnosis Bloating Flatulence, eructation, and gas pain RUQ pain Abdominal pain, right upper quadrant Epigastric pain Abdominal pain, epigastric Gastritis without bleeding, unspecified chronicity, unspecified gastritis type documented in this encounter [facility] note* Diagnosis Hypothyroidism, unspecified type documented in this encounter [facility] note* Diagnosis Acute cough- Primary Upper respiratory tract infection, unspecified type documented in this encounter [facility] note* Diagnosis Dysphagia, unspecified type- Primary documented in this encounter [facility] note* Diagnosis Dysphagia, unspecified type documented in this encounter [facility] note* Diagnosis Intertrigo- Primary Other specified erythematous condition [facility] Diagnosis Globus sensation- Primary Gastrointestinal malfunction arising from mental factors Dysphagia, unspecified type Gastroesophageal reflux disease, unspecified whether esophagitis present [facility] Diagnosis Monilial intertrigo Candidiasis of skin and nails Hypertension, essential Unspecified essential hypertension Hypothyroidism, unspecified type [facility]* Diagnosis Bloating Flatulence, eructation, and gas pain RUQ pain Abdominal pain, right upper quadrant Epigastric pain Abdominal pain, epigastric Gastritis without bleeding, unspecified chronicity, unspecified gastritis type [facility] Diagnosis Dysphagia, unspecified type- Primary [facility] Diagnosis Elevated LFTs- Primary Other abnormal blood chemistry [facility]* Diagnosis Medication management- Primary Encounter for long-term (current) use of other medications Bloating Flatulence, eructation, and gas pain RUQ pain Abdominal pain, right upper quadrant Epigastric pain Abdominal pain, epigastric Gastritis without bleeding, unspecified chronicity, unspecified gastritis type [facility] Diagnosis Hypothyroidism, unspecified type Hypertension, essential Unspecified essential hypertension [facility] Diagnosis Hypothyroidism, unspecified type- Primary Hypertension, essential Unspecified essential hypertension Elevated LFTs Other abnormal blood chemistry Elevated glucose Other abnormal glucose Bloating Flatulence, eructation, and gas pain Belching Flatulence, eructation, and gas pain Flatulence Flatulence, eructation, and gas pain RUQ pain Abdominal pain, right upper quadrant Weight gain Abnormal weight gain Obesity, Class III, BMI 40-49.9 (morbid obesity) (HCC) Morbid obesity Encounter for immunization Need for other specified prophylactic vaccination against single bacterial disease Encounter for screening mammogram for breast cancer Central obesity Localized adiposity [facility] Diagnosis Hepatic steatosis- Primary Other chronic nonalcoholic liver disease [facility]* Diagnosis Hepatic steatosis- Primary Other chronic nonalcoholic liver disease documented [facility]* Diagnosis Hypertension, essential Unspecified essential hypertension Elevated LFTs Other abnormal blood chemistry Elevated glucose Other abnormal glucose Bloating Flatulence, eructation, and gas pain Belching Flatulence, eructation, and gas pain Flatulence Flatulence, eructation, and gas pain RUQ pain Abdominal pain, right upper quadrant Weight gain Abnormal weight gain Obesity, Class III, BMI 40-49.9 (morbid obesity) (HCC) Morbid obesity documented in this encounter [facility] note* Diagnosis Hypertension, essential Unspecified essential hypertension Elevated glucose Other abnormal glucose Bloating Flatulence, eructation, and gas pain Belching Flatulence, eructation, and gas pain Flatulence Flatulence, eructation, and gas pain RUQ pain Abdominal pain, right upper quadrant Weight gain Abnormal weight gain Obesity, Class III, BMI 40-49.9 (morbid obesity) (HCC) Morbid obesity [facility]* Diagnosis Encounter for screening for malignant neoplasm of colon- Primary Special screening for malignant neoplasms, colon Dysphagia, unspecified type documented in this encounter [facility] note* Diagnosis Hypothyroidism, unspecified type documented in this encounter [facility] note* Diagnosis Hypertension, essential Unspecified essential hypertension documented in this encounter [facility] note* Diagnosis Bloating Flatulence, eructation, and gas pain RUQ pain Abdominal pain, right upper quadrant Epigastric pain Abdominal pain, epigastric Gastritis without bleeding, unspecified chronicity, unspecified gastritis type documented [facility]* Diagnosis Hypertension, essential Unspecified essential hypertension documented in this encounter [facility] note* Diagnosis Hypothyroidism, unspecified type Hypertension, essential Unspecified essential hypertension Monilial intertrigo Candidiasis of skin and nails Bloating Flatulence, eructation, and gas pain RUQ pain Abdominal pain, right upper quadrant Epigastric pain Abdominal pain, epigastric Gastritis without bleeding, unspecified chronicity, unspecified gastritis type documented in this encounter [facility] note* Diagnosis Hypothyroidism, unspecified type Hypertension, essential Unspecified essential hypertension Monilial intertrigo Candidiasis of skin and nails Bloating Flatulence, eructation, and gas pain RUQ pain Abdominal pain, right upper quadrant Epigastric pain Abdominal pain, epigastric Gastritis without bleeding, unspecified chronicity, unspecified gastritis type documented in this encounter [facility] note* Diagnosis Acute pancreatitis- Primary Other acute pancreatitis without infection or necrosis Biliary stricture Obstruction of bile duct Class 2 severe obesity due to excess calories with serious comorbidity and body mass index (BMI) of 35.0 to 35.9 in adult (HCC) Gastric bypass status for obesity Bariatric surgery status Gastroesophageal reflux disease without esophagitis Esophageal reflux Hypertension, essential Unspecified essential hypertension Hypothyroidism, unspecified type Urge incontinence Biliary stricture Obstruction of bile duct Hypothyroidism Unspecified hypothyroidism Gastroesophageal reflux disease Esophageal reflux Urge incontinence Hypertension, essential Unspecified essential hypertension Gastric bypass status for obesity Bariatric surgery status Leukocytosis Leukocytosis, unspecified Hypokalemia Hypopotassemia Ileus (HCC) Paralytic ileus Well adult exam- Primary Routine general medical examination at a health care facility Hypertension, essential Unspecified essential hypertension Hypothyroidism, unspecified type Morbid obesity (HCC) Morbid obesity Encounter for screening mammogram for breast cancer Screening for depression Encounter for screening examination for other mental health and behavioral disorders Encounter for immunization Need for other specified prophylactic vaccination against single bacterial disease [facility] Diagnosis Acute pancreatitis- Primary Other acute pancreatitis without infection or necrosis Biliary stricture Obstruction of bile duct Class 2 severe obesity due to excess calories with serious comorbidity and body mass index (BMI) of 35.0 to 35.9 in adult ([facility]) Gastric bypass status for obesity Bariatric surgery status Gastroesophageal reflux disease without esophagitis Esophageal reflux Hypertension, essential Unspecified essential hypertension Hypothyroidism, unspecified type Urge incontinence Biliary stricture Obstruction of bile duct Hypothyroidism Unspecified hypothyroidism Gastroesophageal reflux disease Esophageal reflux Urge incontinence Hypertension, essential Unspecified essential hypertension Gastric bypass status for obesity Bariatric surgery status Leukocytosis Leukocytosis, unspecified Hypokalemia Hypopotassemia Ileus (HCC) Paralytic ileus Acute cough Upper respiratory tract infection, unspecified type documented in this encounter [facility] note* Diagnosis Acute pancreatitis- Primary Other acute pancreatitis without infection or necrosis Biliary stricture Obstruction of bile duct Class 2 severe obesity due to excess calories with serious comorbidity and body mass index (BMI) of 35.0 to 35.9 in adult ([facility]) Gastric bypass status for obesity Bariatric surgery status Gastroesophageal reflux disease without esophagitis Esophageal reflux Hypertension, essential Unspecified essential hypertension Hypothyroidism, unspecified type Urge incontinence Biliary stricture Obstruction of bile duct Hypothyroidism Unspecified hypothyroidism Gastroesophageal reflux disease Esophageal reflux Urge incontinence Hypertension, essential Unspecified essential hypertension Gastric bypass status for obesity Bariatric surgery status Leukocytosis Leukocytosis, unspecified Hypokalemia Hypopotassemia Ileus (HCC) Paralytic ileus Post-COVID syndrome Chest congestion Other symptoms involving respiratory system and chest Productive cough Cough documented in this encounter [facility] note* Diagnosis Acute pancreatitis- Primary Other acute pancreatitis without infection or necrosis Biliary stricture Obstruction of bile duct Class 2 severe obesity due to excess calories with serious comorbidity and body mass index (BMI) of 35.0 to 35.9 in adult ([facility]) Gastric bypass status for obesity Bariatric surgery status Gastroesophageal reflux disease without esophagitis Esophageal reflux Hypertension, essential Unspecified essential hypertension Hypothyroidism, unspecified type Urge incontinence Biliary stricture Obstruction of bile duct Hypothyroidism Unspecified hypothyroidism Gastroesophageal reflux disease Esophageal reflux Urge incontinence Hypertension, essential Unspecified essential hypertension Gastric bypass status for obesity Bariatric surgery status Leukocytosis Leukocytosis, unspecified Hypokalemia Hypopotassemia Ileus (HCC) Paralytic ileus Hypothyroidism, unspecified type documented in this encounter [facility] note* Diagnosis Acute pancreatitis- Primary Other acute pancreatitis without infection or necrosis Biliary stricture Obstruction of bile duct Class 2 severe obesity due to excess calories with serious comorbidity and body mass index (BMI) of 35.0 to 35.9 in adult ([facility]) Gastric bypass status for obesity Bariatric surgery status Gastroesophageal reflux disease without esophagitis Esophageal reflux Hypertension, essential Unspecified essential hypertension Hypothyroidism, unspecified type Urge incontinence Biliary stricture Obstruction of bile duct Hypothyroidism Unspecified hypothyroidism Gastroesophageal reflux disease Esophageal reflux Urge incontinence Hypertension, essential Unspecified essential hypertension Gastric bypass status for obesity Bariatric surgery status Leukocytosis Leukocytosis, unspecified Hypokalemia Hypopotassemia Ileus (HCC) Paralytic ileus Morbid obesity (HCC)- Primary Morbid obesity documented in this encounter [facility] note* Diagnosis Acute pancreatitis- Primary Other acute pancreatitis without infection or necrosis Biliary stricture Obstruction of bile duct Class 2 severe obesity due to excess calories with serious comorbidity and body mass index (BMI) of 35.0 to 35.9 in adult ([facility]) Gastric bypass status for obesity Bariatric surgery status Gastroesophageal reflux disease without esophagitis Esophageal reflux Hypertension, essential Unspecified essential hypertension Hypothyroidism, unspecified type Urge incontinence Biliary stricture Obstruction of bile duct Hypothyroidism Unspecified hypothyroidism Gastroesophageal reflux disease Esophageal reflux Urge incontinence Hypertension, essential Unspecified essential hypertension Gastric bypass status for obesity Bariatric surgery status Leukocytosis Leukocytosis, unspecified Hypokalemia Hypopotassemia Ileus (HCC) Paralytic ileus Morbid obesity ([facility]) Morbid obesity documented in this encounter [facility] note* Diagnosis Acute pancreatitis- Primary Other acute pancreatitis without infection or necrosis Biliary stricture Obstruction of bile duct Class 2 severe obesity due to excess calories with serious comorbidity and body mass index (BMI) of 35.0 to 35.9 in adult (HCC) Gastric bypass status for obesity Bariatric surgery status Gastroesophageal reflux disease without esophagitis Esophageal reflux Hypertension, essential Unspecified essential hypertension Hypothyroidism, unspecified type Urge incontinence Biliary stricture Obstruction of bile duct Hypothyroidism Unspecified hypothyroidism Gastroesophageal reflux disease Esophageal reflux Urge incontinence Hypertension, essential Unspecified essential hypertension Gastric bypass status for obesity Bariatric surgery status Leukocytosis Leukocytosis, unspecified Hypokalemia Hypopotassemia Ileus (HCC) Paralytic ileus Vitamin B12 deficiency- Primary Other B-complex deficiencies documented in this encounter [facility] (narrative)* Diagnostic Procedure Only (Urgent) - Closed Specialty Diagnoses / Procedures Referred By Contac t Referred To Contact US IMAGING Diagnoses Bloating RUQ pain Epigastric pain Gastritis without bleeding, unspecified chronicity, unspecified gastritis type Procedures US ABDOMEN COMPLETE US ABDOMINAL REAL TIME W/IMAGE DOCUMENTATION Negra Kuo APRN.CNP [address] [place] [address] Us Imaging Referral ID Status Reason Start Date Expiration Date V isits Requested Visits Authorized [id number] Closed Auto-Generate d Referral 08/22/2021 09/21/2022 1 1 [facility] for referral (narrative)* Diagnostic Procedure Only (Urgent) - Closed Specialty Diagnoses / Procedures Referred By Contac t Referred To Contact US IMAGING Diagnoses Bloating RUQ pain Epigastric pain Gastritis without bleeding, unspecified chronicity, unspecified gastritis type Procedures US ABDOMEN COMPLETE US ABDOMINAL REAL TIME W/IMAGE DOCUMENTATION Negra Kuo APRN.FACTORY ENGINEER [address] [place] [address] [facility] Imaging Referral ID Status Reason Start Date Expiration Date V isits Requested Visits Authorized [id number] Closed Auto-Generate d Referral 08/22/2021 09/21/2022 1 1 [facility] for referral (narrative)* Diagnostic Procedure Only (Routine) - Closed Specialty Diagnoses / Procedures Referred By Contac t Referred To Contact XR IMAGING Diagnoses Dysphagia, unspecified type Procedures XR ESOPHAGRAM RADIOLOGIC EXAM ESOPHAGUS SINGLE CONTRAST STUDY So Durham MD [address] [place] [address] Xr Imaging Referral ID Status Reason Start Date Expiration Date V isits Requested Visits Authorized [id number] Closed Auto-Generate d Referral 03/05/2022 04/04/2023 1 1 [facility] for referral (narrative)* Outpatient Procedure (Routine) - Pending Review Specialty Diagnoses / Procedures Referred By Kristina t Referred To Contact [facility] Diagnoses Dysphagia, unspecified type Procedures COLONOSCOPY SCREENING COLONOSCOPY FLX DX W/COLLJ SPEC WHEN Angélic[place] [address] [place] [address] [place] [id number] Referral ID Status Reason Start Date Expiration Date Visits Requested Visits Authorized [id number] Pending Review Auto-Generat ed Referral 04/08/2022 04/08/2023 1 1 * Outpatient Procedure (Routine) - Pending Review Specialty Diagnoses / Procedures Referred By Kristina abreu Referred To [facility] Diagnoses Dysphagia, unspecified type Procedures PH INSERT OFF MEDS GASTROESOPHAG REFLX TEST W/CATH [place]TR[place] Angé[place] [address] [place] [address] [address] Referral ID Status Reason Start Date Expiration Date Visits Requested Visits Authorized [id number] Pending Review Auto-Generat ed Referral 04/08/2022 04/08/2023 1 1 * Outpatient Procedure (Routine) - Pending Review Specialty Diagnoses / Procedures Referred By Kristina t Referred To Contact [facility] Diagnoses Dysphagia, unspecified type Procedures MANOMETRY ESOPHAGEAL ESOPHAGEAL MOTILITY STUDY W/INTERP&RPT Angé[place] [address] [place] [address] [facility] [place] [address] [place] [address] Referral ID Status Reason Start Date Expiration Date Visits Requested Visits Authorized [id number] Pending Review Auto-Generat ed Referral 04/08/2022 04/08/2023 1 1 [facility] for referral (narrative)* Diagnostic Procedure Only (Routine) - Pending Review Specialty Diagnoses / Procedures Referred By Contac t Referred To Contact US IMAGING Diagnoses Hypertension, essential Elevated glucose Bloating Belching Flatulence RUQ pain Weight gain Obesity, Class III, BMI 40-49.9 (morbid obesity) (HCC) Procedures US FEMALE PELVIS TRANSVAG US TRANSVAGINAL Negra Kuo APRN.FACTORY ENGINEER [address] [place] [address] Us Imaging [facility] Referral ID Status Reason Start Date Expiration Date Visits Requested Visits Authorized [id number] Pending Review Auto-Generat ed Referral 11/11/2022 12/11/2023 1 1 * Diagnostic Procedure Only (Routine) - Pending Review Specialty Diagnoses / Procedures Referred By Kristina t Referred To Contact US IMAGING Diagnoses Hypertension, essential Elevated glucose Bloating Belching Flatulence RUQ pain Weight gain Obesity, Class III, BMI 40-49.9 (morbid obesity) (HCC) Procedures US FEMALE PELVIS TRANSABD LTD US PELVIC NONOBSTETRIC IMAGE DCMTN LIMITED/F/U Negra uKo APRN.FACTORY ENGINEER [address] [place] [address] Us Imaging [facility] Referral ID Status Reason Start Date Expiration Date Visits Requested Visits Authorized [id number] Pending Review Auto-Generat ed Referral 11/11/2022 12/11/2023 1 1 * Diagnostic Procedure Only (Routine) - Pending Review Specialty Diagnoses / Procedures Referred By Contac t Referred To Contact US IMAGING Diagnoses Hypertension, essential Elevated LFTs Elevated glucose Bloating Belching Flatulence RUQ pain Weight gain Obesity, Class III, BMI 40-49.9 (morbid obesity) (HCC) Procedures US ABDOMEN COMPLETE US ABDOMINAL REAL TIME W/IMAGE DOCUMENTATION Negra Kuo APRN.FACTORY ENGINEER [address] [place] [address] [place] [address] Referral ID Status Reason Start Date Expiration Date Visits Requested Visits Authorized [id number] Pending Review Auto-Generat ed Referral 11/11/2022 12/11/2023 1 1 [facility] for referral (narrative)* Outpatient Procedure (Routine) - Authorized Specialty Diagnoses / Procedures Referred By Contac t Referred To Contact [facility] Diagnoses Hepatic steatosis Procedures DDI VIBRATION CONTROLLED TRANSIENT ELASTOGRAPHY (VCTE) LIVER ELASTOGRAPHY W/O IMAG W/I&R Negra Kuo APRN.FACTORY ENGINEER [address] [place] [address] [facility] [place] [address] [place] [address] Referral ID Status Reason Start Date Expiration Date Visits Requested Visits Authorized [id number] Authorized Auto-Generat ed Referral 12/15/2023 1 1 [facility] for referral (narrative)* Diagnostic Procedure Only (Routine) - Closed Specialty Diagnoses / Procedures Referred By Contac t Referred To Contact US IMAGING Diagnoses Hypertension, essential Elevated LFTs Elevated glucose Bloating Belching Flatulence RUQ pain Weight gain Obesity, Class III, BMI 40-49.9 (morbid obesity) (HCC) Procedures US ABDOMEN COMPLETE US ABDOMINAL REAL TIME W/IMAGE DOCUMENTATION Negra Kuo APRN.FACTORY ENGINEER [address] [place] [address] [place] [address] Referral ID Status Reason Start Date Expiration Date V isits Requested Visits Authorized [id number] Closed Auto-Generate d Referral 11/11/2022 12/11/2023 1 1 [facility] for referral (narrative)* Diagnostic Procedure Only (Routine) - Closed Specialty Diagnoses / Procedures Referred By Contac t Referred To Contact [facility] IMAGING Diagnoses Hypertension, essential Elevated glucose Bloating Belching Flatulence RUQ pain Weight gain Obesity, Class III, BMI 40-49.9 (morbid obesity) (HCC) Procedures US FEMALE PELVIS TRANSVAG US TRANSVAGINAL Negra Kuo APRN.FACTORY ENGINEER [address] [place] [id number] [place] [address] Referral ID Status Reason Start Date Expiration Date V isits Requested Visits Authorized [id number] Closed Auto-Generate d Referral 11/11/2022 12/11/2023 1 1 * Diagnostic Procedure Only (Routine) - Closed Specialty Diagnoses / Procedures Referred By Periac t Referred To Contact US IMAGING Diagnoses Hypertension, essential Elevated glucose Bloating Belching Flatulence RUQ pain Weight gain Obesity, Class III, BMI 40-49.9 (morbid obesity) (HCC) Procedures US FEMALE PELVIS TRANSABD LTD US PELVIC NONOBSTETRIC IMAGE DCMTN LIMITED/F/U Negra Kuo APRN.FACTORY ENGINEER [address] [place] [address] [place] [address] Referral ID Status Reason Start Date Expiration Date V isits Requested Visits Authorized [id number] Closed Auto-Generate d Referral 11/11/2022 12/11/2023 1 1 [facility] for referral (narrative)* Outpatient Procedure (Routine) - Closed Specialty Diagnoses / Procedures Referred By Contac t Referred To Contact [facility] Diagnoses Dysphagia, unspecified type Procedures COLONOSCOPY SCREENING COLONOSCOPY FLX DX W/COLLJ SPEC WHEN [place] [address] [place] [id number] [address] [address] Referral ID Status Reason Start Date Expiration Date V isits Requested Visits Authorized [id number] Closed Auto-Generate d Referral 04/08/2022 04/08/2023 1 1 [facility] for visit Narrative* Outpatient Procedure (Routine) - Closed Specialty Diagnoses / Procedures Referred By Contac t Referred To Contact [facility] Diagnoses Hepatic steatosis Procedures DDI VIBRATION CONTROLLED TRANSIENT ELASTOGRAPHY (VCTE) LIVER ELASTOGRAPHY W/O IMAG W/I&R Negra Kuo, CREDIT INTERVIEWER.FACTORY ENGINEER [address] [place] [address] [place] [phone] Referral ID Status Reason Start Date Expiration Date V isits Requested Visits Authorized [id number] Closed Auto-Generate d Referral 12/14/2022 12/15/2023 1 1 [facility] for visit Narrative* Outpatient Procedure (Routine) - Closed Specialty Diagnoses / Procedures Referred By Kristina abreu Referred To Contact [facility] Diagnoses Dysphagia, unspecified type Procedures COLONOSCOPY SCREENING COLONOSCOPY FLX DX W/COLLJ SPE[place] WHEN Angélica Zam[place] [address] [place] [phone] [address] [address] Referral ID Status Reason Start Date Expiration Date V isits Requested Visits Authorized [id number] Closed Auto-Generate d Referral 04/08/2022 04/08/2023 1 1 [facility] Advance Directives Documents on File Type Date 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 Advance Directive(s) 09/06/2019 11:56 AM Advance Directive(s) 05/09/2019 6:53 PM Advance Directive(s) 05/08/2019 8:29 AM Advance Directive(s) 04/05/2019 8:07 AM Advance Directive(s) 03/14/2019 1:33 PM Advance Directive(s) 09/29/2016 9:09 AM Documents on File Type Date Recorded 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 Advance Directive(s) 08/13/2021 7:54 AM Advance Directive(s) 09/06/2019 11:56 AM Advance Directive(s) 05/09/2019 6:53 PM Advance Directive(s) 05/08/2019 8:29 AM Advance Directive(s) 04/05/2019 8:07 AM Advance Directive(s) 03/14/2019 1:33 PM Advance Directive(s) 09/29/2016 9:09 AM Documents on File Type Date 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 Advance Directive(s) 08/13/2021 7:54 AM Advance Directive(s) 09/06/2019 11:56 AM Advance Directive(s) 05/09/2019 6:53 PM Advance Directive(s) 05/08/2019 8:29 AM Advance Directive(s) 04/05/2019 8:07 AM Advance Directive(s) 03/14/2019 1:33 PM Advance Directive(s) 09/29/2016 9:09 AM Summary Purpose Family History No Family History Records FoundNo Family History Records Found Health Concerns Infection Onset Date Last Indicated Resolved Time COVID-19 Rule-Out 01/01/2022 01/01/2022 Infection Onset Date Last Indicated Resolved Time COVID-19 Rule-Out 01/01/2022 01/01/2022 01/02/2022 6:43 AM EDT Reason for Referral Specialty Diagnoses / Procedures Referred By Kristina abreu Referred To Contact Gastroenterology Diagnoses Dysphagia, unspecified type Procedures CONSULT TO GASTROENTEROLOGY OFFICE/OUTPATIENT [facility] 60-74 MINUTES So Durham MD [address] [facility] [place] [address] Referral ID Status Reason Start Date Expiration Date Visits Requested Visits Authorized [id number] Authorized PCP Requested Referral 03/05/2022 03/05/2023 1 1 Specialty Diagnoses / Procedures Referred By Kristina abreu Referred To Contact XR IMAGING Diagnoses Dysphagia, unspecified type Procedures XR ESOPHAGRAM RADIOLOGIC EXAM ESOPHAGUS SINGLE CONTRAST STUDY So Durham MD [address] [facility] [place] [address] Xr Imaging Referral ID Status Reason Start Date Expiration Date Visits Requested Visits Authorized [id number] Authorized Auto-Generat ed Referral 03/05/2022 04/04/2023 1 1 Specialty Diagnoses / Procedures Referred By Contac t Referred To Contact Negra Kuo, SHAHNAZ.FACTORY ENGINEER [address] [place] [address] Referral ID Status Reason Start Date Expiration Date Visits Re quested Visits Authorized [id number] Closed 1 1 Specialty Diagnoses / Procedures Referred By Contac t Referred To Contact Diagnoses Hypothyroidism, unspecified type Hypertension, essential Morbid obesity (HCC) Negra Kuo APRN.FACTORY ENGINEER [address] [place] [address] Referral ID Status Reason Start Date Expiration Date V isits Requested Visits Authorized [id number] Pending Review 11/24/2023 01/23/2024 1 1 Specialty Diagnoses / Procedures Referred By Contac t Referred To Contact [facility] Diagnoses Encounter for screening mammogram for breast cancer Procedures ALEXX SCREENING W ELIJAH SCREENING DIGITAL BREAST TOMOSYNTHESIS BI SCREENING MAMMOGRAPHY BI 2-VIEW BREAST INC CAD Negra Kuo, SHAHNAZ.FACTORY ENGINEER [address] [place] [address] [facility] [address] [place] [address] Referral ID Status Reason Start Date Expiration Date Visits Requested Visits Authorized [id number] New Request Auto-Generat ed Referral 11/24/2023 12/23/2024 1 1 Medications Administered Section Inactive Administered Medications - up to 3 most recent administrations Medication Order MAR Action Action Date Dose Rate Site diphenhydrAMINE 12.5-50 mg injection (BENADRYL) 12.5-50 mg, INTRAVENOUS, DIRECTED, Starting on Tracie 06/18/22 at 1100, Until Tracie 06/18/22 at 1459, DOSING DIRECTED BY PHYSICIAN FOR PROCEDURAL SEDATION ONLY, Intraprocedure Given 06/18/2022 10:37 AM EDT 50 mg fentaNYL 50 mcg/mL 25-100 mcg injection (SUBLIMAZE) 25-100 mcg, INTRAVENOUS, DIRECTED, Starting on Tracie 06/18/22 at 1100, Until Tracie 06/18/22 at 1459, DOSING DIRECTED BY PHYSICIAN FOR PROCEDURAL SEDATION ONLY, Intraprocedure Given 06/18/2022 10:46 AM EDT 50 mcg Given 06/18/2022 10:35 AM EDT 50 mcg lactated ringers iv infusion 30 mL/hr, INTRAVENOUS, CONTINUOUS, Starting on Tracie 06/18/22 at 1030, Until Tracie 06/18/22 at 1118, Preprocedure New Bag/Syringe/Bottle 06/18/2022 10:11 AM EDT 30 mL/hr 30 mL/hr Wrist, Right midazolam 1-5 mg injection (VERSED) 1-5 mg, INTRAVENOUS, DIRECTED, Starting on Tracie 06/18/22 at 1100, Until Tracie 06/18/22 at 1459, DOSING DIRECTED BY PHYSICIAN FOR PROCEDURAL SEDATION ONLY, Intraprocedure Given 06/18/2022 10:39 AM EDT 2 mg Given 06/18/2022 10:35 AM EDT 3 mg Additional Source Comments Source Comments (unrecognize d section and content) In the event this informatio n is protected by the Federal Confidentiality of Alcohol and Drug Abuse Patient Records regulations: The Federal rules restrict any use of the information to criminally investigate or prosecute any alcohol or drug abuse patient.[facility] the event this information is protected by the Federal Confidentiality of Alcohol and Drug Abuse Patient Records regulations: The Federal rules restrict any use of the information to criminally investigate or prosecute any alcohol or drug abuse patient.[facility] the event this information is protected by the Federal Confidentiality of Alcohol and Drug Abuse Patient Records regulations: The Federal rules restrict any use of the information to criminally investigate or prosecute any alcohol or drug abuse patient.[facility] the event this information is protected by the Federal Confidentiality of Alcohol and Drug Abuse Patient Records regulations: The Federal rules restrict any use of the information to criminally investigate or prosecute any alcohol or drug abuse patient.[facility] the event this information is protected by the Federal Confidentiality of Alcohol and Drug Abuse Patient Records regulations: The Federal rules restrict any use of the information to criminally investigate or prosecute any alcohol or drug abuse patient.[facility] the event this information is protected by the Federal Confidentiality of Alcohol and Drug Abuse Patient Records regulations: The Federal rules restrict any use of the information to criminally investigate or prosecute any alcohol or drug abuse patient.[facility] the event this information is protected by the Federal Confidentiality of Alcohol and Drug Abuse Patient Records regulations: The Federal rules restrict any use of the information to criminally investigate or prosecute any alcohol or drug abuse patient.[facility] the event this information is protected by the Federal Confidentiality of Alcohol and Drug Abuse Patient Records regulations: The Federal rules restrict any use of the information to criminally investigate or prosecute any alcohol or drug abuse patient.[facility] the event this information is protected by the Federal Confidentiality of Alcohol and Drug Abuse Patient Records regulations: The Federal rules restrict any use of the information to criminally investigate or prosecute any alcohol or drug abuse patient.[facility] the event this information is protected by the Federal Confidentiality of Alcohol and Drug Abuse Patient Records regulations: The Federal rules restrict any use of the information to criminally investigate or prosecute any alcohol or drug abuse patient.[facility]In the event this information is protected by the Federal Confidentiality of Alcohol and Drug Abuse Patient Records regulations: The Federal rules restrict any use of the information to criminally investigate or prosecute any alcohol or drug abuse patient.[facility]In the event this information is protected by the Federal Confidentiality of Alcohol and Drug Abuse Patient Records regulations: The Federal rules restrict any use of the information to criminally investigate or prosecute any alcohol or drug abuse patient.[facility] the event this information is protected by the Federal Confidentiality of Alcohol and Drug Abuse Patient Records regulations: The Federal rules restrict any use of the information to criminally investigate or prosecute any alcohol or drug abuse patient.[facility]In the event this information is protected by the Federal Confidentiality of Alcohol and Drug Abuse Patient Records regulations: The Federal rules restrict any use of the information to criminally investigate or prosecute any alcohol or drug abuse patient.[facility]In the event this information is protected by the Federal Confidentiality of Alcohol and Drug Abuse Patient Records regulations: The Federal rules restrict any use of the information to criminally investigate or prosecute any alcohol or drug abuse patient.[facility] HospitalIn the event this information is protected by the Federal Confidentiality of Alcohol and Drug Abuse Patient Records regulations: The Federal rules restrict any use of the information to criminally investigate or prosecute any alcohol or drug abuse patient.[facility] HospitalIn the event this information is protected by the Federal Confidentiality of Alcohol and Drug Abuse Patient Records regulations: The Federal rules restrict any use of the information to criminally investigate or prosecute any alcohol or drug abuse patient.[facility] HospitalIn the event this information is protected by the Federal Confidentiality of Alcohol and Drug Abuse Patient Records regulations: The Federal rules restrict any use of the information to criminally investigate or prosecute any alcohol or drug abuse patient.[facility] HospitalIn the event this information is protected by the Federal Confidentiality of Alcohol and Drug Abuse Patient Records regulations: The Federal rules restrict any use of the information to criminally investigate or prosecute any alcohol or drug abuse patient.[facility] HospitalIn the event this information is protected by the Federal Confidentiality of Alcohol and Drug Abuse Patient Records regulations: The Federal rules restrict any use of the information to criminally investigate or prosecute any alcohol or drug abuse patient.[facility] HospitalIn the event this information is protected by the Federal Confidentiality of Alcohol and Drug Abuse Patient Records regulations: The Federal rules restrict any use of the information to criminally investigate or prosecute any alcohol or drug abuse patient.[facility] HospitalIn the event this information is protected by the Federal Confidentiality of Alcohol and Drug Abuse Patient Records regulations: The Federal rules restrict any use of the information to criminally investigate or prosecute any alcohol or drug abuse patient.[facility] HospitalIn the event this information is protected by the Federal Confidentiality of Alcohol and Drug Abuse Patient Records regulations: The Federal rules restrict any use of the information to criminally investigate or prosecute any alcohol or drug abuse patient.[facility] HospitalIn the event this information is protected by the Federal Confidentiality of Alcohol and Drug Abuse Patient Records regulations: The Federal rules restrict any use of the information to criminally investigate or prosecute any alcohol or drug abuse patient.[facility] HospitalIn the event this information is protected by the Federal Confidentiality of Alcohol and Drug Abuse Patient Records regulations: The Federal rules restrict any use of the information to criminally investigate or prosecute any alcohol or drug abuse patient.[facility]In the event this information is protected by the Federal Confidentiality of Alcohol and Drug Abuse Patient Records regulations: The Federal rules restrict any use of the information to criminally investigate or prosecute any alcohol or drug abuse patient.[facility] HospitalIn the event this information is protected by the Federal Confidentiality of Alcohol and Drug Abuse Patient Records regulations: The Federal rules restrict any use of the information to criminally investigate or prosecute any alcohol or drug abuse patient.[facility] HospitalIn the event this information is protected by the Federal Confidentiality of Alcohol and Drug Abuse Patient Records regulations: The Federal rules restrict any use of the information to criminally investigate or prosecute any alcohol or drug abuse patient.[facility] HospitalIn the event this information is protected by the Federal Confidentiality of Alcohol and Drug Abuse Patient Records regulations: The Federal rules restrict any use of the information to criminally investigate or prosecute any alcohol or drug abuse patient.[facility] HospitalIn the event this information is protected by the Federal Confidentiality of Alcohol and Drug Abuse Patient Records regulations: The Federal rules restrict any use of the information to criminally investigate or prosecute any alcohol or drug abuse patient.[facility] HospitalIn the event this information is protected by the Federal Confidentiality of Alcohol and Drug Abuse Patient Records regulations: The Federal rules restrict any use of the information to criminally investigate or prosecute any alcohol or drug abuse patient.[facility] HospitalIn the event this information is protected by the Federal Confidentiality of Alcohol and Drug Abuse Patient Records regulations: The Federal rules restrict any use of the information to criminally investigate or prosecute any alcohol or drug abuse patient.[facility] HospitalIn the event this information is protected by the Federal Confidentiality of Alcohol and Drug Abuse Patient Records regulations: The Federal rules restrict any use of the information to criminally investigate or prosecute any alcohol or drug abuse patient.[facility] HospitalIn the event this information is protected by the Federal Confidentiality of Alcohol and Drug Abuse Patient Records regulations: The Federal rules restrict any use of the information to criminally investigate or prosecute any alcohol or drug abuse patient.[facility] HospitalIn the event this information is protected by the Federal Confidentiality of Alcohol and Drug Abuse Patient Records regulations: The Federal rules restrict any use of the information to criminally investigate or prosecute any alcohol or drug abuse patient.[facility] HospitalIn the event this information is protected by the Federal Confidentiality of Alcohol and Drug Abuse Patient Records regulations: The Federal rules restrict any use of the information to criminally investigate or prosecute any alcohol or drug abuse patient.[facility] HospitalIn the event this information is protected by the Federal Confidentiality of Alcohol and Drug Abuse Patient Records regulations: The Federal rules restrict any use of the information to criminally investigate or prosecute any alcohol or drug abuse patient.[facility] HospitalIn the event this information is protected by the Federal Confidentiality of Alcohol and Drug Abuse Patient Records regulations: The Federal rules restrict any use of the information to criminally investigate or prosecute any alcohol or drug abuse patient.[facility] HospitalIn the event this information is protected by the Federal Confidentiality of Alcohol and Drug Abuse Patient Records regulations: The Federal rules restrict any use of the information to criminally investigate or prosecute any alcohol or drug abuse patient.[facility] HospitalIn the event this information is protected by the Federal Confidentiality of Alcohol and Drug Abuse Patient Records regulations: The Federal rules restrict any use of the information to criminally investigate or prosecute any alcohol or drug abuse patient.[facility] HospitalIn the event this information is protected by the Federal Confidentiality of Alcohol and Drug Abuse Patient Records regulations: The Federal rules restrict any use of the information to criminally investigate or prosecute any alcohol or drug abuse patient.[facility] HospitalIn the event this information is protected by the Federal Confidentiality of Alcohol and Drug Abuse Patient Records regulations: The Federal rules restrict any use of the information to criminally investigate or prosecute any alcohol or drug abuse patient.[facility] HospitalIn the event this information is protected by the Federal Confidentiality of Alcohol and Drug Abuse Patient Records regulations: The Federal rules restrict any use of the information to criminally investigate or prosecute any alcohol or drug abuse patient.[facility] HospitalIn the event this information is protected by the Federal Confidentiality of Alcohol and Drug Abuse Patient Records regulations: The Federal rules restrict any use of the information to criminally investigate or prosecute any alcohol or drug abuse patient.[facility] HospitalIn the event this information is protected by the Federal Confidentiality of Alcohol and Drug Abuse Patient Records regulations: The Federal rules restrict any use of the information to criminally investigate or prosecute any alcohol or drug abuse patient.[facility] HospitalIn the event this information is protected by the Federal Confidentiality of Alcohol and Drug Abuse Patient Records regulations: The Federal rules restrict any use of the information to criminally investigate or prosecute any alcohol or drug abuse patient.[facility] HospitalIn the event this information is protected by the Federal Confidentiality of Alcohol and Drug Abuse Patient Records regulations: The Federal rules restrict any use of the information to criminally investigate or prosecute any alcohol or drug abuse patient.[facility] HospitalIn the event this information is protected by the Federal Confidentiality of Alcohol and Drug Abuse Patient Records regulations: The Federal rules restrict any use of the information to criminally investigate or prosecute any alcohol or drug abuse patient.[facility] HospitalIn the event this information is protected by the Federal Confidentiality of Alcohol and Drug Abuse Patient Records regulations: The Federal rules restrict any use of the information to criminally investigate or prosecute any alcohol or drug abuse patient.[facility] HospitalIn the event this information is protected by the Federal Confidentiality of Alcohol and Drug Abuse Patient Records regulations: The Federal rules restrict any use of the information to criminally investigate or prosecute any alcohol or drug abuse patient.[facility] HospitalIn the event this information is protected by the Federal Confidentiality of Alcohol and Drug Abuse Patient Records regulations: The Federal rules restrict any use of the information to criminally investigate or prosecute any alcohol or drug abuse patient.[facility] HospitalIn the event this information is protected by the Federal Confidentiality of Alcohol and Drug Abuse Patient Records regulations: The Federal rules restrict any use of the information to criminally investigate or prosecute any alcohol or drug abuse patient.[facility] HospitalIn the event this information is protected by the Federal Confidentiality of Alcohol and Drug Abuse Patient Records regulations: The Federal rules restrict any use of the information to criminally investigate or prosecute any alcohol or drug abuse patient.[facility] HospitalIn the event this information is protected by the Federal Confidentiality of Alcohol and Drug Abuse Patient Records regulations: The Federal rules restrict any use of the information to criminally investigate or prosecute any alcohol or drug abuse patient.[facility] HospitalIn the event this information is protected by the Federal Confidentiality of Alcohol and Drug Abuse Patient Records regulations: The Federal rules restrict any use of the information to criminally investigate or prosecute any alcohol or drug abuse patient.[facility] HospitalIn the event this information is protected by the Federal Confidentiality of Alcohol and Drug Abuse Patient Records regulations: The Federal rules restrict any use of the information to criminally investigate or prosecute any alcohol or drug abuse patient.[facility] HospitalIn the event this information is protected by the Federal Confidentiality of Alcohol and Drug Abuse Patient Records regulations: The Federal rules restrict any use of the information to criminally investigate or prosecute any alcohol or drug abuse patient.[facility] HospitalIn the event this information is protected by the Federal Confidentiality of Alcohol and Drug Abuse Patient Records regulations: The Federal rules restrict any use of the information to criminally investigate or prosecute any alcohol or drug abuse patient.[facility] HospitalIn the event this information is protected by the Federal Confidentiality of Alcohol and Drug Abuse Patient Records regulations: The Federal rules restrict any use of the information to criminally investigate or prosecute any alcohol or drug abuse patient.[facility] Reason for Visit (unrecogniz ed section and content) Reason Comments PT Discharge Specialty Diagnoses / Procedures Referred By Contac t Referred To Contact [facility] Diagnoses Patellofemoral arthritis DDD (degenerative disc disease), lumbar Procedures CONSULT TO PHYSICAL THERAPY PHYSICAL THERAPY EVALUATION HIGH COMPLEX 45 MINS Gloria Ricardo, DO [address] [place] [address] [facility] [place] [address] [place] [address] Referral ID Status Reason Start Date Expiration Date V isits Requested Visits Authorized [id number] Authorized 03/01/2021 02/28/2022 99 99 Reason Comments Physical Therapy Reason Comments Injections Reason Comments PT Eval Reason Onset Date Comments Pain 08/13/2021 Reason Comments Patient Update Reason Comments [facility] ER f/u- epigastric pain Reason Comments Abdominal Pain Reason Comments Radiology US Specialty Diagnoses / Procedures Referred By Contac t Referred To Contact US IMAGING Diagnoses Bloating RUQ pain Epigastric pain Gastritis without bleeding, unspecified chronicity, unspecified gastritis type Procedures US ABDOMEN COMPLETE US ABDOMINAL REAL TIME W/IMAGE DOCUMENTATION Negra Kuo, SHAHNAZ.FACTORY ENGINEER [address] [place] [address] Us Imaging Referral ID Status Reason Start Date Expiration Date V isits Requested Visits Authorized [id number] Closed Auto-Generate d Referral 08/22/2021 09/21/2022 1 1 Reason Comments Results Reason Comments Back Pain Knee Pain Reason Comments F/U 1 month Reason Onset Date Comments Refill Request 12/05/2021 Reason Comments Cough Throat pain, nasal c ongestion, x3 days. Reason Comments Patient Question Reason Comments Dysphagia Reason Comments Radio GI Main HB6 Specialty Diagnoses / Procedures Referred By Contac t Referred To Contact XR IMAGING Diagnoses Dysphagia, unspecified type Procedures XR ESOPHAGRAM RADIOLOGIC EXAM ESOPHAGUS SINGLE CONTRAST STUDY So Durham MD [address] [place] [address] Xr Imaging Referral ID Status Reason Start Date Expiration Date V isits Requested Visits Authorized [id number] Closed Auto-Generate d Referral 03/05/2022 04/04/2023 1 1 Reason Comments Rash burning x this am, s witched to triamcinolone cream for yesterday in abdominal flap per Scarlett Reason Comments Refill Request Reason Comments Dysphagia New Patient Dysphagia Specialty Diagnoses / Procedures Referred By Contac t Referred To Contact Gastroenterology Diagnoses Dysphagia, unspecified type Procedures CONSULT TO GASTROENTEROLOGY OFFICE/OUTPATIENT NEW HIGH MDM 60-74 MINUTES So Durham MD [address] [place] [id number] Referral ID Status Reason Start Date Expiration Date V isits Requested Visits Authorized [id number] Closed PCP Requested Referral 03/05/2022 03/05/2023 1 1 Reason Onset Date Comments Refill Request 05/13/2022 Reason Comments Preparations For Procedures Reason Onset Date Comments Procedure 06/25/2022 24 Hr pH Probe R emoval Reason Comments Follow Up Reason Onset Date Comments Refill Request 09/30/2022 Reason Comments Physical Discuss weight loss Reason Comments Appointment Reason Comments Results Specialty Diagnoses / Procedures Referred By Contac t Referred To Contact US IMAGING Diagnoses Hypertension, essential Elevated LFTs Elevated glucose Bloating Belching Flatulence RUQ pain Weight gain Obesity, Class III, BMI 40-49.9 (morbid obesity) (HCC) Procedures US ABDOMEN COMPLETE US ABDOMINAL REAL TIME W/IMAGE DOCUMENTATION Negra Kuo, SHAHNAZ.FACTORY ENGINEER [address] [place] [id number] Us Imaging [facility] Referral ID Status Reason Start Date Expiration Date V isits Requested Visits Authorized [id number] Closed Auto-Generate d Referral 11/11/2022 12/11/2023 1 1 Reason Comments Radiology US Specialty Diagnoses / Procedures Referred By Contac t Referred To Contact US IMAGING Diagnoses Hypertension, essential Elevated glucose Bloating Belching Flatulence RUQ pain Weight gain Obesity, Class III, BMI 40-49.9 (morbid obesity) (HCC) Procedures US FEMALE PELVIS TRANSVAG US TRANSVAGINAL Negra Kuo, SHAHNAZ.FACTORY ENGINEER [address] [place] [address] [place] [address] Referral ID Status Reason Start Date Expiration Date V isits Requested Visits Authorized [id number] Closed Auto-Generate d Referral 11/11/2022 12/11/2023 1 1 Reason Onset Date Comments Refill Request 04/05/2023 Reason Onset Date Comments Refill Request 04/13/2023 Reason Onset Date Comments Refill Request 05/31/2023 Reason Onset Date Comments Refill Request 10/06/2023 Reason Onset Date Comments Refill Request 10/07/2023 Reason Comments Physical Discuss weight loss options Reason Comments Insurance Authorization Reason Comments Medication Question Care Teams (unrecognized sec tion and content) Marketing Sales Consultant Relationship Specialty Start Date End Date Tony Baca APRN.CNP, DNP [address] [facility] [address] PCP - General Family Practice 12/19/20 Marketing Sales Consultant Relationship Specialty Start Date End Date Tony Baca APRN.CNP, DNP [address] [facility] [place] [address] PCP - General Family Practice 12/19/20 Marketing Sales Consultant Relationship Specialty Start Date End Date Tony Baca APRN.CNP, DNP [address] [facility] [place] [address] PCP - General Family Practice 12/19/20 Marketing Sales Consultant Relationship Specialty Start Date End Date Tony Baca APRN.CNP, DNP [address] [facility] [place] [address] PCP - General Family Practice 12/19/20 Marketing Sales Consultant Relationship Specialty Start Date End Date Tony Baca APRN.CNP, DNP [address] [facility] [place] [address] PCP - General Family Practice 12/19/20 Marketing Sales Consultant Relationship Specialty Start Date End Date Tony Baca APRN.CNP, DNP [address] [facility] [place] [address] PCP - General Family Practice 12/19/20 Marketing Sales Consultant Relationship Specialty Start Date End Date Tony Baca APRN.CNP, DNP [address] [facility] [place] [address] PCP - General Family Practice 12/19/20 Marketing Sales Consultant Relationship Specialty Start Date End Date Tony Baca APRN.CNP, DNP [address] [facility] [address] PCP - General Family Practice 12/19/20 Marketing Sales Consultant Relationship Specialty Start Date End Date Negra Kuo, CREDIT INTERVIEWER.FACTORY ENGINEER [address] [place] [address] PCP - General Family Practice 08/22/21 Marketing Sales Consultant Relationship Specialty Start Date End Date Ngera Kuo, CREDIT INTERVIEWER.FACTORY ENGINEER [address] [place] [address] PCP - General Family Practice 08/22/21 Marketing Sales Consultant Relationship Specialty Start Date End Date Negra Kuo, CREDIT INTERVIEWER.FACTORY ENGINEER [address] [place] [address] PCP - General Family Practice 08/22/21 Marketing Sales Consultant Relationship Specialty Start Date End Date Negra Kuo, CREDIT INTERVIEWER.FACTORY ENGINEER [address] [place] [address] PCP - General Family Practice 08/22/21 Marketing Sales Consultant Relationship Specialty Start Date End Date Negra Kuo, CREDIT INTERVIEWER.FACTORY ENGINEER [address] [place] [address] PCP - General Family Practice 08/22/21 Marketing Sales Consultant Relationship Specialty Start Date End Date Negra Kuo, CREDIT INTERVIEWER.FACTORY ENGINEER [address] [place] [address] PCP - General Family Practice 08/22/21 Marketing Sales Consultant Relationship Specialty Start Date End Date Negra Kuo, CREDIT INTERVIEWER.FACTORY ENGINEER [address] [place] [address] PCP - General Family Medicine 08/22/21 Marketing Sales Consultant Relationship Specialty Start Date End Date Negra Kuo, CREDIT INTERVIEWER.FACTORY ENGINEER [address] [place] [address] PCP - General Family Medicine 08/22/21 Marketing Sales Consultant Relationship Specialty Start Date End Date ShielaNegra, CREDIT INTERVIEWER.FACTORY ENGINEER [address] [facility] [address] PCP - General Family Medicine 08/22/21 Marketing Sales Consultant Relationship Specialty Start Date End Date Negra Kuo, CREDIT INTERVIEWER.FACTORY ENGINEER [address] [facility] [address] PCP - General Family Medicine 08/22/21 Marketing Sales Consultant Relationship Specialty Start Date End Date ShielaNegra, CREDIT INTERVIEWER.FACTORY ENGINEER [address] [place] [address] PCP - General Family Medicine 08/22/21 Marketing Sales Consultant Relationship Specialty Start Date End Date ShielaNegra, CREDIT INTERVIEWER.FACTORY ENGINEER [address] [place] [address] PCP - General Family Medicine 08/22/21 Marketing Sales Consultant Relationship Specialty Start Date End Date ShielaNegra, CREDIT INTERVIEWER.FACTORY ENGINEER [address] [place] [address] PCP - General Family Medicine 08/22/21 Marketing Sales Consultant Relationship Specialty Start Date End Date ShielaNegra, CREDIT INTERVIEWER.FACTORY ENGINEER [address] [place] [address] PCP - General Family Medicine 08/22/21 Marketing Sales Consultant Relationship Specialty Start Date End Date ShielaNegra, CREDIT INTERVIEWER.FACTORY ENGINEER [address] [facility] [address] PCP - General Family Medicine 08/22/21 Marketing Sales Consultant Relationship Specialty Start Date End Date ShielaNegra, CREDIT INTERVIEWER.FACTORY ENGINEER [address] [facility] [address] PCP - General Family Medicine 08/22/21 Marketing Sales Consultant Relationship Specialty Start Date End Date Shiela, Negra, CREDIT INTERVIEWER.FACTORY ENGINEER [address] [facility] [place] [address] PCP - General Family Medicine 08/22/21 Marketing Sales Consultant Relationship Specialty Start Date End Date [facility], CREDIT INTERVIEWER.FACTORY ENGINEER [address] [facility] [place] [address] PCP - General Family Medicine 08/22/21 Marketing Sales Consultant Relationship Specialty Start Date End Date [facility], CREDIT INTERVIEWER.FACTORY ENGINEER [address] [facility] [place] [address] PCP - General Family Medicine 08/22/21 Marketing Sales Consultant Relationship Specialty Start Date End Date [facility], CREDIT INTERVIEWER.FACTORY ENGINEER [address] [facility] [address] PCP - General Family Medicine 08/22/21 Marketing Sales Consultant Relationship Specialty Start Date End Date [facility], CREDIT INTERVIEWER.FACTORY ENGINEER [address] [facility] [address] PCP - General Family Medicine 08/22/21 Marketing Sales Consultant Relationship Specialty Start Date End Date [facility], CREDIT INTERVIEWER.FACTORY ENGINEER [address] [facility] [address] PCP - General Family Medicine 08/22/21 Marketing Sales Consultant Relationship Specialty Start Date End Date [facility], CREDIT INTERVIEWER.FACTORY ENGINEER [address] [facility] [address] PCP - General Family Medicine 08/22/21 Marketing Sales Consultant Relationship Specialty Start Date End Date [facility], CREDIT INTERVIEWER.FACTORY ENGINEER [address] [facility] [address] PCP - General Family Medicine 08/22/21 Marketing Sales Consultant Relationship Specialty Start Date End [facility] CREDIT INTERVIEWER.FACTORY ENGINEER [address] [facility] [place] [address] PCP - General Family Medicine 08/22/21 Marketing Sales Consultant Relationship Specialty Start Date End Date [facility] CREDIT INTERVIEWER.FACTORY ENGINEER [address] [facility] [place] [address] PCP - General Family Medicine 08/22/21 Marketing Sales Consultant Relationship Specialty Start Date End Date [facility] CREDIT INTERVIEWER.FACTORY ENGINEER [address] [facility] [place] [address] PCP - General Family Medicine 08/22/21 Marketing Sales Consultant Relationship Specialty Start Date End Date [facility] CREDIT INTERVIEWER.FACTORY ENGINEER [address] [facility] [place] [address] PCP - General Family Medicine 08/22/21 Marketing Sales Consultant Relationship Specialty Start Date End Date [facility] CREDIT INTERVIEWER.FACTORY ENGINEER [address] [facility] [place] [address] PCP - General Family Medicine 08/22/21 Marketing Sales Consultant Relationship Specialty Start Date End Date [facility] Negra, CREDIT INTERVIEWER.FACTORY ENGINEER [address] [facility] [place] [address] PCP - General Family Medicine 08/22/21 Marketing Sales Consultant Relationship Specialty Start Date End Date [facility], CREDIT INTERVIEWER.FACTORY ENGINEER [address] [facility] [place] [address] PCP - General Family Medicine 08/22/21 Marketing Sales Consultant Relationship Specialty Start Date End Date [facility] CREDIT INTERVIEWER.FACTORY ENGINEER [address] [facility] [place] [address] PCP - General Family Medicine 08/22/21 Marketing Sales Consultant Relationship Specialty Start Date End Date ShielaNegra, CREDIT INTERVIEWER.FACTORY ENGINEER [address] [facility] [place] [address] PCP - General Family Medicine 08/22/21 Marketing Sales Consultant Relationship Specialty Start Date End Date ShielaNegra, CREDIT INTERVIEWER.FACTORY ENGINEER [address] [facility] [place] [address] PCP - General Family Medicine 08/22/21 Marketing Sales Consultant Relationship Specialty Start Date End Date ShielaNegra, CREDIT INTERVIEWER.FACTORY ENGINEER [address] [facility] [place] [address] PCP - General Family Medicine 08/22/21 Marketing Sales Consultant Relationship Specialty Start Date End Date ShielaNegra, CREDIT INTERVIEWER.FACTORY ENGINEER [address] [facility] [place] [address] PCP - General Family Medicine 08/22/21 Marketing Sales Consultant Relationship Specialty Start Date End Date [facility], CREDIT INTERVIEWER.FACTORY ENGINEER [address] [facility] [place] [address] PCP - General Family Medicine 08/22/21 Marketing Sales Consultant Relationship Specialty Start Date End Date [facility], CREDIT INTERVIEWER.FACTORY ENGINEER [address] [facility] [place] [address] PCP - General Family Medicine 08/22/21 Marketing Sales Consultant Relationship Specialty Start Date End Date ShielaNegra, CREDIT INTERVIEWER.FACTORY ENGINEER [address] [facility] [place] [address] PCP - General Family Medicine 08/22/21 INFORMATION SOURCE (unrecogn ized section and content) DATE CREATED AUTHOR 08/15/2021 [facility] DATE CREATED AUTHOR AUTHOR'S ORGANIZ ATION 12/17/2023 [facility] FOR RECORDS PERTAINING TO PATIENTS WHO ARE OR HAVE BEEN ENROLLED IN A CHEMICAL DEPENDENCY/SUBSTANCEABUSE PROGRAM, SOME INFORMATION MAY BE OMITTED. This clinical summary was aggregated from multiple sources. Caution should be exercised in using it in the provision of clinical care. This summary normalizes information from multiple sources, and as a consequence, information in this document may materially change the coding, format and clinical context of patient data. In addition, data may be omitted in some cases. CLINICAL DECISIONS SHOULD BE BASED ON THE PRIMARY CLINICAL RECORDS. [employer] [facility]. provides no warranty or guarantee of the accuracy or completeness of information in this document.
== END 2023-12-28 15:59 | disposition home or self-care (01) ==
LOC: ED 15:45
PROVIDERS: Emergency Provider Emergency Medicine; PCP Nurse Practitioner Family; Visit Provider Emergency Medicine
DX: R10.11 Right upper quadrant pain (principal); N39.0 Urinary tract infection, site not specified; I10 Essential (primary) hypertension; Z90.49 Acquired absence of other specified parts of digestive tract; Z90.3 Acquired absence of stomach [part of]; Z98.84 Bariatric surgery status; Z79.85 Long-term (current) use of injectable non-insulin antidiabetic drugs
CPT/HCPCS: 74177; 80053; 81001; 83690; 85025; 87086; 87088; 96374; 96375; 99283; Q9967; A4216; J2405

== ENCOUNTER → 2024-02-08 | Outpatient (CLI) | payer OTHER, SELFPAY ==
--- NOTE | 2024-02-08 17:11 | BI_ITS ---
MAMMOGRAPHY - BILATERAL SCREENING REASON FOR EXAM: Female, 58 years old. Routine annual screening examination. PERTINENT HISTORY: Non-contributory. TECHNIQUE: Digital bilateral breast elijah (3D mammographic acquisition) in the CC and MLO projections. 2-D mediolateral oblique (MLO) and craniocaudad (CC) views of both breasts were obtained. CAD: Full Field Digital Mammography with Computer Added Detection was performed. COMPARISON: Comparison is made with prior study dated January 14, 2023 and January 13, 2022. FINDINGS: Breast Composition: The breasts are almost entirely fatty. There are no dominant masses or suspicious calcifications. Stable small bilateral axillary lymph nodes. No other significant abnormalities are identified. There has been no significant change since the prior study. BI/SCRN MAMM (CAD)W/ELIJAH BILAT IMPRESSION: Stable bilateral screening mammogram. Yearly follow-up mammogram recommended. (A) ASSESSMENT CATEGORY: BIRADS Category 2: Benign. A letter regarding these results will be sent to the patient by the facility within 30 days. Approximately 10% of breast cancers are not detected by mammography. A normal mammogram should not delay biopsy of a clinically suspicious abnormality. [id number] Electronically Signed: Saurabh Oneal MD at 9:42 EST ,
== END | disposition home or self-care (01) ==
LOC: OPBI 02-09 07:03
PROVIDERS: PCP Nurse Practitioner Family; Referring Provider Obstetrics & Gynecology; Visit Provider Obstetrics & Gynecology
DX: Z12.31 Encounter for screening mammogram for malignant neoplasm of breast (principal)
CPT/HCPCS: 77063; 77067

== ENCOUNTER → 2024-02-09 | Outpatient (CLI) | payer OTHER, SELFPAY | END | disposition home or self-care (01) | PROVIDERS: PCP Nurse Practitioner Family; Referring Provider Otolaryngology Otolaryngology/Facial Plastic Surgery; Visit Provider Otolaryngology Otolaryngology/Facial Plastic Surgery | DX: J06.0 Acute laryngopharyngitis (principal) | CPT/HCPCS: 87070; 87077; 87186 ==

== ENCOUNTER → 2024-05-10 | Outpatient (CLI) | payer OTHER, SELFPAY | END | disposition home or self-care (01) | LOC: LABSPEC 09:29 | PROVIDERS: PCP Nurse Practitioner Family; Referring Provider Otolaryngology Otolaryngology/Facial Plastic Surgery; Visit Provider Otolaryngology Otolaryngology/Facial Plastic Surgery | DX: J34.89 Other specified disorders of nose and nasal sinuses (principal) | CPT/HCPCS: 87070; 87186; 87205 ==

== ENCOUNTER → 2024-11-07 | Outpatient (CLI) | payer OTHER, SELFPAY ==
--- NOTE | 2024-11-07 12:37 | RAD_ITS ---
PROCEDURE: HIP, UNI W/ PELVIS 2-3 VIEWS 11/07/2024 REASON FOR EXAM: GREATER TROCHANTERIC BURSITIS TECHNIQUE: Procedure Code: RADHP Modality: DX Procedure: HIP, UNI W/ PELVIS 2-3 VIEWS Laterality: Right COMPARISON: None. RAD/HIP, UNI W/ Pelvis 2-3 Views IMPRESSION: Limited imaging of the lower lumbar spine shows degenerative changes and postsu rgical changes, including laminectomies at L4 and L5 and bilateral pedicle screws and posterior fixation device from L4-L5. Mild sacroiliac joint degenerative changes are seen. Minimal degenerative changes of the hip joints are noted, without associated arian int narrowing. No evidence of femoral head osteonecrosis. No fracture, dislocation, or other significant osseous abnormality is noted. Reading Location: [place] [address]
== END | disposition home or self-care (01) ==
PROVIDERS: PCP Nurse Practitioner Family; Referring Provider Anesthesiology; Visit Provider Anesthesiology
DX: M70.61 Trochanteric bursitis, right hip (principal)
CPT/HCPCS: 73502

== ENCOUNTER 2024-12-26 10:30 | Outpatient (RCR) | payer OTHER, SELFPAY ==
--- NOTE | 2024-10-27 11:07 | HP.PTEVAL ---
Patient's Visit Information Visit Information Visit Information: GABRIEL MOSCOSO is a 59 year old F referred to Physical Therapy by KALA Gottlieb with a diagnosis of RADICULOPATHY ,LUMBAR. Date of Evaluation: 10/27/24 Physical Therapist: Tony Giron, PT, Cert MDT, OCS Visit Plan Frequency: 2x /Week Duration: 4 Weeks Plan: PT INTERVENTIONS AQUATIC THERAPY DLS ,POSTURAL EX'S ,LE FLEXABILITY ,BLE STRENGTHENING AND ACTIVITY MODIFICATION Subjective Subjective: This 59 y/o female presents to physical therapy with lumbar radiculopathy. Patient has lumbar surgery 2019. Patient was doing well 2 years. Patient is having pain in the lower back and it runs down both legs. The right leg is the worst. The pain can be severe at times. The pain can be sharp, stabbing, sore, and throbbing pain. He says that the pain extends from the top of the right thigh to the back of the calf and over the lateral right hip. She says that she does have some mild left-sided symptoms as well but right is worse. This has been going on for a long time. The pain has been gradually getting worse 2 years after her surgery in 2019. Patient had a surgical fusion done in 2019 at the [facility] with Dr. Abreu. Medication gabapentin ,prednisone. Seen 1 lumbar injection before leaving to [place] in August. SILVIA Ashby recommended PT ,and pain management. X-rays showed Mild rightward curvature. Status post bilateral posterior fusion with wide laminectomies L4-5 appears intact and anatomic. Spondylosis/discogenic change and spondylolisthesis as above. Patient does have MRI . to review. Pain is located lateral hip to lateral calf. Aggravating factors standing ,bending,lifting . Alleviating movement walking. Coughing/sneezing-. Bowel/bladder -Pain affects sleeping. Patient c/o right foot drop. PT in past ,water helped . Patient condition affects QOL and function/job demands. 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 [employer] Pain Right Lower Extremity: Pain Intensity (Out of 10): 3 Pain Intensity Range: 8 Objective Objective: POSTURE: mild forward posture GAIT: reciprocal pattern mild forward posture NEURO: denies paresthesia/tingling ,reflexes L3-4,L4-5,L5- S1 1/3 PALPATION: tender LS MMT: quads/hams 4/5 ,hip 4/5 ,ankle 5/5 LUMBAR ROM: flexion WFL ,extension mod loss ,side glides mod loss Special Tests L/S Slump test left side: Negative L/S Slump test right side: Negative L/S Left Straight Leg Raise: Negative L/S Right Straight Leg Raise: Negative Balance/Special Test Scores Oswestry Low Back Score: 31 Goals Goal 1:: Patient to be I with HEP for back Goal Time Frame: 4-6 Weeks Goal 2:: Patient to improve lumbar ROM for function of recovery to put on shoes Goal Time Frame: 4-6 Weeks Goal 3:: Patient to improve back oswestry score by 5 points to improve QOL and function Goal Time Frame: 4-6 Weeks Goal 4:: Patient to demonstrate 50% improvement with less pain and improved function Goal Time Frame: 4-6 Weeks Goal 5:: Patient able to walk or stand > 10-15 mins with less pain and improved function Goal Time Frame: 4-6 Weeks Rehabilitation Potential Physical Therapy Diagnosis: This patient has right radiculopathy with possible stenosis along with h/o lumbar fusion 2020 with current symptoms with pain with positioning ,motion testing affects walking/standing thus benefit from skilled PT Rehabilitation Potential: Fair Anticipated Interventions Patient/Client Instruction: Educate patient on: Condition and Plan of Care For the Purpose of:: To decrease pain, To decrease swelling/inflammation, To improve muscle performance and motor function, To improve ability to perform ADL's, To increase tolerance to activity/condition/position, To improve ability of physical actions for home/community/work/leisure, To improve health of tissue, To decrease soft tissue restriction, To increase flexibility/ROM, To improve endurance, To improve balance and To improve tolerance to ADL's Therapeutic Exercise to Include: Strength training, Postural training, Flexibilty training, "In an aquatic setting" and Dynamic Lumbar Stabilization For the Purpose of:: To decrease pain, To increase ROM, To improve muscle performance and motor function, To improve ability to perform ADL's, To increase tolerance to activity/condition/position, To improve ability of physical actions for home/community/work/leisure, To improve gait and locomotor functions, To improve health of tissue, To decrease soft tissue restriction and To increase flexibility/ROM Text: Thank you for the opportunity to evaluate your patient. For Medicare and Medicare HMO plans, please review the plan of care and approve it. It will need to be FAXED BACK to us at [phone] for Medicare purposes. For Medicare only, by signing this I certify the plan of care. Please let me know if there are questions or concerns regarding this plan of care. Physician Signature: Date:
--- NOTE | 2024-12-26 10:50 | HP.PTDCSUM ---
Discharge Summary D/C summary: It has been my pleasure to treat GABRIEL MOSCOSO referred by KALA Gottleib, with the diagnosis of RADICULOPATHY ,LUMBAR for a total of 17 visit(s). Discharge Date: 12/26/24 Please see the following information for a summary of their discharge status. Subjective Subjective: Doing good Ready to be D/C to do on own Pain pain better Plan to see [facility] in lumbar Pain Right Lower Extremity: Pain Intensity (Out of 10): 0 LBP: Pain Intensity (Out of 10): 0 Overall Improvement % Improvement: 75 Objective Objective/Function: Objective: POSTURE: mild forward posture GAIT: reciprocal pattern mild forward posture NEURO: denies paresthesia/tingling ,reflexes L3-4,L4-5,L5- S1 1/3 PALPATION: tender LS MMT: quads/hams 4/5 ,hip 4/5 ,ankle 5/5 LUMBAR ROM: flexion WFL ,extension min loss ,side glides WFL Goals Goal 1:: Patient to be I with HEP for back Goal Progress: Progressing Goal 2:: Patient to improve lumbar ROM for function of recovery to put on shoes Goal Progress: Goal Met Goal 3:: Patient to improve back oswestry score by 5 points to improve QOL and function Goal Progress: Goal Met Goal 4:: Patient to demonstrate 60% improvement with less pain and improved function ( NEW GOAL) Goal Progress: Goal Met Goal 5:: Patient able to walk or stand > 10-15 mins with less pain and improved function Goal Progress: Goal Met Plan Plan: D/C D/C Information Discharge Comments: Aquatics on own I d/c sentence: If there are questions or concerns regarding this patient's physical therapy, please feel free to call me at [phone]. Thank you for the referral of this patient. Sincerely, Tony Giron, PT, Cert MDT, OCS Balance/Gait/Functional tests Balance/Special Test Scores Oswestry Low Back Score: 6 Improvement % Improvement: 75
== END 2024-12-26 15:01 | disposition home or self-care (01) ==
LOC: PT 10:30
PROVIDERS: PCP Nurse Practitioner Family; Referring Provider Student in an Organized Health Care Education/Training Program; Visit Provider Student in an Organized Health Care Education/Training Program
DX: M54.16 Radiculopathy, lumbar region (principal)
CPT/HCPCS: 97113; 97162; 97530

== ENCOUNTER → 2025-02-08 | Outpatient (CLI) | payer OTHER, SELFPAY ==
--- NOTE | 2025-02-08 11:00 | BI_ITS ---
EXAM: SCRN MAMM (CAD)W/ELIJAH BILAT DATE: 02/08/2025 CLINICAL HISTORY: F, Age 59 y/o , SCREENING MAMMOGRAM TECHNIQUE: Procedure Code: [id number] Modality: MG Procedure: SCRN MAMM (CAD)W/ELIJAH BILAT COMPARISON: Prior exam(s) were compared FINDINGS: TISSUE DENSITY: There are scattered areas of fibroglandular density. Bilateral Breast Mammographic Findings: No significant masses, calcifications or other abnormalities are identified. BI/SCRN MAMM (CAD)W/ELIJAH BILAT IMPRESSION: No mammographic evidence of malignancy. OVERALL FINAL ASSESSMENT BI-RADS 1: NEGATIVE. RECOMMENDATION: Routine annual follow-up in 1 Year Additional Recommendation none A letter with findings and recommendations will be mailed to the patient. Reading Location: [id number]
== END | disposition home or self-care (01) ==
LOC: OPBI 10:51
PROVIDERS: PCP Nurse Practitioner Family; Referring Provider Obstetrics & Gynecology; Visit Provider Obstetrics & Gynecology
DX: Z12.31 Encounter for screening mammogram for malignant neoplasm of breast (principal)
CPT/HCPCS: 77063; 77067